=== PATIENT | female | born 1965 | race Caucasian/White ===

== ENCOUNTER 2020-10-29 11:23 | Emergency (ER) | payer OTHER, SELFPAY ==
--- NOTE | ~2020-10-29 | XR_ITS ---
XR ribs RT 2V w CXR 2V DATE: 10/29/2020 14:01 INDICATION: Upper lateral right rib pain after a fall TECHNIQUE: PA and lateral chest. 3 views of the right ribs. COMPARISON: None FINDINGS: Normal heart size. No hilar or mediastinal enlargement. No pulmonary infiltrate or consolid ation, pleural effusion or pulmonary vascular congestion or pneumothorax. No right rib fracture or bone destruction. Degenerative spurring of the thoracic spine. IMPRESSION: No active cardiopulmonary disease No right rib fracture is detected Reviewed, dictated and finalized at location B.
[2020-10-29 11:59] VITALS: BP 115/82; PULSE 81; RESP 18; TEMP 36.5; O2SAT 96
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
[2020-10-29 14:23] VITALS: BP 108/70; PULSE 76; RESP 12; O2SAT 99
== END 2020-10-29 14:23 | disposition home or self-care (01) ==
PROVIDERS: Emergency Provider General Practice; PCP Nurse Practitioner
DX: S29.012A Strain of muscle and tendon of back wall of thorax, initial encounter (principal); E03.9 Hypothyroidism, unspecified; G80.9 Cerebral palsy, unspecified; M19.90 Unspecified osteoarthritis, unspecified site; E78.2 Mixed hyperlipidemia; W18.09XA Striking against other object with subsequent fall, initial encounter
CPT/HCPCS: 71046; 71100; 99283

== ENCOUNTER 2020-11-26 11:00 | Outpatient (RCR) | payer OTHER, SELFPAY ==
--- NOTE | 2020-10-26 10:29 | PTOPEVAL ---
PHYSICAL THERAPY EVALUATION Thank you for referring Domingo Brumfield to [facility].? Domingo was evaluated for the dx of frequent falls/balance deficits. The patient is scheduled to be seen for therapy? 2 x/week for 4 weeks. Please review, sign, date and return this plan of care BIBI. I agree with and certify that the following plan of care is medically necessary. Referring Physician Date Attending Provider: Neena Biggs NP Referring Provider: Neena Biggs NP *PT Outpatient Evaluation Start: 10/26/20 09:11 Freq: Status: Active Protocol: Document 10/26/20 09:11 MLV (Rec: 10/26/20 10:18 MLV [id number]) Assessment Status Evaluation Evaluation Information Problem Diagnosis repeated falls/cerebral palsy Onset chronic Cause no injury but frequent falls Additional Evaluation Detail Patient reports having an increased frequency of falls and the last fall caused facial and torso bruising ( last Thursday). Patient feels her balance has declined slowly since ECT treatments for depression and worse balance in the last year. The patient had not used a device until last fall and now using a cane per MD request. The patient lives at home with her and is now retired. The patient does housework, does shopping, and rides her 3 wheel bike. The patient wants therapy to help her balance so to be at less fall risk. Pain Assessment Timing of Pain Assessment Timing of Pain Assessment Assessment Pain Scale Pain Scale Used Numeric (1 - 10) Self Report Pain Assessment Right Ribs Reported Pain Level 5 Pain Description Aching Pain Frequency Acute Other Pain Description pain from fall/bruising Greatest Pain Intensity 8 Pain Score Pain Score 5: Self Report Interventions Used Interventions Used By Clinicians Education,Exercise Pain Relief Interventions Used By Heat,Ice,Inactivity/Rest Patient Lower Extremity Range of Motion General Lower Extremity Range of Motion Reason Not Measured WNL/Left,WNL/Right Gross Lower Extremity Range of Motion servando ankle DF 0-5' motion Comments Lower Extremity Muscle Strength Testing General Lower Extremity Strength Reason Not Measured
--- NOTE | 2020-10-29 11:07 | PCPTNOTE ---
Patient called & cancelled scheduled appointment this date due to conflict with another appt. Patient plans to be here for next scheduled appt.
--- NOTE | 2020-11-15 14:09 | PCPTNOTE ---
Patient did not show up for scheduled appointment this date. Called and she said she looked at the wrong date.
--- NOTE | 2020-11-26 14:50 | PTOPEVAL ---
PHYSICAL THERAPY DISCHARGE Thank you for referring Domingo Brumfield to [facility].? The patient has been seen 7 visits for the dx of repeated falls/CP. The patient's goals are partially met and skilled PT has peaked at this time. DC PT. Please review, sign, date and return this plan of care. I agree with and certify the following plan of care. Referring Physician Date Attending Provider: Neena Biggs NP Referring Provider: Neena Biggs NP *PT Outpatient Discharge Start: 10/26/20 09:11 Freq: Status: Active Protocol: Document 11/26/20 11:08 MLV (Rec: 11/26/20 12:07 MLV [id number]) Therapy Assessment Status Assessment Status Assessment Status Discharge Evaluation Information Problem Diagnosis repeated falls/cerebral palsy Onset chronic Cause no injury but frequent falls Additional Evaluation Detail The patient reports her balance feeling better and has fallen a couple times w/o injury. She feels her falls are not more than her usual due to CP issues. Pt feels her balance is as good as it can get. Pt denies trouble with her current HEP and can continue on her own. Pt reports the cane is working well for her and uses it regularly w/o trouble. Subjective Information Pt does not currently does not Query Text:As Reported By Patient/ have an MD appt but will be Family scheduling an appt. Pain Assessment Timing of Pain Assessment Timing of Pain Assessment Assessment Pain Scale Pain Scale Used Numeric (1 - 10) Self Report Pain Assessment Right Ribs Reported Pain Level 0 Pain Score Pain Score 0: Self Report Lower Extremity Muscle Strength Testing General Lower Extremity Strength Gross Lower Extremity Strength LE strength through motion 4/5 to 4-/5 at [facility]. CHAN's Balance Assessment Conde Balance Assessment Sitting to Standing Independent w/Hands Unsupported Stance Ability Safely- 2 minutes Sitting Unsupported, Feet on Floor Safely- 2 minutes Standing to Sitting Safely, Minimal Hand Use Transfer Ability Safely, Minimal Hand Use Unsupported Stance- Eyes Closed Safely, 10 seconds Unsupported Stance- Feet Together Independent, 1 minute Reaching Forward while Standing Safely, 5 inches supervisor mill Object From Floor Independent/Safe Look Behind Shoulder - Standing Shifts Weight Well Turning 360 Degrees Turns Bilateral, < 4 secs Unsu
== END 2020-11-27 08:10 | disposition home or self-care (01) ==
LOC: ANHPT 11:00
PROVIDERS: PCP Nurse Practitioner; Referring Provider Nurse Practitioner; Visit Provider Nurse Practitioner
DX: R29.6 Repeated falls (principal)
CPT/HCPCS: 97110; 97116; 97162; 97530

== ENCOUNTER 2020-11-26 12:04 | Emergency (ER) | payer OTHER, SELFPAY ==
--- NOTE | ~2020-11-26 | XR_ITS ---
EXAMINATION: XR shoulder LT min 2V DATE: 11/26/2020 13:00 INDICATION: Left shoulder pain. TECHNIQUE: 5 views of left shoulder were obtained. COMPARISON: None. FINDINGS: Bone alignment is normal. No fracture. There is mild osteoarthritis of the acromioclavicula r joint and glenohumeral joint. IMPRESSION: 1. Mild polyarticular osteoarthritis. Reviewed, dictated and finalized at location B.
[2020-11-26 12:12] VITALS: BP 134/90; PULSE 81; RESP 18; TEMP 36.6; O2SAT 94
--- NOTE | 2020-11-26 13:12 | ED.GENADULT ---
HPI - General Adult General Chief complaint: Fall Stated complaint: fall Time Seen by Provider: 11/26/20 12:11 Source: patient History of Present Illness HPI narrative: Patient is a 55 y/o female complaining of left shoulder pain after a fall one hour ago. She states that she was at therapy and fell. She was getting therapy for balance problem due to CP. She describes her pain as aching and rates it as 4/10. Movement worsens the pain. She denies hitting her head. She has no headache, neck pain, back pain, chest pain or abdominal pain. Related Data Allergies Allergy/AdvReac Type Severity Reaction Status Date / Time simvastatin Allergy Unknown Muscle pain Verified 10/22/20 15:16 Mlzynrx-Eig-Bfi Reductase Allergy Unknown Muscle Pain Verified 10/22/20 15:16 Inhibitor Sulfa (Sulfonamide Allergy Unknown Hives Verified 10/22/20 15:16 Antibiotics) Review of Systems Constitutional: Constitutional: Denies chills, Denies fever(s), Denies headache(s) and Denies weakness Eyes: Eyes: Denies blurry vision ENT: Denies headache(s) and Denies neck pain Cardiovascular: Cardiovascular: Denies chest pain and Denies dyspnea Respiratory: Respiratory: Denies cough and Denies dyspnea Gastrointestinal: Gastrointestinal: Denies abdominal pain, Denies diarrhea, Denies nausea and Denies vomiting Genitourinary: Genitourinary: Denies hematuria and Denies dysuria Musculoskeletal: Musculoskeletal: Denies back pain, Reports arthralgias (left shoulder pain) and Denies neck pain Neurologic: Denies headache(s) and Denies weakness [facility] Past Medical History Medical History Adult hypothyroidism Cerebral palsy Chronic osteoarthritis Combined hyperlipidemia Depressive disorder, not elsewhere classified Family History Family History Mother Family history of elevated blood lipids Family history of arthritis Father Family history of diabetes mellitus in first degree relative Family history of heart disease in male family member before age 55 Other Diabetes mellitus Family history of coronary artery disease Social History Social History Smoking status: Never smoker Alcohol intake: never Gender identity (if verbalized by the patient): Female Exam Const: General: no acute distress and well developed Orientation/consciousness: oriented to person, oriented to place, oriented to time and patient oriented x3 HENMT: Head: normocephalic Ears: external ears normal General nose exam: Normal external nose present Eyes: General: appearance normal, both eyes and all related structures Conjunctivae: conjunctivae normal Neck: Neck: normal visual inspection and full ROM Chest: Chest palpation & inspection: normal inspection of the chest and no tenderness Resp: Effort & Inspection: normal respiratory effort Auscultation: clear to auscultation bilaterally Cardio: Rate: regular rate Rhythm: regular rhythm GI: GI Palp: No abdominal tenderness and Yes Soft to palpation Skin: General skin exam: normal color and turgor normal Neuro: General: oriented to person, oriented to place, oriented to time and patient oriented x3 Cognition (Neuro): normal cognition Extrem: General: normal to inspection, full ROM and no pedal edema Left upper extremity: shoulder/upper arm tenderness (left shoulder) Psych: Appearance: grossly normal Mental Status: mental status grossly normal Affect: normal affect Course Vital Signs Vital signs: Vital Signs Temperature 36.6 C 11/26/20 12:12 Pulse Rate 81 11/26/20 12:12 Respiratory Rate 18 11/26/20 12:12 Blood Pressure 134/90 11/26/20 12:12 Pulse Oximetry 94 11/26/20 12:12 Temperature 36.6 C 11/26/20 12:12 Pulse Rate 81 11/26/20 12:12 Respiratory Rate 18 11/26/20 12:12 Blood Pressure 134/90 11/26/20 12:12 Pulse Oxi
== END 2020-11-26 13:56 | disposition home or self-care (01) ==
LOC: ANHED 13:45
PROVIDERS: Emergency Provider Emergency Medicine; PCP Nurse Practitioner
DX: M25.512 Pain in left shoulder (principal); G80.9 Cerebral palsy, unspecified; E03.9 Hypothyroidism, unspecified; E78.2 Mixed hyperlipidemia; M19.012 Primary osteoarthritis, left shoulder; W01.0XXA Fall on same level from slipping, tripping and stumbling without subsequent striking against object, initial encounter
CPT/HCPCS: 73030; 99283; A4565

== ENCOUNTER → 2021-07-08 10:32 | Outpatient (CLI) | payer OTHER, SELFPAY ==
--- NOTE | ~2021-07-08 | MM_ITS ---
EXAMINATION: MM screening brigid BI w jose miguel HISTORY: Screening mammogram TECHNIQUE: Craniocaudal and mediolateral oblique 3-D tomosynthesis images were obtained and synthetic 2-D images were generated. Bilateral rotated lateral cc views. CAD analysis was submitted and interp reted. COMPARISON: , 07/16/2015 bilateral screening mammogram examinations BREAST PARENCHYMAL COMPOSITION: There are scattered areas of fibroglandular density. FINDINGS: Stable mild fibroglandular asymmetry. There is no evidence of suspicious mass, calcificatio n, or architectural distortion to suggest malignancy in either breast. There has been no suspicious i nterval change. IMPRESSION: 1. No mammographic evidence of malignancy. 2. Recommend routine screening mammography in one year. BI-RADS Category 2: Benign finding(s). Reviewed, dictated and finalized at location A. ION BEAMER
== END ==
PROVIDERS: PCP Nurse Practitioner; Visit Provider Obstetrics & Gynecology
DX: Z12.31 Encounter for screening mammogram for malignant neoplasm of breast (principal)
CPT/HCPCS: 77063; 77067

== ENCOUNTER → 2022-07-25 12:34 | Outpatient (CLI) | payer OTHER, SELFPAY ==
--- NOTE | ~2022-07-25 | MM_ITS ---
EXAMINATION: MM screening brigid BI w jose miguel HISTORY: Screening TECHNIQUE: Craniocaudal and mediolateral oblique 3-D tomosynthesis images were obtained and synthetic 2-D images were generated. CAD analysis was submitted and interpreted. COMPARISON: Comparison to multiple prior studies sequentially, with oldest reviewed study dated 02/2015. BREAST PARENCHYMAL COMPOSITION: There are scattered areas of fibroglandular density. FINDINGS: The left breast is stable without evidence for malignancy. There is a new focal asymmetry c entrally in the right breast on CC view. IMPRESSION: 1. New focal right breast asymmetry centrally in the right breast on CC view only. 2. Additional mammographic views and possible breast ultrasound are recommended. BI-RADS Category 0: Incomplete: Needs additional imaging evaluation. Reviewed, dictated and finalized at location B. ERNITY ADVISER IMPRESSION: 1. New focal right breast asymmetry centrally in the right breast on CC view on ly. 2. Additional mammographic views and possible breast ultrasound are recommended . BI-RADS Category 0: Incomplete: Needs additional imaging evaluation.
== END ==
PROVIDERS: PCP Nurse Practitioner; Visit Provider Obstetrics & Gynecology
DX: Z12.31 Encounter for screening mammogram for malignant neoplasm of breast (principal); R92.8 Other abnormal and inconclusive findings on diagnostic imaging of breast
CPT/HCPCS: 77063; 77067

== ENCOUNTER → 2022-09-25 11:20 | Outpatient (CLI) | payer OTHER, SELFPAY ==
--- NOTE | ~2022-09-25 | XR_ITS ---
EXAMINATION: XR knee RT min 4V DATE: 09/25/2022 11:49 INDICATION: Right knee pain TECHNIQUE: Four views of the right knee were obtained. COMPARISON: 11/07/2014 FINDINGS: Alignment is normal. No fracture or osteochondral lesion. There is moderate tricompartmenta l osteoarthritis characterized by marginal osteophytes and joint space narrowing with interval worsen ing. No joint effusion/synovitis. Soft tissues are unremarkable. IMPRESSION: 1. Tricompartmental osteoarthritis with interval worsening since the comparison examination. Reviewed, dictated and finalized at location A. PHONE INSTRUMENT SUPERVISOR
== END ==
PROVIDERS: PCP Nurse Practitioner; Visit Provider Nurse Practitioner
DX: M17.11 Unilateral primary osteoarthritis, right knee (principal)
CPT/HCPCS: 73564

== ENCOUNTER → 2022-10-07 08:03 | Outpatient (CLI) | payer OTHER, SELFPAY ==
--- NOTE | ~2022-10-07 | MMUS_ITS ---
EXAMINATION: MM diagnostic brigid RT w jose miguel, US breast RT complete HISTORY: New focal right breast asymmetry in central right breast on screening craniocaudal view of 1 09/25/2021 TECHNIQUE: Additional 3-D tomosynthesis images of the right breast were performed and synthetic 2-D i mages were generated. CAD analysis was submitted and interpreted. Old medial and lateral craniocaudal views. High resolution complete right breast ultrasound examination including all 4 quadrants and payne bareolar area was performed. COMPARISON: 07/25/2022 bilateral screening mammogram FINDINGS: MAMMOGRAPHIC FINDINGS: There is heterogeneous dense stroma in the area of interest in the central right breast. No reproduci ble mass is evident on multiple views, but the heterogeneously dense stroma may obscure a mass. Ultra sound was therefore performed. ULTRASOUND: Real-time imaging of the complete right breast reveals no suspicious mass or shadowing, cyst or other significant sonographic abnormality. IMPRESSION: 1. No mammographic evidence of malignancy 2. Routine annual mammographic screening is recommended. BI-RADS Category 1: Negative Reviewed, dictated and finalized at location A. ERY MATER IMPRESSION: 1. No mammographic evidence of malignancy 2. Routine annual mammographic screening is recommended. BI-RADS Category 1: Negative
== END ==
PROVIDERS: PCP Obstetrics & Gynecology; Visit Provider Obstetrics & Gynecology
DX: R92.8 Other abnormal and inconclusive findings on diagnostic imaging of breast (principal)
CPT/HCPCS: 76641; 77061; 77065; G0279

== ENCOUNTER → 2023-02-17 08:46 | Outpatient (CLI) | payer OTHER, SELFPAY ==
--- NOTE | ~2023-02-17 | CT_ITS ---
EXAMINATION: CT lumbar spine wo con DATE: 02/17/2023 09:16 INDICATION: Unspecified osteoarthritis, unspecified site. Degeneration of intervertebral discs. TECHNIQUE: Computed tomography (CT) of the lumbar spine was performed without intravenous contrast. A utomated exposure control and iterative reconstruction technique were employed. The dose-length produ ct was 383.11 mGy-cm. COMPARISON: None FINDINGS: There is an electrode in left S3 neural foramen. There is 7 degrees dextrocurvature of thor acolumbar spine. There is 3 mm retrolisthesis of L1 on L2. Vertebral body heights are normal. There i s moderately decreased disc height at L1-L2 and severely decreased disc height at L5-S1 with endplate remodeling. The following disc levels are specifically discussed: L1-L2: The disc is bulging. There is mild bilateral facet joint osteoarthritis. There is mild bilater al neural foraminal stenosis. There is mild central canal stenosis. L2-L3: The disc does not extend beyond the endplate margin. There is mild bilateral facet joint osteo arthritis. There is no neural foraminal stenosis. There is no central canal stenosis. L3-L4: The disc is bulging. There is moderate right and severe left facet joint osteoarthritis. There is mild bilateral neural foraminal stenosis. There is mild central canal stenosis. L4-L5: The disc is bulging. There is severe bilateral facet joint osteoarthritis. There is mild right and moderate left neural foraminal stenosis. There is mild central canal stenosis. L5-S1: The disc is bulging. There is severe right and moderate left facet joint osteoarthritis. There is moderate bilateral neural foraminal stenosis. There is mild central canal stenosis. IMPRESSION: 1. Severe lumbar spondylosis. Reviewed, dictated and finalized at location E.
== END ==
PROVIDERS: PCP Nurse Practitioner Family; Visit Provider Nurse Practitioner Family
DX: M19.90 Unspecified osteoarthritis, unspecified site (principal); M47.896 Other spondylosis, lumbar region
CPT/HCPCS: 72131

== ENCOUNTER 2023-08-24 10:07 | Outpatient (CLI) | payer OTHER, SELFPAY ==
--- NOTE | 2023-08-24 11:03 | ECG_ITS ---
Measurements Intervals [place] Rate: 83 P: 32 MI: 139 QRS: 50 QRSD: 82 T: 24 QT: 348 QTc: 410 Interpretive Statements SINUS RHYTHM BASELINE ARTIFACT- I, II, III, AVR, AVL, AVF, V1-V6 NORMAL ECG NO PREVIOUS ECG AVAILABLE FOR COMPARISON Electronically Signed On 08-24-2023 11:20:57 STRAIGHT RULING MACHINE OPERATOR by Xavier Garcia D.O.
[2023-08-24 11:32] LABS: White Blood Count 6.9 K/mm3 (4.5-10.0)
[2023-08-24 11:40] LABS: Albumin Level 4.7 g/dL (3.5-5.1)
[2023-08-24 11:42] LABS: Urine Cotinine NEGATIVE
[2023-08-24 11:43] LABS: INR 0.9; Prothrombin Time 12.5 Seconds (11.1-14.7)
[2023-08-24 11:44] LABS: Partial Thromboplastin Time 26.1 SECONDS (22.3-36.8)
[2023-08-24 13:32] LABS: Hemoglobin A1C 6.2 % (<5.7)
== END 2023-08-24 10:08 | disposition home or self-care (01) ==
LOC: ANHSURGERY 10:15
PROVIDERS: PCP Family Medicine; Visit Provider Orthopaedic Surgery
DX: M17.9 Osteoarthritis of knee, unspecified (principal); D72.829 Elevated white blood cell count, unspecified; Z01.818 Encounter for other preprocedural examination
CPT/HCPCS: 80307; 82040; 83036; 85048; 85610; 85730; 87081; 93005

== ENCOUNTER 2023-10-09 09:37 | Outpatient (CLI) | payer MEDICARE, SELFPAY ==
[2023-10-09 10:25] LABS: Basophils Absolute Auto 0.1 K/mm3 (0.0-0.1); Basophils Percent Auto 1.1 % (0.2-1.2); Eosinophils Absolute Auto 0.5 K/mm3 (0-0.3); Eosinophils Percent Auto 4.8 % (0-4.4); Hematocrit 44.5 % (37.0-47.0); Hemoglobin 14.5 g/dL (12.0-15.0); Immature Granulocyte Absolute 0.06 K/mm3 (0.00-0.031); Immature Granulocyte Percent A 0.6 % (0-0.5); Lymphocytes Absolute Auto 2.27 K/mm3 (0.9-3.2); Lymphocytes Percent Auto 24.1 % (18.3-44.2); Mean Corpuscular HGB Conc 32.6 g/dl (32-36); Mean Corpuscular Hemoglobin 31.3 pg (26-34); Mean Corpuscular Volume 95.9 fl (80-100); Mean Platelet Volume 9.1 fl (7.4-10.4); Monocytes Absolute Auto 0.9 K/mm3 (0.1-0.6); Monocytes Percent Auto 9.9 % (2.6-8.5); Neutrophils Absolute Auto 5.6 K/mm3 (1.3-6.7); Neutrophils Percent Auto 59.5 % (45.5-73.1); Platelet Count Result 342 k/mm3 (150-375); Red Blood Count 4.64 M/mm3 (4.2-5.4); Red Cell Distribution Width 12.6 % (11.5-14.5); White Blood Count 9.4 K/mm3 (4.5-10.0)
[2023-10-09 10:28] LABS: Appearance Urine Clear (Clear); Bacteria Urine None Seen /hpf; Bilirubin Urine Negative (Negative); Blood Urine Negative (Negative); Color Urine Yellow (Yellow); Glucose Urine UA Negative (Negative); Ketones Urine Negative (Negative); Leukocyte Esterase Ur Trace LEU/UL (Negative); Nitrate Urine Negative (Negative); Non Pathogenic Casts 0-2; Protein Urine Negative (Negative); RBC Urine 0-2 /hpf (0-2); Specific Grav Ur 1.027 (1.001-1.035); Squamous Epithelial Cell Urine Occasional /hpf (Few); WBC Urine 0-5 /hpf
[2023-10-09 10:30] LABS: Add Urine Microscopic? YES
[2023-10-09 10:49] LABS: Anion Gap 6 mmol/L (8-16); Blood Urea Nitrogen 29 mg/dL (7-17); Calcium 9.3 mg/dL (8.4-10.2); Carbon Dioxide 28 mmol/L (22-30); Chloride 102 mmol/L (98-107); Estimated Glomerular Filt Rate > 60; Glucose 87 mg/dL (65-110); Sodium 136 mmol/L (137-145)
== END 2023-10-09 09:38 | disposition home or self-care (01) ==
PROVIDERS: PCP Family Medicine; Visit Provider Orthopaedic Surgery
DX: M17.11 Unilateral primary osteoarthritis, right knee (principal); Z01.818 Encounter for other preprocedural examination
CPT/HCPCS: 36415; 80048; 81001; 85025; 86850; 86900; 86901

== ENCOUNTER 2023-10-14 14:41 | Inpatient (IN) | payer MEDICARE, OTHER, SELFPAY ==
[2023-08-24 09:35] VITALS: BP 108/76; PULSE 88; RESP 18; TEMP 36.6; O2SAT 98; BMI 25.7
--- NOTE | 2023-08-24 09:36 | PC.NURSE ---
PRE-OP INSTRUCTIONS, PLEASE READ CAREFULLY Report to the Outpatient Waiting Room, entrance under the green pavilion located off [facility], at time _0900_ on date _09/09/23_. Planned Procedure Time: _1100_. PACK A SMALL OVERNIGHT BAG AND LEAVE IN THE CAR ALONG WITH YOUR WALKER Time changes happen often and if your time is changed the preop area will call you the afternoon before. - You and your visitor will be asked to self-screen and do not enter if you have any COVID symptoms. - A mask is optional within the hospital at this time. -VISITING HOURS 8AM-8PM Patients may have clear liquids (water, carbonated beverages, clear teas, apple juice) until 3 hours prior to surgery (0800 AM) with a maximum of 20 ounces. - No food from midnight until time of surgery Take the following medications with a SIP of water the morning of surgery: _FLUVOXAMINE, LEVOTHYROXINE, PREGABALIN, PROPRANOLOL & PAIN PILL, IF NEEDED_ DO NOT STOP ANY OF YOUR OTHER PRESCRIPTION MEDICATIONS PRIOR TO SURGERY ?EXCEPT THE FOLLOWING Medications to discontinue - _MELOXICAM INSTRUCTED BY DR. MARQUEZ, Date to take last dose_CALL OFFICE FOR INSTRUCTIONS_ Please no make-up, nail iranian, hairspray, perfume, deodorant, or body powder the day of surgery. No jewelry (including any body piercings) or valuables the day of surgery, leave them at home. Please take a shower or bath the night before, or the morning of, surgery with an antibacterial soap. Wear comfortable, loose fitting clothing. - Jewelry must be removed prior to entering the operating room. Rings and piercings that are not removed may be cut off. - The hospital will not accept responsibility for valuables. - Please leave all valuables, including medications, at home the day of surgery. If you are going home after surgery, a licensed motor pool driver must drive you home. - NO public transportation without another adult if you receive anesthesia. - We recommend that an adult stay with you for 24 hours following discharge. - We also recommend that you do not drive, make important decision, drink alcoholic beverages, or take any drugs that were not prescribed by your health care provider for at least 24 hours after your discharge time. Follow any additional instructions given to you from your surgeon. TOTAL JOINT CLASS 08/26/23 @ [address] [place] [address] ENTRANCE 2 - LOWER LEVEL If you or anyone in your household have experienced Covid symptoms in the past week, please notify your surgeon or the nurse liaison at the phone number below for possible testing. Instructions given to _PATIENT_and asked if any additional questions and then verbalized understanding. Patient advised to call surgeon office or pre surgery nurse liaison [phone] if any additional questions.
[2023-10-02 11:24] VITALS: BMI 25.7
--- NOTE | 2023-10-02 11:28 | PC.NURSE ---
PRE-OP INSTRUCTIONS, PLEASE READ CAREFULLY Report to the Outpatient Waiting Room, entrance under the green pavilion located off [facility], at time _0830_ on date _10/14/23_. Planned Procedure Time: _1030_. Time changes happen often and if your time is changed the preop area will call you the afternoon before. - You and your visitor will be asked to self-screen and do not enter if you have any COVID symptoms. - A mask is optional within the hospital at this time. Patients may have clear liquids (water, carbonated beverages, clear teas, apple juice) until 3 hours prior to surgery (0730 AM) with a maximum of 20 ounces. - No food from midnight until time of surgery Take the following medications with a SIP of water the morning of surgery: _FLUVOXAMINE,LEVOTHYROXINE,PREGABALIN,PROPRANOLOL, & PAIN PILL IF NEEDED_ DO NOT STOP ANY OF YOUR OTHER PRESCRIPTION MEDICATIONS PRIOR TO SURGERY ?EXCEPT THE FOLLOWING Medications to discontinue - _MELOXICAM PER DR. RAYMOND'S INSTRUCTIONS_ Please no make-up, nail croatian, hairspray, perfume, deodorant, or body powder the day of surgery. No jewelry (including any body piercings) or valuables the day of surgery, leave them at home. Please take a shower or bath the night before, or the morning of, surgery with an antibacterial soap. Wear comfortable, loose fitting clothing. - Jewelry must be removed prior to entering the operating room. Rings and piercings that are not removed may be cut off. - The hospital will not accept responsibility for valuables. - Please leave all valuables, including medications, at home the day of surgery. If you are going home after surgery, a licensed special events driver must drive you home. - NO public transportation without another adult if you receive anesthesia. - We recommend that an adult stay with you for 24 hours following discharge. - We also recommend that you do not drive, make important decision, drink alcoholic beverages, or take any drugs that were not prescribed by your health care provider for at least 24 hours after your discharge time. Follow any additional instructions given to you from your surgeon. If you or anyone in your household have experienced Covid symptoms in the past week, please notify your surgeon or the nurse liaison at the phone number below for possible testing. Telephone instructions given to _PATIENT_and asked if any additional questions and then verbalized understanding. Patient advised to call surgeon office or pre surgery nurse liaison [phone] if any additional questions.
--- NOTE | 2023-10-13 14:53 | WPDANESEPPF ---
Anes - Initial Pre Proc Eval Procedure: Operation Date: 10/14/23 10:30 Proposed Procedures p Right Total Knee Arthroplasty - Rich Gonzalez MD Date/Time: 10/13/23 14:53 Surgeon: Rich Gonzalez MD Pre Op Diagnosis: right knee djd Patient Data Age: 58 Gender: F Height: 1.56 m Weight: 62.9 kg Last Vital Signs Temp 36.6 C 08/24/23 09:35 Pulse 88 08/24/23 09:35 Resp 18 08/24/23 09:35 BP 108/76 08/24/23 09:35 Pulse Ox 98 08/24/23 09:35 O2 Del Method Room Air 08/24/23 09:35 Allergies Allergy/AdvReac Type Severity Reaction Status Date / Time simvastatin Allergy Unknown Muscle pain Verified 10/14/23 09:32 Cindqrf-ZQG-IqX Reductase Allergy Unknown Muscle Pain Verified 10/14/23 09:32 Inhibitor [Eqpkhxl-Rrj-Czd Reductase Inhibitor] Sulfa (Sulfonamide Allergy Unknown Hives Verified 10/14/23 09:32 Antibiotics) Home Medications Medication Instructions Recorded Confirmed Type fluvoxamine 50 mg tablet 50 mg PO DAILY #270 tabs 10/18/20 10/14/23 Rx propranolol 20 mg tablet 20 mg PO DAILY #90 tabs 10/18/20 10/14/23 Rx levothyroxine 88 mcg tablet 88 mcg PO DAILY #90 tabs 03/30/23 10/14/23 Rx (Synthroid) ezetimibe 10 mg tablet 10 mg PO DAILY #90 tabs 04/29/23 10/02/23 Rx cyclobenzaprine 10 mg tablet 10 mg TID PRN MUSCLE SPASMS 08/24/23 10/02/23 History loratadine 10 mg tablet (Claritin) 10 mg PO DAILY 08/24/23 10/14/23 History melatonin 10 mg tablet 10 mg PO HS PRN Sleep 08/24/23 10/02/23 History pregabalin 50 mg capsule 50 mg BID 08/24/23 10/14/23 History pregabalin 150 mg capsule 150 mg PO BID #180 caps 09/24/23 10/14/23 Rx chlorhexidine gluconate 4 % 1 applic topical ONCE #237 mL 09/30/23 10/02/23 Rx topical liquid (Hibiclens) Patient hx anesthesia problems: none Family hx anesthesia problems: none Results Review: All pre-operative results and documents have been reviewed as part of the pre-operative evaluation. [facility] Past Medical History Medical History Adult hypothyroidism Cerebral palsy Chronic osteoarthritis Combined hyperlipidemia DDD (degenerative disc disease) Degenerative joint disease of knee Depressive disorder, not elsewhere classified Effusion of knee joint Left knee DJD Right knee DJD Surgical History Surgical History H/O knee surgery History of appendectomy Family History Family History Mother Family history of elevated blood lipids Family history of arthritis Multiple myeloma Father Family history of diabetes mellitus in first degree relative Family history of heart disease in male family member before age 55 Other Diabetes mellitus Family history of coronary artery disease Social History Social History Social History: Caffeine-iced tea Smoking status: Never smoker Second hand tobacco smoke exposure: No Additional smoking assessment comments: PT DENIES ALL FORMS OF TOBACCO USE Alcohol intake: current Alcohol use details: VERY RARELY - WINE SPECIAL OCCASIONS 1-3X YR Substance use: never Substance use type: does not use Lack of Transportation: No Lack of Food: Never True Current Housing: I Have Housing Concerned About Future Housing: No Difficulty Paying Gas/Electric Bills: No Difficulty Paying for Meds: No Currently Unemployed: No Education: Associate Degree Difficulty w/ Childcare or Family Care: No Living arrangements: with family Additional living arrangements comments: LIVES WITH [employer] [employer] Occupation/Education: retired Gender identity (if verbalized by the patient): Female Sexual Orientation (if Verbalized by the Patient): Straight or Heterosexual Spiritual care concerns: No Agree to blood products: Yes Anes - Eval Final Pre
[2023-10-14] VITALS (15 sets, daily range): BP systolic 88–127; BP diastolic 56–92; PULSE 84–102; RESP 10–20; TEMP 35.9–37.2; O2SAT 93–100
--- NOTE | ~2023-10-14 | XR_ITS ---
EXAMINATION: [id number] DATE: 10/14/2023 13:41 INDICATION: Postoperative evaluation following right total knee arthroplasty. TECHNIQUE: Anteroposterior and lateral views of the right knee were obtained. COMPARISON: None. FINDINGS: Right total knee arthroplasty without patellar resurfacing appears well seated and in near anatomic a lignment. No fractures identified. Anterior skin ernst and expected postoperative subcutaneous and intra-articular gas. IMPRESSION: 1. Right total knee arthroplasty, negative for postoperative purposes. Reviewed, dictated and finalized at location A. URE PAINTER
--- NOTE | 2023-10-14 07:21 | WPDHPUPDATE1 ---
History and Physical Update Update Date/Time: 10/14/23 07:21 History and Physical has been reviewed, including an updated exam of the patient. There are NO changes in the patient's condition. Risks, benefits, and alternatives have been discussed and questions answered. Patient agrees to proceed with procedure.
[2023-10-14] MEDS: LACTATED RINGERS 1,000 ML 30 ML IV CONT ×2 (09:00→13:06)
[2023-10-14] MEDS: ACETAMINOPHEN 500 MG TABLET 1000 MG PO (09:40)
[2023-10-14] MEDS: TRANEXAMIC ACID 1,000MG/ISO100 1,000 MG/100 ML BAG 200 MG IVPB (10:30)
--- NOTE | 2023-10-14 10:39 | WPDANESPNB ---
Anes - Peripheral Nerve Block Date/Time: 10/14/23 10:39 I have discussed with the patient/family/POA the placement of a peripheral nerve block for post-operative pain management, including associated risks, benefits, complications, and side effects. Alternative methods of post-operative analgesia were detailed. Questions were solicited and answers provided to the satisfaction of the patient/family/POA. Time-Out: A pre-procedural Time-Out was completed immediately before starting the procedure and confirmed: Patient Identification, Site, Procedure, Patient Position and the Availability of Requisite Equipment. Clinical Indications: Acute post-operative pain management requested by the operative surgeon. Nerve Block Insertion Note Anes-nerve block: adductor canal right Patient position: supine Skin prep: chlorhexidine Needle: 22 gauge, stimulating, insulated echogenic needle. Needle length: 80 mm Technique: ultrasound Injectate: bupivacaine 0.5% with epi 5 mcg/ml (30cc - no epi) Observations: tolerated well Complications: none Procedure start time:: 1031 Procedure end time:: 1034
[2023-10-14] MEDS: ceFAZolin 2 GM/D5W 50 ML 2 GM/50 ML BAG IVPB ×2 (10:58→18:31)
[2023-10-14] MEDS: SODIUM CHLORIDE 0.9% IV 37.7 ML, MORPHINE SULFATE INJ (*CRX) 2 MG, ROPivacaine HCL 1% 2... INFILTRATE (11:26)
[2023-10-14] MEDS: TRANEXAMIC ACID 1,000 MG/10 ML AMPUL 1000 MG IV PUSH (12:16)
--- NOTE | 2023-10-14 12:58 | P.OP_ITS ---
Procedure Note - Detailed Date of Procedure 10/14/23 Pre-op Diagnosis right knee djd Post-op Diagnosis Same Procedure Performed R TKA Surgeon Rich Gonzalez MD Anesthesia General Description of Procedure THE RIGHT KNEE WAS PREPPED AND DRAPED IN THE STERILE FASHION. A MIDLINE SKIN INCISION WAS MADE. A MEDIAL PARAPATELLAR ARTHROTOMY WAS MADE. THE PATELLA WAS EVERTED. AN INTRAMEDULLARY DEYSI WAS PLACED IN THE FEMUR. A DISTAL FEMORAL CUT WAS MADE IN 5 DEGREES OF VALGUS REMOVING APPROXIMATELY 9 MM OF BONE FROM THE DISTAL FEMUR. THE FEMUR WAS SIZED TO 57.5. A 57.5 FEMORAL CUTTING BLOCK WAS PLACED IN 3 DEGREES OF EXTERNAL ROTATION AND IN ALIGNMENT WITH KAILEY'S LINE AND THE TRANSEPICONDYLAR AXIS. ANTERIOR POSTERIOR AND CHAMFER CUTS WERE MADE. THE CUTS WERE EXCELLENT. NEXT AN INTRAMEDULLARY CUTTING GUIDE WAS PLACED IN THE TIBIA. A TRANS TIBIAL CUT WAS MADE ALONG THE LONG AXIS OF THE TIBIA. APPRO XIMATELY 10 MM OF BONE WAS REMOVED FROM THE HIGH SIDE OF THE TIBIA. THE TIBIA WAS THEN PLANED TO A SMOOTH SURFACE. POSTERIOR FEMORAL OSTEOPHYTES WERE REMOVED FROM THE FEMORAL CONDYLES. A 63 TIBIAL TRIAL WAS PLACED IN ALIGNMENT WITH THE 1/3 MEDIAL ASPECT OF THE TIBIAL TUBERCLE. THEN A 57.5 FEMORAL TRIAL COMPONENT WAS PLACED. BOTH HAD EXCELLENT FITS. EVENTUALLY A 10 MM CR POLYETHYLENE TRIAL COMPONENT WAS PLACED. THE KNEE WAS TAKEN THROUGH A RANGE OF MOTION. THE KNEE CAME OUT TO FULL EXTENSION. THERE WAS NO ABNORMAL TILT TO THE PATELLA. THERE WAS GOOD A/P AND VARUS/VALGUS STABILITY. THERE WAS NO EXCESSIVE ROLL BACK WITH FLEXION. THE TRIAL COMPONENTS WERE REMOVED. THEN A 57.5 FEMORAL COMPONENT AND 63 TIBIAL COMPONENT WITH A 10 CR POLYETHYLENE COMPONENT WERE CEMENTED INTO PLACE. ONCE THE CEMENT WAS HARD THE KNEE WAS TAKEN THROUGH A ROM AGAIN AND FOUND TO BE STABLE WITH NO PATELLA TILT NO EXCESSIVE ROLL BACK WITH FLEXION AND GOOD STABILITY WITH COMPLETE AND FULL EXTENSION. THE KNEE WAS IRRIGATED WITH STERILE BETADINE AND WATER FOR ABOUT 3 MINUTES. THE BLEEDERS WERE CAUTERIZED. THE ARTHROTOMY WAS REPAIRED WITH NUMBER 1 VICRYL. THE SUB CUTANEOUS LAYER WITH 2-0 VICRYL AND THE SKIN WITH JIM. THE WOUND WAS WASHED AND A STERILE DRESSING WAS APPLIED. PATIENT WAS EXTUBATED. Estimated Blood Loss -150.0 Pathology None sent Complications No immediate complications Condition Stable Disposition PACU
--- NOTE | 2023-10-14 14:45 | ADMGEN ---
This patient, Domingo Brumfield, was admitted to 3 [facility] Surg Room 320-01. Patient/family oriented to hospital policies and general routines including ID bracelet, bed and alarms, visiting hours, pain management, procedures, bathroom and other care routines, personal items, smoking policy, room service/diet, and visiting hours. Information on how to activate the Rapid Response Team has been discussed. Patient/Family are encouraged to report perceived risks to care and to ask questions if they do not understand what they are told or what they should do.
[2023-10-14] MEDS: KETOROLAC 15 MG/ML VIAL (*BKC) IV PUSH ×2 (16:47→23:25)
[2023-10-14] MEDS: PREGABALIN (*CRX) 75 MG CAPSULE 150 MG PO (16:51)
[2023-10-14] MEDS: SENNA/DOCUSATE SODIUM TABLET 2 TAB PO (16:51)
[2023-10-14] MEDS: FAMOTIDINE 20 MG TABLET PO (20:12)
[2023-10-14] MEDS: ASPIRIN 325 MG ENTERIC TABLET PO (20:12)
[2023-10-14] MEDS: oxyCODONE/ACETAMINOPHEN (*CRX) 5-325 MG TABLET 2 TABLET PO (20:13)
[2023-10-15 00:21] VITALS: BP 114/72; PULSE 100; RESP 18; TEMP 36.5; O2SAT 92
[2023-10-15] MEDS: ceFAZolin 2 GM/D5W 50 ML 2 GM/50 ML BAG IVPB ×2 (03:47→11:36)
[2023-10-15 04:19] VITALS: BP 119/80; PULSE 99; RESP 18; TEMP 36.9; O2SAT 94
[2023-10-15] MEDS: KETOROLAC 15 MG/ML VIAL (*BKC) IV PUSH ×3 (05:30→18:00)
[2023-10-15] MEDS: LEVOTHYROXINE SODIUM 88 MCG TABLET PO (05:31)
[2023-10-15 06:42] LABS: Hematocrit 34.6 % (37.0-47.0); Hemoglobin 11.4 g/dL (12.0-15.0); Mean Corpuscular HGB Conc 32.9 g/dl (32-36); Mean Corpuscular Hemoglobin 31.6 pg (26-34); Mean Corpuscular Volume 95.8 fl (80-100); Mean Platelet Volume 8.9 fl (7.4-10.4); Platelet Count Result 279 k/mm3 (150-375); Red Blood Count 3.61 M/mm3 (4.2-5.4); Red Cell Distribution Width 12.9 % (11.5-14.5); White Blood Count 21.2 K/mm3 (4.5-10.0)
[2023-10-15 06:50] LABS: Anion Gap 2 mmol/L (8-16); Blood Urea Nitrogen 17 mg/dL (7-17); Calcium 8.7 mg/dL (8.4-10.2); Carbon Dioxide 29 mmol/L (22-30); Chloride 103 mmol/L (98-107); Estimated CRCL calculation 67 ml/min; Estimated Glomerular Filt Rate > 60; Glucose 125 mg/dL (65-110); Potassium 4.3 mmol/L (3.4-5.0); Sodium 134 mmol/L (137-145)
[2023-10-15 07:34] LABS: Band Neutrophils Percent 8 % (0-6); Basophils Absolute Manual 0.21 K/mm3 (0.0-0.1); Basophils Percent Manual 1 % (0-1); Lymphocytes Absolute Manual 1.48 K/mm3 (1.1-4.5); Monocytes Absolute Manual 0.63 K/mm3 (0.1-0.90); Monocytes Percent Manual 3 % (3-9); Neutrophils Absolute Manual 18.86 K/mm3 (1.7-7.2); Neutrophils Percent Manual 81 % (46-73); Platelet Estimate Adequate (Adequate); Schistocytes None Seen (NORMAL); Total Cells Counted 100
--- NOTE | 2023-10-15 08:59 | P.PNAN_ITS ---
Anes - Prog Note Post-Op Date/Time: 10/15/23 08:59 Cardiovascular status: normal Respiratory status: normal Airway patency: baseline Mental status: baseline Post-Op hydration status: normal Vital Signs: Last Vital Signs Temp 36.9 C 10/15/23 04:19 Pulse 99 10/15/23 04:19 Resp 18 10/15/23 04:19 BP 119/80 10/15/23 04:19 Pulse Ox 94 10/15/23 04:19 O2 Del Method Nasal Cannula 10/14/23 15:57 O2 Flow Rate 2 10/14/23 15:57 Pain Score (VAS): 0 I/O: Intake & Output 10/14/23 10/15/23 10/15/23 23:59 07:59 15:59 Intake Total 840 600 Output Total 1050 400 900 Balance -210 -400 -300 Laboratory Tests 10/15/23 06:29 10/15/23 06:29 10/15/23 06:29 WBC 21.2 H RBC 3.61 L Hgb 11.4 L D Hct 34.6 L MCV 95.8 MCH 31.6 MCHC 32.9 RDW 12.9 Plt Count 279 MPV 8.9 Immature Gran % (Auto) Not Reportable Neut % (Auto) Not Reportable Lymph % (Auto) Not Reportable [place] % (Auto) Not Reportable Eos % (Auto) Not Reportable Baso % (Auto) Not Reportable Lymph # (Auto) Not Reportable [place] # (Auto) Not Reportable Eos # (Auto) Not Reportable Baso # (Auto) Not Reportable Abs Immat Gran (auto) Not Reportable Absolute Neuts (auto) Not Reportable Absolute Nucleated RBC Not Reportable Total Counted 100 Neutrophils % (Manual) 81 H Band Neutrophils % 8 H Lymphocytes % (Manual) 7.0 L Monocytes % (Manual) 3 Basophils % (Manual) 1 Nucleated RBC % Not Reportable Abs Neuts (Manual) 18.86 H Abs Lymphs (Manual) 1.48 Abs Monocytes (Manual) 0.63 Abs Basophils (Manual) 0.21 H Platelet Estimate Adequate Schistocytes None seen Sodium 134 L Potassium 4.3 Chloride 103 Carbon Dioxide 29 Anion Gap 2 L BUN 17 D Creatinine 0.70 Estim Creat Clear Calc 67 Estimated GFR > 60 Glucose 125 H Calcium 8.7 Post-procedural complaints: none Patient Feedback: Patient satisfied with anesthetic care.
--- NOTE | 2023-10-15 09:32 | PM.PNORT ---
Progress Note: A&P Assessment and Plan (1) S/P total knee arthroplasty: Qualifiers: Laterality: right Qualified Code(s): Z96.651 - Presence of right artificial knee joint Code(s): Z96.659 - Presence of unspecified artificial knee joint Status: Acute Assessment and Plan: POD #1 : Right TKA Continue PT/OT. WBAT. Walker. HIGH FALL RISK. Continue pain control. Ice Knee. Protect skin. DVT prophylaxis with Aspirin. SCDs. Incentive Spirometry Use reviewed. Monitor Dressing. Change prior to discharge. Bowel Regimen. Dispo: Home with Home Health pending progress with PT/OT (2) Cerebral palsy: Qualifiers: Cerebral palsy type: unspecified type Qualified Code(s): G80.9 - Cerebral palsy, unspecified Code(s): G80.9 - Cerebral palsy, unspecified Status: Chronic Assessment and Plan: Patient has a history of CP. She has no eversion or dorsiflexion of the right foot at baseline. This is now causing difficulty with her postoperative therapy. She has never worn a brace on either LE. She would benefit from an AFO/Kandi Brace. She would benefit from a custom fabricated one in the fpc but for now, we need a brace to assist with PT/OT. I have contacted the [facility]. Waiting to discuss possibilities with the clinician today for fitting while inpatient. Will place orders pending discussion. HIGH FALL RISK PRECAUTIONS in the interim. D/C darnell catheter when possible. Time Spent With Patient Time: Reviewed history, exam, radiographs and current labs with attending MD and covering surgeon, Dr. Gonzalez, who agrees with current plan as indicated above. No further recommendations from Dr. Gonzalez at this time. Subjective Subjective Date/Time Seen: 10/15/23 09:32 Post Op day: 1 Interval history: POD #1: Right TKA Patient having difficulty with PT/OT due to right foot immobility with eversion and dorsiflexion at baseline. No brace present. Patient does not wear brace at home either. Patient has darnell catheter in place as she is worried about ambulating to the bathroom and did not feel she had enough help overnight. Overall, pain well controlled. Concerns about PT/OT mainly. Review of Systems Review of Systems: All systems reviewed & are unremarkable except as noted in HPI and below Exam Const: General: comfortable and no acute distress Resp: Effort & Inspection: normal respiratory effort Cardio: Rate: regular rate Rhythm: regular rhythm GI: GI Palp: Yes Soft to palpation, No Tenderness to palpation present (GI) and No Guarding due to palpation present (GI) Skin: General skin exam: wounds noted Wounds: wounds noted Other: Incision c/d/i. No surrounding redness/warmth. No hematoma. Mild ecchymosis. No wound dehiscence Neuro: Cognition (Neuro): normal cognition Extrem: General: no clubbing, cyanosis or edema, no pedal edema and muscle atrophy (hx of CP ) of the right lower extremity Right lower extremity: normal to inspection, knee Details: tenderness (diffuse, mild ) Location: of the patella, swelling (diffuse, consistent with surgical intervention ), abnormal ROM Details: pain with active ROM during, pain with passive ROM during and with range as follows (limited due to recent surgical intervention ); able to extend lower leg actively and ecchymosis (mild ), lower leg (Negative Estefani's Sign ) Details: normal to inspection; no erythema and no tenderness, ankle (No eversion/dorsiflexion at baseline. ) Details: abnormal ROM and foot Details: normal capillary refill, normal to inspection, abnormal ROM of toe, vascular exam Details: dorsalis pedis pulse present and motor-sensory exam Details: light-touch normal; no tenderness Left lower extremity: normal to inspection Psych: Mental Status: mental status grossly normal Objective Data Vital Signs Vital Signs: Vital Signs - 24 hr 10/14/23 09:35 10/14/23 13:06 10/14/23 13:20 Temperature 36.6 C 36.7 C
[2023-10-15] MEDS: PROPRANOLOL HCL 20 MG TABLET PO (09:58)
[2023-10-15] MEDS: FAMOTIDINE 20 MG TABLET PO ×2 (09:59→20:18)
[2023-10-15] MEDS: ASPIRIN 325 MG ENTERIC TABLET PO ×2 (09:59→20:18)
[2023-10-15] MEDS: PREGABALIN (*CRX) 75 MG CAPSULE 150 MG PO ×2 (09:59→18:01)
[2023-10-15] MEDS: FLUVOXAMINE 50 MG PO (11:36)
[2023-10-15 12:06] VITALS: BP 103/71; PULSE 97; RESP 18; TEMP 36.3; O2SAT 97
[2023-10-15 16:26] VITALS: BP 107/67; PULSE 94; RESP 18; TEMP 36.6; O2SAT 96
[2023-10-15] MEDS: SENNA/DOCUSATE SODIUM TABLET 2 TAB PO (18:01)
[2023-10-15] MEDS: MELATONIN 5 MG TABLET 10 MG PO (20:18)
[2023-10-15] MEDS: oxyCODONE/ACETAMINOPHEN (*CRX) 5-325 MG TABLET 2 TABLET PO (20:19)
[2023-10-15 21:18] VITALS: BP 95/58; PULSE 101; RESP 21; TEMP 36.2; O2SAT 100
[2023-10-15] MEDS: CYCLOBENZAPRINE HCL 10 MG TABLET BY MOUTH (23:16)
[2023-10-16 06:00] VITALS: BP 110/77; PULSE 98; RESP 20; TEMP 36.6; O2SAT 99
[2023-10-16] MEDS: LEVOTHYROXINE SODIUM 88 MCG TABLET PO (06:39)
[2023-10-16 08:25] VITALS: BP 103/78; PULSE 123; O2SAT 94
[2023-10-16 08:39] VITALS: PULSE 123
[2023-10-16] MEDS: PREGABALIN (*CRX) 75 MG CAPSULE 150 MG PO ×2 (08:39→16:36)
[2023-10-16] MEDS: SENNA/DOCUSATE SODIUM TABLET 2 TAB PO ×2 (08:39→16:35)
[2023-10-16] MEDS: FAMOTIDINE 20 MG TABLET PO (08:39)
[2023-10-16] MEDS: PROPRANOLOL HCL 20 MG TABLET PO (08:39)
[2023-10-16] MEDS: FLUVOXAMINE 50 MG PO (08:40)
[2023-10-16] MEDS: ASPIRIN 325 MG ENTERIC TABLET PO (08:40)
[2023-10-16] MEDS: polyethylene glycoL 3350 17 GM POWD.PACK PO (08:40)
[2023-10-16 09:17] LABS: Basophils Absolute Auto 0.1 K/mm3 (0.0-0.1); Basophils Percent Auto 0.6 % (0.2-1.2); Eosinophils Absolute Auto 0.2 K/mm3 (0-0.3); Eosinophils Percent Auto 1.4 % (0-4.4); Hematocrit 33.8 % (37.0-47.0); Hemoglobin 11.1 g/dL (12.0-15.0); Immature Granulocyte Absolute 0.03 K/mm3 (0.00-0.031); Immature Granulocyte Percent A 0.3 % (0-0.5); Lymphocytes Absolute Auto 1.78 K/mm3 (0.9-3.2); Mean Corpuscular HGB Conc 32.8 g/dl (32-36); Mean Corpuscular Hemoglobin 32.1 pg (26-34); Mean Corpuscular Volume 97.7 fl (80-100); Mean Platelet Volume 9.1 fl (7.4-10.4); Monocytes Absolute Auto 1.2 K/mm3 (0.1-0.6); Monocytes Percent Auto 10.8 % (2.6-8.5); Neutrophils Absolute Auto 7.9 K/mm3 (1.3-6.7); Neutrophils Percent Auto 70.9 % (45.5-73.1); Platelet Count Result 286 k/mm3 (150-375); Red Blood Count 3.46 M/mm3 (4.2-5.4); Red Cell Distribution Width 13.2 % (11.5-14.5); White Blood Count 11.1 K/mm3 (4.5-10.0)
[2023-10-16] MEDS: oxyCODONE/ACETAMINOPHEN (*CRX) 5-325 MG TABLET 2 TABLET PO (09:51)
--- NOTE | 2023-10-16 12:16 | PM.PNORT ---
Progress Note: A&P Assessment and Plan (1) S/P total knee arthroplasty: Qualifiers: Laterality: right Qualified Code(s): Z96.651 - Presence of right artificial knee joint Code(s): Z96.659 - Presence of unspecified artificial knee joint Status: Acute Assessment and Plan: LORNE IS POD 2 AND HAVING SLOW PROGRESS WITH PT DUE TO HER CERBRAL PALSEY SEQUELA TO HER RIGHT FFOT. SHE IS AWAITING A BRACE TO ALLOW HER TO AMBULATE BETTER. SHE WILL STILL REQUIRE ACUTE REHAB AT THE [facility]. HER CEREBRAL PALSEY IS INTERFERING WITH HER PROGRESS WITH HER RIGHT KNEE REPLACEMENT. SHE CAN BE DISCHARGED TO ACUTE REHAB ONCE SHE RECEIVES HER AFO ORTHOTIC. (2) Cerebral palsy: Qualifiers: Cerebral palsy type: unspecified type Qualified Code(s): G80.9 - Cerebral palsy, unspecified Code(s): G80.9 - Cerebral palsy, unspecified Status: Chronic Subjective Subjective Date/Time Seen: 10/16/23 12:16 Interval history: POD 2 DOING WELL. SHE IS HAVING SLOW PROGRESS WITH PHYSICAL THERAPY. HER CEREBRAL PALSY SEQUELA TO HER RIGHT FOOT IS COMPLICATING HER PROGRESS WITH HER RIGHT KNEE REPLACEMENT. SHE IS HAVING DIFFICULTY AMBULATING DUE TO HER EQUINUS DEFORMITY. SHE IS AWAITING HER RIGHT AFO ORTHOTIC. Exam Extrem: Other: VSS AFEBRILE DRESSING DRY NV INTACT CALF SOFT NON TENDER THIGH SOF NON TENDER, RIGHT FOOT EQUINUS DEFORMITY,SENSATION INTACT Objective Data Vital Signs Vital Signs: Vital Signs - 24 hr 10/15/23 16:26 10/15/23 21:18 10/15/23 20:00 Temperature 36.6 C 36.2 C L Pulse Rate 94 101 H Respiratory Rate 18 21 H Blood Pressure 107/67 95/58 L Pulse Oximetry 96 100 Oxygen Delivery Room Air 10/16/23 06:00 10/16/23 08:25 10/16/23 08:39 Temperature 36.6 C Pulse Rate 98 123 H 123 H Respiratory Rate 20 Blood Pressure 110/77 103/78 Pulse Oximetry 99 94 Oxygen Delivery 10/16/23 08:40 Temperature Pulse Rate Respiratory Rate Blood Pressure Pulse Oximetry Oxygen Delivery Room Air Intake/Output Intake/Output: Intake & Output 10/13/23 10/14/23 10/15/23 10/16/23 23:59 23:59 23:59 23:59 Intake Total 1720 2090 960 Output Total 1400 2750 850 Balance 320 -660 110 Meds/Results Medications: Active Medications Generic Name Dose Route Start Last Admin Trade Name Shantel PRN Reason Stop Dose Admin Acetaminophen 1,000 mg 10/14/23 14:41 Acetaminophen 500 Mg Tablet PO Q6H PRN Pain Rated 1-3 Aspirin 325 mg 10/14/23 21:00 10/16/23 08:40 Aspirin 325 Mg Enteric Tablet PO 325 mg Q12HR MONIKA Administration Cyclobenzaprine HCl 10 mg 10/14/23 14:41 10/15/23 23:16 Cyclobenzaprine Hcl 10 Mg Tablet BY MOUTH 10 mg TID PRN Administration MUSCLE SPASMS Diazepam 5 mg 10/14/23 14:41 Diazepam (*Crx) 5 Mg Tablet PO Q8H PRN Spasms Diphenhydramine HCl 25 mg 10/14/23 14:41 Diphenhydramine Hcl Inj 50 Mg/Ml Vial IV PUSH Q6H PRN Itching Famotidine 20 mg 10/14/23 21:00 10/16/23 08:39 Famotidine 20 Mg Tablet PO 20 mg Q12HR MONIKA Administration Levothyroxine Sodium 88 mcg 10/15/23 06:30 10/16/23 06:39 Levothyroxine Sodium 88 Mcg Tablet PO 88 mcg DAILY@0630 MONIKA Administration Melatonin 10 mg 10/14/23 14:41 10/15/23 20:18 Melatonin 5 Mg Tablet PO 10 mg HS PRN Administration Sleep Naloxone HCl 0.1 mg 10/14/23 14:41 Naloxone Hcl 0.4 Mg/Ml Vial IV PUSH Q2M PRN Opiate Reversal Nonform Fluvoxamine 0 mg 10/15/23 09:00 10/16/23 08:40 50 Mg Tablet PO 11/14/23 08:59 50 mg DAILY MONIKA Administration Ondansetron HCl 4 mg 10/14/23 14:41 Ondansetron Inj 4 Mg/2 Ml Vial IV PUSH Q4H PRN Nausea And Vomiting Oxycodone/Acetaminophen 1 tablet 10/14/23 14:41 Oxycodone/Acetaminophen (*Crx) 5-325 Mg Tablet PO Q4H PRN Pain Rated 4-6 Oxycodone/Acetaminophen 2 tablet 10/14/23 14:41 10/16/23 09:51 Oxycodone/Rudi
[2023-10-16 12:54] VITALS: BP 92/72; PULSE 108; O2SAT 96
[2023-10-16 14:00] VITALS: BP 94/66; PULSE 103; RESP 20; TEMP 36.8; O2SAT 93
[2023-10-16 15:01] VITALS: BP 116/78
--- NOTE | 2023-11-11 15:33 | PM.DS ---
DS: Admitting Diagnosis Discharge Date 10/16/23 Admitting Diagnosis RIGHT KNEE DJD DS: Discharge Diagnosis Discharge Diagnosis (1) S/P total knee arthroplasty: Qualifiers: Laterality: right Qualified Code(s): Z96.651 - Presence of right artificial knee joint Code(s): Z96.659 - Presence of unspecified artificial knee joint Status: Acute (2) Right knee DJD: Qualifiers: Osteoarthritis type: primary Qualified Code(s): M17.11 - Unilateral primary osteoarthritis, right knee Code(s): M17.11 - Unilateral primary osteoarthritis, right knee Status: Acute Plan POSTOP R TKA DOING WELL. SHE IS STRUGGLING WITH PT AND WILL NEED ACUTE REHBE. SHE WILL F/U IN THE OFFICE IN 3 WEEKS. DS: Summary Hospital Course Reason for hospitalization: RIGHT TKA Hospital Course: PATIENT WAS ADMITTED S/P TOTAL KNEE ARTHROPLASTY FOR POSTOPERATIVE MEDICAL MANAGEMENT, PAIN CONTROL AND MOBILIZATION WITH PHYSICAL AND OCCUPATIONAL THERAPY. THE PATIENT PROGRESSED SLOWLY WITH PT/OT DUE TO IN PARTLY FROM HER PREEXISTING CEREBRAL PALSY WITH LIMITATIONS OF HER RIGHT LOWER EXTREMITY SPASTICITY INCLUDING THE FOOT. SHE WAS ADVISED TO USE AN AFO AND [employer] HAS MOLDED THE PATIENT FOR A CUSTOM AFO. LABS AND VITALS REMAINED STABLE AND PAIN WELL CONTROLLED. THE PATIENT HAS BEEN CLEARED TO BE DISCHARGED TO ACUTE REHAB. FOLLOW UP APPOINTMENT SCHEDULED. DISCHARGE INSTRUCTIONS DISCUSSED AT LENGTH WITH THE PATIENT. MEDICATIONS REVIEWED. Time Spent with Patient Time attestation: Total time spent providing and/or coordinating discharge services: Exam Extrem: Other: VSS AFEBRILE DRESSING DRY, CALF SOFT, NON TENDER, RIGHT FOOT SPASTICITY WITH PREDOMINANT INVERSION AND FLEXION. SHE HAS SOME GREAT TOE AND LESSER TOE EXTENSION, NEG HOMANS SIGN DS: Data Procedures/Treatments: RIGHT TKA Discharge Plan Discharge Attending physician on discharge: Rich Gonzalez Consulting providers: Farheen Steele; Thong Jacobo; Colby Nye; Clare Navarro Discharging Clinician: Rich Gonzalez Anticipated Discharge Date/Time: 10/16/23 15:42 Patient Disposition: Inpatient Rehab Facility Activity: may shower, no driving and follow weight bearing status Diet: as tolerated Wound Care Instructions: follow printed instructions Discharge Instructions: Post Op Total Knee Replacement Instructions Dr. Rich Gonzalez [phone] Your dressing will be changed prior to your discharge. You will be sent home with one additional dressing to be changed on post op day 7 by the home health RN. Your ernst will be removed on the 14th day after surgery and steri-strips will be placed. Please practice good hand hygiene and do not touch your incision in order to prevent infection. You may shower with your dressing but do not submerge in a bath tub. Do not drive or operate machinery until you are released by Dr. Gonzalez. Do not walk without a walker for any reason until you are released by Dr. Gonzalez. Continue to use your ice machine. Please use a towel or pillow case to protect your skin before applying your ice machine. Do NOT place a pillow under your knee. You may use a pillow from the calf down if needed. This will prevent a flexion contracture postoperatively. You may begin use of your CPM machine at home if you have been given one pre-operatively. DO NOT USE WHILE YOU ARE SLEEPING. Your first post op appointment was sent to you via mail preoperatively. If you have any questions or are unable to make your appointment, please contact our office for scheduling questions. Your medications have been sent to your pharmacy. You have been sent home with pain medication. Please knot picker cloth an over the counter stool softener to prevent constipation due to narcotic use. Please keep this in mind during your postoperative recovery. If you are not experiencing regular bowel movements, please contact our office for furth
== END 2023-10-16 16:50 | DRG 470 ==
LOC: ANH3MEDSUR 10-15 08:33
PROVIDERS: Nurse Practitioner Family; Admitting Provider Orthopaedic Surgery; PCP Family Medicine; Visit Provider Orthopaedic Surgery
PROC: 0SRC0J9 Replacement of Right Knee Joint with Synthetic Substitute, Cemented, Open Approach (ICD-10-PCS; CPT 27447; principal; 2023-10-14 10:30)
DX: M17.11 Unilateral primary osteoarthritis, right knee (principal); G80.9 Cerebral palsy, unspecified; G89.18 Other acute postprocedural pain; E03.9 Hypothyroidism, unspecified; E78.5 Hyperlipidemia, unspecified; F32.A Depression, unspecified; Z90.49 Acquired absence of other specified parts of digestive tract
CPT/HCPCS: 36415; 73560; 80048; 85025; 97110; 97116; 97161; 97166; 97530; 97535; A9270; C1713; C1776; J0171; J0690; J1100; J1170; J1885; J2250; J2270; J2371; J2405; J2704; J2795; J3010; J7120

== ENCOUNTER 2023-10-18 01:45 | Emergency (ER) | payer OTHER, MEDICARE, SELFPAY ==
[2023-10-18] VITALS (8 sets, daily range): BP systolic 104–119; BP diastolic 66–95; PULSE 71–108; RESP 14–20; TEMP 35.9–36.7; O2SAT 93–99
--- NOTE | ~2023-10-18 | US_ITS ---
US venous doppler [facility] DATE: 10/18/2023 08:19 INDICATION: Deep venous thrombosis TECHNIQUE: Real-time and color flow imaging and Doppler analysis of the veins of the lower extremitie s COMPARISON: None FINDINGS: The greater saphenous veins are patent. There is spontaneous and phasic flow and normal aug mentation and color flow signal and normal compression of the deep veins of both lower extremities. IMPRESSION: No evidence of deep venous thrombosis of the lower extremities Reviewed, dictated and finalized at Location [facility]. Reviewed, dictated and finalized at location A.
[2023-10-18] MEDS: PREGABALIN (*CRX) 75 MG CAPSULE 150 MG PO (03:51)
[2023-10-18] MEDS: CYCLOBENZAPRINE HCL 10 MG TABLET PO (03:52)
[2023-10-18] MEDS: HYDROmorphone HCL (*CRX) 2 MG TABLET PO (04:11)
--- NOTE | 2023-10-18 04:45 | ED.GENADULT ---
HPI - General Adult General Chief complaint: Extremity Problem,Nontraumatic <Masoud Tovar MD - Last Filed: 10/18/23 04:55> Stated complaint: Right knee pain <Masoud Tovar MD - Last Filed: 10/18/23 04:55> Time Seen by Provider: 10/18/23 09:57 <Masoud Tovar MD - Last Filed: 10/18/23 04:55> History of Present Illness HPI narrative: this is a 58-year-old female with cerebral palsy presenting 9 pod 4 from a right total knee arthroplasty performed by Dr. Gonzalez for right lower extremity swelling. She has been at [facility]. Time she was sent to get a DVT scan. Patient's only complaint this time is pointing of her right foot as a result of her cerebral palsy that has gotten worse after the surgery but <Masoud Tovar MD - Last Filed: 10/18/23 04:55> Related Data Home medications: Home Medications Medication Instructions Recorded Confirmed cyclobenzaprine 10 mg tablet 10 mg TID PRN MUSCLE SPASMS 08/24/23 10/16/23 loratadine 10 mg tablet (Claritin) 10 mg PO DAILY 08/24/23 10/16/23 melatonin 10 mg tablet 10 mg PO HS PRN Sleep 08/24/23 10/16/23 <Masoud Tovar MD - Last Filed: 10/18/23 04:55> Allergies/adverse reactions: Allergies Allergy/AdvReac Type Severity Reaction Status Date / Time simvastatin Allergy Unknown Muscle pain Verified 10/14/23 09:32 Zxrvtdj-TCF-SdE Reductase Allergy Unknown Muscle Pain Verified 10/14/23 09:32 Inhibitor [Jreyxgk-Ord-Xba Reductase Inhibitor] Sulfa (Sulfonamide Allergy Unknown Hives Verified 10/14/23 09:32 Antibiotics) <Masoud Tovar MD - Last Filed: 10/18/23 04:55> [facility] Past Medical History Medical History: Medical History Adult hypothyroidism Cerebral palsy Chronic osteoarthritis Combined hyperlipidemia DDD (degenerative disc disease) Degenerative joint disease of knee Depressive disorder, not elsewhere classified Effusion of knee joint Left knee DJD Right knee DJD <Masoud Tovar MD - Last Filed: 10/18/23 04:55> Surgical History Surgical History: Surgical History H/O knee surgery History of appendectomy S/P total knee arthroplasty <Masoud Tovar MD - Last Filed: 10/18/23 04:55> Family History Family History: Family History Mother Family history of elevated blood lipids Family history of arthritis Multiple myeloma Father Family history of diabetes mellitus in first degree relative Family history of heart disease in male family member before age 55 Other Diabetes mellitus Family history of coronary artery disease <Masoud Tovar MD - Last Filed: 10/18/23 04:55> Social History Social History: Social History Social History: Caffeine-iced tea Smoking status: Never smoker Second hand tobacco smoke exposure: No Additional smoking assessment comments: PT DENIES ALL FORMS OF TOBACCO USE Alcohol intake: unknown Alcohol use details: VERY RARELY - WINE SPECIAL OCCASIONS 1-3X YR Substance use: unknown Substance use type: does not use Do You Feel Safe in your Home?: Yes Lack of Transportation: No Lack of Food: Never True Current Housing: I Have Housing Concerned About Future Housing: No Difficulty Paying Gas/Electric Bills: No Difficulty Paying for Meds: No Currently Unemployed: No Education: Don't Know Difficulty w/ Childcare or Family Care: No Living arrangements: with family Additional living arrangements comments: LIVES WITH [employer] Occupation/Education: retired Gender identity (if verbalized by the patient): Female Sexual Orientation (if Verbalized by the Patient): Straight or Heterosexual Spiritual care concerns: No Agree to blood products: Yes <Masoud Tovar MD - Last Filed: 10/08
--- NOTE | 2023-10-18 14:34 | PC.NURSE ---
called [facility] @2110 and spoke to MOODY Gonzales and gave report on care and discharge instructions. all questions answered.
== END 2023-10-18 16:00 ==
PROVIDERS: Emergency Provider Emergency Medicine; PCP Family Medicine
DX: M21.371 Foot drop, right foot (principal); E87.1 Hypo-osmolality and hyponatremia; Z96.651 Presence of right artificial knee joint; G80.9 Cerebral palsy, unspecified; E03.9 Hypothyroidism, unspecified; E78.2 Mixed hyperlipidemia; M17.0 Bilateral primary osteoarthritis of knee
CPT/HCPCS: 93970; 99284; A9270

== ENCOUNTER 2023-11-17 10:54 | Inpatient (IN) | payer MEDICARE, SELFPAY ==
[2023-11-17] VITALS (51 sets, daily range): BP systolic 94–152; BP diastolic 54–109; PULSE 86–119; RESP 8–20; TEMP 36.4–36.6; O2SAT 84–100; BMI 27.6
--- NOTE | ~2023-11-17 | XR_ITS ---
EXAMINATION: [id number] DATE: 11/17/2023 12:35 INDICATION: Postreduction right knee dislocation. TECHNIQUE: Anteroposterior and lateral views of the right knee were obtained. COMPARISON: None. FINDINGS: Is a dislocated right total knee arthroplasty without patellar resurfacing has been reduced to near-a natomic alignment. No fractures identified. Soft tissue swelling about the knee including a persisten t small to moderate-sized right knee joint effusion. IMPRESSION: 1. Successful reduction to near-anatomic alignment of a previously posteriorly dislocated right total knee arthroplasty. No fracture. Reviewed, dictated and finalized at location B.
--- NOTE | ~2023-11-17 | XR_ITS ---
EXAMINATION: XR knee RT min 4V DATE: 11/17/2023 11:13 INDICATION: Right knee dislocation. TECHNIQUE: 4 views of right knee were obtained. COMPARISON: Right knee radiographs 11/05/2023 FINDINGS: There is a total right knee arthroplasty. There is posterior dislocation of the tibial comp onent with respect to the femoral component. No fracture. No periprosthetic lucency to suggest loosen ing or infection. There is a moderate-sized knee joint effusion with loose bodies. IMPRESSION: 1. Dislocated total right knee arthroplasty. 2. Moderate-sized right knee joint effusion with loose bodies. Reviewed, dictated and finalized at location A.
[2023-11-17] MEDS: HYDROmorphone HCL INJ (*CRX) 1 MG/ML SYR IV PUSH (11:03)
[2023-11-17] MEDS: ONDANSETRON INJ 4 MG/2 ML VIAL IV PUSH ×2 (11:03→18:56)
--- NOTE | 2023-11-17 11:16 | PC.NURSE ---
patient arrived with right knee splinted with pillow. pedal pulses intact
[2023-11-17 11:38] LABS: Prothrombin Time 13.1 Seconds (11.1-14.7)
[2023-11-17 11:39] LABS: Basophils Absolute Auto 0.1 K/mm3 (0.0-0.1); Basophils Percent Auto 1.2 % (0.2-1.2); Eosinophils Absolute Auto 0.4 K/mm3 (0-0.3); Eosinophils Percent Auto 5.8 % (0-4.4); Hematocrit 40.3 % (37.0-47.0); Immature Granulocyte Absolute 0.02 K/mm3 (0.00-0.031); Immature Granulocyte Percent A 0.3 % (0-0.5); Lymphocytes Absolute Auto 1.65 K/mm3 (0.9-3.2); Lymphocytes Percent Auto 25.3 % (18.3-44.2); Mean Corpuscular HGB Conc 32.3 g/dl (32-36); Mean Corpuscular Hemoglobin 30.5 pg (26-34); Mean Corpuscular Volume 94.6 fl (80-100); Mean Platelet Volume 9.2 fl (7.4-10.4); Monocytes Absolute Auto 0.5 K/mm3 (0.1-0.6); Neutrophils Absolute Auto 3.9 K/mm3 (1.3-6.7); Neutrophils Percent Auto 59.4 % (45.5-73.1); Platelet Count Result 372 k/mm3 (150-375); Red Blood Count 4.26 M/mm3 (4.2-5.4); White Blood Count 6.5 K/mm3 (4.5-10.0)
[2023-11-17 11:40] LABS: Alanine Aminotransferase 12 U/L (6-35); Albumin Level 4.5 g/dL (3.5-5.1); Alkaline Phosphatase 123 U/L (38-126); Anion Gap 4 mmol/L (4-12); Aspartate Amino Transferase 29 U/L (14-36); Bilirubin,Total 0.5 mg/dL (0.2-1.3); Blood Urea Nitrogen 12 mg/dL (7-17); Calcium 9.4 mg/dL (8.4-10.2); Carbon Dioxide 28 mmol/L (22-30); Chloride 104 mmol/L (98-107); Estimated CRCL calculation 101 ml/min; Estimated Glomerular Filt Rate > 60; Glucose 112 mg/dL (65-110); Potassium 4.5 mmol/L (3.4-5.0); Sodium 136 mmol/L (137-145)
[2023-11-17] MEDS: SODIUM CHLORIDE 0.9% IV 1,000 ML 999 ML (12:10)
[2023-11-17] MEDS: PROPOFOL IV EMULSION 200 MG/20 ML VIAL (12:10)
--- NOTE | 2023-11-17 12:20 | PC.NURSE ---
1205: Time out performed, Dr. Vaughn and Dr. Clifford at bedside. consent signed. all equip in room 1210: 60 mg [address] given by Dr. vaughn 1212: Pt O2 increased to 4L 1217: Reduction complete, pt placed in knee immobilizer
--- NOTE | 2023-11-17 14:49 | ED.LOWEXIN ---
HPI - Extremity Injury (Lower) General Chief Complaint: Extremity Injury, Lower Stated Complaint: R knee disclocation Time Seen by Provider: 11/17/23 10:58 Source: patient and family Mode of arrival: EMS Limitations: no limitations History of Present Illness HPI Narrative: 58-year-old with a history of CP, hyperlipidemia , hypothyroid, status post right knee replacement 10/14/2023, right foot drop following surgery here with a complaint of pain swelling to her right knee. Patient states that she woke up from sleep with dislocation. She denies any trauma or twisting the knee. complaint: other (Right knee pain) Onset (ago): minute(s) Place: home Severity: severe Relieving factors: nothing Exacerbating factors: movement Associated symptoms: swelling Other symptoms: none Related Data Home Medications Medication Instructions Recorded Confirmed loratadine 10 mg tablet (Claritin) 10 mg PO DAILY 08/24/23 11/05/23 Allergies Allergy/AdvReac Type Severity Reaction Status Date / Time simvastatin Allergy Unknown Muscle pain Verified 11/17/23 11:21 Bzdfzaj-TAZ-RfK Reductase Allergy Unknown Muscle Pain Verified 11/17/23 11:21 Inhibitor [Kvpyzxk-Vfz-Wpv Reductase Inhibitor] Sulfa (Sulfonamide Allergy Unknown Hives Verified 11/17/23 11:21 Antibiotics) Review of Systems Review of Systems: All systems reviewed & are unremarkable except as noted in HPI and below Constitutional: Constitutional: Reports no additional constitutional complaints Eyes: Eyes: Reports no additional eye complaints ENT: Reports system reviewed and no additional complaints, except as documented Cardiovascular: Cardiovascular: Reports no additional cardiovascular complaints Respiratory: Respiratory: Reports no additional respiratory complaints Gastrointestinal: Gastrointestinal: Reports no additional gastrointestinal complaints Musculoskeletal: Musculoskeletal: Reports as per HPI Neurologic: Reports system reviewed and no additional complaints, except as documented [facility] Past Medical History Medical History Adult hypothyroidism Cerebral palsy Chronic osteoarthritis Combined hyperlipidemia DDD (degenerative disc disease) Degenerative joint disease of knee Depressive disorder, not elsewhere classified Effusion of knee joint Left knee DJD Right knee DJD Surgical History Surgical History H/O knee surgery History of appendectomy S/P total knee arthroplasty Family History Family History Mother Family history of elevated blood lipids Family history of arthritis Multiple myeloma Father Family history of diabetes mellitus in first degree relative Family history of heart disease in male family member before age 55 Other Diabetes mellitus Family history of coronary artery disease Social History Social History Social History: Caffeine-iced tea Smoking status: Never smoker Second hand tobacco smoke exposure: No Additional smoking assessment comments: PT DENIES ALL FORMS OF TOBACCO USE Alcohol intake: unknown Alcohol use details: VERY RARELY - WINE SPECIAL OCCASIONS 1-3X YR Substance use: unknown Substance use type: does not use Do You Feel Safe in your Home?: Yes Lack of Transportation: No Lack of Food: Never True Current Housing: I Have Housing Concerned About Future Housing: No Difficulty Paying Gas/Electric Bills: No Difficulty Paying for Meds: No Currently Unemployed: No Education: Don't Know Difficulty w/ Childcare or Family Care: No Living arrangements: with family Additional living arrangements comments: LIVES WITH [employer] Occupation/Education: retired Gender identity (if verbalized by the patient): Female Sexual Orientation (if Verbalized
--- NOTE | 2023-11-17 15:45 | PC.NURSE ---
touched base with [facility] transfer regarding consult with jonh - mahnaz durant still waiting for phys to call transfer center back. [place] transfer center will keep us posted
[2023-11-17] MEDS: MORPHINE SULFATE (*CRX) 2 MG/ML INJ IV PUSH (18:57)
[2023-11-17] MEDS: SODIUM CHLORIDE 0.9% IV 1,000 ML 75 ML IV CONT (18:59)
[2023-11-17 19:14] LABS: Appearance Urine Clear (Clear); Bilirubin Urine Negative (Negative); Blood Urine Negative (Negative); Color Urine Yellow (Yellow); Glucose Urine UA Negative (Negative); Ketones Urine Negative (Negative); Leukocyte Esterase Ur Negative LEU/UL (Negative); Nitrate Urine Negative (Negative); Protein Urine Negative (Negative); Specific Grav Ur 1.009 (1.001-1.035); Urobilinogen Urine 0.2 mg/dL (<2.0)
[2023-11-17 19:34] LABS: Add Urine Microscopic? NO
--- NOTE | 2023-11-17 21:29 | ADMGEN ---
This patient, Domingo Brumfield, was admitted to [facility] Surg Room 321-02. Patient/family oriented to hospital policies and general routines including ID bracelet, bed and alarms, visiting hours, pain management, procedures, bathroom and other care routines, personal items, smoking policy, room service/diet, and visiting hours. Information on how to activate the Rapid Response Team has been discussed. Patient/Family are encouraged to report perceived risks to care and to ask questions if they do not understand what they are told or what they should do.
--- NOTE | 2023-11-17 22:55 | PC.NURSE ---
Addendum entered by Sulema Brewster RN 11/17/23 22:59: Pt stated she took tylenol, aspirin, cyclobenzaprine, doxycycline, ezetimibe, fluvoxamine, pregabalin at 2100 that he sisters brought for her. Education provided and medications no longer at bedside. Original Note: Pt stated she took all of her bedtime home medications after arriving in the room from ED.
[2023-11-18 05:44] VITALS: BP 108/59; PULSE 94; RESP 14; TEMP 36.8; O2SAT 97
[2023-11-18] MEDS: oxyCODONE/ACETAMINOPHEN (*CRX) 10-325 MG TABLET 1 TAB PO ×2 (05:44→12:59)
[2023-11-18] MEDS: SODIUM CHLORIDE 0.9% IV 1,000 ML 75 ML IV CONT ×2 (05:46→18:43)
[2023-11-18 07:49] LABS: Glucose Point of Care 92 mg/dl (65-105)
[2023-11-18 14:00] VITALS: BP 134/62; PULSE 68; RESP 16; TEMP 36.8; O2SAT 96
[2023-11-18] MEDS: MORPHINE SULFATE (*CRX) 2 MG/ML INJ IV PUSH ×2 (15:37→20:53)
--- NOTE | 2023-11-18 16:39 | PM.IMHP ---
H&P: HPI History of Present Illness Date/Time: 11/18/23 16:39 Chief Complaint: RIGHT KNEE PAIN AND DEFORMITY Narrative: LORNE WAS ADMITTED TO THE ED WITH RIGHT KNEE PAIN AND DEFORMITY. SHE UNDERWENT RIGHT KNEE REPLACEMENT ALMOST 5 WEEKS AGO, SHE WAS DOING VERY WELL DESPITE HER CHALLENGES WITH CEREBRAL PALSY. SHE WAS DOING SO WELL THAT SHE WAS GOING TO START OUTPATIENT PT NEXT WEEK. SHE WAS SEEN IN MY OFFICE ABOUT 1 WEEK AGO AND WAS DOING WELL WITH HER KNEE. SHE DENIED ANY FEELINGS OF INSTABILITY. SHE WAS ALSO STANDING ON ONE LEG FOR EXERCISES AND HAD NO EPIDOE OR FEELING OF INSTABILITY. YESTERDAY SHE WAS AWOKEN WITH SEVERE PAIN AND SUSTAINED A DISLOCATION. SHE DENIES ANY TRAUMA TO THE KNEE. SHE DOESN'T KNEW IF SHE SUFFERED ANY SEVERE SPASM. SHE WAS SEEN IN THE ED BY MYSELF AND A CLOSED REDUCTION WAS PREFORMED UNDER SEDATION WITHOUT A LOT OF EFFORT. POST REDUCTION EXAMINATION OF THE RIGHT KNEE WHILE THE PATIENT WAS STILL SEDATED REVEALED AP INSTABILITY MOSTLY WITH A PROBABLE INSUFFICIENCY OF THE PCL . SHE WAS PLACED IN A KNEE IMMOBILIZER AND WAS ADMITTED TO THE FLOOR. SHE WAS VERY COMFORTABLE AFTER HER REDUCTION. [facility] Past Medical History Medical History Adult hypothyroidism Cerebral palsy Chronic osteoarthritis Combined hyperlipidemia DDD (degenerative disc disease) Degenerative joint disease of knee Depressive disorder, not elsewhere classified Effusion of knee joint Left knee DJD Right knee DJD Surgical History Surgical History H/O knee surgery History of appendectomy S/P total knee arthroplasty Family History Family History Mother Family history of elevated blood lipids Family history of arthritis Multiple myeloma Father Family history of heart disease in male family member before age 55 Family history of diabetes mellitus in first degree relative Diabetes mellitus Family history of coronary artery disease Social History Social History Social History: Caffeine-iced tea Smoking status: Never smoker Second hand tobacco smoke exposure: No Additional smoking assessment comments: PT DENIES ALL FORMS OF TOBACCO USE Alcohol intake: current Drinks per week: 1 Alcohol use details: VERY RARELY - WINE SPECIAL OCCASIONS 1-3X YR Substance use: never Substance use type: does not use Do You Feel Safe in your Home?: Yes Lack of Transportation: No Lack of Food: Never True Current Housing: I Have Housing Concerned About Future Housing: No Difficulty Paying Gas/Electric Bills: No Difficulty Paying for Meds: No Currently Unemployed: No Education: Associate Degree Difficulty w/ Childcare or Family Care: No Living arrangements: with family Additional living arrangements comments: LIVES WITH [employer] Occupation/Education: retired Gender identity (if verbalized by the patient): Female Sexual Orientation (if Verbalized by the Patient): Straight or Heterosexual Spiritual care concerns: No Agree to blood products: Yes Meds Home Medications and Allergies Home Medications Medication Instructions Recorded Confirmed Type aspirin 325 mg tablet,delayed 325 mg PO Q12HR 28 days #56 tabs 10/15/23 11/17/23 Rx release acetaminophen 325 mg tablet 650 mg PO Q6H PRN Mild Pain (1-3) 10/27/23 11/17/23 Rx Or Fever #0 tabs cyclobenzaprine 10 mg tablet 10 mg PO TID PRN MUSCLE SPASMS #30 10/27/23 11/17/23 Rx tabs doxycycline hyclate 100 mg tablet 100 mg PO BID@0800,2000 #14 tabs 10/27/23 11/17/23 Rx fluvoxamine 50 mg tablet 50 mg PO DAILY #30 tabs 10/27/23 11/17/23 Rx levothyroxine 88 mcg tablet 88 mcg PO DAILY@0630 #30 tabs 10/27/23 11/17/23 Rx melatonin 3 mg tablet 9 mg PO HS PRN Sleep #30 tabs 10/27/23 11/17/23 Rx oxycodone-acetaminophen 5 mg-32
[2023-11-18 21:39] VITALS: BP 106/85; PULSE 97; RESP 20; TEMP 37.1; O2SAT 99
[2023-11-19] VITALS (9 sets, daily range): BP systolic 108–129; BP diastolic 71–84; PULSE 100–116; RESP 13–20; TEMP 35.9–37.3; O2SAT 92–99
[2023-11-19] MEDS: oxyCODONE/ACETAMINOPHEN (*CRX) 10-325 MG TABLET 1 TAB PO ×2 (05:43→18:32)
[2023-11-19] MEDS: SODIUM CHLORIDE 0.9% IV 1,000 ML 75 ML IV CONT ×2 (08:52→21:18)
[2023-11-19] MEDS: ACETAMINOPHEN 325 MG TABLET 650 MG PO (10:54)
--- NOTE | 2023-11-19 12:28 | PM.PNORT ---
Progress Note: A&P Assessment and Plan (1) Dislocation closed, knee: Qualifiers: Encounter type: initial encounter Laterality: right Qualified Code(s): S83.104A - Unspecified dislocation of right knee, initial encounter Code(s): S83.106A - Unspecified dislocation of unspecified knee, initial encounter Status: Acute Assessment and Plan: Patient is status post right total knee arthroplasty dislocation which was reduced in the emergency room by Dr. Gonzalez yesterday. She is currently awaiting a right knee revision surgery for polyethylene exchange and most likely femoral component revision to posteriorly stabilize the knee. Patient has previously discussed this surgical intervention for revision with Dr. Gonzalez. Her pain is currently well controlled. No new concerns today. Patient has knee immobilizer in place. She may be non weight-bearing of the right lower extremity with knee immobilizer in place. Continue pain control. Diet as tolerated. She will be NPO at midnight. Reviewed surgical plans with patient and her sister at the bedside. (2) Instability of knee joint: Qualifiers: Laterality: right Qualified Code(s): M25.361 - Other instability, right knee Code(s): M25.369 - Other instability, unspecified knee Status: Acute Plan Reviewed history, exam, radiographs and current labs with attending MD and covering surgeon, Dr. Gonzalez, who agrees with current plan as indicated above. No further recommendations from Dr. Gonzalez at this time. Subjective Subjective Date/Time Seen: 11/19/23 12:28 Interval history: Patient resting comfortably with family at bedside. No new concerns. Pain well controlled. Awaiting surgical intervention tomorrow by Dr. Gonzalez. Review of Systems Review of Systems: All systems reviewed & are unremarkable except as noted in HPI and below Exam Const: General: comfortable Resp: Effort & Inspection: normal respiratory effort Cardio: Rate: regular rate Rhythm: regular rhythm Extrem: Other: Right Knee Immobilizer in place. Right Foot Drop, unchanged from immediate postop course from previous TKA. Sensation intact. Pedal pulses intact. Psych: Mental Status: mental status grossly normal Objective Data Vital Signs Vital Signs: Vital Signs - 24 hr 11/18/23 14:00 11/18/23 21:39 11/19/23 03:10 Temperature 36.8 C 37.1 C Pulse Rate 68 97 Respiratory Rate 16 20 Blood Pressure 134/62 106/85 Pulse Oximetry 96 99 97 Oxygen Delivery Nasal Cannula Oxygen Flow Rate 2 11/19/23 05:46 11/19/23 08:40 11/19/23 10:43 Temperature 36.5 C 37.3 C Pulse Rate 100 Respiratory Rate 20 Blood Pressure 115/81 Pulse Oximetry 99 98 Oxygen Delivery Room Air Oxygen Flow Rate 11/19/23 10:54 11/19/23 12:12 Temperature 37.3 C 35.9 C L Pulse Rate Respiratory Rate Blood Pressure Pulse Oximetry Oxygen Delivery Oxygen Flow Rate Intake/Output Intake/Output: Intake & Output 11/16/23 11/17/23 11/18/23 11/19/23 23:59 23:59 23:59 23:59 Intake Total 1000 3550.0 1622 Balance 1000 3550.0 1622 Meds/Results Medications: Active Medications Generic Name Dose Route Start Last Admin Trade Name Freq PRN Reason Stop Dose Admin Acetaminophen 650 mg 11/17/23 18:14 11/19/23 10:54 Acetaminophen 325 Mg Tablet PO 650 mg Q4H PRN Administration Mild Pain (1-3) or Fever Sodium Chloride 37.7 ml/ 0 ml 11/20/23 06:00 Morphine Sulfate 2 mg/ INFILTRATE 11/20/23 06:01 Ropivacaine 200 mg/ Ketorolac ONCE ONE Tromethamine 15 mg/ Epinephrine HCl 0.3 mg Diazepam 5 mg 11/18/23 00:10 Diazepam (*Crx) 5 Mg Tablet PO BID PRN Muscle Spasm Sodium Chloride 1,000 mls @ 75 mls/hr 11/17/23 18:15 11/19/23 08:52 Normal Saline Iv IV CONT 75 mls/hr .[id number] MONIKA Administration Morphine Sulfate 2 mg 11/17/23 18:14 11/18/23 20:53 Morphine Sulfate (*Crx) 2 Mg/Ml Inj IV PU
[2023-11-19 20:44] LABS: Glucose Point of Care 121 mg/dl (65-105)
[2023-11-19] MEDS: diazePAM (*CRX) 5 MG TABLET PO (21:18)
[2023-11-20] VITALS (13 sets, daily range): BP systolic 93–137; BP diastolic 58–93; PULSE 100–118; RESP 10–20; TEMP 35.6–36.6; O2SAT 93–99
[2023-11-20] MEDS: LACTATED RINGERS 1,000 ML 30 ML IV CONT (06:30)
--- NOTE | 2023-11-20 06:42 | WPDANESEPPF ---
Anes - Initial Pre Proc Eval Procedure: Operation Date: 11/20/23 07:30 Proposed Procedures p Revision Right Femoral Component with Poly Exchange - Rich Gonzalez MD Date/Time: 11/20/23 06:42 Surgeon: Rich Gonzalez MD Pre Op Diagnosis: Right knee dislocation Patient Data Age: 58 Gender: F Height: 1.57 m Weight: 68.6 kg Last Vital Signs Temp 96.9 F L 11/20/23 05:59 Pulse 100 11/20/23 05:59 Resp 14 11/20/23 05:59 BP 121/78 11/20/23 05:59 Pulse Ox 98 11/20/23 05:59 O2 Del Method Room Air 11/19/23 20:00 O2 Flow Rate 2 11/19/23 03:10 Allergies Allergy/AdvReac Type Severity Reaction Status Date / Time simvastatin Allergy Unknown Muscle pain Verified 11/17/23 21:41 [id number] Reductase Allergy Unknown Muscle Pain Verified 11/17/23 21:41 Inhibitor [Zhcbety-Mcr-Fxf Reductase Inhibitor] Sulfa (Sulfonamide Allergy Unknown Hives Verified 11/17/23 21:41 Antibiotics) Home Medications Medication Instructions Recorded Confirmed Type aspirin 325 mg tablet,delayed 325 mg PO Q12HR 28 days #56 tabs 10/15/23 11/17/23 Rx release acetaminophen 325 mg tablet 650 mg PO Q6H PRN Mild Pain (1-3) 10/27/23 11/17/23 Rx Or Fever #0 tabs cyclobenzaprine 10 mg tablet 10 mg PO TID PRN MUSCLE SPASMS #30 10/27/23 11/17/23 Rx tabs doxycycline hyclate 100 mg tablet 100 mg PO BID@0800,2000 #14 tabs 10/27/23 11/17/23 Rx fluvoxamine 50 mg tablet 50 mg PO DAILY #30 tabs 10/27/23 11/17/23 Rx levothyroxine 88 mcg tablet 88 mcg PO DAILY@0630 #30 tabs 10/27/23 11/17/23 Rx melatonin 3 mg tablet 9 mg PO HS PRN Sleep #30 tabs 10/27/23 11/17/23 Rx oxycodone-acetaminophen 5 mg-325 2 tablet PO Q6H PRN Pain Rated 10/27/23 11/17/23 Rx mg tablet 7-10 #12 tabs pregabalin 75 mg capsule (Lyrica) 150 mg PO BID #60 caps 10/27/23 11/17/23 Rx ezetimibe 10 mg tablet (Zetia) 10 mg PO HS 11/17/23 11/17/23 History fluvoxamine 50 mg tablet 100 mg PO HS 11/17/23 11/17/23 History propranolol 20 mg tablet 20 mg PO DAILY 11/17/23 11/17/23 History Laboratory Tests 11/19/23 20:35 POC Capillary Glucose 121 H mg/dl (65-105) Patient hx anesthesia problems: none Family hx anesthesia problems: none Results Review: All pre-operative results and documents have been reviewed as part of the pre-operative evaluation. [facility] Past Medical History Medical History Adult hypothyroidism Cerebral palsy Chronic osteoarthritis Combined hyperlipidemia DDD (degenerative disc disease) Degenerative joint disease of knee Depressive disorder, not elsewhere classified Effusion of knee joint Left knee DJD Right knee DJD Surgical History Surgical History H/O knee surgery History of appendectomy S/P total knee arthroplasty Family History Family History Mother Family history of elevated blood lipids Family history of arthritis Multiple myeloma Father Family history of heart disease in male family member before age 55 Family history of diabetes mellitus in first degree relative Diabetes mellitus Family history of coronary artery disease Social History Social History Social History: Caffeine-iced tea Smoking status: Never smoker Second hand tobacco smoke exposure: No Additional smoking assessment comments: PT DENIES ALL FORMS OF TOBACCO USE Alcohol intake: current Drinks per week: 1 Alcohol use details: VERY RARELY - WINE SPECIAL OCCASIONS 1-3X YR Substance use: never Substance use type: does not use Do You Feel Safe in your Home?: Yes Lack of Transportation: No Lack of Food: Never True Current Housing: I Have Housing Concerned About Future Housing: No Difficulty Paying Gas/Electric Bills: No Difficulty Paying fo
[2023-11-20] MEDS: TRANEXAMIC ACID 1,000MG/ISO100 1,000 MG/100 ML BAG 200 MG IVPB (07:00)
[2023-11-20] MEDS: VANCOMYCIN 1,000 MG/NS 250 ML BAG 250 MG IVPB (07:15)
--- NOTE | 2023-11-20 07:49 | WPDHPUPDATE1 ---
History and Physical Update Update Date/Time: 11/20/23 07:49 History and Physical has been reviewed, including an updated exam of the patient. There are NO changes in the patient's condition. Risks, benefits, and alternatives have been discussed and questions answered. Patient agrees to proceed with procedure.
[2023-11-20] MEDS: ceFAZolin 2 GM/D5W 50 ML 2 GM/50 ML BAG IVPB (07:50)
--- NOTE | 2023-11-20 07:50 | PM.PNORT ---
Subjective Subjective Date/Time Seen: 11/20/23 07:50 Interval history: PATIENT PRESENTED TODAY FOR SURGERY. SHE WAS NOTICED TO HAVE MULTIPLE STITCH ABSCESSES ON THE INCISION. LOCAL WOUND CARE WAS PREFORMED. THE DISTAL MOST STITCH ABSCESS SHOWED A LARGER STITCH ABSCESS WHICH INVOLVED THE SUBCUTANEOUS TISSUE. THERE IS NO EXTENSION TO THE KNEE JOINT AND NO OTHER SIGN OF INFECTION. PLAN WILL CHANGE FOR SURGERY WHICH WILL CONSIST OF DEBRIDEMENT OF STITCH ABSCESS AND WOUND. PATIENT AND FAMILY AWARE AND AGREE. Objective Data Vital Signs Vital Signs: Vital Signs - 24 hr 11/19/23 08:40 11/19/23 10:43 11/19/23 10:54 Temperature 37.3 C 37.3 C Pulse Rate Respiratory Rate Blood Pressure Pulse Oximetry 98 Oxygen Delivery Room Air 11/19/23 12:12 11/19/23 11:54 11/19/23 14:00 Temperature 35.9 C L 35.9 C L 36.9 C Pulse Rate 116 H Respiratory Rate 18 Blood Pressure 108/71 Pulse Oximetry 92 Oxygen Delivery 11/19/23 21:16 11/19/23 20:00 11/20/23 05:59 Temperature 36.1 C L 36.1 C L Pulse Rate 115 H 100 Respiratory Rate 13 14 Blood Pressure 129/84 121/78 Pulse Oximetry 99 98 Oxygen Delivery Room Air 11/20/23 07:05 Temperature 36.0 C L Pulse Rate 106 H Respiratory Rate 16 Blood Pressure 127/76 Pulse Oximetry 93 Oxygen Delivery Room Air Intake/Output Intake/Output: Intake & Output 11/17/23 11/18/23 11/19/23 11/20/23 23:59 23:59 23:59 23:59 Intake Total 1000 3550.0 2794.5 350 Balance 1000 3550.0 2794.5 350 Meds/Results Medications: Active Medications Generic Name Dose Route Start Last Admin Trade Name Freq PRN Reason Stop Dose Admin Acetaminophen 650 mg 11/17/23 18:14 11/19/23 10:54 Acetaminophen 325 Mg Tablet PO 650 mg Q4H PRN Administration Mild Pain (1-3) or Fever Diazepam 5 mg 11/18/23 00:10 11/19/23 21:18 Diazepam (*Crx) 5 Mg Tablet PO 5 mg BID PRN Administration Muscle Spasm Fentanyl Citrate 25 mcg 11/19/23 16:20 Fentanyl Citrate Inj (*Crx) 100 Mcg/2 Ml Vial IV PUSH Q2M PRN Pain Sodium Chloride 1,000 mls @ 75 mls/hr 11/17/23 18:15 11/19/23 21:18 Normal Saline Iv IV CONT 75 mls/hr .[id number] MONIKA Administration Lactated Ringer's 1,000 mls @ 30 mls/hr 11/19/23 16:20 11/20/23 06:30 Lr - Lactated Ringers Iv IV CONT 30 mls/hr .Q24H MONIKA Administration Lactated Ringer's 1,000 mls @ 30 mls/hr 11/19/23 16:20 11/19/23 20:18 Lr - Lactated Ringers Iv IV CONT Not Given .Q24H MONIKA Morphine Sulfate 2 mg 11/17/23 18:14 11/18/23 20:53 Morphine Sulfate (*Crx) 2 Mg/Ml Inj IV PUSH 2 mg Q2H PRN Administration Pain Rated 7-10 Ondansetron HCl 4 mg 11/17/23 18:14 11/17/23 18:56 Ondansetron Inj 4 Mg/2 Ml Vial IV PUSH 4 mg Q4H PRN Administration Nausea Ondansetron HCl 4 mg 11/19/23 16:20 Ondansetron Inj 4 Mg/2 Ml Vial IV PUSH ONCE PRN Nausea Oxycodone HCl 5 mg 11/19/23 16:20 Oxycodone Hcl (*Crx) 5 Mg Tab Ir PO ONCE PRN Pain Oxycodone/Acetaminophen 1 tablet 11/18/23 00:11 Oxycodone/Acetaminophen (*Crx) 5-325 Mg Tablet PO Q6HR PRN Pain Rated 4-6 Oxycodone/Acetaminophen 1 tab 11/18/23 00:12 11/19/23 18:32 Oxycodone/Acetaminophen (*Crx) 10-325 Mg Tablet PO 1 tab Q6HR PRN Administration Pain Rated 7-10 Radiology Results: ITS Impressions Knee X-Ray 11/17/23 12:36 IMPRESSION: 1. Successful reduction to near-anatomic alignment of a previously posteriorly dislocated right total knee arthroplasty. No fracture. Labs Labs: Laboratory Results - last 24 hr 11/19/23 20:35 POC Capillary Glucose 121 H
--- NOTE | 2023-11-20 08:41 | SUR.OPER ---
Cultures (Aerobic/Anaerobic/Gram and Gram Stain) collected and sent STAT per [facility] PCT. Received by Michelle in Lab. -MOODY Zhou
[2023-11-20] MEDS: ceFAZolin SODIUM 1 GM VIAL 3 GM (08:50)
--- NOTE | 2023-11-20 09:13 | W.PM.PROC2 ---
Procedure Note - Detailed Date of Procedure 11/20/23 Pre-op Diagnosis Right Knee stitch abscess Post-op Diagnosis Same Procedure Performed DEBRIDEMENT AND IRRIGATION OF RIGHT KNEE STITCH ABSCESSES Surgeon Rich Gonzalez MD Anesthesia General Indications MULTIPLE STITCH ABSCESSES RIGHT KNEE SCAR Findings ONE 0.5 x 1.O STITCH ABSCESS, TWO 2MM STITCH ABSCESSES Description of Procedure THE PATIENT CAME DOWN TO THE PREOP AREA AND ON EXAMINATION OF THE SKIN SHE SHOWED TO HAVE A 1 x 0.5 STITCH ABSCESS AT THE VERY MOST DISTAL SCAR WITH 2 SMALLER ONES ALONG THE COURSE OF THE INCISION MORE PROXIMALLY. IT WAS FELT AT THAT TIME TO CANCEL HER REVISION SURGERY AND PROCEED WITH I AND D OF THE STITCH ABSCESSES. I SPOKE TO THE PATIENT AND FAMILY AND EXPLAINED THE REASON FOR CANCELATION TO AVOID A POTENTIAL SEPTIC KNEE JOINT. THE PATIENT WAS TAKEN TO THE OR IN STABLE CONDITION. SHE WAS PLACED UNDER GENERAL ANESTHESIA. THE RIGHT KNEE WAS EXAMINED. THE KNEE JOINT HAD SOME LAXITY IN THE AP PLANE. THERE WAS NO LAXITY IN MID FLEXION OR AT 90 DEG OF FLEXION IN THE MEDIAL AND LATERAL PLANE. ATTEMPTED DISLOCATION WAS PREFORMED AND THERE WAS NO DISLOCATION ACHIEVED. IT WAS FELT THAT THE PCL WAS LAX AND POTENTIALLY INCOMPETENT. THE RIGHT KNEE WAS PREPPED AND DRAPED STERILE. THE WOUND WERE IDENTIFIED. PICTURES WERE TAKEN WITH THE HOSPITAL CAMERA. THE WOUNDS WERE EXPLORED. THE WOUNDS WERE CONTAINED TO THE SUBCUTANEOUS LAYER OF THE SKIN AT THE SMALLER ABSCESSES. THE LARGER MORE DISTAL ABSCESS WAS DEBRIDED AND THE DEBRIDEMENT WAS DOWN TO THE FASCIA TISSUE. THERE WAS NO COMMUNICATION TO THE KNEE JOINT. THE WOUND WAS DISTAL TO THE TIBIAL TUBERCLE. MULTIPLE ABSORBABLE SUTURES WERE REMOVED FROM THE WOUND. MINIMAL DEVITALIZED TISSUE WAS DEBRIDED. THERE WAS GOOD BLEEDING TISSUE. CULTURES WERE TAKEN. THE WOUNDS WERE IRRIGATED WITH BETADINE AND STERILE WATER THEN WITH 3 LITERS OF STERILE WATER AGAIN. THE DISTAL WOUND WAS APPROXIMATED LOOSELY WITH 3-0 PROLINE. A STERILE PREVENA DRESSING WAS PLACED. A ALTAMIRANO CATHETER WAS PLACED DUE TO POTENTIAL SKIN BREAKDOWN IN THE BUTTOCKS. THERE WAS NO SKIN BREAKDOWN AT THE PRESENT BUT SHE SHOWED SOME SIGNS OF DAMP SKIN AND POTENTIAL FOR SKIN BREAKDOWN. PATIENT WAS EXTUBATED AND SENT TO RECOVERY ROOM. Estimated Blood Loss 5 Drains No Pathology Yes (WOUND CULTURES) Complications No immediate complications Condition Stable Disposition PACU
--- NOTE | 2023-11-20 10:41 | PC.NURSE ---
Returned from OR per bed. Report received from Sera URIOSTEGUI.
[2023-11-20] MEDS: oxyCODONE/ACETAMINOPHEN (*CRX) 5-325 MG TABLET 1 TABLET PO (13:19)
[2023-11-20] MEDS: PREGABALIN (*CRX) 75 MG CAPSULE 150 MG PO (17:10)
[2023-11-20] MEDS: oxyCODONE/ACETAMINOPHEN (*CRX) 5-325 MG TABLET 2 TABLET PO (18:46)
[2023-11-20] MEDS: ASPIRIN 325 MG ENTERIC TABLET PO (21:20)
[2023-11-20] MEDS: EZETIMIBE 10 MG TABLET PO (21:20)
[2023-11-20] MEDS: DOXYCYCLINE HYCLATE 100 MG TABLET PO (21:20)
[2023-11-20] MEDS: MELATONIN 3 MG TABLET 9 MG PO (21:20)
[2023-11-20] MEDS: diazePAM (*CRX) 5 MG TABLET PO (21:20)
[2023-11-20] MEDS: FLUVOXAMINE 50 MG PO (22:05)
[2023-11-21] VITALS (7 sets, daily range): BP systolic 104–128; BP diastolic 70–81; PULSE 80–102; RESP 16–20; TEMP 36.1–37.1; O2SAT 95–99
[2023-11-21] MEDS: LEVOTHYROXINE SODIUM 88 MCG TABLET PO (05:48)
[2023-11-21] MEDS: PREGABALIN (*CRX) 75 MG CAPSULE 150 MG PO ×2 (10:14→17:00)
[2023-11-21] MEDS: ASPIRIN 325 MG ENTERIC TABLET PO ×2 (10:14→20:53)
[2023-11-21] MEDS: DOXYCYCLINE HYCLATE 100 MG TABLET PO ×2 (10:14→20:53)
[2023-11-21] MEDS: PROPRANOLOL HCL 20 MG TABLET PO (10:14)
--- NOTE | 2023-11-21 14:33 | PM.PNORT ---
Progress Note: A&P Assessment and Plan (1) Instability of knee joint: Qualifiers: Laterality: right Qualified Code(s): M25.361 - Other instability, right knee Code(s): M25.369 - Other instability, unspecified knee Status: Acute (2) Infection involving stitch with abscess: Code(s): T81.41XA - Infection following a procedure, superficial incisional surgical site, initial encounter Status: Acute Plan POD 1 I AND D WOUND RIGHT KNEE WOUND. SHE IS DOING WELL. SHE IS COMFORTABLE WITH NO SIGNIFICANT SPASM. HINGED KNEE BRACE PLACED TODAY AT 0 DEG OF FLEX/EXT. SHE MAY START A PT PROGRAM SHE CAN BE 50% WEIGHT BEARING WITH HER WALKER AND AFO. I INFORMED THE THERAPIST OF HER NEEDING MAX ASSIST FOR NOW. I SHOWED THE FAMILY THE VIDEO AGAIN OF HER RANGE OF MOTION AND STABILITY WHILE SHE WAS UNDER GENERAL ANESTHESIA. BASED ON HER EXAMINATION UNDER GENERAL ANESTHESIA AND THE STABILITY OF HER KNEE I HAVE EXPLAINED THE PLAN GOING FORWARD WITH PATIENT AND FAMILY WHICH WILL BE THE APPLICATION AN ACL/PCL TYPE BRACE. AT THIS TIME WE WILL OBSERVE HER IN A BRACE AND ASSESS HER STABILITY OVER THE NEXT 4 TO 6 WEEKS. WE WILL THEN ALLOW HER SOME MOTION IN THE BRACE IF SHE REMAINS STABLE. NO SURGICAL INTERVENTION AT THIS TIME DUE TO HER WOUND I AND D AND CLOSURE. IF SURGERY INDICATED THEN WE WILL WAIT FOR HER WOUND TO HEAL THEN PROCEED IF NECESSARY. SPOKE TO MULTIPLE [place] BASED ORTHOPEDIC SURGEONS WELL WHO AGREE WITH PLAN. Subjective Subjective Date/Time Seen: 11/21/23 14:33 Interval history: S/P I AND D OF RIGHT KNEE WOUND AND CLOSED DISLOCATION 2 DYAS PRIOR. SHE IS COMFORTABLE IN HER KNEE IMMOBILIZER. SHE DENIES ANY CALF ,OR THIGH PAIN. PREVENA DRESSING INTACT AND COMPRESSING WELL. Exam Extrem: Other: VSS AFEBRILE DRESSING DRY ASIDE FROM SPASTICITY AND WEEK DORSIFLEXION IN RIGHT FOOT SHE IS NV INTACT, CALF IS SOFT, THIGH IS SOFT NEG HOMANS SIGN, PREVENA DRESSING FUNCTIONING. Objective Data Vital Signs Vital Signs: Vital Signs - 24 hr 11/20/23 16:00 11/20/23 20:51 11/20/23 20:00 Temperature 35.6 C L 36.4 C L Pulse Rate 113 H 118 H Respiratory Rate 20 16 Blood Pressure 104/77 137/86 Pulse Oximetry 97 95 Oxygen Delivery Room Air 11/21/23 00:00 11/21/23 04:00 11/21/23 10:14 Temperature 36.2 C L 36.1 C L Pulse Rate 102 H 93 93 Respiratory Rate 20 18 Blood Pressure 112/81 104/74 Pulse Oximetry 95 96 Oxygen Delivery 11/21/23 10:00 Temperature 36.6 C Pulse Rate 92 Respiratory Rate 16 Blood Pressure 106/70 Pulse Oximetry 96 Oxygen Delivery Intake/Output Intake/Output: Intake & Output 11/18/23 11/19/23 11/20/23 11/21/23 23:59 23:59 23:59 23:59 Intake Total 3550.0 2794.5 1080 480 Output Total 550 900 Balance 3550.0 2794.5 530 -420 Meds/Results Medications: Active Medications Generic Name Dose Route Start Last Admin Trade Name Freq PRN Reason Stop Dose Admin Acetaminophen 650 mg 11/20/23 10:15 Acetaminophen 325 Mg Tablet PO Q6H PRN Mild Pain (1-3) Or Fever Aspirin 325 mg 11/20/23 21:00 11/21/23 10:14 Aspirin 325 Mg Enteric Tablet PO 325 mg Q12HR MONIKA Administration Diazepam 5 mg 11/18/23 00:10 11/20/23 21:20 Diazepam (*Crx) 5 Mg Tablet PO 5 mg BID PRN Administration Muscle Spasm Doxycycline Hyclate 100 mg 11/20/23 20:00 11/21/23 10:14 Doxycycline Hyclate 100 Mg Tablet PO 100 mg BID@0800,2000 MONIKA Administration Ezetimibe 10 mg 11/20/23 21:00 11/20/23 21:20 Ezetimibe 10 Mg Tablet PO 10 mg HS MONIKA Administration Levothyroxine Sodium 88 mcg 11/21/23 06:30 11/21/23 05:48 Levothyroxine Sodium 88 Mcg Tablet PO 88 mcg DAILY@0630 MONIKA Administration Melatonin 9 mg 11/20/23 10:15 11/20/23 21:20 Melatonin 3 Mg Tablet PO 9 mg HS PRN Administration Sleep Nonform Fluvoxamine 0 mg 11/21/23 09:00 11/21/23 10:15 50 Mg Tablet PO 12/21/23 08:59 50 mg
--- NOTE | 2023-11-21 18:55 | PC.NURSE ---
On 11/21/23, the [employer]ER, Irina, provided care and [facility] on [facility]. I have reviewed the [employer]'s documentation and agree with the findings.
[2023-11-21] MEDS: MELATONIN 3 MG TABLET 9 MG PO (20:53)
[2023-11-21] MEDS: EZETIMIBE 10 MG TABLET PO (20:53)
[2023-11-21] MEDS: FLUVOXAMINE 50 MG PO (20:53)
[2023-11-21] MEDS: diazePAM (*CRX) 5 MG TABLET PO (20:53)
[2023-11-22 05:55] VITALS: BP 122/85; PULSE 77; RESP 20; TEMP 36; O2SAT 94
[2023-11-22] MEDS: LEVOTHYROXINE SODIUM 88 MCG TABLET PO (06:07)
[2023-11-22 09:04] VITALS: PULSE 78
[2023-11-22] MEDS: DOXYCYCLINE HYCLATE 100 MG TABLET PO ×2 (09:04→21:52)
[2023-11-22] MEDS: PROPRANOLOL HCL 20 MG TABLET PO (09:04)
[2023-11-22] MEDS: PREGABALIN (*CRX) 75 MG CAPSULE 150 MG PO ×2 (09:05→18:09)
[2023-11-22] MEDS: ASPIRIN 325 MG ENTERIC TABLET PO ×2 (09:05→21:52)
[2023-11-22 14:00] VITALS: BP 115/64; PULSE 86; RESP 20; TEMP 36.5; O2SAT 100
[2023-11-22 15:47] VITALS: O2SAT 95
[2023-11-22] MEDS: diazePAM (*CRX) 5 MG TABLET PO (21:52)
[2023-11-22] MEDS: EZETIMIBE 10 MG TABLET PO (21:52)
[2023-11-22] MEDS: FLUVOXAMINE 50 MG PO (21:52)
[2023-11-22] MEDS: MELATONIN 3 MG TABLET 9 MG PO (21:53)
[2023-11-22 22:00] VITALS: BP 104/75; PULSE 90; RESP 16; TEMP 36.2; O2SAT 95
[2023-11-22] MEDS: oxyCODONE/ACETAMINOPHEN (*CRX) 5-325 MG TABLET 1 TABLET PO (23:27)
[2023-11-23 05:50] VITALS: BP 107/64; PULSE 80; RESP 20; TEMP 36.4; O2SAT 95
[2023-11-23] MEDS: LEVOTHYROXINE SODIUM 88 MCG TABLET PO (06:27)
--- NOTE | 2023-11-23 08:40 | PCOTNOTE ---
Waiting on a new brace from [facility] for Patient to be able to weight bear on with AFO for Right LE. Patient states she wants to wait for the new brace prior to getting out of bed. Will check back at a later time.
[2023-11-23 09:03] VITALS: PULSE 80
[2023-11-23] MEDS: PROPRANOLOL HCL 20 MG TABLET PO (09:03)
[2023-11-23] MEDS: PREGABALIN (*CRX) 75 MG CAPSULE 150 MG PO ×2 (09:03→16:35)
[2023-11-23] MEDS: ASPIRIN 325 MG ENTERIC TABLET PO ×2 (09:03→20:12)
[2023-11-23] MEDS: DOXYCYCLINE HYCLATE 100 MG TABLET PO ×2 (09:03→20:12)
[2023-11-23] MEDS: oxyCODONE/ACETAMINOPHEN (*CRX) 5-325 MG TABLET 1 TABLET PO ×2 (09:08→10:32)
[2023-11-23] MEDS: diazePAM (*CRX) 5 MG TABLET PO (10:32)
--- NOTE | 2023-11-23 13:26 | PM.PNORT ---
Progress Note: A&P Assessment and Plan (1) Infection involving stitch with abscess: Code(s): T81.41XA - Infection following a procedure, superficial incisional surgical site, initial encounter Status: Acute Assessment and Plan: POD#3: I and D right knee wound. As previously discussed with Dr. Gonzalez, her range of motion and stability while under general anesthesia gave no indication to move forward with a revision of the total knee arthroplasty. She is currently in a hinged knee brace. We are waiting and ACL, PCL type brace with 0-40 degrees locked out. She will be 50% weight-bearing on the right lower extremity. She would also benefit from a night splint due to her right footdrop and swelling. Once brace can be obtained and she can work with physical therapy, we can further determine her ability to return home versus further assistance in an acute rehab facility. Once patient is able to ambulate with physical therapy and brace, she may be discharged home versus [facility]. Hopeful for discharge home tomorrow. (2) Instability of knee joint: Qualifiers: Laterality: right Qualified Code(s): M25.361 - Other instability, right knee Code(s): M25.369 - Other instability, unspecified knee Status: Acute Plan Time Spent With Patient Time: Reviewed history, exam, radiographs and current labs with attending MD and covering surgeon, Dr. Gnozalez, who agrees with current plan as indicated above. No further recommendations from Dr. Gonzalez at this time. Subjective Subjective Date/Time Seen: 11/23/23 13:26 Post Op day: 3 Interval history: POD #3: DEBRIDEMENT AND IRRIGATION OF RIGHT KNEE STITCH ABSCESSES Patient resting comfortably. Currently awaiting a new ACL brace. Still with difficulty of the right foot due to right foot drop. Prevena dressing is in place. She denies pain. No new concerns. Review of Systems Review of Systems: All systems reviewed & are unremarkable except as noted in HPI and below Exam Const: General: comfortable and no acute distress Resp: Effort & Inspection: normal respiratory effort Cardio: Rate: regular rate Rhythm: regular rhythm GI: GI Palp: Yes Soft to palpation Auscultation: normal bowel sounds Extrem: Other: Right knee with knee immobilizer is in place. Prevena dressing in place. Patient with chronic right footdrop status post for surgical intervention. Swelling in the right foot noted. Palpable pedal pulses. Warm to touch. Objective Data Vital Signs Vital Signs: Vital Signs - 24 hr 11/22/23 14:00 11/22/23 15:47 11/22/23 22:00 Temperature 36.5 C 36.2 C L Pulse Rate 86 90 Respiratory Rate 20 16 Blood Pressure 115/64 104/75 Pulse Oximetry 100 95 95 Oxygen Delivery Room Air 11/22/23 20:00 11/23/23 05:50 11/23/23 09:03 Temperature 36.4 C L Pulse Rate 80 80 Respiratory Rate 20 Blood Pressure 107/64 Pulse Oximetry 95 Oxygen Delivery Room Air 11/23/23 08:00 Temperature Pulse Rate Respiratory Rate Blood Pressure Pulse Oximetry Oxygen Delivery Room Air Intake/Output Intake/Output: Intake & Output 11/20/23 11/21/23 11/22/23 11/23/23 23:59 23:59 23:59 23:59 Intake Total 4102 783 8517 357 Output Total 550 1700 2315 1700 Balance 530 -535 283 1343 Meds/Results Medications: Active Medications Generic Name Dose Route Start Last Admin Trade Name Freq PRN Reason Stop Dose Admin Acetaminophen 650 mg 11/20/23 10:15 Acetaminophen 325 Mg Tablet PO Q6H PRN Mild Pain (1-3) Or Fever Aspirin 325 mg 11/20/23 21:00 11/23/23 09:03 Aspirin 325 Mg Enteric Tablet PO 325 mg Q12HR MONIKA Administration Diazepam 5 mg 11/18/23 00:10 11/23/23 10:32 Diazepam (*Crx) 5 Mg Tablet PO 5 mg BID PRN Administration Muscle Spasm Doxycycline Hyclate 100 mg 11/20/23 20:00 11/23/23 09:03 Doxycycline Hyclate 100 Mg Tablet PO 100 mg BID@0800,2000 [facility]
[2023-11-23 14:00] VITALS: BP 118/88; PULSE 86; RESP 20; TEMP 36.6; O2SAT 97
[2023-11-23] MEDS: oxyCODONE/ACETAMINOPHEN (*CRX) 5-325 MG TABLET 2 TABLET PO (16:29)
[2023-11-23] MEDS: EZETIMIBE 10 MG TABLET PO (20:12)
[2023-11-23] MEDS: FLUVOXAMINE 50 MG PO (20:12)
[2023-11-23 20:22] VITALS: BP 96/69; PULSE 89; RESP 20; TEMP 36; O2SAT 96
[2023-11-24 05:05] VITALS: BP 103/70; PULSE 84; RESP 18; TEMP 35.7; O2SAT 92
[2023-11-24] MEDS: LEVOTHYROXINE SODIUM 88 MCG TABLET PO (06:22)
[2023-11-24 06:43] LABS: Basophils Absolute Auto 0.1 K/mm3 (0.0-0.1); Basophils Percent Auto 1.5 % (0.2-1.2); Eosinophils Absolute Auto 0.5 K/mm3 (0-0.3); Hematocrit 38.6 % (37.0-47.0); Hemoglobin 12.4 g/dL (12.0-15.0); Immature Granulocyte Absolute 0.03 K/mm3 (0.00-0.031); Immature Granulocyte Percent A 0.4 % (0-0.5); Lymphocytes Absolute Auto 2.55 K/mm3 (0.9-3.2); Lymphocytes Percent Auto 37.3 % (18.3-44.2); Mean Corpuscular HGB Conc 32.1 g/dl (32-36); Mean Corpuscular Hemoglobin 30.2 pg (26-34); Mean Corpuscular Volume 94.1 fl (80-100); Mean Platelet Volume 8.8 fl (7.4-10.4); Monocytes Absolute Auto 0.7 K/mm3 (0.1-0.6); Monocytes Percent Auto 9.5 % (2.6-8.5); Neutrophils Percent Auto 44.3 % (45.5-73.1); Platelet Count Result 331 k/mm3 (150-375); Red Cell Distribution Width 12.8 % (11.5-14.5); White Blood Count 6.8 K/mm3 (4.5-10.0)
[2023-11-24 06:57] LABS: Anion Gap 4 mmol/L (4-12); Blood Urea Nitrogen 14 mg/dL (7-17); Calcium 9.1 mg/dL (8.4-10.2); Carbon Dioxide 30 mmol/L (22-30); Chloride 99 mmol/L (98-107); Estimated CRCL calculation 95 ml/min; Estimated Glomerular Filt Rate > 60; Glucose 91 mg/dL (65-110); Potassium 4.2 mmol/L (3.4-5.0); Sodium 133 mmol/L (137-145)
[2023-11-24 08:37] VITALS: PULSE 84
[2023-11-24] MEDS: diazePAM (*CRX) 5 MG TABLET PO ×2 (08:37→20:04)
[2023-11-24] MEDS: oxyCODONE/ACETAMINOPHEN (*CRX) 5-325 MG TABLET 2 TABLET PO ×3 (08:37→20:04)
[2023-11-24] MEDS: ASPIRIN 325 MG ENTERIC TABLET PO ×2 (08:37→20:04)
[2023-11-24] MEDS: PROPRANOLOL HCL 20 MG TABLET PO (08:37)
[2023-11-24] MEDS: PREGABALIN (*CRX) 75 MG CAPSULE 150 MG PO ×2 (08:38→16:23)
[2023-11-24] MEDS: DOXYCYCLINE HYCLATE 100 MG TABLET PO ×2 (08:39→20:04)
--- NOTE | 2023-11-24 08:48 | PCOTNOTE ---
The patient treatment was not able to be completed patient was eating breakfast at the time. seemed to just woken up. Will plan to continue treatment per plan of care.
--- NOTE | 2023-11-24 09:20 | PC.NURSE ---
[facility] notified per telephone regarding delivery of Knee Brace while patient is hospitalized. Spoke with Moriah, at [facility], and verified order was received 11/20/23 @ 7543. Moriah requested GARFIELD Sparks with Dr. Clifford's office give her a call. Clare notified per telephone and [facility] phone number given.
--- NOTE | 2023-11-24 10:20 | PC.NURSE ---
Moriah with [employer], at bedside.
--- NOTE | 2023-11-24 11:11 | PCNWS ---
Weekly nutritional screen. Patient is tolerating current regular diet with adequate intake. No weight loss reported. No nutritional needs at this time.
--- NOTE | 2023-11-24 12:28 | PM.PNORT ---
Progress Note: A&P Assessment and Plan (1) Infection involving stitch with abscess: Code(s): T81.41XA - Infection following a procedure, superficial incisional surgical site, initial encounter Status: Acute Assessment and Plan: POD 4 IMPROVING. AWAITING A LITTLE MORE IMPROVEMENT WITH PT SO SHE CAN BE MORE MOBILE AND HER BRACE. WE WILL REEVALUATE HER TMRW AGAIN FOR PROGRESS (2) Instability of knee joint: Qualifiers: Laterality: right Qualified Code(s): M25.361 - Other instability, right knee Code(s): M25.369 - Other instability, unspecified knee Status: Acute Subjective Subjective Date/Time Seen: 11/24/23 12:28 Interval history: PATIENT IS IMPROVING. SHE WALKED TO THE DOOR AND BACK YESTERDA. TODAY SHE IS HAVINBG A HAMSTRING SPASM AND WAS NOT WANTING TO PARTICIPATE IN PT. [facility] CAME TO DAY TO MEASURE HER FOR A ACL TYPE BRACE. NO CLAF PAIN Exam Extrem: Other: VSS AFEBRILE DRESSING DRY KNE IN BRACE STABLE TENDERNESS OVER THE POSTERIOR MEDIAL HAMSTRING REGION. PAIN IMPROVED WITH BRACE ADJUSTMENT. CALF SOFT NON TENDER THIGH SOFT NON TENDER, NEG HOMANS SIGN Objective Data Vital Signs Vital Signs: Vital Signs - 24 hr 11/23/23 14:00 11/23/23 20:22 11/23/23 20:00 Temperature 36.6 C 36.0 C L Pulse Rate 86 89 Respiratory Rate 20 20 Blood Pressure 118/88 96/69 L Pulse Oximetry 97 96 Oxygen Delivery Room Air 11/24/23 05:05 11/24/23 08:00 11/24/23 08:37 Temperature 35.7 C L Pulse Rate 84 84 Respiratory Rate 18 Blood Pressure 103/70 Pulse Oximetry 92 Oxygen Delivery Room Air Intake/Output Intake/Output: Intake & Output 11/21/23 11/22/23 11/23/23 11/24/23 23:59 23:59 23:59 23:59 Intake Total 418 6543 1687 918 Output Total 2962 9425 2560 907 Balance -980 283 -1013 -282 Meds/Results Medications: Active Medications Generic Name Dose Route Start Last Admin Trade Name Freq PRN Reason Stop Dose Admin Acetaminophen 650 mg 11/20/23 10:15 Acetaminophen 325 Mg Tablet PO Q6H PRN Mild Pain (1-3) Or Fever Aspirin 325 mg 11/20/23 21:00 11/24/23 08:37 Aspirin 325 Mg Enteric Tablet PO 325 mg Q12HR MONIKA Administration Diazepam 5 mg 11/18/23 00:10 11/24/23 08:37 Diazepam (*Crx) 5 Mg Tablet PO 5 mg BID PRN Administration Muscle Spasm Doxycycline Hyclate 100 mg 11/20/23 20:00 11/24/23 08:39 Doxycycline Hyclate 100 Mg Tablet PO 100 mg BID@0800,2000 MONIKA Administration Ezetimibe 10 mg 11/20/23 21:00 11/23/23 20:12 Ezetimibe 10 Mg Tablet PO 10 mg HS [facility] Administration Levothyroxine Sodium 88 mcg 11/21/23 06:30 11/24/23 06:22 Levothyroxine Sodium 88 Mcg Tablet PO 88 mcg DAILY@0630 MONIKA Administration Melatonin 9 mg 11/20/23 10:15 11/22/23 21:53 Melatonin 3 Mg Tablet PO 9 mg HS PRN Administration Sleep Nonform Fluvoxamine 0 mg 11/21/23 09:00 11/24/23 08:37 50 Mg Tablet PO 12/21/23 08:59 50 mg DAILY MONIKA Administration Nonform Fluvoxamine 0 mg 11/20/23 21:00 11/23/23 20:12 50 Mg Tablet PO 12/20/23 20:59 100 mg HS MONIKA Administration Ondansetron HCl 4 mg 11/17/23 18:14 11/17/23 18:56 Ondansetron Inj 4 Mg/2 Ml Vial IV PUSH 4 mg Q4H PRN Administration Nausea Oxycodone/Acetaminophen 1 tablet 11/18/23 00:11 11/23/23 10:32 Oxycodone/Acetaminophen (*Crx) 5-325 Mg Tablet PO 1 tablet Q6HR PRN Administration Pain Rated 4-6 Oxycodone/Acetaminophen 2 tablet 11/20/23 10:15 11/24/23 08:37 Oxycodone/Acetaminophen (*Crx) 5-325 Mg Tablet PO 2 tablet Q6H PRN Administration Pain Rated 7-10 Pregabalin 150 mg 11/20/23 17:00 11/24/23 08:38 Pregabalin (*Crx) 75 Mg Capsule PO 150 mg BID MONIKA Administration Propranolol HCl 20 mg 11/21/23 09:00 11/24/23 08:37 Propranolol Hcl 20 Mg Tablet PO 20 mg DAILY [facility] Administration Radiology Results: ITS Impressions Knee X-Ray 04
[2023-11-24 13:50] VITALS: BP 105/81; PULSE 83; RESP 20; TEMP 35.9; O2SAT 95
[2023-11-24] MEDS: MELATONIN 3 MG TABLET 9 MG PO (20:04)
[2023-11-24] MEDS: EZETIMIBE 10 MG TABLET PO (20:04)
[2023-11-24] MEDS: FLUVOXAMINE 50 MG PO (20:05)
[2023-11-24 21:08] VITALS: BP 103/70; PULSE 92; RESP 20; TEMP 36.3; O2SAT 94
[2023-11-25] MEDS: oxyCODONE/ACETAMINOPHEN (*CRX) 5-325 MG TABLET 2 TABLET PO ×2 (03:26→09:08)
[2023-11-25] MEDS: LEVOTHYROXINE SODIUM 88 MCG TABLET PO (05:38)
[2023-11-25 06:00] VITALS: BP 100/69; PULSE 90; RESP 16; TEMP 35.9; O2SAT 93
[2023-11-25] MEDS: PROPRANOLOL HCL 20 MG TABLET PO (08:34)
[2023-11-25] MEDS: ASPIRIN 325 MG ENTERIC TABLET PO (08:34)
[2023-11-25] MEDS: DOXYCYCLINE HYCLATE 100 MG TABLET PO (08:34)
[2023-11-25] MEDS: PREGABALIN (*CRX) 75 MG CAPSULE 150 MG PO ×2 (08:34→17:10)
[2023-11-25 14:00] VITALS: BP 100/68; PULSE 92; RESP 14; TEMP 37.1; O2SAT 98
--- NOTE | 2023-11-25 18:31 | PM.PNORT ---
Progress Note: A&P Assessment and Plan (1) Infection involving stitch with abscess: Code(s): T81.41XA - Infection following a procedure, superficial incisional surgical site, initial encounter Status: Acute Assessment and Plan: POD 7 AND DOING WELL. SHE HAS NO INSTABILITY EVENTS. SHE HAS GOOD PROGRESS WITH PT. SHE WILL RECEIVE HER ACL BRACE AT HOME. IT SHOULD BE LOCKED AT 0 DEG FLEX/EXT. PLAN FOR A TOTAL OF 6 WEEKS IMMOBILIZATION IN EXTENSION THEN GRADUAL ALLOWING SOME MOTION DC ALTAMIRANO. OK TO DC HOME IF SHE IS ABLE TO URINATE. SHE WILL F/U IN 3 WEEKS. (2) Instability of knee joint: Qualifiers: Laterality: right Qualified Code(s): M25.361 - Other instability, right knee Code(s): M25.369 - Other instability, unspecified knee Status: Acute Subjective Subjective Date/Time Seen: 11/25/23 18:31 Interval history: POD 7 DOING WELL. WALKING WELL WITH PT. NO C/O OF CALF PAIN OR INSTABILITY. SHE IS FULL WEIGHT BEARING Exam Extrem: Other: VSS AFEBRILE DRESSING DRY AFO IN PLACE SENSATION AND PLANTAR FLEXION INTACT. NO CHANGE IN DORSI FLEXION. CALF SOFT NON TENDER THIGH SOFT NON TENDER NEG HOMANS SIGN Objective Data Vital Signs Vital Signs: Vital Signs - 24 hr 11/24/23 21:08 11/25/23 06:00 11/25/23 08:35 Temperature 36.3 C L 35.9 C L Pulse Rate 92 90 Respiratory Rate 20 16 Blood Pressure 103/70 100/69 Pulse Oximetry 94 93 Oxygen Delivery Room Air 11/25/23 14:00 Temperature 37.1 C Pulse Rate 92 Respiratory Rate 14 Blood Pressure 100/68 Pulse Oximetry 98 Oxygen Delivery Intake/Output Intake/Output: Intake & Output 11/22/23 11/23/23 11/24/23 11/25/23 23:59 23:59 23:59 23:59 Intake Total 4175 [id number] 380 6971 Output Total 2313 4820 2050 975 Balance [phone] Meds/Results Medications: Active Medications Generic Name Dose Route Start Last Admin Trade Name Freq PRN Reason Stop Dose Admin Acetaminophen 650 mg 11/20/23 10:15 Acetaminophen 325 Mg Tablet PO Q6H PRN Mild Pain (1-3) Or Fever Aspirin 325 mg 11/20/23 21:00 11/25/23 08:34 Aspirin 325 Mg Enteric Tablet PO 325 mg Q12HR MONIKA Administration Diazepam 5 mg 11/18/23 00:10 11/24/23 20:04 Diazepam (*Crx) 5 Mg Tablet PO 5 mg BID PRN Administration Muscle Spasm Doxycycline Hyclate 100 mg 11/20/23 20:00 11/25/23 08:34 Doxycycline Hyclate 100 Mg Tablet PO 100 mg BID@0800,2000 MONIKA Administration Ezetimibe 10 mg 11/20/23 21:00 11/24/23 20:04 Ezetimibe 10 Mg Tablet PO 10 mg HS MONIKA Administration Levothyroxine Sodium 88 mcg 11/21/23 06:30 11/25/23 05:38 Levothyroxine Sodium 88 Mcg Tablet PO 88 mcg DAILY@0630 MONIKA Administration Melatonin 9 mg 11/20/23 10:15 11/24/23 20:04 Melatonin 3 Mg Tablet PO 9 mg HS PRN Administration Sleep Nonform Fluvoxamine 0 mg 11/21/23 09:00 11/25/23 08:34 50 Mg Tablet PO 12/21/23 08:59 50 mg DAILY MONIKA Administration Nonform Fluvoxamine 0 mg 11/20/23 21:00 11/24/23 20:05 50 Mg Tablet PO 12/20/23 20:59 50 mg HS MONIKA Administration Ondansetron HCl 4 mg 11/17/23 18:14 11/17/23 18:56 Ondansetron Inj 4 Mg/2 Ml Vial IV PUSH 4 mg Q4H PRN Administration Nausea Oxycodone/Acetaminophen 1 tablet 11/18/23 00:11 11/23/23 10:32 Oxycodone/Acetaminophen (*Crx) 5-325 Mg Tablet PO 1 tablet Q6HR PRN Administration Pain Rated 4-6 Oxycodone/Acetaminophen 2 tablet 11/20/23 10:15 11/25/23 09:08 Oxycodone/Acetaminophen (*Crx) 5-325 Mg Tablet PO 2 tablet Q6H PRN Administration Pain Rated 7-10 Pregabalin 150 mg 11/20/23 17:00 11/25/23 17:10 Pregabalin (*Crx) 75 Mg Capsule PO 150 mg BID MONIKA Administration Propranolol HCl 20 mg 11/21/23 09:00 11/25/23 08:34 Propranolol Hcl 20 Mg Tablet PO 20 mg DAILY MONIKA Administration Radiology Results: ITS Impressions Knee X-Ray 11/17/23 12:36 IMPRESSION:
--- NOTE | 2023-11-25 18:37 | PM.DS ---
DS: Admitting Diagnosis Discharge Date 11/25/23 Admitting Diagnosis RIGHT TKA DISLOCATION DS: Discharge Diagnosis Discharge Diagnosis (1) S/P total knee arthroplasty: Qualifiers: Laterality: right Qualified Code(s): Z96.651 - Presence of right artificial knee joint Code(s): Z96.659 - Presence of unspecified artificial knee joint Status: Acute DS: Summary Hospital Course Reason for hospitalization: REDUCTION OF RIGHT TKA, I AND D OF DEEP STITCH ABSCESS Hospital Course: PATIENT WAS ADMITTED S/P RIGHT TKA REDUCTION FOR POSTOPERATIVE MEDICAL MANAGEMENT, PAIN CONTROL AND MOBILIZATION WITH PHYSICAL AND OCCUPATIONAL THERAPY. THE PATIENT PROGRESSED WELL WITH PT/OT. LABS AND VITALS REMAINED STABLE AND PAIN WELL CONTROLLED. THE PATIENT HAS BEEN CLEARED TO BE DISCHARGED HOME WITH HOME NURSING AND PT. FOLLOW UP APPOINTMENT SCHEDULED. DISCHARGE INSTRUCTIONS DISCUSSED AT LENGTH WITH THE PATIENT. MEDICATIONS REVIEWED. Status at Discharge Cognitive/behavioral status at discharge: STABLE Time Spent with Patient Time attestation: Total time spent providing and/or coordinating discharge services: DS: Data Data Completed and Pending Labs on day of discharge: Preliminary micro results at discharge 11/20/23 08:34 Anaerobic Culture - Preliminary Knee Right Procedures/Treatments: I AND D RIGHT KNEE WOUND, CLOSED REDUCTION RIGHT TKA Discharge Plan Discharge Attending physician on discharge: Rich Gonzalez Discharging Clinician: Clare Navarro Patient Disposition: Home Health Service Activity: no shower, no driving and follow weight bearing status Diet: as tolerated Wound Care Instructions: follow printed instructions Discharge Instructions: Per Care Coordination. Patient to have [facility] for RN/PT/OT eval and treat [phone]. They will contact patient to schedule first appointment. Prevena (Wound VAC) Dressing Instructions Dr. Rich Gonzalez [phone] ? A Prevena Wound VAC dressing was placed during your surgery for additional incision support. This decision was made by your surgeon at the time of surgery. Your Prevena dressing has the battery capacity to remain in place/functioning for 7 days. If the battery dies prior OR if it beeps/flashes red on the component, this would signal it is no longer working appropriately. At that time you should REMOVE the Prevena dressing and place a Mepilex Silver dressing which should be supplied to you by the hospital nursing staff BEFORE you are discharged from the hospital. If your home health nurse is available and able, they would preferably change to dressing. If not, please perform good hand hygiene before applying the Mepilex Silver dressing once you have REMOVED the Prevena dressing. ? If you have any difficulties with this, please contact our office at [phone] and on our of staff members can walk you through the process. ? If you have ernst in place, these will still be removed on the 14th day after surgery regardless of which dressing you still have in place. Orthopedic Recommendations Dr. Rich Gonzalez [phone] Weight bearing as tolerated WITH brace in place. Ice. Elevate. Pain control. ACL/PCL brace to be fit by [facility] prior to discharge. They plan to then bring the brace to you at home. Continue current hinged knee brace at all times until they are able to fit you with the new brace. Night splint for right foot drop while in bed. Shoe brace while out of bed. AFO modifications planned by [facility]. Pain control. Keep Prevena in place. Change on POD #7 to Mepilex Silver Dressing. Follow up with Dr. Gonzalez as indicated below. Patient Instructions: Antibiotic Form Stand Alone Forms: General Discharge Information Follow-up/Referrals: Rich Gonzalez MD [Physician] - Keep Reg. Scheduled Appt. Discharge Medications: New oxycodone-acetaminophen [Percocet] 5-325 mg tablet 1 tablet PO Q12H
== END 2023-11-25 19:45 | disposition home health service (06) | DRG 464 ==
LOC: ANHED 18:11 → ANH3MEDSUR 19:24
PROVIDERS: Nurse Practitioner Family; Admitting Provider Orthopaedic Surgery; Emergency Provider Family Medicine; PCP Family Medicine; Visit Provider Orthopaedic Surgery
PROC: 0JBN0ZZ Excision of Right Lower Leg Subcutaneous Tissue and Fascia, Open Approach (ICD-10-PCS; CPT 27487; principal; 2023-11-20 07:30)
DX: T84.022A Instability of internal right knee prosthesis, initial encounter (principal); L02.415 Cutaneous abscess of right lower limb; T81.41XA Infection following a procedure, superficial incisional surgical site, initial encounter; G80.9 Cerebral palsy, unspecified; E78.5 Hyperlipidemia, unspecified; E03.9 Hypothyroidism, unspecified; E78.2 Mixed hyperlipidemia; M19.90 Unspecified osteoarthritis, unspecified site; M17.0 Bilateral primary osteoarthritis of knee; M21.371 Foot drop, right foot; Z96.651 Presence of right artificial knee joint
CPT/HCPCS: 27560; 36415; 73560; 73564; 80048; 80053; 81003; 82948; 85025; 85610; 87070; 87075; 87205; 96374; 96375; 97116; 97161; 97165; 97530; 97535; 99285; A9270; C1713; J0171; J0690; J1100; J1170; J1885; J2250; J2270; J2405; J2704; J2795; J3010; J3370; J7030; J7120

== ENCOUNTER 2023-11-26 13:14 | Inpatient (IN) | payer MEDICARE, SELFPAY ==
[2023-11-26] VITALS (14 sets, daily range): BP systolic 83–124; BP diastolic 53–80; PULSE 70–120; RESP 14–25; TEMP 36.2–36.3; O2SAT 91–98; BMI 26.4
--- NOTE | ~2023-11-26 | CT_ITS ---
EXAMINATION: CT abdomen pelvis wo con DATE: 11/27/2023 13:43 INDICATION: Nausea and vomiting. Abdominal pain. TECHNIQUE: Computed tomography (CT) of the abdomen and pelvis was performed without intravenous contr ast. Automated exposure control and iterative reconstruction technique were employed. The dose-length product was 513.29 mGy-cm. COMPARISON: None. FINDINGS: The visualized portions of the lung bases demonstrate mild atelectasis. There are small ple ural effusions. The heart size is normal. No pericardial effusion. The liver, spleen, pancreas, gallb ladder, adrenal glands, and kidneys are normal. There is no urolithiasis. There is a Rosenberg catheter i n the bladder in expected position. There are no dilated loops of bowel. The appendix is not visualiz ed. There are no pathologically enlarged lymph nodes. There is trace ascites. There is an electrode i n left S3 neural foramen. There is severe lower lumbar spondylosis. There is moderate thoracic spondy losis. IMPRESSION: 1. Small pleural effusions. Reviewed, dictated and finalized at location E. IMPRESSION: 1. Small pleural effusions.
--- NOTE | ~2023-11-26 | XR_ITS ---
EXAMINATION: XR abdomen/kub 1V DATE: 11/26/2023 20:13 INDICATION: Intractable nausea and vomiting. TECHNIQUE: A supine view of the abdomen was obtained. COMPARISON: None. FINDINGS: There are no dilated loops of bowel. There is a small volume of stool in the colon. There i s an electrode overlying the sacrum. There are phleboliths in the pelvis. IMPRESSION: 1. Normal bowel gas pattern. Reviewed, dictated and finalized at location E.
--- NOTE | 2023-11-26 13:28 | ED.NAVMDI ---
HPI - Nausea/Vomiting/Diarrhea General Chief complaint: Nausea/Vomiting/Diarrhea <Alejo Guzman APRN - Last Filed: 12/16/23 08:46> Stated complaint: NAUSEA,VOMITING <Alejo Guzman APRN - Last Filed: 12/16/23 08:46> Time Seen by Provider: 11/26/23 14:09 <Alejo Guzman APRN - Last Filed: 12/16/23 08:46> Focused HPI: GENERAL: ill-appearing, well-nourished, and in no acute distress. HEAD: Normocephalic, atraumatic. CHEST: Clear to auscultation. No respiratory distress. HEART: Regular rate and rhythm. NEURO: Alert and oriented x3. Patient screened in triage and initial orders placed. Additional care and disposition to be based upon diagnostic testing and treatment. 58-year-old female history of cerebral palsy, hypothyroidism presents to the emergency room for evaluation of acute onset of nausea vomiting. Patient states that she was recently discharged from hospital stay last evening due to of right knee abscess secondary to retained sutures status post knee replacement from Dr. Barraza. Patient states immediately being discharged from the hospital she began experiencing multiple episodes of nonbilious and nonbloody vomiting. Patient does report having a formed stool this morning and has been urinating. Denies any associated abdominal pain or fever. <Alejo Guzman APRN - Last Filed: 12/16/23 08:46> History of Present Illness HPI Narrative: 58-year-old female presenting ED for evaluation persistent nausea and vomiting after recent knee surgery. <Agustín Kaiser MD - Last Filed: 12/05/23 08:10> Related Data Home medications: Home Medications Medication Instructions Recorded Confirmed ezetimibe 10 mg tablet (Zetia) 10 mg PO HS 11/17/23 11/26/23 fluvoxamine 50 mg tablet 100 mg PO HS 11/17/23 11/26/23 propranolol 20 mg tablet 20 mg PO QAM 11/17/23 11/26/23 fluvoxamine 50 mg tablet 50 mg PO QAM 11/26/23 11/26/23 <Alejo Guzman APRN - Last Filed: 12/16/23 08:46> Allergies/Adverse reactions: Allergies Allergy/AdvReac Type Severity Reaction Status Date / Time simvastatin Allergy Unknown Muscle pain Verified 12/07/23 15:09 Ehcmpwz-IWJ-SmW Reductase Allergy Unknown Muscle Pain Verified 12/07/23 15:09 Inhibitor [Pnkofss-Jvs-Ncw Reductase Inhibitor] Sulfa (Sulfonamide Allergy Unknown Hives Verified 12/07/23 15:09 Antibiotics) <Alejo Guzman APRN - Last Filed: 12/16/23 08:46> Review of Systems Review of Systems: All systems reviewed & are unremarkable except as noted in HPI and below <Agustín Kaiser MD - Last Filed: 12/05/23 08:10> [facility] Past Medical History Medical History: Medical History Cerebral palsy Combined hyperlipidemia Degenerative disc disease Degenerative joint disease Depression Hypothyroidism <Alejo Guzman APRN - Last Filed: 12/16/23 08:46> Surgical History Surgical History: Surgical History History of appendectomy History of bilateral knee arthroplasty History of cystoscopy <Alejo Guzman APRN - Last Filed: 12/16/23 08:46> Family History Family History: Family History Mother Family history of elevated blood lipids Family history of arthritis Multiple myeloma Father Family history of heart disease in male family member before age 55 Family history of diabetes mellitus in first degree relative Diabetes mellitus Family history of coronary artery disease <Alejo Guzman APRN - Last Filed: 12/16/23 08:46> Social History Social History: Social History Social History: Surrogate medical decision maker: Lacie Rapp, isai. Code status: Full code. Smoking status: Never smoker Second hand tobacco smoke exposure: No Alcohol intake: never Alcoho
[2023-11-26 13:42] LABS: Basophils Percent Auto 0.4 % (0.2-1.2); Eosinophils Absolute Auto 0.1 K/mm3 (0-0.3); Eosinophils Percent Auto 0.7 % (0-4.4); Hematocrit 39.6 % (37.0-47.0); Immature Granulocyte Absolute 0.03 K/mm3 (0.00-0.031); Immature Granulocyte Percent A 0.3 % (0-0.5); Lymphocytes Absolute Auto 0.61 K/mm3 (0.9-3.2); Lymphocytes Percent Auto 6.3 % (18.3-44.2); Mean Corpuscular HGB Conc 32.8 g/dl (32-36); Mean Corpuscular Hemoglobin 30.1 pg (26-34); Mean Corpuscular Volume 91.7 fl (80-100); Mean Platelet Volume 8.8 fl (7.4-10.4); Monocytes Absolute Auto 0.5 K/mm3 (0.1-0.6); Neutrophils Absolute Auto 8.5 K/mm3 (1.3-6.7); Neutrophils Percent Auto 87.3 % (45.5-73.1); Platelet Count Result 396 k/mm3 (150-375); Red Blood Count 4.32 M/mm3 (4.2-5.4); Red Cell Distribution Width 13.1 % (11.5-14.5); White Blood Count 9.7 K/mm3 (4.5-10.0)
[2023-11-26] MEDS: SODIUM CHLORIDE 0.9% IV 1,000 ML 999 ML IV CONT ×3 (13:46→17:53)
[2023-11-26] MEDS: ONDANSETRON INJ 4 MG/2 ML VIAL IV PUSH ×3 (13:46→19:38)
[2023-11-26 13:52] LABS: Alanine Aminotransferase 18 U/L (6-35); Albumin Level 4.6 g/dL (3.5-5.1); Alkaline Phosphatase 113 U/L (38-126); Anion Gap 11 mmol/L (4-12); Aspartate Amino Transferase 39 U/L (14-36); Bilirubin,Total 0.8 mg/dL (0.2-1.3); Blood Urea Nitrogen 14 mg/dL (7-17); Calcium 9.6 mg/dL (8.4-10.2); Carbon Dioxide 26 mmol/L (22-30); Chloride 99 mmol/L (98-107); Estimated CRCL calculation 70 ml/min; Estimated Glomerular Filt Rate > 60; Glucose 149 mg/dL (65-110); Lipase 29 U/L (23-300); Potassium 4.1 mmol/L (3.4-5.0); Sodium 136 mmol/L (137-145)
[2023-11-26 15:10] LABS: Appearance Urine Clear (Clear); Bilirubin Urine Negative (Negative); Blood Urine Negative (Negative); Color Urine Yellow (Yellow); Glucose Urine UA Negative (Negative); Ketones Urine 1+ mg/dL (Negative); Leukocyte Esterase Ur Negative LEU/UL (Negative); Nitrate Urine Negative (Negative); Protein Urine Negative (Negative); Urobilinogen Urine 0.2 mg/dL (<2.0); pH Urine 5.5 (5.0-9.0)
[2023-11-26 15:16] LABS: Add Urine Microscopic? NO
[2023-11-26] MEDS: METOCLOPRAMIDE HCL INJ 10 MG/2 ML VIAL IV PUSH (17:08)
--- NOTE | 2023-11-26 18:28 | PC.NURSE ---
Notified MD Kaiser of patient blood pressure being 80s/50s. Patient alert and oriented x4.
--- NOTE | 2023-11-26 19:17 | PM.IMHP ---
H&P: HPI History of Present Illness Date/Time: 11/26/23 21:30 Chief Complaint: Nausea and vomiting. Narrative: This is a 58-year-old female with hyperlipidemia, hypothyroidism, depression, and cerebral palsy who presented to the emergency department for evaluation of nausea and vomiting. The patient provides the following history. She was admitted to the hospital on 11/17/2023 with right knee dislocation approximately 5 weeks after undergoing right knee replacement. The knee was reduced and she also underwent debridement and irrigation of right knee stitch abscesses. She did well with physical therapy, labs and vitals remained stable, and her pain was well controlled. She was discharged yesterday evening however once she was up and about she developed nausea and had 1 episode of emesis before leaving. Unfortunately she continues to have intractable vomiting which her sister describes as bile however it sounds to be more yellowish white in color. She has not had anything to eat since yesterday afternoon. She is now complaining cramping pain in the periumbilical region. She had a small, formed bowel movement today without blood or mucus. She is passing gas. Her symptoms seem to be worse when sitting upright in a bit better when lying supine. She denies fever, chills, sweats, hematemesis, epigastric pain, bloating, belching, dysuria, and difficulties urinating. In the ED: She was afebrile on arrival. Initial blood pressures were in the 80s to 90 systolic but have improved with IV fluids. Labs were significant for a WBC count of 9.7, sodium 136, BUN 14, creatinine 0.60. 1+ ketones were noted in the urine. In addition to IV fluids she received ondansetron and metoclopramide but unfortunately she continues to have nausea and vomiting and she is being admitted in this setting for supportive care. Review of Systems Review of Systems: 12 systems were reviewed and are negative except for as per HPI. [facility] Past Medical History Medical History (Updated 11/26/23 @ 20:22 by Deb Tinoco PA-C) Cerebral palsy Combined hyperlipidemia Degenerative disc disease Degenerative joint disease Depression Hypothyroidism Surgical History Surgical History (Updated 11/26/23 @ 19:22 by Deb Tinoco PA-C) History of appendectomy History of bilateral knee arthroplasty History of cystoscopy Family History Family History Mother Family history of elevated blood lipids Family history of arthritis Multiple myeloma Father Family history of heart disease in male family member before age 55 Family history of diabetes mellitus in first degree relative Diabetes mellitus Family history of coronary artery disease Social History Social History (Updated 11/26/23 @ 19:23 by Deb Tinoco PA-C) Social History: Surrogate medical decision maker: Lacie Rapp, sibling. Code status: Full code. Smoking status: Never smoker Second hand tobacco smoke exposure: No Alcohol intake: current Alcohol use details: Rare alcohol use. Substance use: never Substance use type: does not use Do You Feel Safe in your Home?: Yes Lack of Transportation: No Lack of Food: Never True Current Housing: I Have Housing Concerned About Future Housing: No Difficulty Paying Gas/Electric Bills: No Difficulty Paying for Meds: No Currently Unemployed: No Education: Associate Degree Difficulty w/ Childcare or Family Care: No Living arrangements: with family Occupation/Education: retired Spiritual care concerns: No Agree to blood products: Yes Meds Home Medications and Allergies Home Medications Medication Instructions Recorded Confirmed Type aspirin 325 mg tablet,delayed 325 mg PO Q12HR 28 days #56 tabs 10/15/23 11/26/23 Rx release acetaminophen 325 mg tablet 650 mg PO Q6H PRN Mild Pain (1-3) 10/27/23 11/26/23 Rx Or Fever #0 tabs cyclobenzapr
[2023-11-26] MEDS: diazePAM (*CRX) 5 MG TABLET PO (19:38)
[2023-11-26] MEDS: SODIUM CHLORIDE 0.9% IV 1,000 ML 125 ML IV CONT (19:38)
[2023-11-26] MEDS: MORPHINE SULFATE (*CRX) 2 MG/ML INJ IV PUSH (20:01)
--- NOTE | 2023-11-26 20:15 | ADMGEN ---
This patient, Domingo Brumfield, was admitted to Medical Room 346-01. Patient/family oriented to hospital policies and general routines including ID bracelet, bed and alarms, visiting hours, pain management, procedures, bathroom and other care routines, personal items, smoking policy, room service/diet, and visiting hours. Information on how to activate the Rapid Response Team has been discussed. Patient/Family are encouraged to report perceived risks to care and to ask questions if they do not understand what they are told or what they should do.
[2023-11-26] MEDS: PANTOPRAZOLE SODIUM IV 40 MG VIAL IV PUSH (20:36)
[2023-11-27] MEDS: ONDANSETRON INJ 4 MG/2 ML VIAL IV PUSH ×2 (00:03→07:37)
[2023-11-27] MEDS: MORPHINE SULFATE (*CRX) 2 MG/ML INJ IV PUSH ×3 (00:03→09:29)
[2023-11-27 04:33] VITALS: BP 126/75; PULSE 104; RESP 18; TEMP 36.6; O2SAT 96
[2023-11-27] MEDS: SODIUM CHLORIDE 0.9% IV 1,000 ML 125 ML IV CONT (05:53)
[2023-11-27 06:10] LABS: Hematocrit 31.3 % (37.0-47.0); Hemoglobin 10.1 g/dL (12.0-15.0); Mean Corpuscular HGB Conc 32.3 g/dl (32-36); Mean Corpuscular Hemoglobin 30.5 pg (26-34); Mean Corpuscular Volume 94.6 fl (80-100); Mean Platelet Volume 8.8 fl (7.4-10.4); Platelet Count Result 291 k/mm3 (150-375); Red Blood Count 3.31 M/mm3 (4.2-5.4); Red Cell Distribution Width 13.1 % (11.5-14.5); White Blood Count 5.8 K/mm3 (4.5-10.0)
[2023-11-27 06:29] LABS: Alanine Aminotransferase 12 U/L (6-35); Albumin Level 3.3 g/dL (3.5-5.1); Alkaline Phosphatase 81 U/L (38-126); Anion Gap 9 mmol/L (4-12); Aspartate Amino Transferase 33 U/L (14-36); Bilirubin,Total 0.4 mg/dL (0.2-1.3); Blood Urea Nitrogen 9 mg/dL (7-17); Calcium 8.6 mg/dL (8.4-10.2); Carbon Dioxide 18 mmol/L (22-30); Chloride 110 mmol/L (98-107); Estimated CRCL calculation 79 ml/min; Estimated Glomerular Filt Rate > 60; Glucose 93 mg/dL (65-110); Potassium 3.3 mmol/L (3.4-5.0); Sodium 137 mmol/L (137-145)
[2023-11-27 08:00] VITALS: BP 118/68; PULSE 91; RESP 16; TEMP 36.4; O2SAT 95
[2023-11-27 08:15] VITALS: O2SAT 93
--- NOTE | 2023-11-27 08:24 | PM.IMPN ---
Progress Note: A&P Assessment and Plan (1) Abdominal pain: Code(s): R10.9 - Unspecified abdominal pain Status: Acute (2) Intractable nausea and vomiting: Code(s): R11.2 - Nausea with vomiting, unspecified Status: Acute (3) Dehydration: Code(s): E86.0 - Dehydration Status: Acute (4) Hypothyroidism: Code(s): E03.9 - Hypothyroidism, unspecified Status: Acute (5) Combined hyperlipidemia: Code(s): E78.2 - Mixed hyperlipidemia Status: Chronic (6) Depression: Code(s): F32.A - Depression, unspecified Status: Acute Plan 58-year-old female with history of cerebral palsy hypothyroidism presents to the ER for evaluation of sudden onset nausea and vomiting. She was recently discharged on 11/25/2023 after right knee abscess secondary to retained sutures post knee replacement. In the ED she was afebrile initial blood pressure was in 80s to 90 systolic which improved with IV fluid. WBC 9.7 sodium 136 BUN 14 creatinine 0.6. Urine had 1+ ketones. She received ondansetron and Reglan but continued to have nausea and vomiting and hence was admitted for further treatment. Abdominal examination was benign and no further testing with CT was performed. X-ray abdomen with normal bowel gas pattern. Urinalysis was negative for infection otherwise. Will perform CT add Bentyl p.r.n.. Continue supportive treatment as ordered. History of right knee replacement October 2023 History of right knee dislocation 11/17/2023 Right knee stitch abscess formation 11/17/2023 Subjective Date/time seen: 11/27/23 08:24 Interval history: 58-year-old female with history of cerebral palsy hypothyroidism presents to the ER for evaluation of sudden onset nausea and vomiting. She was recently discharged on 11/25/2023 after right knee abscess secondary to retained sutures post knee replacement. In the ED she was afebrile initial blood pressure was in 80s to 90 systolic which improved with IV fluid. WBC 9.7 sodium 136 BUN 14 creatinine 0.6. Urine had 1+ ketones. She received ondansetron and Reglan but continued to have nausea and vomiting and hence was admitted for further treatment. Abdominal examination was benign and no further testing with CT was performed. X-ray abdomen with normal bowel gas pattern. Urinalysis was negative for infection otherwise History of right knee replacement October 2023 History of right knee dislocation 11/17/2023 Right knee stitch abscess formation 11/17/2023 Review of Systems Review of Systems: All systems reviewed & are unremarkable except as noted in HPI and below Exam Narrative: General: Well-developed, nontoxic-appearing female supine in bed in no acute distress HEENT: PERRL, EOMI. Sclera anicteric. Tacky mucous membranes. Neck: Supple. Respiratory: Lungs are clear to auscultation bilaterally. Cardiovascular: Regular rate and rhythm normal S1-S2. Gastrointestinal: Abdomen is soft and nondistended with positive bowel sounds. She is tender to palpation the periumbilical region. No guarding or rebound tenderness. Bladder does not feel enlarged. Skin: Warm and dry. Extremities: No cyanosis, clubbing, or edema. Radial and pedal pulses intact. Musculoskeletal: Right knee dressing is clean, dry, and intact. She is in an immobilizer. Neurological: Alert. Cranial nerves 2-12 are grossly intact. No gross focal deficits to casual conversation. Psychiatric: Cooperative with appropriate mood. Slightly anxious. Objective Data Vital Signs Vital Signs: Vital Signs - 24 hr 11/26/23 13:22 11/26/23 14:59 11/26/23 16:08 Temperature 97.1 F L Pulse Rate 110 H 109 H 108 H Respiratory Rate 16 18 18 Blood Pressure 107/72 91/67 L 83/53 L Pulse Oximetry 96 97 96 Oxygen Delivery Room Air 11/26/23 16:47 11/26/23 14:58 11/26/23 14:59 Temperature Pulse Rate 115 H 109 H 108 H Respiratory Rate 20 21 H 16 Blood Pressure 102/64 91/67 L Pulse Oximetry
[2023-11-27] MEDS: DICYCLOMINE HCL 10 MG CAPSULE PO ×2 (11:45→17:16)
[2023-11-27] MEDS: LEVOTHYROXINE SODIUM 88 MCG TABLET PO (11:45)
[2023-11-27 14:00] VITALS: BP 105/66; PULSE 100; RESP 14; TEMP 36.4; O2SAT 97
[2023-11-27] MEDS: PREGABALIN (*CRX) 75 MG CAPSULE 150 MG PO (17:14)
[2023-11-27] MEDS: SODIUM CHLORIDE 0.9% IV 1,000 ML 100 ML IV CONT (17:16)
[2023-11-27 18:31] VITALS: BP 125/72; PULSE 82; RESP 16; O2SAT 99
[2023-11-27] MEDS: POTASSIUM CHLORIDE 20 MEQ ER TABLET 40 MEQ PO (20:22)
[2023-11-27] MEDS: DOCUSATE SODIUM 100 MG CAPSULE PO (20:23)
[2023-11-27] MEDS: ASPIRIN 325 MG ENTERIC TABLET PO (20:23)
[2023-11-27] MEDS: EZETIMIBE 10 MG TABLET PO (20:23)
[2023-11-27 22:00] VITALS: BP 123/60; PULSE 104; RESP 16; TEMP 36.4; O2SAT 95
[2023-11-28] MEDS: SODIUM CHLORIDE 0.9% IV 1,000 ML 100 ML IV CONT (03:25)
[2023-11-28 05:01] LABS: Basophils Percent Auto 0.5 % (0.2-1.2); Eosinophils Absolute Auto 0.2 K/mm3 (0-0.3); Eosinophils Percent Auto 3.8 % (0-4.4); Hematocrit 32.9 % (37.0-47.0); Hemoglobin 10.6 g/dL (12.0-15.0); Immature Granulocyte Absolute 0.01 K/mm3 (0.00-0.031); Immature Granulocyte Percent A 0.2 % (0-0.5); Lymphocytes Absolute Auto 2.07 K/mm3 (0.9-3.2); Lymphocytes Percent Auto 37.2 % (18.3-44.2); Mean Corpuscular HGB Conc 32.2 g/dl (32-36); Mean Corpuscular Volume 93.2 fl (80-100); Mean Platelet Volume 8.8 fl (7.4-10.4); Monocytes Absolute Auto 0.8 K/mm3 (0.1-0.6); Monocytes Percent Auto 14.9 % (2.6-8.5); Neutrophils Absolute Auto 2.4 K/mm3 (1.3-6.7); Neutrophils Percent Auto 43.4 % (45.5-73.1); Platelet Count Result 322 k/mm3 (150-375); Red Blood Count 3.53 M/mm3 (4.2-5.4); Red Cell Distribution Width 13.1 % (11.5-14.5); White Blood Count 5.6 K/mm3 (4.5-10.0)
[2023-11-28 05:17] LABS: Alanine Aminotransferase 12 U/L (6-35); Albumin Level 3.4 g/dL (3.5-5.1); Alkaline Phosphatase 83 U/L (38-126); Anion Gap 7 mmol/L (4-12); Aspartate Amino Transferase 29 U/L (14-36); Bilirubin,Total 0.3 mg/dL (0.2-1.3); Blood Urea Nitrogen 3 mg/dL (7-17); Calcium 8.7 mg/dL (8.4-10.2); Carbon Dioxide 22 mmol/L (22-30); Chloride 110 mmol/L (98-107); Estimated CRCL calculation 113 ml/min; Estimated Glomerular Filt Rate > 60; Glucose 104 mg/dL (65-110); Potassium 3.5 mmol/L (3.4-5.0); Sodium 139 mmol/L (137-145)
[2023-11-28] MEDS: LEVOTHYROXINE SODIUM 88 MCG TABLET PO (05:36)
[2023-11-28 06:00] VITALS: BP 134/79; PULSE 87; RESP 20; TEMP 36.4; O2SAT 98
[2023-11-28] MEDS: PREGABALIN (*CRX) 75 MG CAPSULE 150 MG PO ×2 (09:08→17:16)
[2023-11-28 09:09] VITALS: PULSE 88
[2023-11-28] MEDS: ASPIRIN 325 MG ENTERIC TABLET PO ×2 (09:09→20:12)
[2023-11-28] MEDS: PROPRANOLOL HCL 20 MG TABLET PO (09:09)
[2023-11-28] MEDS: DOCUSATE SODIUM 100 MG CAPSULE PO ×2 (09:09→20:12)
[2023-11-28] MEDS: polyethylene glycoL 3350 17 GM POWD.PACK PO (12:00)
[2023-11-28 13:34] VITALS: BP 118/77; PULSE 89
[2023-11-28 13:35] VITALS: BP 139/81; PULSE 87
[2023-11-28 13:36] VITALS: PULSE 86; RESP 18; TEMP 36.3; O2SAT 100
--- NOTE | 2023-11-28 14:09 | PM.IMPN ---
Progress Note: A&P Assessment and Plan (1) Abdominal pain: Code(s): R10.9 - Unspecified abdominal pain Status: Acute (2) Intractable nausea and vomiting: Code(s): R11.2 - Nausea with vomiting, unspecified Status: Acute (3) Dehydration: Code(s): E86.0 - Dehydration Status: Acute (4) Hypothyroidism: Code(s): E03.9 - Hypothyroidism, unspecified Status: Acute (5) Combined hyperlipidemia: Code(s): E78.2 - Mixed hyperlipidemia Status: Chronic (6) Depression: Code(s): F32.A - Depression, unspecified Status: Acute Plan 58-year-old female with history of cerebral palsy hypothyroidism presents to the ER for evaluation of sudden onset nausea and vomiting. She was recently discharged on 11/25/2023 after right knee abscess secondary to retained sutures post knee replacement. In the ED she was afebrile initial blood pressure was in 80s to 90 systolic which improved with IV fluid. WBC 9.7 sodium 136 BUN 14 creatinine 0.6. Urine had 1+ ketones. She received ondansetron and Reglan but continued to have nausea and vomiting and hence was admitted for further treatment. Abdominal examination was benign and no further testing with CT was performed. X-ray abdomen with normal bowel gas pattern. Urinalysis was negative for infection otherwise. CT abdomen pelvis with no acute findings. Did have constipation could be related to this. Bowel regiment as ordered Add Bentyl p.r.n.. Continue supportive treatment as ordered. She will stop IV fluid today History of right knee replacement October 2023 History of right knee dislocation 11/17/2023 Right knee stitch abscess formation 11/17/2023 Subjective Date/time seen: 11/28/23 14:09 Interval history: 58-year-old female with history of cerebral palsy hypothyroidism presents to the ER for evaluation of sudden onset nausea and vomiting. She was recently discharged on 11/25/2023 after right knee abscess secondary to retained sutures post knee replacement. In the ED she was afebrile initial blood pressure was in 80s to 90 systolic which improved with IV fluid. WBC 9.7 sodium 136 BUN 14 creatinine 0.6. Urine had 1+ ketones. She received ondansetron and Reglan but continued to have nausea and vomiting and hence was admitted for further treatment. Abdominal examination was benign and no further testing with CT was performed. X-ray abdomen with normal bowel gas pattern. Urinalysis was negative for infection otherwise History of right knee replacement October 2023 History of right knee dislocation 11/17/2023 Right knee stitch abscess formation 11/17/2023 11/28/2023: No fever chills. No nausea vomiting. Was constipated. Did have a bowel movement yesterday. Tolerating diet. Review of Systems Review of Systems: All systems reviewed & are unremarkable except as noted in HPI and below Exam Narrative: General: Well-developed, nontoxic-appearing female supine in bed in no acute distress HEENT: PERRL, EOMI. Sclera anicteric. Tacky mucous membranes. Neck: Supple. Respiratory: Lungs are clear to auscultation bilaterally. Cardiovascular: Regular rate and rhythm normal S1-S2. Gastrointestinal: Abdomen is soft and nondistended with positive bowel sounds. She is tender to palpation the periumbilical region. No guarding or rebound tenderness. Bladder does not feel enlarged. Skin: Warm and dry. Extremities: No cyanosis, clubbing, or edema. Radial and pedal pulses intact. Musculoskeletal: Right knee dressing is clean, dry, and intact. She is in an immobilizer. Neurological: Alert. Cranial nerves 2-12 are grossly intact. No gross focal deficits to casual conversation. Psychiatric: Cooperative with appropriate mood. Slightly anxious. Objective Data Vital Signs Vital Signs: Vital Signs - 24 hr 11/27/23 18:31 11/27/23 22:00 11/28/23 06:00 Temperature 97.6 F 97.6 F Pulse Rate 82 104 H 87 Respiratory Rate 16 16 20 Blood Pr
[2023-11-28 20:10] VITALS: BP 121/70; PULSE 80; RESP 18; TEMP 36.1; O2SAT 93
[2023-11-28] MEDS: EZETIMIBE 10 MG TABLET PO (20:12)
[2023-11-29 04:36] VITALS: BP 131/81; PULSE 84; RESP 18; TEMP 36.5; O2SAT 99
[2023-11-29 05:22] LABS: Basophils Absolute Auto 0.1 K/mm3 (0.0-0.1); Basophils Percent Auto 0.8 % (0.2-1.2); Eosinophils Absolute Auto 0.4 K/mm3 (0-0.3); Eosinophils Percent Auto 7.4 % (0-4.4); Hematocrit 35.2 % (37.0-47.0); Hemoglobin 11.5 g/dL (12.0-15.0); Lymphocytes Absolute Auto 2.75 K/mm3 (0.9-3.2); Mean Corpuscular HGB Conc 32.7 g/dl (32-36); Mean Corpuscular Hemoglobin 30.6 pg (26-34); Mean Corpuscular Volume 93.6 fl (80-100); Mean Platelet Volume 9.1 fl (7.4-10.4); Monocytes Absolute Auto 0.7 K/mm3 (0.1-0.6); Neutrophils Absolute Auto 2.1 K/mm3 (1.3-6.7); Neutrophils Percent Auto 34.8 % (45.5-73.1); Platelet Count Result 343 k/mm3 (150-375); Red Blood Count 3.76 M/mm3 (4.2-5.4); Red Cell Distribution Width 13.1 % (11.5-14.5)
[2023-11-29 05:40] LABS: Alanine Aminotransferase 13 U/L (6-35); Albumin Level 3.5 g/dL (3.5-5.1); Alkaline Phosphatase 75 U/L (38-126); Anion Gap 5 mmol/L (4-12); Aspartate Amino Transferase 26 U/L (14-36); Bilirubin,Total 0.3 mg/dL (0.2-1.3); Blood Urea Nitrogen 4 mg/dL (7-17); Calcium 9.2 mg/dL (8.4-10.2); Carbon Dioxide 27 mmol/L (22-30); Chloride 107 mmol/L (98-107); Estimated CRCL calculation 114 ml/min; Estimated Glomerular Filt Rate > 60; Glucose 94 mg/dL (65-110); Magnesium 2.1 mg/dL (1.6-2.3); Potassium 3.9 mmol/L (3.4-5.0); Sodium 139 mmol/L (137-145)
[2023-11-29] MEDS: LEVOTHYROXINE SODIUM 88 MCG TABLET PO (05:48)
[2023-11-29] MEDS: PREGABALIN (*CRX) 75 MG CAPSULE 150 MG PO ×2 (08:36→17:25)
[2023-11-29] MEDS: ASPIRIN 325 MG ENTERIC TABLET PO ×2 (08:36→21:19)
[2023-11-29] MEDS: DOCUSATE SODIUM 100 MG CAPSULE PO ×2 (08:36→21:20)
[2023-11-29] MEDS: polyethylene glycoL 3350 17 GM POWD.PACK PO (08:36)
[2023-11-29 08:37] VITALS: PULSE 80
[2023-11-29] MEDS: PROPRANOLOL HCL 20 MG TABLET PO (08:37)
--- NOTE | 2023-11-29 12:44 | PM.IMPN ---
Progress Note: A&P Assessment and Plan (1) Abdominal pain: Code(s): R10.9 - Unspecified abdominal pain Status: Acute (2) Intractable nausea and vomiting: Code(s): R11.2 - Nausea with vomiting, unspecified Status: Acute (3) Dehydration: Code(s): E86.0 - Dehydration Status: Acute (4) Hypothyroidism: Code(s): E03.9 - Hypothyroidism, unspecified Status: Acute (5) Combined hyperlipidemia: Code(s): E78.2 - Mixed hyperlipidemia Status: Chronic (6) Depression: Code(s): F32.A - Depression, unspecified Status: Acute Plan 58-year-old female with history of cerebral palsy hypothyroidism presents to the ER for evaluation of sudden onset nausea and vomiting. She was recently discharged on 11/25/2023 after right knee abscess secondary to retained sutures post knee replacement. In the ED she was afebrile initial blood pressure was in 80s to 90 systolic which improved with IV fluid. WBC 9.7 sodium 136 BUN 14 creatinine 0.6. Urine had 1+ ketones. She received ondansetron and Reglan but continued to have nausea and vomiting and hence was admitted for further treatment. Abdominal examination was benign and no further testing with CT was performed. X-ray abdomen with normal bowel gas pattern. Urinalysis was negative for infection otherwise. CT abdomen pelvis with no acute findings. Did have constipation could be related to this. Bowel regiment as ordered Add Bentyl p.r.n.. Continue supportive treatment as ordered. Stopped IV fluids 11/28/2023. Labs reviewed. PT OT to see is planned for today. May need further rehabilitation. Patient however wants to go home and if she decides this home health as already arranged. History of right knee replacement October 2023 History of right knee dislocation 11/17/2023 Right knee stitch abscess formation 11/17/2023 Subjective Date/time seen: 11/29/23 12:44 Interval history: 58-year-old female with history of cerebral palsy hypothyroidism presents to the ER for evaluation of sudden onset nausea and vomiting. She was recently discharged on 11/25/2023 after right knee abscess secondary to retained sutures post knee replacement. In the ED she was afebrile initial blood pressure was in 80s to 90 systolic which improved with IV fluid. WBC 9.7 sodium 136 BUN 14 creatinine 0.6. Urine had 1+ ketones. She received ondansetron and Reglan but continued to have nausea and vomiting and hence was admitted for further treatment. Abdominal examination was benign and no further testing with CT was performed. X-ray abdomen with normal bowel gas pattern. Urinalysis was negative for infection otherwise History of right knee replacement October 2023 History of right knee dislocation 11/17/2023 Right knee stitch abscess formation 11/17/2023 11/28/2023: No fever chills. No nausea vomiting. Was constipated. Did have a bowel movement yesterday. Tolerating diet. 11/29/2023: No overnight events. No further nausea vomiting. Denies any abdominal pain. Has not had any bowel movement today. Tolerating regular diet Review of Systems Review of Systems: All systems reviewed & are unremarkable except as noted in HPI and below Exam Narrative: General: Well-developed, nontoxic-appearing female supine in bed in no acute distress HEENT: PERRL, EOMI. Sclera anicteric. Tacky mucous membranes. Neck: Supple. Respiratory: Lungs are clear to auscultation bilaterally. Cardiovascular: Regular rate and rhythm normal S1-S2. Gastrointestinal: Abdomen is soft and nondistended with positive bowel sounds. Nontender. No guarding or rebound tenderness. Skin: Warm and dry. Extremities: No cyanosis, clubbing, or edema. Radial and pedal pulses intact. Musculoskeletal: Right knee dressing is clean, dry, and intact. She is in an immobilizer. Neurological: Alert. Cranial nerves 2-12 are grossly intact. No gross focal deficits to casual conversation. Psychiatric:
[2023-11-29 15:22] VITALS: BP 116/75; PULSE 93; RESP 20; TEMP 36.3; O2SAT 96
[2023-11-29 20:00] VITALS: PULSE 88; RESP 18; O2SAT 97
[2023-11-29] MEDS: EZETIMIBE 10 MG TABLET PO (21:19)
[2023-11-29 21:43] VITALS: BP 115/75; PULSE 88; RESP 18; TEMP 36.6; O2SAT 97
[2023-11-30 05:39] VITALS: BP 129/80; PULSE 83; RESP 16; TEMP 36.4; O2SAT 96
[2023-11-30] MEDS: LEVOTHYROXINE SODIUM 88 MCG TABLET PO (05:54)
[2023-11-30] MEDS: DOCUSATE SODIUM 100 MG CAPSULE PO (07:58)
[2023-11-30] MEDS: ASPIRIN 325 MG ENTERIC TABLET PO (07:58)
[2023-11-30] MEDS: PROPRANOLOL HCL 20 MG TABLET PO (07:58)
[2023-11-30] MEDS: polyethylene glycoL 3350 17 GM POWD.PACK PO (07:58)
[2023-11-30] MEDS: PREGABALIN (*CRX) 75 MG CAPSULE 150 MG PO (07:58)
--- NOTE | 2023-11-30 12:49 | PM.DS ---
DS: Admitting Diagnosis Discharge Date 11/30/2023 Admitting Diagnosis Nausea vomiting DS: Discharge Diagnosis Discharge Diagnosis (1) Abdominal pain: Code(s): R10.9 - Unspecified abdominal pain Status: Acute (2) Intractable nausea and vomiting: Code(s): R11.2 - Nausea with vomiting, unspecified Status: Acute (3) Dehydration: Code(s): E86.0 - Dehydration Status: Acute (4) Hypothyroidism: Code(s): E03.9 - Hypothyroidism, unspecified Status: Acute (5) Combined hyperlipidemia: Code(s): E78.2 - Mixed hyperlipidemia Status: Chronic (6) Depression: Code(s): F32.A - Depression, unspecified Status: Acute DS: Summary Hospital Course Hospital Course: 58-year-old female with history of cerebral palsy hypothyroidism presents to the ER for evaluation of sudden onset nausea and vomiting.? She was recently discharged on 11/25/2023 after right knee abscess secondary to retained sutures post knee replacement.? In the ED she was afebrile initial blood pressure was in 80s to 90 systolic which improved with IV fluid.? WBC 9.7 sodium 136 BUN 14 creatinine 0.6.? Urine had 1+ ketones.? She received ondansetron and Reglan but continued to have nausea and vomiting and hence was admitted for further treatment.? Abdominal examination was benign and no further testing with CT was performed initially.? X-ray abdomen with normal bowel gas pattern.? Urinalysis was negative for infection otherwise.? Due to persistent nausea vomiting a CT abdomen pelvis with performed which showed no acute findings.? She Did have constipation and could be related to this.? Bowel regiment as ordered Add Bentyl p.r.n..? Continue supportive treatment as ordered.? Stopped IV fluids 11/28/2023.? Labs reviewed.? PT OT evaluated the patient in the hospital stay. May need further rehabilitation however patient wanted to go home and home health will be arranged at discharge. She does have her sister who is there to help her at home. She will follow-up with orthopedics as scheduled History of right knee replacement October 2023 History of right knee dislocation 11/17/2023 Right knee stitch abscess formation 11/17/2023 Time Spent with Patient Time attestation: Total time spent providing and/or coordinating discharge services: 35 minutes Exam Narrative: General: Well-developed, nontoxic-appearing female supine in bed in no acute distress HEENT: PERRL, EOMI. Sclera anicteric. Tacky mucous membranes. Neck: Supple. Respiratory: Lungs are clear to auscultation bilaterally. Cardiovascular: Regular rate and rhythm normal S1-S2. Gastrointestinal: Abdomen is soft and nondistended with positive bowel sounds. Nontender. No guarding or rebound tenderness. Skin: Warm and dry. Extremities: No cyanosis, clubbing, or edema. Radial and pedal pulses intact. Musculoskeletal: Right knee dressing is clean, dry, and intact. She is in an immobilizer. Neurological: Alert. Cranial nerves 2-12 are grossly intact. No gross focal deficits to casual conversation. Psychiatric: Cooperative with appropriate mood. Slightly anxious. DS: Data Imaging Radiologist's impression: ITS Impressions Abdomen X-Ray 11/26/23 20:18 IMPRESSION: 1. Normal bowel gas pattern. Abdomen/Pelvis CT 11/27/23 15:09 IMPRESSION: 1. Small pleural effusions. Discharge Plan Discharge Attending physician on discharge: Clarke Honeycutt Consulting providers: Alejo Guzman Discharging Clinician: Clarke Honeycutt Anticipated Discharge Date/Time: 11/30/23 12:51 Patient Disposition: Home Health Service Activity: as tolerated Diet: regular Discharge Instructions: Per Care Coordination: [facility] ([phone]) will call to set up initial visit. Patient Instructions: Antibiotic Form, Pain Management (DC) Stand Alone Forms: General Discharge Information Follow-up/Referrals: Rich Gonzalez MD [P
== END 2023-11-30 15:10 | disposition home health service (06) | DRG 641 ==
LOC: ANHED 14:20 → ANH3MED 17:42
PROVIDERS: Nurse Practitioner Family; Physician Assistant; Admitting Provider Hospitalist; Emergency Provider Emergency Medicine; PCP Family Medicine; Visit Provider Internal Medicine
DX: E86.0 Dehydration (principal); K59.00 Constipation, unspecified; E03.9 Hypothyroidism, unspecified; E78.2 Mixed hyperlipidemia; F32.A Depression, unspecified; G80.9 Cerebral palsy, unspecified; Z96.651 Presence of right artificial knee joint; Z90.49 Acquired absence of other specified parts of digestive tract; Z79.82 Long term (current) use of aspirin
CPT/HCPCS: 36415; 74018; 74176; 80053; 81003; 83690; 83735; 85025; 85027; 96361; 96374; 96375; 96376; 97116; 97161; 97165; 97530; 97535; 99285; A9270; C9113; G0378; J2270; J2405; J2765; J7030

== ENCOUNTER 2024-02-09 09:13 | Outpatient (CLI) | payer MEDICARE, SELFPAY ==
--- NOTE | 2024-02-09 11:30 | NEURO_ITS ---
Impression: # Complains of right foot drop following total knee replacement surgery. History of cerebral Palsy. # Right peroneal neuropathy. # Abnormal needle/EMG exam with decreased motor unit potentials. # Clinical correlation recommended. Nerve Conduction Studies Anti Sensory Summary Table Stim Site NR Peak (ms) P-T Amp (?V) Site1 Site2 Delta-P (ms) Dist (cm) Bassem (m/s) Right Saphenous Anti Sensory (Ant Med Mall) NO RESPONSE 14cm NR 14cm Ant Med Mall 0.0 Right Sup Fibular Anti Sensory (Ant Lat Mall) NO RESPONSE 14 cm NR 14 cm Ant Lat Mall 16.0 Right Sural Anti Sensory (Lat Mall) NO RESPONSE Calf NR Calf Lat Mall 16.0 Motor Summary Table Stim Site NR Onset (ms) O-P Amp (mV) Site1 Site2 Delta-0 (ms) Dist (cm) Bassem (m/s) Right Peroneal Motor (Vastus Med) NO RESPONSE Ankle NR Popit Ankle 0.0 Popit NR Right Tibial Motor (Abd Lara Brev) Ankle 4.8 1.4 Knee Ankle 7.5 41.0 55 Knee 12.3 1.6 F Wave Studies NR F-Lat (ms) L-R F-Lat (ms) Right Peroneal (Mrkrs) (EDB) DISPERSED RESPONSE NR Right Tibial (Mrkrs) (Abd Hallucis) 47.60 EMG Side Muscle Nerve Root Ins Act Fibs Amp Dur Recrt Comment Right AntTibialis Dp Br Fibular L4-5 Nml Nml Nml >12ms +3 Right Gastroc Tibial S1-2 Nml Nml Nml Nml +1 Right Fibularis Long Sup Br Fibular L5-S1 Nml Nml Nml >12ms +3 Right Flex Dig Long Tibial L5-S2 Nml Nml Nml Nml +1 Right Ext Dig Brev Dp Br Fibular L5, S1 Nml Nml Nml >12ms +3 Right QuadratusFem QuadFemoris L4-5, S1 Nml Nml Decr Nml +1 Right BicepsFemS Sciatic L5-S1 Nml Nml Nml Nml Nml MTDD
== END 2024-02-09 09:14 | disposition home or self-care (01) ==
LOC: ANHNEURO 09:15
PROVIDERS: PCP Family Medicine; Visit Provider Orthopaedic Surgery
DX: M21.371 Foot drop, right foot (principal); Z96.651 Presence of right artificial knee joint; R94.131 Abnormal electromyogram [EMG]
CPT/HCPCS: 95886; 95909

== ENCOUNTER 2024-03-14 10:15 | Outpatient (RCR) | payer MEDICARE, OTHER, SELFPAY ==
--- NOTE | 2023-12-16 09:38 | OPREHPOC ---
Outpatient Therapy Plan of Care This is a Multidisciplinary Plan of Care that may contain components documented by all disciplines (PT, OT, and ST.) PT Problem 1 PT Problem #1 Knowledge Deficit PT Goal 1 Goal 1. Patient will perform independent HEP Target Visit 4 PT Problem 2 PT Problem #2 Impaired Gait PT Goal 1 Goal 1. Patient able to ambulate at least 100 feet on the 2 minute walk test with walker Target Visit 10 PT Problem 3 PT Problem #3 Impaired Functional ADLs PT Goal 1 Goal 1. Patient able to drive as allowed by MD Target Visit 10 PT Problem 4 PT Problem #4 Impaired Balance PT Goal 1 Goal 1. Improve 5 times sit to stand to 60 seconds or less to decrease fall risk Target Visit 10
--- NOTE | 2023-12-16 09:38 | PTOPEVAL1 ---
Assessment and note entered by Kaia Jacobsen DPT Evaluation Information Assessment Status Evaluation Subjective Information Pt is s/p R TKA on 10/14/23. Current orders state knee brace on at all times. Went from [facility] to home health therapy and then woke up on 11/17/23 with a knee dislocation due to the spasticity in my legs . Still sleeps in a full knee brace. No need for additional surgery but needed treatment for a stitch abscess, then developed bowel issues due to the meds. Was re-hospitalized for cramping and pain and then was able to get her bowels to move. Had home health a second time and has been discharged. Is currently wearing a different knee brace during the day and has an AFO (developed foot drop right after surgery). Knee pain 0/10 highest in the last week. Prior to surgery patient was driving, doing all cooking, cleaning, grocery shopping, active volunteering at the library and attending [employer]. Dressed and bathed independently. Since the surgery she is not driving, can dress and go to the bathroom independently but takes much longer. Has been able to do some cooking if sitting in her chair. Prior to surgery patient was ambulatory, used a walker due to pain and did have some falls. Currently using a mix of a wheelchair or walker depending on how she is feeling. Pt has CP and previous leg surgeries as a child. Cares for her who has Emer[employer]. Lives in an [place] apartment without stairs. Pt has a sister who lives in [place]. Pt has just contracted with [facility] to start coming to help. Also is having a custom AFO created by [employer]. Returns to [facility] 01/07/24 and will have nerve stimulation starting for foot drop. 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 She has a history of CP. She presents with significant gait and balance impairments which are contribut
--- NOTE | 2024-01-20 11:46 | OPREHPOC ---
Outpatient Therapy Plan of Care This is a Multidisciplinary Plan of Care that may contain components documented by all disciplines (PT, OT, and ST.) PT Problem 1 PT Problem #1 Knowledge Deficit PT Goal 1 Goal 1. Patient will perform independent HEP Target Visit 4 Progress Met PT Problem 2 PT Problem #2 Impaired Gait PT Goal 1 Goal 1. Patient able to ambulate at least 100 feet on the 2 minute walk test with walker Target Visit 20 Progress Partially Met Comment 55 PT Problem 3 PT Problem #3 Impaired Functional ADLs PT Goal 1 Goal 1. Patient able to drive as allowed by MD Target Visit 20 Progress Partially Met Comment practiced driving with another person in the car PT Problem 4 PT Problem #4 Impaired Balance PT Goal 1 Goal 1. Improve 5 times sit to stand to 60 seconds or less to decrease fall risk Target Visit 20 Progress Partially Met Comment 75
--- NOTE | 2024-01-20 11:46 | PTOPPROG ---
Assessment and note entered by Kaia Jacobsen DPT Evaluation Information Assessment Status Progress Subjective Information Pt reports she has started dressing herself and bathing herself again. Has been cleared to drive again and has started practicing with someone else in the car. Still wants to practice more with the pedals, work on navigating curbs, and practice with her other drive walker. No significant knee pain in the last week. Sees neurologist on February 08 to start addressing the foot drop. Assessment PT Clinical Summary The patient has made good progress in therapy and demonstrates significantly increased walking speed and decreased time for 5 times sit to stand test. She continues to lack right active ankle motion. She reports improvements in function at home but continues to have difficulty navigating curbs, moving her LE for driving, and using her driving walker. She will benefit from continued therapy to address her impairments in order to maximize independence. Plan of Care Interventions Electrical Stimulation,Gait Training,Hot Pack/Cold Pack,Manual Therapy,Neuro Re-education,Patient/ Caregiver Education,Therapeutic Activities, Therapeutic Exercise PT Services Indicated Yes Treatment Frequency and 1-2 times a week for 6-10 visits Duration These treatments will address the objective and functional deficits as defined above. The patient will be advanced safely and appropriately in order for the patient to progress towards his/her prior level of function. Additional exercises will be introduced and as well as a comprehensive home exercise program upon discharge, if needed, ?to ensure carryover of functional gains achieved in the clinic. This treatment plan has been reviewed and agreement upon by the patient.
--- NOTE | 2024-02-24 10:54 | OPREHPOC ---
Outpatient Therapy Plan of Care This is a Multidisciplinary Plan of Care that may contain components documented by all disciplines (PT, OT, and ST.) PT Problem 1 PT Problem #1 Knowledge Deficit PT Goal 1 Goal 1. Patient will perform independent HEP Target Visit 4 Progress Met PT Problem 2 PT Problem #2 Impaired Gait PT Goal 1 Goal 1. Patient able to ambulate at least 100 feet on the 2 minute walk test with walker Target Visit 25 Progress Partially Met Comment 45 PT Problem 3 PT Problem #3 Impaired Functional ADLs PT Goal 1 Goal 1. Patient able to drive as allowed by MD Target Visit 20 Progress Met Comment pt has driven PT Problem 4 PT Problem #4 Impaired Balance PT Goal 1 Goal 1. Improve 5 times sit to stand to 60 seconds or less to decrease fall risk Target Visit 26 Progress Partially Met Comment 87 PT Problem 5 PT Problem #5 Impaired Range of Motion PT Goal 1 Goal NEW GOAL 02/24/24 1. Patient will demonstrate active dorsiflexion on right to at least 5 degrees to help normalize gait pattern Target Visit 25
--- NOTE | 2024-02-24 10:54 | PTOPPROG ---
Assessment and note entered by Kaia Jacobsen DPT Evaluation Information Assessment Status Progress Subjective Information Pt reports she felt therapy was continuing to help until her setback and her knee cap has shifted (new orders from MD state walking as tolerated with knee brace on AT ALL TIMES). Will be having another knee surgery in several months. States she is waiting to see neurology soon to address the foot drop. Does think her toes are moving more freely and her foot is moving a bit. States she has driven without her AFO and did not have any issues, but has not driven since she was told about the update in her knee. Assessment PT Clinical Summary The patient has continued to overall make good progress in therapy. She reports a recent set back and has been told her patella has shifted . She demonstrates decreased walking speed and increased time on the 5 time sit to stand (both measures continue to be improved for initial evaluation). She does now demonstrate slight active right ankle motion in all planes including dorsiflexion. She will continue to benefit from skilled therapy to address functional activities, gait, and transfers , and to further address drop foot and ankle mobility in order to safely return to prior level of function. Plan of Care Interventions Electrical Stimulation,Gait Training,Manual Therapy,Neuro Re-education,Patient/Caregiver Education,Therapeutic Activities,Therapeutic Exercise PT Services Indicated Yes Treatment Frequency and 2 times a week for 10 visits Duration These treatments will address the objective and functional deficits as defined above. The patient will be advanced safely and appropriately in order for the patient to progress towards his/her prior level of function. Additional exercises will be introduced and as well as a comprehensive home exercise program upon discharge, if needed, ?to ensure carryover of functional gains achieved in the clinic. This treatment plan has been reviewed and agreement upon by the patient.
--- NOTE | 2024-03-15 14:44 | PCPTNOTE ---
This treatment is being continued on visit number [id number]. Please see documentation on both accounts to view progress. Completed interventions, outcomes, and problems have been marked as Inactive to facilitate the copying of the Care plan routine for recurring accounts.
== END 2024-03-15 10:20 | disposition still patient (30) ==
LOC: ANHGOSHPT 10:15
PROVIDERS: PCP Family Medicine; Visit Provider Orthopaedic Surgery
DX: S83.104D Unspecified dislocation of right knee, subsequent encounter (principal); M25.361 Other instability, right knee; Z96.651 Presence of right artificial knee joint
CPT/HCPCS: 97110; 97112; 97116; 97140; 97162; 97530

== ENCOUNTER 2024-04-18 09:08 | Outpatient (CLI) | payer MEDICARE, SELFPAY ==
[2024-04-18 16:23] LABS: Cholesterol 187 mg/dL (0-200); HDL Direct 56 mg/dL; Triglycerides 133 mg/dL (<150)
[2024-04-18 16:34] LABS: LDL Cholesterol Direct 100 mg/dL
[2024-04-18 16:49] LABS: Thyroid Stimulating Hormone 0.178 uIU/mL (0.465-4.680)
== END 2024-04-18 09:09 | disposition home or self-care (01) ==
LOC: ANHGOSHLAB 09:11
PROVIDERS: PCP Family Medicine; Visit Provider Nurse Practitioner Family
DX: E78.5 Hyperlipidemia, unspecified (principal); E03.9 Hypothyroidism, unspecified
CPT/HCPCS: 36415; 80061; 84443

== ENCOUNTER 2024-04-21 13:15 | Outpatient (RCR) | payer MEDICARE, OTHER, SELFPAY ==
--- NOTE | 2024-03-15 14:45 | PCPTNOTE ---
This treatment is being continued on visit number [id number]. Please see documentation on both accounts to view progress. Completed interventions, outcomes, and problems have been marked as Inactive to facilitate the copying of the Care plan routine for recurring accounts.
--- NOTE | 2024-03-30 09:50 | PCPTNOTE ---
Patient was canceled 03/22/24 due to therapist out with illness.
--- NOTE | 2024-03-30 09:53 | PCPTNOTE ---
Patient was canceled 03/23/24 due to therapist out with illness.
--- NOTE | 2024-04-06 10:54 | OPREHPOC ---
Outpatient Therapy Plan of Care This is a Multidisciplinary Plan of Care that may contain components documented by all disciplines (PT, OT, and ST.) PT Problem 1 PT Problem #1 Knowledge Deficit PT Goal 1 Goal / Goal Update 1. Patient will perform independent HEP Target Visit 4 Progress Met PT Problem 2 PT Problem #2 Impaired Gait PT Goal 1 Goal / Goal Update 1. Patient able to ambulate at least 100 feet on the 2 minute walk test with walker Target Visit 25 Progress Met PT Problem 3 PT Problem #3 Impaired Functional ADLs PT Goal 1 Goal / Goal Update 1. Patient able to drive as allowed by MD Target Visit 20 Progress Met PT Problem 4 PT Problem #4 Impaired Balance PT Goal 1 Goal / Goal Update 1. Improve 5 times sit to stand to 60 seconds or less to decrease fall risk Target Visit 26 Progress Met PT Problem 5 PT Problem #5 Impaired Range of Motion PT Goal 1 Goal / Goal Update NEW GOAL 02/24/24 1. Patient will demonstrate active dorsiflexion on right to at least 5 degrees to help normalize gait pattern Target Visit 34 Progress Partially Met
--- NOTE | 2024-04-06 10:54 | PTOPPROG ---
Assessment and note entered by Kaia Jacobsen DPT Evaluation Information Assessment Status Progress Subjective Information Does not have a surgery date scheduled yet. States she is noticing more toe movement in her right foot. Is now noticing a burning sensation in her foot. Feels her ability to perform sit to stand transfers and ambulate has improved again over the last month in therapy. Assessment PT Clinical Summary The patient has continued to make good progress during therapy and demonstrates improved walking speed/distance and improved sit to stand time demonstrating decreased fall risk. She demonstrates some active dorsiflexion and will benefit from continued therapy to further addressing ankle motion for safety with gait and function at home. Plan of Care Interventions Electrical Stimulation,Gait Training,Neuro Re- education,Patient/Caregiver Education,Therapeutic Activities,Therapeutic Exercise PT Services Indicated Yes Treatment Frequency and 2 times a week for 10 visits Duration These treatments will address the objective and functional deficits as defined above. The patient will be advanced safely and appropriately in order for the patient to progress towards his/her prior level of function. Additional exercises will be introduced and as well as a comprehensive home exercise program upon discharge, if needed, ?to ensure carryover of functional gains achieved in the clinic. This treatment plan has been reviewed and agreement upon by the patient.
--- NOTE | 2024-04-13 09:56 | PCPTNOTE ---
Patient called & cancelled scheduled appointment this date due to not having transportation.
--- NOTE | 2024-04-26 10:31 | PCPTNOTE ---
Patient called to cancel appointment due to having surgery this date.
--- NOTE | 2024-05-18 08:29 | PTOPDC ---
Assessment and note entered by Kaia Jacobsen DPT Evaluation Information Assessment Status Discharge - Pt Not Present Subjective Information - Assessment PT Clinical Summary Patient case is being discharged- patient has had another surgery and will be evaluated on that script. Plan of Care PT Services Indicated No
== END 2024-05-13 13:21 | disposition home or self-care (01) ==
LOC: ANHGOSHPT 13:15
PROVIDERS: PCP Family Medicine; Visit Provider Orthopaedic Surgery
DX: S83.104D Unspecified dislocation of right knee, subsequent encounter (principal); M25.361 Other instability, right knee; M21.371 Foot drop, right foot; Z96.651 Presence of right artificial knee joint
CPT/HCPCS: 36415; 80061; 84443; 97110; 97116; 97530

== ENCOUNTER 2024-04-23 19:27 | Inpatient (IN) | payer MEDICARE, SELFPAY ==
[2024-04-23] VITALS (11 sets, daily range): BP systolic 96–155; BP diastolic 63–120; PULSE 86–101; RESP 12–16; TEMP 36.4–36.6; O2SAT 93–100
--- NOTE | ~2024-04-23 | XR_ITS ---
EXAMINATION: XR_KNEE1-2VRT_CR DATE: 04/26/2024 14:42 INDICATION: Right knee arthroplasty revision. Postop. TECHNIQUE: 2 views of right knee were obtained. COMPARISON: Right knee radiographs 04/23/2024 FINDINGS: There is a total right knee arthroplasty without patellar resurfacing in near anatomic alig nment. No periprosthetic lucency of the retained tibial component to suggest loosening or infection. No fracture. There is gas in the soft tissues, consistent with recent surgery. Anterior skin ernst are noted. IMPRESSION: 1. Total right knee arthroplasty in near-anatomic alignment. Reviewed, dictated and finalized at location A.
--- NOTE | ~2024-04-23 | XR_ITS ---
XR_KNEE1-2VRT_CR Ordering provider: Beau Rivers MD History: . post reduction . Comparison: : November 17, 2023 FINDINGS: BONES: No acute fracture or dislocation. JOINT SPACES: Total knee arthroplasty. SOFT TISSUES: Normal. IMPRESSION: No acute osseous abnormality right knee. Total knee arthroplasty. Reviewed, dictated and finalized at location A.
--- NOTE | ~2024-04-23 | XR_ITS ---
XR knee RT 3V Ordering provider: Beau Rivers MD History: . pt fell in shower; hx of knee replacement 6 mos ago . Comparison: None. FINDINGS: BONES: No acute fracture. Anterior dislocation is seen. JOINT SPACES: Arthroplasty. SOFT TISSUES: Normal. IMPRESSION: No acute osseous abnormality right knee. Anterior dislocation is noted in the prosthesis. Reviewed, dictated and finalized at location A.
[2024-04-23] MEDS: HYDROmorphone HCL INJ (*CRX) 1 MG/ML SYR IV PUSH ×2 (19:52→20:15)
[2024-04-23] MEDS: SODIUM CHLORIDE 0.9% IV 1,000 ML 999 ML IV CONT (20:35)
--- NOTE | 2024-04-23 20:50 | PC.NURSE ---
Moderate sedation for reduction of R knee Time Out Preformed by EDP Dr. Rivers @2034 50mg Propofol given IV push by EDP Dr. Rivers @2025. Knee was reduced @2037, at this time pts o2 sats dropped to 60s-70s. Pt was bagged for 2 minutes. @2039 pt was responding to verbal stimuli and O2 sats were back to mid to upper 90s on 3L nasal cannula. @2042 Pt was placed in R knee immobilizer, post reduction Xrays taken. Pt responding to commands. Vitals within normal limits.
[2024-04-23 21:24] LABS: Basophils Absolute Auto 0.1 K/mm3 (0.0-0.1); Basophils Percent Auto 0.7 % (0.2-1.2); Eosinophils Absolute Auto 0.2 K/mm3 (0-0.3); Eosinophils Percent Auto 3.2 % (0-4.4); Hemoglobin 13.1 g/dL (12.0-15.0); Immature Granulocyte Absolute 0.01 K/mm3 (0.00-0.031); Immature Granulocyte Percent A 0.1 % (0-0.5); Lymphocytes Absolute Auto 1.49 K/mm3 (0.9-3.2); Lymphocytes Percent Auto 20.5 % (18.3-44.2); Mean Corpuscular HGB Conc 33.6 g/dl (32-36); Mean Corpuscular Hemoglobin 30.8 pg (26-34); Mean Corpuscular Volume 91.8 fl (80-100); Monocytes Absolute Auto 0.5 K/mm3 (0.1-0.6); Monocytes Percent Auto 6.5 % (2.6-8.5); Platelet Count Result 269 k/mm3 (150-375); Red Blood Count 4.25 M/mm3 (4.2-5.4); Red Cell Distribution Width 13.5 % (11.5-14.5); White Blood Count 7.3 K/mm3 (4.5-10.0)
--- NOTE | 2024-04-23 21:38 | ED.GENADULT ---
HPI - General Adult General Chief complaint: Extremity Injury, Lower Stated complaint: R knee dislocation Time Seen by Provider: 04/23/24 19:45 History of Present Illness HPI narrative: patient is a 59-year-old female who presents emergency department with chief complaint of right knee pain. The patient has history of a knee replacement and has had dislocations of the prosthesis previously the patient reports that about an hour to an hour and a half ago she felt her prosthesis pop out of place reports that it was deformed and called EMS because it would not go back in on its own. The patient reports no trauma reports no numbness or tingling in her legs the patient does have prior history of CP Related Data Home Medications Medication Instructions Recorded Confirmed fluvoxamine 50 mg tablet 50 mg PO QAM 11/26/23 04/21/24 Allergies Allergy/AdvReac Type Severity Reaction Status Date / Time simvastatin Allergy Unknown Muscle pain Verified 04/06/24 09:06 Rqoujjx-PQH-OvG Reductase Allergy Unknown Muscle Pain Verified 04/06/24 09:06 Inhibitor [Daoeovr-Uhl-Vps Reductase Inhibitor] Sulfa (Sulfonamide Allergy Unknown Hives Verified 04/06/24 09:06 Antibiotics) Review of Systems Review of Systems: A 10 system review of systems was completed on the patient and is negative except for what is stated in the HPI. Nursing and ancillary documentation was reviewed. PMFSH Past Medical History Medical History Cerebral palsy Combined hyperlipidemia Degenerative disc disease Degenerative joint disease Depression Hypothyroidism Surgical History Surgical History History of appendectomy History of bilateral knee arthroplasty History of cystoscopy Family History Family History Mother Family history of elevated blood lipids Family history of arthritis Multiple myeloma Father Family history of heart disease in male family member before age 55 Family history of diabetes mellitus in first degree relative Diabetes mellitus Family history of coronary artery disease Social History Social History Social History: Surrogate medical decision maker: Lacie Rapp, isai. Code status: Full code. Smoking status: Never smoker Second hand tobacco smoke exposure: No Alcohol intake: never Alcohol use details: Rare alcohol use. Substance use: never Substance use type: does not use Do You Feel Safe in your Home?: Yes Lack of Transportation: YES Lack of Food: Never True Current Housing: I Have Housing Concerned About Future Housing: No Difficulty Paying Gas/Electric Bills: No Difficulty Paying for Meds: No Currently Unemployed: No Education: Associate Degree Difficulty w/ Childcare or Family Care: No Living arrangements: with family Occupation/Education: retired Spiritual care concerns: No Agree to blood products: Yes Exam Narrative: GENERAL: Well-appearing, well-nourished, and in no acute distress. HEAD: Normocephalic, atraumatic. EYES: PERRLA and EOMI. ENT: Nares clear, no rhinorrhea or epistaxis. Mucous membranes moist. NECK: Supple. CHEST: Clear to auscultation. No respiratory distress. HEART: Regular rate and rhythm. No murmur heard. Normal peripheral pulses. ABDOMEN: Soft, nontender, nondistended, normal active bowel sounds. EXTREMITIES: Normal range of motion in all extremities compared to her baseline as she is normally somewhat contracted. Right knee has an obvious deformity. No edema. SKIN: Warm, dry, no rash. NEURO: No focal deficits. Alert and oriented x3. PSYCH: Normal mood and affect. Course Vital Signs Vital signs: Vital Signs Temperature 36.5 C 04/23/24 19:32 Pulse Ra
[2024-04-23 21:44] LABS: Alanine Aminotransferase 10 U/L (6-35); Albumin Level 3.7 g/dL (3.5-5.1); Alkaline Phosphatase 87 U/L (38-126); Anion Gap 7 mmol/L (4-12); Aspartate Amino Transferase 25 U/L (14-36); Bilirubin,Total 0.3 mg/dL (0.2-1.3); Blood Urea Nitrogen 20 mg/dL (7-17); Calcium 8.5 mg/dL (8.4-10.2); Carbon Dioxide 25 mmol/L (22-30); Chloride 106 mmol/L (98-107); Estimated CRCL calculation 83 ml/min; Estimated Glomerular Filt Rate > 60; Glucose 107 mg/dL (65-110); Magnesium 1.9 mg/dL (1.6-2.3); Potassium 4.5 mmol/L (3.4-5.0); Sodium 138 mmol/L (137-145)
--- NOTE | 2024-04-23 22:03 | PM.IMHP ---
H&P: HPI History of Present Illness Date/Time: 04/23/24 22:03 Chief Complaint: Knee Dislocation Narrative: 59 y/o F presents here with a right knee dislocation with PMH of cerebral palsy, HLD, DJD, depression, and hypothyroidism. The patient presents here via EMS from home for further evaluation of possible right knee dislocation. She reports she was in the shower when the knee dislocated. No particular twisting, trauma, or motion eliciting event. Patient had a right total knee arthroplasty done on 10/14/[address] [facility]. She reports multiple dislocations of the prosthesis, has been able to reduce at home. Has also had a previous hospitalization for same issue from 11/19/2023 to 11/25/2023 where she underwent a reduction of the knee, I&D of multiple stitch abscesses to the right knee scar, and PT/OT. Today she was not able to self-reduce her knee. Patient reports it was dislocated for approximately an hour and half prior to arrival. Denies numbness or tingling to affected extremity. Per most recent orthopedic note on 04/21/2024, suspected spasticity as reason for multiple dislocations and has been utilizing a hinged knee brace. Plan was to potentially revise knee with a more constrained femoral implant once nerve and foot had improved function. Initial VS at presentation: 97.7? F, HR 86, RR 15, 155/120, and 96% on RA. ED workup showed: No leukocytosis, no anemia, no significant electrolyte derangements, creatinine 0.6 and normal GFR. XR of the knee showed anterior dislocation of the prosthesis for right knee. Post reduction XR showed no acute osseous abnormality of the right knee and a total knee arthroplasty. Review of Systems Review of Systems: All systems reviewed & are unremarkable except as noted in HPI and below PMFSH Past Medical History Medical History Cerebral palsy Combined hyperlipidemia Degenerative disc disease Degenerative joint disease Depression Hypersomnia Hypothyroidism Surgical History Surgical History History of appendectomy History of bilateral knee arthroplasty History of cystoscopy Family History Family History Mother Family history of elevated blood lipids Family history of arthritis Multiple myeloma Father Family history of heart disease in male family member before age 55 Family history of diabetes mellitus in first degree relative Diabetes mellitus Family history of coronary artery disease Social History Social History Social History: Surrogate medical decision maker: Lacie Rapp, sibling. Code status: Full code. Smoking status: Never smoker Second hand tobacco smoke exposure: No Alcohol intake: never Alcohol use details: Rare alcohol use. Substance use: never Substance use type: does not use Do You Feel Safe in your Home?: Yes Lack of Transportation: YES Lack of Food: Never True Current Housing: I Have Housing Concerned About Future Housing: No Difficulty Paying Gas/Electric Bills: No Difficulty Paying for Meds: No Currently Unemployed: No Education: Associate Degree Difficulty w/ Childcare or Family Care: No Living arrangements: with family Occupation/Education: retired Spiritual care concerns: No Agree to blood products: Yes Meds Home Medications and Allergies Home Medications Medication Instructions Recorded Confirmed Type acetaminophen 325 mg tablet 650 mg PO Q6H PRN Mild Pain (1-3) 10/27/23 04/21/24 Rx Or Fever #0 tabs fluvoxamine 50 mg tablet 50 mg PO QAM 11/26/23 04/21/24 History ezetimibe 10 mg tablet (Zetia) 10 mg PO HS #90 tabs 01/12/24 04/21/24 Rx cyclobenzaprine 10 mg tablet 10 mg PO TID PRN MUSCLE SPASMS #90 02/15/24 04/21/24 Rx tabs fluvoxamine 50 mg t
--- NOTE | 2024-04-24 00:09 | ADMGEN ---
This patient, Domingo Brumfield, was admitted to [address] [place], [place] [address]. Patient/family oriented to hospital policies and general routines including ID bracelet, bed and alarms, visiting hours, pain management, procedures, bathroom and other care routines, personal items, smoking policy, room service/diet, and visiting hours. Information on how to activate the Rapid Response Team has been discussed. Patient/Family are encouraged to report perceived risks to care and to ask questions if they do not understand what they are told or what they should do.
[2024-04-24 00:32] VITALS: BP 121/85; PULSE 103; RESP 20; TEMP 36.8; O2SAT 96; BMI 25.6
[2024-04-24] MEDS: PREGABALIN (*CRX) 75 MG CAPSULE 150 MG PO ×2 (01:45→08:13)
[2024-04-24 05:47] LABS: Basophils Absolute Auto 0.1 K/mm3 (0.0-0.1); Basophils Percent Auto 0.8 % (0.2-1.2); Eosinophils Absolute Auto 0.2 K/mm3 (0-0.3); Eosinophils Percent Auto 2.4 % (0-4.4); Hematocrit 38.8 % (37.0-47.0); Hemoglobin 12.8 g/dL (12.0-15.0); Immature Granulocyte Absolute 0.01 K/mm3 (0.00-0.031); Immature Granulocyte Percent A 0.1 % (0-0.5); Lymphocytes Absolute Auto 1.88 K/mm3 (0.9-3.2); Lymphocytes Percent Auto 26.6 % (18.3-44.2); Mean Corpuscular Hemoglobin 30.3 pg (26-34); Mean Corpuscular Volume 91.7 fl (80-100); Monocytes Absolute Auto 0.8 K/mm3 (0.1-0.6); Monocytes Percent Auto 10.6 % (2.6-8.5); Neutrophils Absolute Auto 4.2 K/mm3 (1.3-6.7); Neutrophils Percent Auto 59.5 % (45.5-73.1); Platelet Count Result 267 k/mm3 (150-375); Red Blood Count 4.23 M/mm3 (4.2-5.4); Red Cell Distribution Width 13.5 % (11.5-14.5); White Blood Count 7.1 K/mm3 (4.5-10.0)
[2024-04-24 05:52] VITALS: BP 109/65; PULSE 108; RESP 20; TEMP 37; O2SAT 94
[2024-04-24 06:00] LABS: Prothrombin Time 13.3 Seconds (11.1-14.7)
[2024-04-24 06:03] LABS: Anion Gap 7 mmol/L (4-12); Blood Urea Nitrogen 14 mg/dL (7-17); Calcium 8.9 mg/dL (8.4-10.2); Carbon Dioxide 26 mmol/L (22-30); Chloride 100 mmol/L (98-107); Estimated CRCL calculation 82 ml/min; Estimated Glomerular Filt Rate > 60; Glucose 91 mg/dL (65-110); Magnesium 1.9 mg/dL (1.6-2.3); Sodium 133 mmol/L (137-145)
[2024-04-24 06:28] LABS: Free T4 Free Thyroxine 1.14 ng/mL (0.78-2.19)
[2024-04-24 08:13] VITALS: PULSE 97
[2024-04-24] MEDS: PROPRANOLOL HCL 20 MG TABLET PO (08:13)
[2024-04-24] MEDS: LEVOTHYROXINE SODIUM 88 MCG TABLET PO (08:13)
[2024-04-24] MEDS: ACETAMINOPHEN 325 MG TABLET 650 MG PO (08:14)
--- NOTE | 2024-04-24 10:58 | PM.IMPN ---
Progress Note: A&P Assessment and Plan (1) Dislocation of prosthesis of right knee joint: Code(s): T84.022A - Instability of internal right knee prosthesis, initial encounter Status: Acute Assessment and Plan: - XR Knee: No acute osseous abnormality right knee. Anterior dislocation is noted in the prosthesis. - XR Knee, post-reduction: No acute osseous abnormality right knee. Total knee arthroplasty. - reduction in ED on 04/23 with Tita BRIGGS, unable to reduce with moderate sedation due to patient's spasticity. Required propofol sedation. - orthopedics consulted, awaiting formal recs - analgesics p.r.n. - knee immobilizer - pain control (2) Hypothyroidism: Qualifiers: Hypothyroidism type: unspecified Qualified Code(s): E03.9 - Hypothyroidism, unspecified Code(s): E03.9 - Hypothyroidism, unspecified Status: Acute Assessment and Plan: - TSH 0.178, add T3-T4 to a.m. labs - continue levothyroxine Plan Diet: Heart healthy GI Prophylaxis: Not currently indicated DVT Prophylaxis: SCDs Lines: Peripheral Code Status: Full code Time Spent With Patient Time with patient: Greater than 35 minutes Subjective Date/time seen: 04/24/24 10:58 Interval history: Knee Dislocation Narrative retreievd from H/P: 59 y/o F presents here with a right knee dislocation with PMH of cerebral palsy, HLD, DJD, depression, and hypothyroidism. The patient presents here via EMS from home for further evaluation of possible right knee dislocation. She reports she was in the shower when the knee dislocated. No particular twisting, trauma, or motion eliciting event. Patient had a right total knee arthroplasty done on 10/14/2023 at [facility]. She reports multiple dislocations of the prosthesis, has been able to reduce at home. Has also had a previous hospitalization for same issue from 11/19/2023 to 11/25/2023 where she underwent a reduction of the knee, I&D of multiple stitch abscesses to the right knee scar, and PT/OT. Today she was not able to self-reduce her knee. Patient reports it was dislocated for approximately an hour and half prior to arrival. Denies numbness or tingling to affected extremity. Per most recent orthopedic note on 04/21/2024, suspected spasticity as reason for multiple dislocations and has been utilizing a hinged knee brace. Plan was to potentially revise knee with a more constrained femoral implant once nerve and foot had improved function. Initial VS at presentation: 97.7? F, HR 86, RR 15, 155/120, and 96% on RA. ED workup showed: No leukocytosis, no anemia, no significant electrolyte derangements, creatinine 0.6 and normal GFR. XR of the knee showed anterior dislocation of the prosthesis for right knee. Post reduction XR showed no acute osseous abnormality of the right knee and a total knee arthroplasty 04/24- seen and exMINED. pT REPORTS NO PAIN, JUST a little discomfort from the knee brace- skin is intact. Review of Systems Review of Systems: All systems reviewed & are unremarkable except as noted in HPI and below Exam Const: General: comfortable and no acute distress Other: , female, nontoxic appearance HENMT: Face/Nose/Sinus: Normal nares present Mouth: Yes moist mucous membranes Other: NC in place Eyes: General: appearance normal, both eyes and all related structures Sclera: sclerae normal Pupils: Equal, round and reactive pupils present EOM: EOMs intact bilaterally Resp: Effort & Inspection: normal respiratory effort Auscultation: clear to auscultation bilaterally Cardio: Rate: regular rate Rhythm: regular rhythm Other: S1-S2 present without murmur, rub, ectopy Skin: General skin exam: normal color and no rashes or lesions noted Wounds: no wounds Neuro: Cranial nerves: Yes Equal, round and reactive pupils present Speech: normal speech Sensory Exam: normal sensation Other: Moving al
[2024-04-24 14:28] VITALS: BP 90/62; PULSE 86; RESP 20; TEMP 37.1; O2SAT 95
[2024-04-24] MEDS: EZETIMIBE 10 MG TABLET PO (20:42)
[2024-04-24 22:35] VITALS: BP 113/56; PULSE 94; RESP 18; TEMP 36.5; O2SAT 97
[2024-04-25] MEDS: LEVOTHYROXINE SODIUM 88 MCG TABLET PO (05:59)
[2024-04-25 06:00] VITALS: BP 102/72; PULSE 88; RESP 16; TEMP 36.3; O2SAT 95
--- NOTE | 2024-04-25 07:26 | PM.IMPN ---
Progress Note: A&P Assessment and Plan (1) Dislocation of prosthesis of right knee joint: Code(s): T84.022A - Instability of internal right knee prosthesis, initial encounter Status: Acute Assessment and Plan: - XR Knee: No acute osseous abnormality right knee. Anterior dislocation is noted in the prosthesis. - XR Knee, post-reduction: No acute osseous abnormality right knee. Total knee arthroplasty. - reduction in ED on 04/23 with Tita BRIGGS, unable to reduce with moderate sedation due to patient's spasticity. Required propofol sedation. - orthopedics consulted, awaiting formal recs - analgesics p.r.n. - knee immobilizer - pain control - bedrest for now until otherwise advised per ortho (2) Hypothyroidism: Qualifiers: Hypothyroidism type: unspecified Qualified Code(s): E03.9 - Hypothyroidism, unspecified Code(s): E03.9 - Hypothyroidism, unspecified Status: Acute Assessment and Plan: - TSH 0.178, add T3-T4 to a.m. labs - continue levothyroxine Plan Diet: Heart healthy GI Prophylaxis: Not currently indicated DVT Prophylaxis: SCDs Lines: Peripheral Code Status: Full code Time Spent With Patient Time with patient: Greater than 35 minutes Subjective Date/time seen: 04/25/24 07:26 Interval history: Knee Dislocation Narrative retreievd from H/P: 59 y/o F presents here with a right knee dislocation with PMH of cerebral palsy, HLD, DJD, depression, and hypothyroidism. The patient presents here via EMS from home for further evaluation of possible right knee dislocation. She reports she was in the shower when the knee dislocated. No particular twisting, trauma, or motion eliciting event. Patient had a right total knee arthroplasty done on 10/14/2023 at [facility]. She reports multiple dislocations of the prosthesis, has been able to reduce at home. Has also had a previous hospitalization for same issue from 11/19/2023 to 11/25/2023 where she underwent a reduction of the knee, I&D of multiple stitch abscesses to the right knee scar, and PT/OT. Today she was not able to self-reduce her knee. Patient reports it was dislocated for approximately an hour and half prior to arrival. Denies numbness or tingling to affected extremity. Per most recent orthopedic note on 04/21/2024, suspected spasticity as reason for multiple dislocations and has been utilizing a hinged knee brace. Plan was to potentially revise knee with a more constrained femoral implant once nerve and foot had improved function. Initial VS at presentation: 97.7? F, HR 86, RR 15, 155/120, and 96% on RA. ED workup showed: No leukocytosis, no anemia, no significant electrolyte derangements, creatinine 0.6 and normal GFR. XR of the knee showed anterior dislocation of the prosthesis for right knee. Post reduction XR showed no acute osseous abnormality of the right knee and a total knee arthroplasty 04/24- seen and examined. pT REPORTS NO PAIN, JUST a little discomfort from the knee brace- skin is intact. 04/25- seen and examined- no acute issues overnight. Ortho consulted- awaiting recommendations. Pian is controlled, no n/v/d. Review of Systems Review of Systems: All systems reviewed & are unremarkable except as noted in HPI and below Exam Const: General: comfortable and no acute distress Other: , female, nontoxic appearance HENMT: Face/Nose/Sinus: Normal nares present Mouth: Yes moist mucous membranes Other: NC in place Eyes: General: appearance normal, both eyes and all related structures Sclera: sclerae normal Pupils: Equal, round and reactive pupils present EOM: EOMs intact bilaterally Resp: Effort & Inspection: normal respiratory effort Auscultation: clear to auscultation bilaterally Cardio: Rate: regular rate Rhythm: regular rhythm Other: S1-S2 present without murmur, rub, ectopy Skin: General skin exam: normal color and no rashes or
[2024-04-25 09:45] VITALS: PULSE 90
[2024-04-25] MEDS: PROPRANOLOL HCL 20 MG TABLET PO (09:45)
[2024-04-25] MEDS: PREGABALIN (*CRX) 75 MG CAPSULE 150 MG PO (09:45)
[2024-04-25 15:24] VITALS: BP 95/64; PULSE 82; RESP 16; TEMP 36.3; O2SAT 95
--- NOTE | 2024-04-25 15:41 | PM.CNOR ---
Assessment and Plan Assessment and plan (1) Instability of knee joint: Qualifiers: Laterality: right Qualified Code(s): M25.361 - Other instability, right knee Code(s): M25.369 - Other instability, unspecified knee Status: Acute Assessment and Plan: History, exam and radiographs reviewed with patient. 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 She has failed to fully improve with conservative treatment up to this point. Condition, nature, etiology and course of natural history discussed. Conservative and operative treatment options reviewed as well as the risks and benefits of both. Dr. Gonzalez discuss surgical treatment options with the patient and her sister. Recommended right total knee arthroplasty revision with posterior stabilizer. We discussed total knee arthroplasty in detail, as well as the risks and complications of surgery. Risks of surgery including but not limited to neurovascular damage, infection, wound complications, blood clot, pulmonary embolus, stroke, myocardial infarction, bleeding requiring blood transfusion, hematoma formation due to postoperative anticoagulation, dislocation, adhesive capsulitis, post operative stiffness requiring manipulation under anesthesia, implant failure, potential need for further surgery and anesthetic risks up to and including were reviewed. We also discussed the risks and complications of both including continued pain, fracture and instability. We discussed the role of physical therapy and the importance of patient compliance in order to achieve adequate range of motion. All questions were answered. The patient verbalized understanding and wishes to proceed. Plan: Revision right TKA with possible peroneal nerve decompression NPO at midnight. Pain control. Bedrest. Continue knee immobilizer in the interim. HOLD anticoagulation. (2) Gait abnormality: Code(s): R26.9 - Unspecified abnormalities of gait and mobility Status: Acute (3) Foot drop, right: Code(s): M21.371 - Foot drop, right foot Status: Inactive Assessment and Plan: Continue use of AFO. Dr. Gonzalez has determined he will discuss with Dr. Murphy for possible assistance with peroneal nerve decompression at the time of total knee revision. (4) Cerebral palsy: Qualifiers: Cerebral palsy type: unspecified type Qualified Code(s): G80.9 - Cerebral palsy, unspecified Code(s): G80.9 - Cerebral palsy, unspecified Status: Chronic History of Present Illness HPI Consult date: 04/25/24 Chief complaint: Right Knew Prosthesis Dislocation Narrative: 59-year-old female well known to the Orthopedic service for a history of a right total knee arthroplasty which is originally performed on October 14, 2023. Patient had a dislocation during the acute postoperative period and was scheduled to undergo a polyethylene exchange. At that time, she was found have a stitch abscess along the incision line and underwent an I and D on 11/20/2023. In addition, she has developed footdrop postoperatively. She has been wearing an AFO. Her postoperative case has been complicated by several dislocations due to her history of CP and spasticity. She was most recently seen by Dr. Gonzalez on 04/21/2024 at which point a revision was discussed due to PCL laxity however, she was showing improvement. She was maintaining ambulation with a hinged knee brace and showing improvement with her peroneal nerve per medical records. Patient presented to the emergency room on 04/23 with a recurrent dislocation of the right knee. She reported having felt her right knee popped out of place. Radiographs in the emergency room confirmed dislocation. She was relocated in the emergency room and admitted for further evaluation by Dr. Gonzalez. Review of Systems Review of Systems: All systems reviewed & are unremarkable except as note
[2024-04-25] MEDS: EZETIMIBE 10 MG TABLET PO (20:11)
[2024-04-25 20:30] VITALS: BP 97/57; PULSE 81; RESP 16; TEMP 37; O2SAT 96
[2024-04-26] VITALS (14 sets, daily range): BP systolic 93–116; BP diastolic 57–86; PULSE 81–103; RESP 10–18; TEMP 36.1–37.1; O2SAT 94–99
[2024-04-26] MEDS: LEVOTHYROXINE SODIUM 88 MCG TABLET PO (06:21)
--- NOTE | 2024-04-26 07:16 | WPDHPUPDATE1 ---
History and Physical Update Update Date/Time: 04/26/24 07:16 History and Physical has been reviewed, including an updated exam of the patient. There are NO changes in the patient's condition. Risks, benefits, and alternatives have been discussed and questions answered. Patient agrees to proceed with procedure.
[2024-04-26] MEDS: PREGABALIN (*CRX) 75 MG CAPSULE 150 MG PO (08:11)
[2024-04-26] MEDS: PROPRANOLOL HCL 20 MG TABLET PO (08:12)
[2024-04-26] MEDS: VANCOMYCIN 1,000 MG/NS 250 ML BAG 250 MG IVPB (10:30)
[2024-04-26] MEDS: TRANEXAMIC ACID 1,000MG/ISO100 1,000 MG/100 ML BAG 200 MG IVPB (10:30)
--- NOTE | 2024-04-26 10:34 | WPDANESEPPF ---
Anes - Initial Pre Proc Eval Procedure: Operation Date: 04/26/24 10:30 Proposed Procedures p Revision Femoral Component Right Knee - Rich Gonzalez MD Date/Time: 04/26/24 10:34 Surgeon: Regi Dunne MD Pre Op Diagnosis: Right Knew Prosthesis Dislocation Patient Data Age: 59 Gender: F Height: 1.57 m Weight: 63.6 kg Last Vital Signs Temp 97.3 F L 04/26/24 09:37 Pulse 81 04/26/24 09:37 Resp 14 04/26/24 09:37 BP 106/76 04/26/24 09:37 Pulse Ox 97 04/26/24 09:37 O2 Del Method Room Air 04/26/24 09:37 O2 Flow Rate 2 04/23/24 20:59 Allergies Allergy/AdvReac Type Severity Reaction Status Date / Time simvastatin Allergy Unknown Muscle pain Verified 04/26/24 09:43 Secfhrr-TOQ-WqF Reductase Allergy Unknown Muscle Pain Verified 04/26/24 09:43 Inhibitor [Vvtqwcs-Wmy-Khn Reductase Inhibitor] Sulfa (Sulfonamide Allergy Unknown Hives Verified 04/26/24 09:43 Antibiotics) Home Medications Medication Instructions Recorded Confirmed Type acetaminophen 325 mg tablet 650 mg PO Q6H PRN Mild Pain (1-3) 10/27/23 04/24/24 Rx Or Fever #0 tabs ezetimibe 10 mg tablet (Zetia) 10 mg PO HS #90 tabs 01/12/24 04/24/24 Rx cyclobenzaprine 10 mg tablet 10 mg PO TID PRN MUSCLE SPASMS #90 02/15/24 04/24/24 Rx tabs pregabalin 150 mg capsule 150 mg PO .q am #90 caps 04/06/24 04/24/24 Rx propranolol 20 mg tablet 20 mg PO QAM #90 tabs 04/06/24 04/24/24 Rx levothyroxine 88 mcg tablet 88 mcg PO DAILY@0630 #90 tabs 04/22/24 04/24/24 Rx fluvoxamine 50 mg tablet See Rx Instructions .Route .COMPLEX 04/24/24 04/24/24 History Patient hx anesthesia problems: none Family hx anesthesia problems: none Results Review: All pre-operative results and documents have been reviewed as part of the pre-operative evaluation. PENDING SALE TO [facility] Past Medical History Medical History Cerebral palsy Combined hyperlipidemia Degenerative disc disease Degenerative joint disease Depression Hypersomnia Hypothyroidism Surgical History Surgical History History of appendectomy History of bilateral knee arthroplasty History of cystoscopy Family History Family History Mother Family history of elevated blood lipids Family history of arthritis Multiple myeloma Father Family history of heart disease in male family member before age 55 Family history of diabetes mellitus in first degree relative Diabetes mellitus Family history of coronary artery disease Social History Social History Social History: Surrogate medical decision maker: Lacie Rapp, isai. Code status: Full code. Smoking status: Never smoker Second hand tobacco smoke exposure: No Alcohol intake: former Alcohol use details: Rare alcohol use. Substance use: never Substance use type: does not use Do You Feel Safe in your Home?: Yes Lack of Transportation: No Lack of Food: Never True Current Housing: I Have Housing Concerned About Future Housing: No Difficulty Paying Gas/Electric Bills: No Difficulty Paying for Meds: No Currently Unemployed: No Education: High School Diploma/GED Difficulty w/ Childcare or Family Care: No Living arrangements: with family Occupation/Education: retired Spiritual care concerns: No Agree to blood products: Yes Anes - Eval Final PreProcedure Day of Procedure 04/26/24 10:34 Patient weight: overweight Heart: regular rate and rhythm Lungs: clear to auscultation Airway: Mallampati scale class 1 Neurological: alert and oriented Last oral intake: >/= 8 hours ASA classification: III Emergent: no Anesthetic plan: proceed Anesthesia type and monitoring: general LMA and standard monitoring Results Review: All pre-operati
[2024-04-26] MEDS: ceFAZolin 2 GM/D5W 50 ML 2 GM/50 ML BAG IVPB ×2 (11:00→17:46)
[2024-04-26] MEDS: [UNRECOGNIZED DRUG - OTHER] INFILTRATE (11:13)
[2024-04-26] MEDS: MORPHINE SULFATE INFILTRATE (11:13)
[2024-04-26] MEDS: SODIUM CHLORIDE INFILTRATE (11:13)
--- NOTE | 2024-04-26 11:28 | PM.IMPN ---
Progress Note: A&P Assessment and Plan (1) Dislocation of prosthesis of right knee joint: Code(s): T84.022A - Instability of internal right knee prosthesis, initial encounter Status: Acute Assessment and Plan: - XR Knee: No acute osseous abnormality right knee. Anterior dislocation is noted in the prosthesis. - XR Knee, post-reduction: No acute osseous abnormality right knee. Total knee arthroplasty. - reduction in ED on 04/23 with Tita BRIGGS, unable to reduce with moderate sedation due to patient's spasticity. Required propofol sedation. - orthopedics consulted, awaiting formal recs - analgesics p.r.n. - knee immobilizer - pain control - bedrest for now until otherwise advised per ortho 04/26- Revision right TKA with possible peroneal nerve decompression (2) Hypothyroidism: Qualifiers: Hypothyroidism type: unspecified Qualified Code(s): E03.9 - Hypothyroidism, unspecified Code(s): E03.9 - Hypothyroidism, unspecified Status: Acute Assessment and Plan: - TSH 0.178, add T3-T4 to a.m. labs - continue levothyroxine Plan Diet: Heart healthy GI Prophylaxis: Not currently indicated DVT Prophylaxis: SCDs Lines: Peripheral Code Status: Full code Time Spent With Patient Time with patient: Greater than 35 minutes Subjective Date/time seen: 04/26/24 11:28 Interval history: Knee Dislocation Narrative retreievd from H/P: 59 y/o F presents here with a right knee dislocation with PMH of cerebral palsy, HLD, DJD, depression, and hypothyroidism. The patient presents here via EMS from home for further evaluation of possible right knee dislocation. She reports she was in the shower when the knee dislocated. No particular twisting, trauma, or motion eliciting event. Patient had a right total knee arthroplasty done on 10/14/2023 at [facility]. She reports multiple dislocations of the prosthesis, has been able to reduce at home. Has also had a previous hospitalization for same issue from 11/19/2023 to 11/25/2023 where she underwent a reduction of the knee, I&D of multiple stitch abscesses to the right knee scar, and PT/OT. Today she was not able to self-reduce her knee. Patient reports it was dislocated for approximately an hour and half prior to arrival. Denies numbness or tingling to affected extremity. Per most recent orthopedic note on 04/21/2024, suspected spasticity as reason for multiple dislocations and has been utilizing a hinged knee brace. Plan was to potentially revise knee with a more constrained femoral implant once nerve and foot had improved function. Initial VS at presentation: 97.7? F, HR 86, RR 15, 155/120, and 96% on RA. ED workup showed: No leukocytosis, no anemia, no significant electrolyte derangements, creatinine 0.6 and normal GFR. XR of the knee showed anterior dislocation of the prosthesis for right knee. Post reduction XR showed no acute osseous abnormality of the right knee and a total knee arthroplasty 04/24- seen and examined. pT REPORTS NO PAIN, JUST a little discomfort from the knee brace- skin is intact. 04/25- seen and examined- no acute issues overnight. Ortho consulted- awaiting recommendations. Pian is controlled, no n/v/d. Ortho saw pt, plan for Revision right TKA with possible peroneal nerve decompression 04/26 04/26- Revision right TKA with possible peroneal nerve decompression with DR Gonzalez Review of Systems Review of Systems: All systems reviewed & are unremarkable except as noted in HPI and below Exam Const: General: comfortable and no acute distress Other: , female, nontoxic appearance HENMT: Face/Nose/Sinus: Normal nares present Mouth: Yes moist mucous membranes Other: NC in place Eyes: General: appearance normal, both eyes and all related structures Sclera: sclerae normal Pupils: Equal, round and reactive pupils present EOM: EOMs intact bilaterally Resp: Effort & In
[2024-04-26] MEDS: TRANEXAMIC ACID 1,000 MG/10 ML AMPUL 1000 MG IV PUSH (13:10)
--- NOTE | 2024-04-26 14:22 | W.PM.PROC2 ---
Procedure Note - Detailed Date of Procedure 04/26/24 Pre-op Diagnosis Right TKA Instability Post-op Diagnosis Same Procedure Performed RIGHT TKA REVISION Surgeon Rich Gonzalez MD Anesthesia General Description of Procedure THE RIGHT KNEE WAS PREPPED AND DRAPED IN THE STERILE FASHION. A MIDLINE SKIN INCISION WAS MADE OVER THE OLD SCAR. A MEDIAL PARAPATELLAR ARTHROTOMY WAS MADE. THE PATELLA WAS EVERTED. THE POLY COMPONENT WAS REMOVED. THE PCL WAS COMPLETELY TORN AND ATROPHIED. THE TIBIAL COMPONENT WAS WELL FIXED. THERE WAS NO OBVIOUS SIGN OF INFECTION. USING A SAGITTAL SAW AND A FLEXIBLE OSTEOTOME THE FEMORAL COMPONENT WAS REMOVED WITH MINIMAL BONE LOSS. A HIGH SPEED KAMILLA WAS USED TO REMOVE ANY REMAINING CEMENT. A DISTAL CUTTING GUIDE WAS PLACED IN 5 DEGREES OF VALGUS AND IN LINE WITH THE TRANSEPICONDYLAR AXIS AND A 1 MM DISTAL FEMORAL CUT WAS MADE TO REVEAL FRESH BONE. A FEMORAL REAMER WAS USED TO REAM THE FEMORAL CANAL TO 12 MM. A CUTTING GUIDE WAS PLACED AND THE BOX CUT WAS MADE TO ACCOMMODATE A 57.5 FEMORAL REVISION TRIAL. ONCE THE BOX CUT WAS PREFORMED A 57.5 VANGUARD SSK REVISION TRIAL COMPONENT WITH AN 80 MM STEM WAS PLACED. THE FIT WAS EXCELLENT. A 12 CONSTRAINED POLY TRIAL WAS PLACED. THE KNEE WAS TAKEN THROUGH A ROM AND FOUND TO BE STABLE. THE TRIAL COMPONENTS WERE REMOVED. THE KNEE WAS IRRIGATED THOROUGHLY. A 57.5 VANGUARD SSK REVISION COMPONENT WITH A PRESS FIT 80MM STEM WAS CEMENTED IN TO PLACE. ONCE THE CEMENT WAS HARD THE KNEE WAS TAKEN THROUGH A ROM AGAIN AND FOUND TO BE STABLE WITH NO PATELLA TILT NO EXCESSIVE ROLL BACK WITH FLEXION AND GOOD STABILITY WITH COMPLETE AND FULL EXTENSION. THE KNEE WAS IRRIGATED WITH STERILE BETADINE AND WATER FOR ABOUT 3 MINUTES. THE BLEEDERS WERE CAUTERIZED. THE ARTHROTOMY WAS REPAIRED WITH NUMBER 1 VICRYL. THE SUB CUTANEOUS LAYER WITH 2-0 VICRYL AND THE SKIN WITH JIM. THE WOUND WAS WASHED AND A STERILE PREVENA DRESSING WAS APPLIED. PATIENT WAS EXTUBATED. Estimated Blood Loss 150 Pathology None sent Complications No immediate complications Condition Stable Disposition PACU
[2024-04-26] MEDS: SENNA/DOCUSATE SODIUM TABLET 2 TAB PO (17:46)
[2024-04-26] MEDS: KETOROLAC 15 MG/ML VIAL (*BKC) IV PUSH ×2 (17:47→23:16)
[2024-04-26] MEDS: FAMOTIDINE 20 MG TABLET PO (21:03)
[2024-04-26] MEDS: ASPIRIN 325 MG ENTERIC TABLET PO (21:03)
[2024-04-26] MEDS: EZETIMIBE 10 MG TABLET PO (21:03)
[2024-04-26] MEDS: VANCOMYCIN 1,000 MG/NS 250 ML 1,000 MG/250 ML BAG 250 MG IVPB (21:04)
[2024-04-27] MEDS: ceFAZolin 2 GM/D5W 50 ML 2 GM/50 ML BAG IVPB ×2 (01:28→09:15)
[2024-04-27 06:09] VITALS: BP 106/70; PULSE 97; RESP 16; TEMP 37; O2SAT 100
[2024-04-27] MEDS: LEVOTHYROXINE SODIUM 88 MCG TABLET PO (06:12)
[2024-04-27] MEDS: KETOROLAC 15 MG/ML VIAL (*BKC) IV PUSH ×2 (06:12→12:02)
[2024-04-27 06:53] LABS: T3 Free 3.1 pg/mL (2.3-4.2)
[2024-04-27 07:52] LABS: Basophils Percent Auto 0.3 % (0.2-1.2); Hematocrit 35.9 % (37.0-47.0); Hemoglobin 11.7 g/dL (12.0-15.0); Immature Granulocyte Absolute 0.05 K/mm3 (0.00-0.031); Immature Granulocyte Percent A 0.4 % (0-0.5); Lymphocytes Absolute Auto 1.01 K/mm3 (0.9-3.2); Mean Corpuscular HGB Conc 32.6 g/dl (32-36); Mean Corpuscular Hemoglobin 30.2 pg (26-34); Mean Corpuscular Volume 92.5 fl (80-100); Mean Platelet Volume 9.1 fl (7.4-10.4); Monocytes Absolute Auto 0.8 K/mm3 (0.1-0.6); Monocytes Percent Auto 6.3 % (2.6-8.5); Neutrophils Absolute Auto 10.8 K/mm3 (1.3-6.7); Platelet Count Result 282 k/mm3 (150-375); Red Blood Count 3.88 M/mm3 (4.2-5.4); Red Cell Distribution Width 13.6 % (11.5-14.5); White Blood Count 12.7 K/mm3 (4.5-10.0)
--- NOTE | 2024-04-27 07:58 | PM.IMPN ---
Progress Note: A&P Assessment and Plan (1) Dislocation of prosthesis of right knee joint: Code(s): T84.022A - Instability of internal right knee prosthesis, initial encounter Status: Acute Assessment and Plan: - XR Knee: No acute osseous abnormality right knee. Anterior dislocation is noted in the prosthesis. - XR Knee, post-reduction: No acute osseous abnormality right knee. Total knee arthroplasty. - reduction in ED on 04/23 with Tita BRIGGS, unable to reduce with moderate sedation due to patient's spasticity. Required propofol sedation. - analgesics p.r.n. - knee immobilizer - pain control - pt/ot weight bearing as tolerated per ortho - ortho consulted s/p right TKA revision with Dr. Gonzalez on 04/26 (2) Hypothyroidism: Qualifiers: Hypothyroidism type: unspecified Qualified Code(s): E03.9 - Hypothyroidism, unspecified Code(s): E03.9 - Hypothyroidism, unspecified Status: Acute Assessment and Plan: - TSH 0.178 - T3 and T4 WNL - continue levothyroxine Plan Diet: Heart healthy GI Prophylaxis: Not currently indicated DVT Prophylaxis: SCDs Lines: Peripheral Code Status: Full code Time Spent With Patient Time with patient: 25 - 35 minutes Subjective Date/time seen: 04/27/24 07:58 Interval history: 59 y/o F presents here with a right knee dislocation with PMH of cerebral palsy, HLD, DJD, depression, and hypothyroidism. Patient is pleasant lying comfortably in bed with sister at bedside. She states that her pain is well controlled with current regimen. She did endorse slight tingling to her right foot, for this improved after her orthoptic strap was loosened. She denies burning sensation or severe pain to the extremity. She continues to work with PT/OT. Per ortho she is weight-bearing as tolerated. Patient denies chest pain, shortness a breath, nausea/vomiting abdominal pain. Review of Systems Review of Systems: All systems reviewed & are unremarkable except as noted in HPI and below Exam Narrative: AF HR 98 RR 16 SpO2 98 BP 100/71 General: female in no acute respiratory distress who is nontoxic appearing, lying semi recumbent in bed. HEENT: Normocephalic. Atraumatic. Pupils equal round reactive to light. Extraocular movement intact. No facial asymmetry. Chest: Lungs are clear to auscultation bilaterally. No wheezes or crackles. CV: Heart was regular rate and rhythm. S1-S2. No murmurs, gallops, or rubs. Abd: Abdomen was soft. Nontender. Nondistended. Positive bowel sounds. No organomegaly or masses. Ext: No clubbing, cyanosis, or edema. 2+ DP pulses bilaterally. Wound vac in place. Surgical dressing is clean, dry and intact. Able to move lower extremity. Neuro: Patient is alert. Cranial nerves 2-12 are intact. Speech is clear. Psych: Normal mood and affect. Patient is pleasant and cooperative. Objective Data Vital Signs Vital Signs: Vital Signs - 24 hr 04/26/24 08:12 04/26/24 08:00 04/26/24 09:37 Temperature 97.3 F L Pulse Rate 84 84 81 Respiratory Rate 16 14 Blood Pressure 106/76 Pulse Oximetry 99 97 Oxygen Delivery Room Air Room Air Oxygen Flow Rate 04/26/24 14:19 04/26/24 14:30 04/26/24 14:45 Temperature 98.8 F Pulse Rate 103 H 99 93 Respiratory Rate 10 L 12 12 Blood Pressure 116/86 103/79 101/66 Pulse Oximetry 96 97 97 Oxygen Delivery Simple Face Mask Simple Face Mask Simple Face Mask Oxygen Flow Rate 8 8 8 04/26/24 15:00 04/26/24 15:30 04/26/24 16:08 Temperature 97.0 F L 97.0 F L Pulse Rate 103 H 86 85 Respiratory Rate 18 18 18 Blood Pressure 104/70 97/67 L 93/57 L Pulse Oximetry 94 95 95 Oxygen Delivery Nasal Cannula Oxygen Flow Rate 2 04/26/24 16:23 04/26/24 17:49 04/26/24 20:05 Temperature 97.0 F L 97.0 F L 97.8 F Pulse Rate 91 89 100 Respiratory Rate 18 18 18 Blood Pressure 93/60 L 103/72 102/68 Pulse Oximetry 95 98 95 Oxygen Delivery Oxygen Flow Rate 04/26
[2024-04-27 08:16] LABS: Anion Gap 7 mmol/L (4-12); Blood Urea Nitrogen 18 mg/dL (7-17); Calcium 8.6 mg/dL (8.4-10.2); Carbon Dioxide 27 mmol/L (22-30); Chloride 95 mmol/L (98-107); Estimated CRCL calculation 82 ml/min; Estimated Glomerular Filt Rate > 60; Glucose 121 mg/dL (65-110); Potassium 4.4 mmol/L (3.4-5.0); Sodium 129 mmol/L (137-145)
[2024-04-27] MEDS: polyethylene glycoL 3350 17 GM POWD.PACK PO (09:14)
[2024-04-27] MEDS: PREGABALIN (*CRX) 75 MG CAPSULE 150 MG PO (09:14)
[2024-04-27 09:15] VITALS: PULSE 96
[2024-04-27] MEDS: FAMOTIDINE 20 MG TABLET PO ×2 (09:15→20:50)
[2024-04-27] MEDS: ASPIRIN 325 MG ENTERIC TABLET PO ×2 (09:15→20:50)
[2024-04-27] MEDS: PROPRANOLOL HCL 20 MG TABLET PO (09:15)
[2024-04-27] MEDS: SENNA/DOCUSATE SODIUM TABLET 2 TAB PO ×2 (09:15→17:16)
[2024-04-27 11:18] VITALS: BP 100/71; PULSE 98; RESP 16; TEMP 36.8; O2SAT 98
[2024-04-27] MEDS: VANCOMYCIN 1,000 MG/NS 250 ML 1,000 MG/250 ML BAG 250 MG IVPB (12:00)
--- NOTE | 2024-04-27 14:52 | PM.PNORT ---
Progress Note: A&P Assessment and Plan (1) History of revision of total knee arthroplasty: Code(s): Z96.659 - Presence of unspecified artificial knee joint Status: Acute Assessment and Plan: POD 1 DOING WELL WITH STILL SOME NEED OF MORE PROGRESS WITH PT PRIOR TO DISCHARGE. SHE WILL CONTINUE PT AND BE DISCHARGED TMRW AFTER HER PT SESSION IF IMPROVED. Subjective Subjective Date/Time Seen: 04/27/24 14:52 Interval history: POD 1 DOING WELL. BLOCK IS STILL ACTIVE. SHE HAS SLOW PROGRESS WITH PT. NO CALF PAIN. Exam Extrem: Other: VSS AFEBRILE DRESSING DRY WITH PREVENA INTACT. NV INTACT NEG HOMANS SIGN, CALF SOFT NON TENDER. Objective Data Vital Signs Vital Signs: Vital Signs - 24 hr 04/26/24 15:00 04/26/24 15:30 04/26/24 16:08 Temperature 36.1 C L 36.1 C L Pulse Rate 103 H 86 85 Respiratory Rate 18 18 18 Blood Pressure 104/70 97/67 L 93/57 L Pulse Oximetry 94 95 95 Oxygen Delivery Nasal Cannula Oxygen Flow Rate 2 04/26/24 16:23 04/26/24 17:49 04/26/24 20:05 Temperature 36.1 C L 36.1 C L 36.6 C Pulse Rate 91 89 100 Respiratory Rate 18 18 18 Blood Pressure 93/60 L 103/72 102/68 Pulse Oximetry 95 98 95 Oxygen Delivery Oxygen Flow Rate 04/26/24 23:53 04/27/24 06:09 04/27/24 09:15 Temperature 36.6 C 37.0 C Pulse Rate 98 97 96 Respiratory Rate 18 16 Blood Pressure 102/78 106/70 Pulse Oximetry 98 100 Oxygen Delivery Oxygen Flow Rate 04/27/24 09:24 04/27/24 09:20 04/27/24 11:18 Temperature 36.8 C Pulse Rate 98 Respiratory Rate 16 Blood Pressure 100/71 Pulse Oximetry 98 Oxygen Delivery Room Air Room Air Oxygen Flow Rate Intake/Output Intake/Output: Intake & Output 04/24/24 04/25/24 04/26/24 04/27/24 23:59 23:59 23:59 23:59 Intake Total 1680 1840 1480 830 Balance 1680 1840 1480 830 Meds/Results Medications: Active Medications Generic Name Dose Route Start Last Admin Trade Name Freq PRN Reason Stop Dose Admin Acetaminophen 650 mg 04/26/24 10:52 Acetaminophen 325 Mg Tablet PO Q6H PRN Mild Pain (1-3) Or Fever Aspirin 325 mg 04/26/24 21:00 04/27/24 09:15 Aspirin 325 Mg Enteric Tablet PO 325 mg Q12HR MONIKA Administration Cyclobenzaprine HCl 10 mg 04/26/24 10:52 Cyclobenzaprine Hcl 10 Mg Tablet PO TID PRN MUSCLE SPASMS Diazepam 5 mg 04/26/24 10:52 Diazepam (*Crx) 5 Mg Tablet PO Q8H PRN Anxiety Diphenhydramine HCl 25 mg 04/26/24 10:52 Diphenhydramine Hcl Inj 50 Mg/Ml Vial IV PUSH Q6H PRN Itching Ezetimibe 10 mg 04/24/24 21:00 04/26/24 21:03 Ezetimibe 10 Mg Tablet PO 10 mg HS MONIKA Administration Famotidine 20 mg 04/26/24 21:00 04/27/24 09:15 Famotidine 20 Mg Tablet PO 20 mg Q12HR MONIKA Administration Hydromorphone HCl 1 mg 04/26/24 10:52 Hydromorphone Hcl Inj (*Crx) 1 Mg/Ml Syr IV PUSH Q2H PRN Breakthrough Pain Rated 7-10 or NPO Hydromorphone HCl 0.5 mg 04/26/24 10:52 Hydromorphone Hcl Inj (*Crx) 1 Mg/Ml Syr IV PUSH Q2H PRN Breakthrough Pain Rated 4-6 or NPO Ibuprofen 800 mg in 200 mls @ 400 mls/hr 04/26/24 10:52 Caldolor 800 Mg/200 Ml IVPB Q6H PRN Breakthrough Pain Rated 1-3 or NPO Levothyroxine Sodium 88 mcg 04/24/24 06:30 04/27/24 06:12 Levothyroxine Sodium 88 Mcg Tablet PO 88 mcg DAILY@0630 MONIKA Administration Naloxone HCl 0.1 mg 04/26/24 10:52 Naloxone Hcl 0.4 Mg/Ml Vial IV PUSH Q2M PRN Opiate Reversal Non-Formulary ( 2 each 04/24/24 01:35 04/26/24 21:03 Fluvoxamine Maleate PO 05/24/24 01:34 2 each 50 Mg Oral Tablet) HS MONIKA Administration Non-Formulary ( 1 each 04/24/24 09:00 04/27/24 09:16 Fluvoxamine Maleate PO 05/24/24 08:59 1 each 50 Mg Oral Tablet) QAM MONIKA Administration Ondansetron HCl 4 mg 04/26/24 10:52 Ondansetron Inj 4 Mg/2 Ml Vial IV PUSH Q4H PRN Nausea And Vomiting Oxycodone/Acetaminophen 1 tablet
[2024-04-27 15:44] VITALS: BP 123/69; PULSE 86; RESP 16; TEMP 36.4; O2SAT 100
[2024-04-27 20:24] VITALS: BP 105/79; PULSE 95; RESP 18; TEMP 36.4; O2SAT 98
[2024-04-27] MEDS: EZETIMIBE 10 MG TABLET PO (20:50)
[2024-04-27] MEDS: ACETAMINOPHEN 325 MG TABLET 650 MG PO (20:52)
[2024-04-28] MEDS: oxyCODONE/ACETAMINOPHEN (*CRX) 5-325 MG TABLET 1 TABLET PO ×2 (00:54→08:18)
[2024-04-28 05:35] VITALS: BP 100/72; PULSE 89; RESP 16; TEMP 36.7; O2SAT 98
[2024-04-28] MEDS: LEVOTHYROXINE SODIUM 88 MCG TABLET PO (05:44)
[2024-04-28] MEDS: ASPIRIN 325 MG ENTERIC TABLET PO (08:19)
[2024-04-28] MEDS: PROPRANOLOL HCL 20 MG TABLET PO (08:19)
[2024-04-28] MEDS: FAMOTIDINE 20 MG TABLET PO (08:19)
[2024-04-28] MEDS: SENNA/DOCUSATE SODIUM TABLET 2 TAB PO (08:19)
[2024-04-28] MEDS: polyethylene glycoL 3350 17 GM POWD.PACK PO (08:19)
[2024-04-28] MEDS: PREGABALIN (*CRX) 75 MG CAPSULE 150 MG PO (08:19)
--- NOTE | 2024-04-28 12:58 | PM.PNORT ---
Progress Note: A&P Assessment and Plan (1) History of revision of total knee arthroplasty: Code(s): Z96.659 - Presence of unspecified artificial knee joint Status: Acute Assessment and Plan: POD #2 : Right TKA Revision Continue PT/OT. WBAT. Walker. HIGH FALL RISK. Use of AFO for foot drop. Continue pain control. Ice Knee. Protect skin. DVT prophylaxis with Aspirin. SCDs. Incentive Spirometry Use reviewed. Monitor Dressing. Prevena dressing instruction. Bowel Regimen. Dispo: Home with Home Health Plan Reviewed history, exam, radiographs and current labs with attending MD and covering surgeon, Dr. Gonzalez, who agrees with current plan as indicated above. No further recommendations from Dr. Gonzalez at this time. Subjective Subjective Date/Time Seen: 04/28/24 12:58 Post Op day: 2 Interval history: POD #2: Revision of the right TKA by Dr. Gonzalez Patient doing well. Pain well controlled. No new concerns. Hopeful for d/c home with home health today. Review of Systems Review of Systems: All systems reviewed & are unremarkable except as noted in HPI and below Exam Const: General: comfortable and no acute distress Resp: Effort & Inspection: normal respiratory effort Cardio: Rate: regular rate Rhythm: regular rhythm GI: GI Palp: Yes Soft to palpation, No Tenderness to palpation present (GI) and No Guarding due to palpation present (GI) Skin: General skin exam: wounds noted Wounds: wounds noted Other: Incision c/d/i. No surrounding redness/warmth. No hematoma. Mild ecchymosis. No wound dehiscence Neuro: Cognition (Neuro): normal cognition Other: NV intact aside from block. Moves toes. Sensation intact to light touch. +ankle dorsiflexion/plantarflexion. Extrem: Right lower extremity: normal to inspection, knee Details: tenderness (diffuse, mild ) Location: of the patella, swelling (diffuse, consistent with surgical intervention ), abnormal ROM Details: pain with active ROM during, pain with passive ROM during and with range as follows (limited due to recent surgical intervention ); able to extend lower leg actively and ecchymosis (mild ), lower leg (Negative Estefani's Sign ) Details: normal to inspection; no erythema and no tenderness, ankle (+ankle dorsiflexion/plantarflexion ) Details: normal to inspection, no edema and normal ROM; no tenderness, no swelling and no ecchymosis and foot Details: normal capillary refill, normal to inspection, vascular exam Details: dorsalis pedis pulse present and motor-sensory exam Details: light-touch normal; no tenderness Left lower extremity: normal to inspection Psych: Mental Status: mental status grossly normal Objective Data Vital Signs Vital Signs: Vital Signs - 24 hr 04/27/24 15:44 04/27/24 20:24 04/28/24 05:35 Temperature 36.4 C 36.4 C 36.7 C Pulse Rate 86 95 89 Respiratory Rate 16 18 16 Blood Pressure 123/69 105/79 100/72 Pulse Oximetry 100 98 98 Oxygen Delivery 04/28/24 08:18 Temperature Pulse Rate Respiratory Rate Blood Pressure Pulse Oximetry Oxygen Delivery Room Air Intake/Output Intake/Output: Intake & Output 04/25/24 04/26/24 04/27/24 04/28/24 23:59 23:59 23:59 23:59 Intake Total 1840 1480 1600 640 Balance 1840 1480 1600 640 Meds/Results Medications: Active Medications Generic Name Dose Route Start Last Admin Trade Name Freq PRN Reason Stop Dose Admin Acetaminophen 650 mg 04/26/24 10:52 04/27/24 20:52 Acetaminophen 325 Mg Tablet PO 650 mg Q6H PRN Administration Mild Pain (1-3) Or Fever Aspirin 325 mg 04/26/24 21:00 04/28/24 08:19 Aspirin 325 Mg Enteric Tablet PO 325 mg Q12HR MONIKA Administration Cyclobenzaprine HCl 10 mg 04/26/24 10:52 Cyclobenzaprine Hcl 10 Mg Tablet PO TID PRN MUSCLE SPASMS Diazepam 5 mg 04/26/24 10:52 Diazepam (*Crx) 5 Mg Tablet PO Q8H PRN Anxiety Diphenhydramine HCl 25 mg 04/26/24 10:52 Diphenh
--- NOTE | 2024-04-28 14:23 | PM.DS ---
DS: Admitting Diagnosis Discharge Date 04/28/2024 Admitting Diagnosis dislocation of prosthesis right knee joint hypothyroidism DS: Discharge Diagnosis Discharge Diagnosis (1) Dislocation of prosthesis of right knee joint: Code(s): T84.022A - Instability of internal right knee prosthesis, initial encounter Status: Acute (2) Hypothyroidism: Qualifiers: Hypothyroidism type: unspecified Qualified Code(s): E03.9 - Hypothyroidism, unspecified Code(s): E03.9 - Hypothyroidism, unspecified Status: Acute DS: Summary Hospital Course Reason for hospitalization: dislocation of prosthesis right knee joint hypothyroidism Hospital Course: 59 y/o F presents here with a right knee dislocation with PMH of cerebral palsy, HLD, DJD, depression, and hypothyroidism. Patient had a right total knee arthroplasty done on 10/14/2023 at [facility]. She reports multiple dislocations of the prosthesis since that time which she has been able to reduce at home. At time of admission she was not able to self-reduce her knee. XR in the ED showed anterior dislocation of the right knee prosthesis. Reduction in ED on 04/23 with Tita BRIGGS. Post reduction XR showed total knee arthroplasty and no acute osseous abnormality. Ortho was consulted. Per ortho the recurrent dislocations are due to spasticity and likely PCL laxity. Patient underwent a right TKA revision with Dr. Gonzalez on 04/26. A postop knee x-ray showed total right knee arthroplasty in near anatomic alignment. Patient worked well with PT / OT under the restrictions per Ortho of weight-bearing as tolerated. Prior to discharge patient denied pain, tingling/numbness, and burning sensation to the extremity. Patient discharged home in stable condition. She is to follow up with ortho as scheduled. Status at Discharge Functional status at discharge: uses cane/walker Time Spent with Patient Time attestation: Total time spent providing and/or coordinating discharge services: Time spent: Greater than 30 minutes Exam Narrative: AF HR 89 RR 16 SpO2 98 BP 100/72 General: female in no acute respiratory distress who is nontoxic appearing, lying semi recumbent in bed. HEENT: Normocephalic. Atraumatic. Extraocular movement intact. No facial asymmetry. Chest: Lungs are clear to auscultation bilaterally. No wheezes or crackles. CV: Heart was regular rate and rhythm. S1-S2. No murmurs, gallops, or rubs. Abd: Abdomen was soft. Nontender. Nondistended. Positive bowel sounds. No organomegaly or masses. Ext: No clubbing, cyanosis, or edema. 2+ DP pulses bilaterally. Wound vac in place. Surgical dressing is clean, dry and intact. Able to move lower extremity. DS: Data Data Completed and Pending Completed studies during hospitalization: Knee XR Knee XR Knee XR Knee XR Discharge Plan Discharge Attending physician on discharge: Brian Hernandez Consulting providers: Rich Gonzalez Discharging Clinician: Samantha Golden Anticipated Discharge Date/Time: 04/28/24 14:20 Patient Disposition: Home Health Service Activity: may shower, no driving and follow weight bearing status Diet: as tolerated Wound Care Instructions: follow printed instructions Discharge Instructions: Per Care Coordination: [facility] ([phone]) will call to set up initial visit. Post Op Total Knee Replacement Instructions Dr. Rich Gonzalez [phone] See below for Prevena dressing instructions. You may shower with your dressing but do not submerge in a bath tub. Do not drive or operate machinery until you are released by Dr. Gonzalez. Do not walk without a walker for any reason until you are released by Dr. Gonzalez. Continue to use your ice machine. Please use a towel or pillow case to protect your skin before applying your ice machine. Do NOT place a pillow under your knee. You may use a pillow from the calf down if needed. This will prevent a fl
== END 2024-04-28 15:00 | disposition home health service (06) | DRG 468 ==
LOC: ANHED 21:46 → ANH3MED 23:23
PROVIDERS: Orthopaedic Surgery; Student in an Organized Health Care Education/Training Program; Admitting Provider General Practice; Emergency Provider Emergency Medicine; PCP Family Medicine; Visit Provider Student in an Organized Health Care Education/Training Program
PROC: 0SPT0JZ Removal of Synthetic Substitute from Right Knee Joint, Femoral Surface, Open Approach (ICD-10-PCS; CPT 27487; principal; 2024-04-26 10:30)
DX: T84.022A Instability of internal right knee prosthesis, initial encounter (principal); E78.5 Hyperlipidemia, unspecified; E03.9 Hypothyroidism, unspecified; G83.9 Paralytic syndrome, unspecified; M19.90 Unspecified osteoarthritis, unspecified site; F32.A Depression, unspecified; Z96.653 Presence of artificial knee joint, bilateral; M21.371 Foot drop, right foot
CPT/HCPCS: 36415; 73560; 73562; 80048; 80053; 83735; 84439; 84480; 85025; 85610; 96361; 96374; 97110; 97116; 97161; 97165; 97530; 97535; 99285; A9270; C1713; G0378; J0690; J1100; J1170; J1885; J2250; J2270; J2405; J2704; J2795; J3010; J3370; J7030

== ENCOUNTER 2024-08-09 10:15 | Outpatient (RCR) | payer MEDICARE, OTHER, SELFPAY ==
--- NOTE | 2024-05-18 12:12 | OPREHPOC ---
Outpatient Therapy Plan of Care This is a Multidisciplinary Plan of Care that may contain components documented by all disciplines (PT, OT, and ST.) PT Problem 1 PT Problem #1 Knowledge Deficit PT Goal 1 Goal / Goal Update 1. Patient will perform independent HEP Target Visit 4 Progress Met PT Problem 2 PT Problem #2 Impaired Gait PT Goal 1 Goal / Goal Update 1. Improve to 300 feet on 2 minute walk test with least restrictive device Target Visit 10 Progress Met PT Problem 3 PT Problem #3 Impaired Functional ADLs PT Goal 1 Goal / Goal Update 1. Patient able to ambulate household distances without device Target Visit 10 Progress Met PT Problem 4 PT Problem #4 Impaired Range of Motion PT Goal 1 Goal / Goal Update 1. Improve knee flexion to be equal to left Target Visit 10 Progress Met PT Problem 5 PT Problem #5 Impaired Balance PT Goal 1 Goal / Goal Update 1. Pt will demo 30 seconds or less for 5 times sit to stand for improved balance Target Visit 10 Progress Partially Met
--- NOTE | 2024-05-18 12:13 | PTOPEVAL1 ---
Assessment and note entered by Kaia Jacobsen DPT Evaluation Information Assessment Status Evaluation Diagnosis t84.022a, z96.659 ICD-10 Condition Codes (PT) M25.561,Z47.1 Subjective Information 04/26/24 patient had total knee revision, previous R TKA this year which dislocated. Patient also suffered from foot drop after surgery. Highest pain recently 0/10. Pt is able to ambulate better after this surgery than before the original one. Using her rollator most of the time, sometimes stays in her wheelchair early in the morning while she is more fatigued. Is not yet walking independently without holding on to the counter, which she was able to do before the first surgery. Still wearing AFO at all times due to drop foot, states her foot has some movement in it now. Also has not been released to drive yet. Pt has history of CP. Was previously independent. Returns to [place] 06/07/24. Reported Pain Level Pain Score 0: Self Report Assessment PT Clinical Summary The patient is s/p R total knee revision on . She presents with decreased knee ROM, decreased gait, and decreased balance. She also is still currently using AFO due to foot drop. She will highly benefit from skilled therapy to address her impairments in order to improve function and independence at home. Plan of Care Interventions Gait Training,Manual Therapy,Neuro Re-education, Patient/Caregiver Education,Therapeutic Activities, Therapeutic Exercise PT Services Indicated Yes Treatment Frequency and 2 times a week for 10 visits Duration These treatments will address the objective and functional deficits as defined above. The patient will be advanced safely and appropriately in order for the patient to progress towards his/her prior level of function. Additional exercises will be introduced and as well as a comprehensive home exercise program upon discharge, if needed, ?to ensure carryover of functional gains achieved in the clinic. This treatment plan has been reviewed and agreement upon by the patient.
--- NOTE | 2024-06-16 10:58 | PCPTNOTE ---
Patient called to cancel this date due to not feeling well.
--- NOTE | 2024-06-29 10:40 | OPREHPOC ---
Outpatient Therapy Plan of Care This is a Multidisciplinary Plan of Care that may contain components documented by all disciplines (PT, OT, and ST.) PT Problem 1 PT Problem #1 Knowledge Deficit PT Goal 1 Goal / Goal Update 1. Patient will perform independent HEP Target Visit 4 Progress Met PT Problem 2 PT Problem #2 Impaired Gait PT Goal 1 Goal / Goal Update 1. Improve to 300 feet on 2 minute walk test with least restrictive device update 06/29/24 1. improved to 220 feet Target Visit 20 Progress Partially Met PT Problem 3 PT Problem #3 Impaired Functional ADLs PT Goal 1 Goal / Goal Update 1. Patient able to ambulate household distances without device update 06/29/24 1. improved gait but not without device Target Visit 20 Progress Partially Met PT Problem 4 PT Problem #4 Impaired Range of Motion PT Goal 1 Goal / Goal Update 1. Improve knee flexion to be equal to left Target Visit 10 Progress Met PT Problem 5 PT Problem #5 Impaired Balance PT Goal 1 Goal / Goal Update 1. Pt will demo 30 seconds or less for 5 times sit to stand for improved balance update 06/29/24 1. 44 seconds Target Visit 20 Progress Not Met
--- NOTE | 2024-06-29 10:40 | PTOPPROG ---
Assessment and note entered by Kaia Jacobsen DPT Evaluation Information Assessment Status Progress Diagnosis t84.022a, z96.659 ICD-10 Condition Codes (PT) M25.561,Z47.1 Subjective Information Pt states she has been feeling better with therapy but thinks the weight of her AFO is limiting her some. Denies knee pain at all recently. Reports it is much easier to get out of a chair. Is still using the walker and has not been able to go without it yet. Is able to drive independently and has had multiple days where she is not using her wheelchair at all. Has been able to go in to a few smaller stores and use her walker. Feels more therapy would be helpful to walk more independently and address stairs. Assessment PT Clinical Summary The patient has continued to make good progress in therapy following R TKA revision. She demonstrates improved walking speed and improved knee flexion. She reports improvements with transfers at home and household mobility but is still not at prior level of function and is requiring assistive device for gait at all times. She will benefit from further therapy to address functional mobility and transfers for independence and safety. Plan of Care Interventions Gait Training,Manual Therapy,Neuro Re-education, Patient/Caregiver Education,Therapeutic Activities, Therapeutic Exercise PT Services Indicated Yes Treatment Frequency and 2 times a week for 8-10 visits Duration These treatments will address the objective and functional deficits as defined above. The patient will be advanced safely and appropriately in order for the patient to progress towards his/her prior level of function. Additional exercises will be introduced and as well as a comprehensive home exercise program upon discharge, if needed, ?to ensure carryover of functional gains achieved in the clinic. This treatment plan has been reviewed and agreement upon by the patient.
--- NOTE | 2024-07-21 09:58 | PCPTNOTE ---
Patient called & cancelled scheduled appointment this date due to her knee being swollen.
--- NOTE | 2024-08-04 08:09 | PCPTNOTE ---
Patients scheduled appointment 08/01/24 was cancelled due to the treating therapist being out of the office d/t illness.
== END 2024-08-16 23:59 | disposition home or self-care (01) ==
LOC: ANHGOSHPT 10:15
PROVIDERS: PCP Family Medicine; Visit Provider Orthopaedic Surgery
DX: S83.104D Unspecified dislocation of right knee, subsequent encounter (principal); M25.361 Other instability, right knee; Z96.651 Presence of right artificial knee joint; M21.371 Foot drop, right foot
CPT/HCPCS: 97110; 97116; 97140; 97161; 97530

== ENCOUNTER 2024-10-25 08:45 | Outpatient (RCR) | payer MEDICARE, SELFPAY ==
--- NOTE | 2024-08-23 14:27 | PCPTNOTE ---
Patient called & cancelled scheduled appointment this date due to the parking lots of her apartment not being cleared yet from the snow.
--- NOTE | 2024-08-25 12:44 | OPREHPOC ---
Outpatient Therapy Plan of Care This is a Multidisciplinary Plan of Care that may contain components documented by all disciplines (PT, OT, and ST.) PT Problem 1 PT Problem #1 Knowledge Deficit PT Goal 1 Goal / Goal Update 1. Patient will perform independent HEP Target Visit 4 Progress Met PT Problem 2 PT Problem #2 Impaired Gait PT Goal 1 Goal / Goal Update 1. Improve to 300 feet on 2 minute walk test with least restrictive device update 06/29/24 1. improved to 220 feet 08/25/24: 1. 250ft Target Visit 20 Progress Partially Met PT Problem 3 PT Problem #3 Impaired Functional ADLs PT Goal 1 Goal / Goal Update 1. Patient able to ambulate household distances without device update 06/29/24 1. improved gait but not without device 08/25/24: 1. progressing Target Visit 20 Progress Partially Met PT Problem 4 PT Problem #4 Impaired Range of Motion PT Goal 1 Goal / Goal Update 1. Improve knee flexion to be equal to left Target Visit 10 Progress Met PT Problem 5 PT Problem #5 Impaired Balance PT Goal 1 Goal / Goal Update 1. Pt will demo 30 seconds or less for 5 times sit to stand for improved balance update 06/29/24 1. 44 seconds 08/25/24: 1. progressing to 39s Target Visit 20 Progress Not Met
--- NOTE | 2024-08-25 12:44 | PTOPPROG ---
Assessment and note entered by Umer Ruff, PT, DPT Evaluation Information Assessment Status Progress Diagnosis t84.022a, z96.659 ICD-10 Condition Codes (PT) Pain in right knee M25.561,Aftercare following joint replacement surgery Z47.1 Subjective Information Pt states she is getting fitted for a new AFO on Thursday. States her goal is still to be able to walk without a walker, states her ankles are weaker now d/t wearing an AFO. States she has the most troubles with balance. Assessment PT Clinical Summary The patient has completed 15 visits of skilled therapy to treat the deficits related to a R TKA revision. She demonstrates improved walking speed. She reports improvements with transfers at home and household mobility but is still not at prior level of function and is requiring assistive device for gait at all times. She is still not able to balance well enough for IND ambulation. She will benefit from further therapy to address functional mobility and transfers for independence and safety. Plan of Care Interventions Gait Training,Manual Therapy,Neuro Re-education, Patient/Caregiver Education,Therapeutic Activities ,Therapeutic Exercise PT Services Indicated Yes Treatment Frequency and 2 times a week for 10 visits Duration These treatments will address the objective and functional deficits as defined above. The patient will be advanced safely and appropriately in order for the patient to progress towards his/her prior level of function. Additional exercises will be introduced and as well as a comprehensive home exercise program upon discharge, if needed, ?to ensure carryover of functional gains achieved in the clinic. This treatment plan has been reviewed and agreement upon by the patient.
--- NOTE | 2024-09-14 14:39 | PCPTNOTE ---
Pts appointment had to be cancelled d/t the treatment therapist being out of the office d/t illness.
--- NOTE | 2024-09-23 11:06 | PCPTNOTE ---
Patient called to cancel this date due to illness.
--- NOTE | 2024-09-28 09:20 | PCPTNOTE ---
Patient called to canceled therapy this date due to weather.
--- NOTE | 2024-09-29 11:48 | OPREHPOC ---
Outpatient Therapy Plan of Care This is a Multidisciplinary Plan of Care that may contain components documented by all disciplines (PT, OT, and ST.) PT Problem 1 PT Problem #1 Knowledge Deficit PT Goal 1 Goal / Goal Update 1. Patient will perform independent HEP Target Visit 4 Progress Met PT Problem 2 PT Problem #2 Impaired Gait PT Goal 1 Goal / Goal Update 1. Improve to 300 feet on 2 minute walk test with least restrictive device update 06/29/24 1. improved to 220 feet 08/25/24: 1. 250ft 09/29/24: 1. slight regression d/t AFO Target Visit 20 Progress Partially Met PT Problem 3 PT Problem #3 Impaired Functional ADLs PT Goal 1 Goal / Goal Update 1. Patient able to ambulate household distances without device update 06/29/24 1. improved gait but not without device 08/25/24: 1. progressing 09/29/24: 1. not met Target Visit 20 Progress Partially Met PT Problem 4 PT Problem #4 Impaired Range of Motion PT Goal 1 Goal / Goal Update 1. Improve knee flexion to be equal to left Target Visit 10 Progress Met PT Problem 5 PT Problem #5 Impaired Balance PT Goal 1 Goal / Goal Update 1. Pt will demo 30 seconds or less for 5 times sit to stand for improved balance update 06/29/24 1. 44 seconds 08/25/24: 1. progressing to 39s Target Visit 20 Progress Not Met
--- NOTE | 2024-09-29 11:48 | PTOPPROG ---
Assessment and note entered by Umer Ruff, PT, DPT Evaluation Information Assessment Status Progress Diagnosis t84.022a, z96.659 ICD-10 Condition Codes (PT) Pain in right knee M25.561,Aftercare following joint replacement surgery Z47.1 Subjective Information Pt got a new AFO, she states other than being really hard to put in her shoe she is really pleased with the fit and support of the new brace. Pt states she is realizing walking without a rollator is maybe not her main goal now. Assessment PT Clinical Summary The patient has completed 21 visits of skilled therapy to treat the deficits related to a R TKA revision. Pt just recived a new AFO, this has significantly improved her foot placement and ankle alignment with ambulation. Pt continues to demonstrates decreased static and dynamic sanding balance limiting her gait speed and stability with functional transfers. Continuations of skilled therapy services are indicated to progress ambulation and balance with new AFO. Pt will benefit from further therapy to address functional mobility and transfers for independence and safety. Plan of Care Interventions Gait Training,Manual Therapy,Neuro Re-education, Patient/Caregiver Education,Therapeutic Activities ,Therapeutic Exercise PT Services Indicated Yes Treatment Frequency and 2x/wk for 8 visits Duration These treatments will address the objective and functional deficits as defined above. The patient will be advanced safely and appropriately in order for the patient to progress towards his/her prior level of function. Additional exercises will be introduced and as well as a comprehensive home exercise program upon discharge, if needed, ?to ensure carryover of functional gains achieved in the clinic. This treatment plan has been reviewed and agreement upon by the patient.
--- NOTE | 2024-10-25 10:04 | OPREHPOC ---
Outpatient Therapy Plan of Care This is a Multidisciplinary Plan of Care that may contain components documented by all disciplines (PT, OT, and ST.) PT Problem 1 PT Problem #1 Knowledge Deficit PT Goal 1 Goal / Goal Update 1. Patient will perform independent HEP Target Visit 4 Progress Met PT Problem 2 PT Problem #2 Impaired Gait PT Goal 1 Goal / Goal Update 1. Improve to 300 feet on 2 minute walk test with least restrictive device update 06/29/24 1. improved to 220 feet 08/25/24: 1. 250ft 09/29/24: 1. slight regression d/t AFO 10/25/24: 1. progressing, 280ft Target Visit 20 Progress Partially Met PT Problem 3 PT Problem #3 Impaired Functional ADLs PT Goal 1 Goal / Goal Update 1. Patient able to ambulate household distances without device update 06/29/24 1. improved gait but not without device 08/25/24: 1. progressing 09/29/24: 1. not met 10/25/24: 1. progressing, intermittently performs at home, depending on the task Target Visit 20 Progress Partially Met PT Problem 4 PT Problem #4 Impaired Range of Motion PT Goal 1 Goal / Goal Update 1. Improve knee flexion to be equal to left Target Visit 10 Progress Met PT Problem 5 PT Problem #5 Impaired Balance PT Goal 1 Goal / Goal Update 1. Pt will demo 30 seconds or less for 5 times sit to stand for improved balance update 06/29/24 1. 44 seconds 08/25/24: 1. progressing to 39s 10/25/24: 1. progressing Target Visit 20 Progress Not Met
--- NOTE | 2024-10-25 10:04 | PTOPDC ---
Assessment and note entered by Umer Ruff, PT, DPT Evaluation Information Assessment Status Discharge Diagnosis t84.022a, z96.659 ICD-10 Condition Codes (PT) Pain in right knee M25.561,Aftercare following joint replacement surgery Z47.1 Subjective Information Pt has had her new brace for about a month, she states she is doing so much better. She states she feels like she has better balance, and can move a bit quickly, still maintaining control. She has done some walking with [employer]. Her knee pain does not get more than an ache on most days. Reported Pain Level Pain Score 2,2: Self Report Assessment PT Clinical Summary The patient has completed 28 visits of skilled therapy to treat the deficits related to a R TKA revision. Pt reports improve balance and confidence with day to day tasks. She demonstrates improved foot placement during ambulation with her new AFO and has also increased her gait speed. She has been able to progress her standing balance exercises. Pt is hopeful to have a L TKA in December and plans to be done with therapy for now while she awaits her next surgery. She will be discharged at this time. Plan of Care PT Services Indicated No
== END 2024-11-15 08:36 | disposition home or self-care (01) ==
LOC: ANHGOSHPT 08:45
PROVIDERS: PCP Family Medicine; Visit Provider Orthopaedic Surgery
DX: S83.104D Unspecified dislocation of right knee, subsequent encounter (principal); M25.361 Other instability, right knee; Z96.651 Presence of right artificial knee joint; M21.371 Foot drop, right foot
CPT/HCPCS: 97110; 97112; 97116; 97530

== ENCOUNTER 2024-11-23 11:40 | Outpatient (CLI) | payer MEDICARE, SELFPAY ==
--- NOTE | 2024-11-23 11:58 | ECG_ITS ---
Test Date: 2024-11-23 12:14:35 Measurements Intervals [place] Rate: 78 P: 49 MI: 135 QRS: 50 QRSD: 81 T: 35 QT: 352 QTc: 401 Interpretive Statements SINUS RHYTHM NORMAL ECG No previous ECG available for comparison Electronically Signed On 11-23-2024 12:56:08 CDT by Xavier Garcia D.O.
[2024-11-23 12:34] LABS: Add Urine Microscopic? NO; Appearance Urine Clear (Clear); Bilirubin Urine Negative (Negative); Blood Urine Negative (Negative); Color Urine Yellow (Yellow); Glucose Urine UA Negative (Negative); Ketones Urine Negative (Negative); Leukocyte Esterase Ur Negative LEU/UL (Negative); Nitrate Urine Negative (Negative); Protein Urine Negative (Negative); Specific Grav Ur 1.025 (1.001-1.035); Urobilinogen Urine 0.2 mg/dL (<2.0); pH Urine 5.5 (5.0-9.0)
--- OUTSIDE RECORDS SUMMARY | 2024-11-23 13:06 | XMS_ITS | Clinical Summary ---
Author Organization [facility] Address [address] [place] [id number] Care Team Providers Care Oven Operator Automatic Name Role Phone Mil Verduzco MD Primary Care Provider [phone] Social History Tobacco Use Types Packs/Day Years Used Date Smoking Tobacco: Never Assessed Comments Unknown Sex and Gender Information Value Date Recorded Sex Assigned at Not on file Legal Sex Female 7:33 PM CDT Gender Identity Not on file Sexual Orientation Not on file Plan of Treatment Health Maintenance Due Date Last Done Comments Cervical Cancer Screening Pa p Smear (Age 30 to 64) Every 3 Years 1967 Colorectal Cancer Screening Colonoscopy (10 Years) 1967 Annual Physical 1970 Hepatitis C 1985 DTaP, Tdap and Td Vaccines ( 1 - Tdap) 1986 Hepatitis B Vaccines (1 of 3 - 19+ 3-dose series) 1986 Cervical Cancer Screening Pa p with HPV Testing (Age 30 to 64) Every 5 Years 1997 Cervical Cancer Screening with HPV 1997 Mammogram Screening 2007 Zoster Vaccines (1 of 2) 2017 COVID-19 Vaccine (2023-2 5 season) 2024 Meningococcal B Vaccine Aged Out No l onger eligible based on patient's age to complete this topic Meningococcal Vaccine Aged Out No wilfred sharee eligible based on patient's age to complete this topic Pneumococcal Vaccine: Pediat rics (0 to 5 Years) and At-Risk Patients (6 to 49 Years) Aged Out No longer eligible b ased on patient's age to complete this topic RSV Immunizations Under 20 Months Aged Out No longer eligible based on patient's age to complete this topic Care Teams Oven Operator Automatic Relationship Specialty Start Date End Date Mil Verduzco MD [facility] - General 11/14/11
--- OUTSIDE RECORDS SUMMARY | 2024-11-23 13:06 | XMS_ITS | Patient Health Record ---
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 [employer] Name Role Phone Mario Alberto Dumont Unavailable [phone] Migration, Provider Unavailable Unavailable Allergies Allergen (clinical drug ingredient) Drug/Non Drug Allergy documented on EMR Reaction Allergy Type Onset Date Status Substance with sulfonamide structure and antibacterial mechanism of action (substance) Sulfa Antibiotics Unknown Drug Allergy Active Reason For Referral No Information Medications Medication SIG (Take, Route, Frequency, Duration) Notes Start Date End Date Status Ezetimibe 10 MG Oral 09/25/2022 Act fina fluvoxaMINE Maleate 50 MG 2 tablet every morning, 1 tablet every night Oral Once a day for 90 days Active Propranolol HCl 20 MG 1 tablet every morning Oral once a day for 90 days Mario Alberto Dumont 11/10/2024 01:10:44 PM CDT > Active Levothyroxine Sodium 88 MCG Oral 09/25/2022 Active Meloxicam 15 MG Oral 09/25/2022 Act fina Cyclobenzaprine HCl 10 MG Oral 09/25/2022 Active fluvoxaMINE Maleate 50 MG 1 tablet every morning, 2 tablets at bedtime Oral Once a day for 90 days total dose is 3 tablets every day total dose is 3 tablets every day on two different rx Mario Alberto Dumont 11/10/2024 01:11:00 PM CDT > Active busPIRone HCl 5 MG 1 tablet Orally Twice a day for 90 days Mario Alberto Dumont 11/10/2024 01:10:40 PM CDT > 08/11/2024 05/09/2025 Active Immunizations Vaccine Route Administration Date Status Comme nts Influenza virus vaccine, quadrivalent (IIV4), split virus, 0.25 mL dosage Unknown 04/19/2018 Administered Influenza virus vaccine, quadrivalent (IIV4), split virus, 0.25 mL dosage Unknown 07/01/2019 Administered Novel [id number], preservative free Unknown 04/27/2018 Administered Novel [id number], preservative free Unknown 05/20/2020 Administered Pfizer Biontech Covid-19 Vac cine 2nd dose Unknown 11/10/2020 Administered Pfizer [employer]ion[employer] Covid-19 Vac cine 2nd dose Unknown 12/02/2020 Administered Pfizer Biontech Covid-19 Vac cine 2nd dose Unknown 07/31/2021 Administered Td (adult) preservative free Unknown 11/03/2018 Adminis tered Social History Tobacco Use: Social History Observation Description Date Details (start date - stop date) Never Smoker NA - NA Sex Assigned At : Social History Observation Description Sex Assigned At Female Tobacco Control (Standard) Question Answer Notes Tobacco use: Nonsmoker Problems Problem Type SNOMED Code ICD Code Onset Dates Problem Status W/U Status Risk Notes Problem Major depression, single episode, in complete remission (90225254) Major depressive disorder, single episode, in full remission (F32.5) 3 Active confirmed Problem Generalized anxiety disorder (33428618) Generalized anxiety disorder (F41.1) 3 Active confirmed Problem Cerebral palsy (319608287) Cerebral palsy, unspecified (G80.9) 3 Active confirmed Vital Signs Heart Rate 83 /min 11/10/2024 Height-cm 152.40 cm 11/10/2024 Blood pressure diastolic 81 mm Hg 11/10/2024 Weight-kg 65.32 kg 08/11/2024 Height 60.00 in 11/10/2024 Blood pressure systolic 117 mm Hg 11/10/2024 Weight 144 lbs 08/11/2024 BMI 28.12 kg/m2 08/11/2024 Encounters [facility] [address] [facility] [address] [place] [address] 05/12/2024 Mario Alberto Dumont Major depressive disorder, single episode, in full remission F32.5 ; Generalized anxiety disorder F41.1 and Cerebral palsy, unspecified G80.9 [facility] [facility] [address] [address] 08/11/2024 Mario Alberto Dumont Major depressive disorder, single episode, in full remission F32.5 ; Generalized anxiety disorder F41.1 and Cerebral palsy, unspecified G80.9 [facility] [address] [facility] [address] [address] 11/10/2024 Mario Alberto Dumont Encounter for screening for depression Z13.31 ; Encounter for screening for cardiovascular disorders Z13.6 ; Major depressive disorder, single episode, in full remission F32.5 ; Generalized anxiety disorder F41.1 and Cerebral palsy, unspecified G80.9 [facility] [address] [facility] [address] [address] 12/26/2023 Provider Migration [facility] [address] [address] 12/27/2023 Provider Migration [facility] [address] [address] 03/18/2024 Mario Alberto Dumont [facility] [place] [address] [address] 05/17/2024 Mario Alberto Dumont Major depressive disorder, single episode, in full remission F32.5 [facility] [address] [address] 09/05/2024 Mario Alberto Dumont Generalized anxiety disorder F41.1 and Major depressive disorder, single episode, in full remission F32.5 Assessments Encounter Date Diagnosis (ICD Code) Assessment Notes Treatment Notes Treatment Clinical Notes Section Notes 05/12/2024 Major depressive disorder, single episode, in full remission (ICD-10 - F32.5) Knee Replacement Complications and Mobility Issues - Assessment: - Patient underwent knee replacement in October 2023 with subsequent complications, leading to the use of a wheelchair and walker for mobility. - Patient reports using a walker and making good progress with walking. - Patient had multiple surgeries due to complications, including the need for more secure knee parts. - Plan: - Continue with rehabilitation and physical therapy as prescribed. - Monitor progress and reassess mobility in the next appointment. Anxiety - Assessment: - Patient experienced anxiety during hospitalization due to missed medication. - Patient denies any current manic episodes, psychosis, or thoughts of self-harm. - Plan: - Continue fluvoxamine 150 mg daily (two tablets in the morning and one at night) and propranolol 20 mg daily (one tablet every morning). - Renew prescriptions and send to [facility] in [place]. - Monitor for any signs of manic episodes, psychosis, or thoughts of self-harm. Pain Management - Assessment: - Patient has a history of multiple knee surgeries, 14 disc problems, and a bulging disc on the left side causing nerve pain in the ankle. - Patient reports nerve pain in the ankle, which led to using a walker to reduce pressure. - Plan: - Continue current pain management regimen as prescribed by the patient's primary care physician or pain management physician. - Encourage the patient to report any changes in pain levels or new pain symptoms. Advanced Care Directive - Assessment: Patient has an advanced care directive in place, with sister Kelly as the power of deputy attorney general for both medical and other matters. - Plan: - Ensure that the patient's medical records are updated with this information. - Request that the patient bring in paperwork for the advanced care directive at the next appointment. Follow-up Appointment - Plan: - Schedule a follow-up appointment in two to three months. - Offer a video call option for the next appointment due to potential snow and the patient's mobility issues. - If the patient's mobility improves, an in-office visit can be considered. General Health - Assessment: - Patient reports no memory issues or side effects from medications. - Patient now has a home health care worker assisting with care. - Patient is on Medicare and prefers to use [facility] pharmacy instead of mail order. - Plan: Continue to monitor the patient's overall health and well-being during follow-up appointments. 05/12/2024 Generalized anxiety disorder (ICD-10 - F41.1) Knee Replacement Complications and Mobility Issues - Assessment: - Patient underwent knee replacement in October 2023 with subsequent complications, leading to the use of a wheelchair and walker for mobility. - Patient reports using a walker and making good progress with walking. - Patient had multiple surgeries due to complications, including the need for more secure knee parts. - Plan: - Continue with rehabilitation and physical therapy as prescribed. - Monitor progress and reassess mobility in the next appointment. Anxiety - Assessment: - Patient experienced anxiety during hospitalization due to missed medication. - Patient denies any current manic episodes, psychosis, or thoughts of self-harm. - Plan: - Continue fluvoxamine 150 mg daily (two tablets in the morning and one at night) and propranolol 20 mg daily (one tablet every morning). - Renew prescriptions and send to [facility] in [place]. - Monitor for any signs of manic episodes, psychosis, or thoughts of self-harm. Pain Management - Assessment: - Patient has a history of multiple knee surgeries, 14 disc problems, and a bulging disc on the left side causing nerve pain in the ankle. - Patient reports nerve pain in the ankle, which led to using a walker to reduce pressure. - Plan: - Continue current pain management regimen as prescribed by the patient's primary care physician or pain management physician. - Encourage the patient to report any changes in pain levels or new pain symptoms. Advanced Care Directive - Assessment: Patient has an advanced care directive in place, with sister Kelly as the power of deputy attorney general for both medical and other matters. - Plan: - Ensure that the patient's medical records are updated with this information. - Request that the patient bring in paperwork for the advanced care directive at the next appointment. Follow-up Appointment - Plan: - Schedule a follow-up appointment in two to three months. - Offer a video call option for the next appointment due to potential snow and the patient's mobility issues. - If the patient's mobility improves, an in-office visit can be considered. General Health - Assessment: - Patient reports no memory issues or side effects from medications. - Patient now has a home health care worker assisting with care. - Patient is on Medicare and prefers to use [facility] pharmacy instead of mail order. - Plan: Continue to monitor the patient's overall health and well-being during follow-up appointments. 05/17/2024 Major depressive disorder, single episode, in full remission (ICD-10 - F32.5) 08/11/2024 Major depressive disorder, single episode, in full remission (ICD-10 - F32.5) Anxiety - Assessment: Patient reports increased anxiety and difficulty controlling it despite being on propranolol. Not experiencing depression or suicidal ideation. Feeling overwhelmed due to increased responsibilities at home, including caring for her who has a disability. - Plan: - Add buspirone 5 mg twice daily (morning and evening) for anxiety management. - Continue fluvoxamine (1 tablet in the morning, 2 tablets at night) and Remeron as prescribed. - Monitor patient's response to the new medication and adjust as needed. Post-knee Surgery Mobility Issues - Assessment: Patient is still using a walker after knee surgery and reports feeling overwhelmed due to increased responsibilities at home. - Plan: - Encourage patient to continue with physical therapy. - Follow-up with orthopedic surgeon as needed. - Provide support and resources for managing stress and anxiety related to mobility limitations. Weight Gain - Assessment: Patient reports weight gain, likely due to decreased mobility and late-night snacking around 8:30 PM while watching TV. - Plan: - Encourage patient to maintain a healthy diet and avoid late-night snacking. - Recommend incorporating appropriate physical activity as tolerated and approved by orthopedic surgeon. Gastroesophageal Reflux Disease (GERD) - Assessment: Patient is taking medication for heartburn and is under the care of Doctor Brooklyn and nurse practitioner Chelsi Solitario. - Plan: - Continue current heartburn medication as prescribed. - Encourage follow-up with primary care provider or sample tester grinder for ongoing management of GERD. Follow-up - Plan: - Schedule a follow-up appointment in three months. - Assess patient's progress and response to added buspirone for anxiety management. - Monitor for potential side effects or interactions with current medications. Prescription - Plan: - Send prescription for buspirone 5 mg twice daily to local pharmacy. - Continue propranolol 20 mg every morning as prescribed. 09/05/2024 Generalized anxiety disorder (ICD-10 - F41.1) 11/10/2024 Encounter for screening for depression (ICD-10 - Z13.31) 09/05/2024 Major depressive disorder, single episode, in full remission (ICD-10 - F32.5) 11/10/2024 Encounter for screening for cardiovascular disorders (ICD-10 - Z13.6) 08/11/2024 Generalized anxiety disorder (ICD-10 - F41.1) Anxiety - Assessment: Patient reports increased anxiety and difficulty controlling it despite being on propranolol. Not experiencing depression or suicidal ideation. Feeling overwhelmed due to increased responsibilities at home, including caring for her who has a disability. - Plan: - Add buspirone 5 mg twice daily (morning and evening) for anxiety management. - Continue fluvoxamine (1 tablet in the morning, 2 tablets at night) and Remeron as prescribed. - Monitor patient's response to the new medication and adjust as needed. Post-knee Surgery Mobility Issues - Assessment: Patient is still using a walker after knee surgery and reports feeling overwhelmed due to increased responsibilities at home. - Plan: - Encourage patient to continue with physical therapy. - Follow-up with orthopedic surgeon as needed. - Provide support and resources for managing stress and anxiety related to mobility limitations. Weight Gain - Assessment: Patient reports weight gain, likely due to decreased mobility and late-night snacking around 8:30 PM while watching TV. - Plan: - Encourage patient to maintain a healthy diet and avoid late-night snacking. - Recommend incorporating appropriate physical activity as tolerated and approved by orthopedic surgeon. Gastroesophageal Reflux Disease (GERD) - Assessment: Patient is taking medication for heartburn and is under the care of Doctor Brooklyn and nurse practitioner Chelsi Solitario. - Plan: - Continue current heartburn medication as prescribed. - Encourage follow-up with primary care provider or sample tester grinder for ongoing management of GERD. Follow-up - Plan: - Schedule a follow-up appointment in three months. - Assess patient's progress and response to added buspirone for anxiety management. - Monitor for potential side effects or interactions with current medications. Prescription - Plan: - Send prescription for buspirone 5 mg twice daily to local pharmacy. - Continue propranolol 20 mg every morning as prescribed. 05/12/2024 Cerebral palsy, unspecified (ICD-10 - G80.9) Knee Replacement Complications and Mobility Issues - Assessment: - Patient underwent knee replacement in October 2023 with subsequent complications, leading to the use of a wheelchair and walker for mobility. - Patient reports using a walker and making good progress with walking. - Patient had multiple surgeries due to complications, including the need for more secure knee parts. - Plan: - Continue with rehabilitation and physical therapy as prescribed. - Monitor progress and reassess mobility in the next appointment. Anxiety - Assessment: - Patient experienced anxiety during hospitalization due to missed medication. - Patient denies any current manic episodes, psychosis, or thoughts of self-harm. - Plan: - Continue fluvoxamine 150 mg daily (two tablets in the morning and one at night) and propranolol 20 mg daily (one tablet every morning). - Renew prescriptions and send to [facility]. - Monitor for any signs of manic episodes, psychosis, or thoughts of self-harm. Pain Management - Assessment: - Patient has a history of multiple knee surgeries, 14 disc problems, and a bulging disc on the left side causing nerve pain in the ankle. - Patient reports nerve pain in the ankle, which led to using a walker to reduce pressure. - Plan: - Continue current pain management regimen as prescribed by the patient's primary care physician or pain management physician. - Encourage the patient to report any changes in pain levels or new pain symptoms. Advanced Care Directive - Assessment: Patient has an advanced care directive in place, with sister eKlly as the power of deputy attorney general for both medical and other matters. - Plan: - Ensure that the patient's medical records are updated with this information. - Request that the patient bring in paperwork for the advanced care directive at the next appointment. Follow-up Appointment - Plan: - Schedule a follow-up appointment in two to three months. - Offer a video call option for the next appointment due to potential snow and the patient's mobility issues. - If the patient's mobility improves, an in-office visit can be considered. General Health - Assessment: - Patient reports no memory issues or side effects from medications. - Patient now has a home health care worker assisting with care. - Patient is on Medicare and prefers to use [facility] pharmacy instead of mail order. - Plan: Continue to monitor the patient's overall health and well-being during follow-up appointments. 08/11/2024 Cerebral palsy, unspecified (ICD-10 - G80.9) Anxiety - Assessment: Patient reports increased anxiety and difficulty controlling it despite being on propranolol. Not experiencing depression or suicidal ideation. Feeling overwhelmed due to increased responsibilities at home, including caring for her who has a disability. - Plan: - Add buspirone 5 mg twice daily (morning and evening) for anxiety management. - Continue fluvoxamine (1 tablet in the morning, 2 tablets at night) and Remeron as prescribed. - Monitor patient's response to the new medication and adjust as needed. Post-knee Surgery Mobility Issues - Assessment: Patient is still using a walker after knee surgery and reports feeling overwhelmed due to increased responsibilities at home. - Plan: - Encourage patient to continue with physical therapy. - Follow-up with orthopedic surgeon as needed. - Provide support and resources for managing stress and anxiety related to mobility limitations. Weight Gain - Assessment: Patient reports weight gain, likely due to decreased mobility and late-night snacking around 8:30 PM while watching TV. - Plan: - Encourage patient to maintain a healthy diet and avoid late-night snacking. - Recommend incorporating appropriate physical activity as tolerated and approved by orthopedic surgeon. Gastroesophageal Reflux Disease (GERD) - Assessment: Patient is taking medication for heartburn and is under the care of Doctor Brooklyn and nurse practitioner Chelsi Solitario. - Plan: - Continue current heartburn medication as prescribed. - Encourage follow-up with primary care provider or sample tester grinder for ongoing management of GERD. Follow-up - Plan: - Schedule a follow-up appointment in three months. - Assess patient's progress and response to added buspirone for anxiety management. - Monitor for potential side effects or interactions with current medications. Prescription - Plan: - Send prescription for buspirone 5 mg twice daily to local pharmacy. - Continue propranolol 20 mg every morning as prescribed. 11/10/2024 Major depressive disorder, single episode, in full remission (ICD-10 - F32.5) 11/10/2024 Generalized anxiety disorder (ICD-10 - F41.1) 11/10/2024 Cerebral palsy, unspecified (ICD-10 - G80.9) 11/10/2024 Other Problem-Based Assessment and Plan Domingo Merino, a female patient with a history of anxiety and depression, reports improved symptom control and functional status on current medication regimen. Generalized Anxiety Disorder (ZUNILDA) Assessment: Patient reports significant improvement in anxiety symptoms with current medication regimen. She states better control over emotional reactions and reduced rumination. GAD7 score is 0, indicating remission of anxiety symptoms. 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 Plan: - Continue Rexulti 5 mg PO BID (morning and evening) - Continue fluvoxamine 50 mg PO QAM and 100 mg PO QHS - Continue propranolol 20 mg PO QAM - Continue buspirone 5 mg PO BID - Prescribe 90-day supply with one refill (6 months total) - Follow-up appointment in 6 months Major Depressive Disorder (MDD) Assessment: Patient's depressive symptoms appear to be in remission. PHQ9 score is 0, indicating no current depressive symptoms. Patient reports improved emotional regulation and has resumed regular activities such as weekly library visits, suggesting improved mood and functioning. Plan: - Continue current medication regimen as noted above - Encourage continuation of positive activities and social engagement - Follow-up appointment in 6 months Knee Rehabilitation Assessment: Patient reports completion of one year of physical therapy for knee rehabilitation. She notes improved walking ability, especially on carpeted surfaces which help with balance. A knee brace has been prescribed but causes some inconvenience with driving. Plan: - Continue use of knee brace as tolerated and as appropriate for activities - Encourage continued self-management strategies learned in physical therapy - Monitor progress and impact on daily activities Disclaimer: This note has been transcribed using speech recognition software and serves as a reflection of the patient's visit. While efforts have been made to ensure accuracy, there may be errors, including aluminum siding mechanic inaccuracies and misspellings of medication names. This document should not be considered a verbatim record, and any discrepancies should be verified with the provider. Plan Of Treatment Next Appt Details Provider Name:Mario Alberto Dumont , 05/12/2025 01:00:00 PM, [address] [place] [address] [address], [facility] [address], [place], [address], Insurance Providers Payer Name Payer Address Payer Phone Subscriber Number Group Number Insured Name Patient Relationship to Insured Coverage Start Date Coverage End Date Medicare-I l Medicare [address] [place] [address] [id number] DOMINGO HUERTA Self - patient is the insured Medical (General) History Medical History History ICD Code Problems: Cerebral palsy Generalized anxiety disorder Major depression in remission , Surgical History Surgery Date(Month/Year) Any surgical history 01/18/1976 Appendectomy (07480) 01/22/1979 rt knee replaced [id number] rt knee re do [id number] Hospitalization History Reason Date(Month/Year) rt knee redo 04/10/2024 rt knee replaced 10/14/2023
== END 2024-11-23 11:41 | disposition home or self-care (01) ==
LOC: ANHLAB 11:44
PROVIDERS: PCP Family Medicine; Visit Provider Orthopaedic Surgery
DX: R53.83 Other fatigue (principal); I10 Essential (primary) hypertension
CPT/HCPCS: 81003; 93005

== ENCOUNTER 2024-12-01 09:51 | Outpatient (CLI) | payer MEDICARE, SELFPAY ==
--- OUTSIDE RECORDS SUMMARY | 2024-12-01 11:08 | XMS_ITS | Referral Summary ---
Author Organization [facility] Address [address] [place] [address] Care Team Providers Care Chief Executive Name Role Phone Floyd Mcneil MD Primary Care Provider Allergies Active Allergy Reactions Criticality Noted Date Comments Sulfa (Sulfonamide Antibiotics) Medications ezetimibe (ZETIA) 10 mg tablet Take 1 tablet (10 mg total) by mouth daily 3 Active fluvoxaMINE (LUVOX) 50 mg tablet Take 1 tablet (50 mg total) by mouth nightly 3 Active HYDROcodone-acetam inophen (NORCO) 10-325 mg per tablet Take 1 tablet by mouth every 4 (four) hours as needed for pain 3 Active Synthroid 88 mcg tablet Take 1 tablet (88 mcg total) by mouth bricklayer paving brick before breakfast 3 Active meloxicam (MOBIC) 15 mg tablet Take 1 tablet (15 mg total) by mouth daily 3 Active propranoloL (INDERAL) 20 mg tablet Take 1 tablet (20 mg total) by mouth 2 (two) times a day 3 Active loratadine (CLARITIN) 10 mg tablet Take 1 tablet (10 mg total) by mouth daily Active gabapentin (NEURONTIN) 100 mg capsule TAKE 1 CAPSULE(100 MG) BY MOUTH THREE TIMES DAILY 90 capsule 1 3 Active pregabalin (LYRICA) 100 mg capsuleIndications :Lumbar radiculopathy Take 1 capsule (100 mg total) by mouth 2 (two) times a day 60 capsule 5 4 Active cyclobenzaprine (FLEXERIL) 10 mg tablet Take 1 tablet (10 mg total) by mouth 3 (three) times a day as needed for muscle spasms 42 tablet 2 4 Active Active Problems No known active problems Immunizations Immunization Administration Dates Next Due Influenza, Quadrivalent, Anabelle l Culture-based MDCK, Preservative Free, Antibiotic Free, Intramuscular 05/20/2022 Influenza, Quadrivalent, Split, Intramuscular Influenza, Quadrivalent, Spl it, Preservative Free, Intramuscular 05/20/2020,04/27/2018 TD Preservative Free 11/03/2018 Social History Tobacco Use Types Packs/Day Years Used Date Smoking Tobacco: Never Smokeless Tobacco: Never AUDIT-C Answer Date Recorded Q1: How often do you have a drink containing alc ohol? Never 05/18/2023 Average Number of Drinks Not on file 023 Frequency of Binge Drinking Not on file 04/2023 Personal Safety Answer Date Recorded Have you ever been in or are you currently in a harmful physical or emotional relationship or is someone making you feel afraid or unsafe? Denies 05/22/2023 Comments No Sex and Gender Information Value Date Recorded Sex Assigned at Not on file Legal Sex Female 10:17 AM REBEAMER Gender Identity Not on file Sexual Orientation Not on file Last Filed Vital Signs Vital Sign Reading Time Taken Comments Blood Pressure 131/84 07/17/2023 11:01 AM REBEAMER Pulse 83 07/17/2023 11:01 AM REBEAMER Temperature 35.5 C (95.9 F) 07/17/2023 11:01 AM REBEAMER Respiratory Rate 18 06/08/2023 9:55 AM CDT Oxygen Saturation 96% 07/17/2023 11:01 AM REBEAMER Inhaled Oxygen Concentration - - Weight 60.8 kg (134 lb) 06/08/2023 8:56 AM CDT Height 157.5 cm (5' 2 ) 05/22/2023 8:00 AM CDT Body Mass Index 24.51 05/22/2023 8:00 AM CDT Plan of Treatment Not on file Goals Goal Patient Goal Type Associated Problems Recent Progress Patient-Stated? Author CCM Chronic Pain Care Plan Chronic Care Management No Giuliana Metz RN Note: Problem: Chronic Pain Goals: 1. Minimize further functional decline 2. Maximize quality of life 3. Control pain Strategies: - Activity/exercise program recommendation - Conservative stepwise pain medicine strategy with multi-disciplinary approach - Recommend healthy lifestyle strategies and compensatory methods as needed Reduce the likelihood of falling Lifestyle No Giuliana Metz RN Note: Below are four things you can do to prevent falls: Begin an exercise program to improve your leg strength & balance Ask your doctor or pharmacist to review your medicines Get annual eye check-ups & update your eyeglasses Make your home safer by: Removing clutter & tripping hazards Putting railings on all stairs & adding grab bars in the bathroom Having good lighting, especially on stairs Contact your local community or [facility] for information on exercise, fall prevention programs, or options for improving home safety. Insurance [employer] OPEN ACCESS MEDICARE [employer] CLAIMS OFFICE [facility] OPEN ACCESS MEDICARE Care Teams Chief Executive Relationship Specialty Start Date End Date Floyd Mcneil MD PCP - General Family Practice 01/30/23
--- OUTSIDE RECORDS SUMMARY | 2024-12-01 11:08 | XMS_ITS | Clinical Summary ---
Author Organization [facility] Address [address] [place] [address] Care Team Providers Care It Compliance Manager Name Role Phone Floyd Mcneil MD Primary [...] 1 tablet (88 mcg total) by mouth special service officer before breakfast 3 Active meloxicam (MOBIC) 15 [...] Free, Intramuscular 05/20/2020,04/27/2018 TD Preservative Free 11/03/2018 Surgical History Surgery Date Site/Laterality Comments APPENDECTOMY LEG SURGERY Medical History Medical History Date Comments Depression Social History Tobacco Use Types Packs/Day Years [...] on file Legal Sex Female 10:17 AM HUMAN RESOURCES CONSULTANT Gender Identity Not on file Sexual Orientation Not on file Obstetrics History Last Filed Vital Signs Vital Sign Reading Time Taken Comments Blood Pressure 131/84 07/17/2023 11:01 AM HUMAN RESOURCES CONSULTANT Pulse 83 07/17/2023 11:01 AM HUMAN RESOURCES CONSULTANT Temperature 35.5 C (95.9 F) 07/17/2023 11:01 AM HUMAN RESOURCES CONSULTANT Respiratory Rate 18 06/08/2023 9:55 AM CDT Oxygen Saturation 96% 07/17/2023 11:01 AM HUMAN RESOURCES CONSULTANT Inhaled Oxygen Concentration - - Weight 60.8 kg (134 lb) 06/08/2023 8:56 AM CDT Height 157.5 cm (5' 2 ) 05/22/2023 8:00 AM CDT Body Mass Index 24.51 05/22/2023 8:00 AM CDT Plan of Treatment Health Maintenance Due Date Last Done Comments Breast Cancer Screening-Mammogram 1967 Cervical Cancer Screening 1967 Colon Cancer Screening-Colonoscopy 1967 Depression Screening 1967 Hepatitis C Screening 1967 Hepatitis B Screening 1985 Regular Well Visit/Exam 18-64 1985 Zoster Vaccine (1 of 2) 2017 DTaP/Tdap/Td Vaccine (1 - Tdap) 11/04/2018 11/03/2018 Covid-19 Vaccine (4 - season) 2024 07/31/2021, 12/02/2020, 11/10/2020 Influenza Vaccine (Season Ended) 2025 05/20/2022, 05/20/2020, 07/01/2019, Additional history exists Pneumococcal vaccine <65 Aged Out No longer eligible based on patient's age to complete this topic Goals Goal Patient Goal Type Associated Problems [...] on stairs Contact your local community or senior center for information on exercise, fall prevention programs, or options for improving home safety. Insurance [facility] OPEN ACCESS MEDICARE [facility] Address: [address] [address] [place] [address] [facility] CLAIMS OFFICE [facility] OPEN ACCESS MEDICARE Care Teams It Compliance Manager Relationship Specialty Start Date End Date Floyd Mcneil MD PCP - General Family Practice 01/30/23
--- OUTSIDE RECORDS SUMMARY | 2024-12-01 11:08 | XMS_ITS | Patient Health Record ---
Author Organization [facility] [employer] Address [address] [facility] [address] [place] [address] Care Team Providers Care Ship Rigger Apprentice Name Role Phone Mario Alberto Dumont Unavailable [phone] Migration, Provider Unavailable Unavailable Allergies Allergen (clinical [...] 0.25 mL dosage Unknown 07/01/2019 Administered Novel [id number], preservative free Unknown 04/27/2018 Administered Novel [id number], preservative free Unknown 05/20/2020 Administered Pfizer Biontech [...] Major depression, single episode, in complete remission (01931113) Major depressive disorder, single episode, in full remission (F32.5) 3 Active confirmed Problem Generalized anxiety disorder (68939937) Generalized anxiety disorder (F41.1) 3 Active confirmed Problem Cerebral palsy (345364857) Cerebral palsy, unspecified (G80.9) 3 Active confirmed Vital Signs Heart Rate 83 /min 11/10/2024 Height-cm 152.40 cm 11/10/2024 Blood pressure diastolic 81 mm Hg 11/10/2024 Weight-kg 65.32 kg 08/11/2024 Height 60.00 in 11/10/2024 Blood pressure systolic 117 mm Hg 11/10/2024 Weight 144 lbs 08/11/2024 BMI 28.12 kg/m2 08/11/2024 Encounters Encounter [facility] Date [facility] [address] [facility] [address] [place] [address] 05/12/2024 Mario Alberto Dumont Major depressive disorder, single episode, in full remission F32.5 ; Generalized anxiety disorder F41.1 and Cerebral palsy, unspecified G80.9 [facility] [employer] [facility] [address] [address] 08/11/2024 Mario Alberto Dumont Major depressive disorder, single episode, in full remission F32.5 ; Generalized anxiety disorder F41.1 and Cerebral palsy, unspecified G80.9 [facility] [employer] [facility] [address] [facility] [address] [address] 11/10/2024 Mario Alberto Dumont Encounter for screening for depression Z13.31 ; Encounter for screening for cardiovascular disorders Z13.6 ; Major depressive disorder, single episode, in full remission F32.5 ; Generalized anxiety disorder F41.1 and Cerebral palsy, unspecified G80.9 [facility] [address] [facility] [address] [address] 12/26/2023 Provider Migration [facility] [employer] [address] [address] 12/27/2023 Provider Migration [facility] [employer] [address] [address] 03/18/2024 Mario Alberto Dumont [facility] [employer] [place] [address] [address] 05/17/2024 Mario Alberto Dumont Major depressive disorder, single episode, in full remission F32.5 [facility] [employer] [address] [address] 09/05/2024 Mario Alberto Dumont Generalized anxiety disorder [...] morning). - Renew prescriptions and send to [facility] in [place]. - Monitor for any signs of manic [...] by the patient's primary care physician or paint grinder [place]. - Encourage the patient to report any changes in pain levels or new pain symptoms. Advanced Care Directive - Assessment: Patient has an advanced care directive in place, with sister Kelly as the power of assistant prosecuting attorney for both medical and other matters. - [...] is on Medicare and prefers to use [facility] pharmacy instead of mail order. - Plan: [...] morning). - Renew prescriptions and send to [facility] in [place]. - Monitor for any signs of manic [...] by the patient's primary care physician or paint grinder [place] [employer]. - Encourage the patient to report any changes in pain levels or new pain symptoms. Advanced Care Directive - Assessment: Patient has an advanced care directive in place, with sister Kelly as the power of assistant prosecuting attorney for both medical and other matters. - [...] is on Medicare and prefers to use [facility] pharmacy instead of mail order. - Plan: [...] Encourage follow-up with primary care provider or repeat photocomposing machine operator for ongoing management of GERD. Follow-up - [...] Encourage follow-up with primary care provider or repeat photocomposing machine operator for ongoing management of GERD. Follow-up - [...] morning). - Renew prescriptions and send to [facility]. - Monitor for any signs of manic [...] by the patient's primary care physician or paint grinder [place] [employer]. - Encourage the patient to report any changes in pain levels or new pain symptoms. Advanced Care Directive - Assessment: Patient has an advanced care directive in place, with sister Kelly as the power of assistant prosecuting attorney for both medical and other matters. - [...] is on Medicare and prefers to use [facility] pharmacy instead of mail order. - Plan: [...] Encourage follow-up with primary care provider or repeat photocomposing machine operator for ongoing management of GERD. 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 This document should not be considered a verbatim record, and any discrepancies should be verified with the provider. Plan Of Treatment Next Appt Details Provider Name:Mario Alberto Dumont , 05/12/2025 01:00:00 PM, [address] [place] [address] [address], [facility] [address], [place], [address], Insurance Providers Payer Name Payer Address Payer Phone Subscriber Number Group Number Insured Name Patient Relationship to Insured Coverage Start Date Coverage End Date Medicare-I l Medicare [address] [place] [address] [id number] DOMINGO HUERTA Self - patient is the insured Medical (General) History Medical History History ICD Code Problems: Cerebral palsy Generalized anxiety disorder Major depression in remission , Surgical History Surgery Date(Month/Year) Any surgical history 01/18/1976 Appendectomy (67911) 01/22/1979 rt knee replaced [id number] rt knee re do [id number] Hospitalization History Reason Date(Month/Year) rt knee redo 04/10/2024 rt knee replaced 10/14/2023
[2024-12-01 11:44] LABS: Prothrombin Time 13.3 Seconds (11.1-14.7)
[2024-12-01 11:45] LABS: Partial Thromboplastin Time 30.1 Seconds (22.3-36.8)
[2024-12-01 12:39] LABS: MRSA (PCR) NOT DETECTED (NOT DETECTE)
[2024-12-01 13:59] LABS: Hemoglobin A1C 5.8 % (<5.7)
[2024-12-01 18:18] LABS: Urine Cotinine NEGATIVE
== END 2024-12-01 09:52 | disposition home or self-care (01) ==
LOC: ANHSURGERY 09:59
PROVIDERS: PCP Nurse Practitioner Family; Visit Provider Orthopaedic Surgery
DX: M17.12 Unilateral primary osteoarthritis, left knee (principal); Z01.818 Encounter for other preprocedural examination
CPT/HCPCS: 80307; 83036; 85610; 85730; 86850; 86900; 86901; 87641

== ENCOUNTER 2024-12-15 09:14 | Inpatient (IN) | payer MEDICARE, SELFPAY ==
[2024-12-01 10:26] VITALS: BP 118/65; PULSE 94; RESP 16; TEMP 35.9; O2SAT 97; BMI 26.2
--- NOTE | 2024-12-01 10:44 | PC.NURSE ---
Report to the Outpatient Waiting Room, entrance under the green pavilion located off [facility], at time __0830am on date __12/14/24 . Planned Procedure Time: _1030am . Time changes happen often and if your time is changed the preop area will call you the afternoon before. - You and your visitor will be asked to self-screen and do not enter if you have any COVID symptoms. Please call surgeon if you need to reschedule. - A mask is optional within the hospital at this time. Patients may have clear liquids (water, carbonated beverages, clear teas, apple juice) until 3 hours prior to surgery with a maximum of 20 ounces. - No food from midnight until time of surgery and no smoking, or chewing tobacco (or any form of nicotine). No chewing gum, candy or mints. (0730am) - Take only the following medications with a SIP of water on the morning of surgery: ___Busprione, Levothyroxine, Pregabalin, Fluvoxamine, Propanolol, and Cyclobenzaprine as needed DO NOT STOP ANY OF YOUR OTHER PRESCRIPTION MEDICATIONS PRIOR TO SURGERY EXCEPT THE FOLLOWING Hold all vitamins and supplements for 3 days per anesthesiologist.Date to take last dose 12/10/24. Medications to discontinue per physician Meloxicam for 7 days prior per Date to take last dose___12/06/24 Please no make-up, nail turkmen, hairspray, perfume, deodorant, or body powder the day of surgery. No jewelry (including any body piercings) or valuables the day of surgery, leave them at home. Please take a shower or bath the night before, or the morning of, surgery with an antibacterial soap. Wear comfortable, loose fitting clothing. Children are encouraged to wear pajamas. - Jewelry must be removed prior to entering the operating room. Rings and piercings that are not removed may be cut off. - The hospital will not accept responsibility for valuables. - Please leave all valuables, including medications, at home the day of surgery. If you are going home after surgery, a licensed motor coach bus driver must drive you home. - NO public transportation without another adult if you receive anesthesia. - We recommend that an adult stay with you for 24 hours following discharge. - We also recommend that you do not drive, make important decision, drink alcoholic beverages, or take any drugs that were not prescribed by your health care provider for at least 24 hours after your discharge time. Follow any additional instructions given to you from your surgeon. Telephone instructions given to _Patient and asked if any additional questions and then verbalized understanding. Patient advised to call surgeon office or pre surgery nurse liaison [phone] if any additional questions.
[2024-12-14] VITALS (14 sets, daily range): BP systolic 95–140; BP diastolic 70–99; PULSE 90–114; RESP 10–20; TEMP 35.3–37; O2SAT 18–100
--- OUTSIDE RECORDS SUMMARY | 2024-12-14 01:38 | XMS_ITS | Clinical Summary ---
Author Organization [facility] Address [address] [place] [address] Care Team Providers Care Wall Washer Name Role Phone Floyd Mcneil MD Primary [...] 1 tablet (88 mcg total) by mouth beef breaker before breakfast 3 Active meloxicam (MOBIC) 15 [...] on file Legal Sex Female 10:17 AM PULLBOAT ENGINEER Gender Identity Not on file Sexual Orientation Not on file Obstetrics History Last Filed Vital Signs Vital Sign Reading Time Taken Comments Blood Pressure 131/84 07/17/2023 11:01 AM PULLBOAT ENGINEER Pulse 83 07/17/2023 11:01 AM PULLBOAT ENGINEER Temperature 35.5 C (95.9 F) 07/17/2023 11:01 AM PULLBOAT ENGINEER Respiratory Rate 18 06/08/2023 9:55 AM CDT Oxygen Saturation 96% 07/17/2023 11:01 AM PULLBOAT ENGINEER Inhaled Oxygen Concentration - - Weight 60.8 [...] or options for improving home safety. Insurance [facility] OPEN ACCESS MEDICARE [facility] Address: [address] [address] [place] [address] [facility] CLAIMS OFFICE [facility] OPEN ACCESS MEDICARE Care Teams Wall Washer Relationship Specialty Start Date End Date Floyd Mcneil MD PCP - General Family Practice 01/30/23
--- OUTSIDE RECORDS SUMMARY | 2024-12-14 01:38 | XMS_ITS | Referral Summary ---
Author Organization [facility] Address [address] [place] [address] Care Team Providers Care Dsp Engineer Name Role Phone Floyd Mcneil MD Primary [...] 1 tablet (88 mcg total) by mouth log skidder before breakfast 3 Active meloxicam (MOBIC) 15 [...] on file Legal Sex Female 10:17 AM TIME STUDY TECHNOLOGIST Gender Identity Not on file Sexual Orientation Not on file Last Filed Vital Signs Vital Sign Reading Time Taken Comments Blood Pressure 131/84 07/17/2023 11:01 AM TIME STUDY TECHNOLOGIST Pulse 83 07/17/2023 11:01 AM TIME STUDY TECHNOLOGIST Temperature 35.5 C (95.9 F) 07/17/2023 11:01 AM TIME STUDY TECHNOLOGIST Respiratory Rate 18 06/08/2023 9:55 AM CDT Oxygen Saturation 96% 07/17/2023 11:01 AM TIME STUDY TECHNOLOGIST Inhaled Oxygen Concentration - - Weight 60.8 [...] on stairs Contact your local community or [facility] for information on exercise, fall prevention programs, or options for improving home safety. Insurance [employer] OPEN ACCESS [employer] H[employer]/PPO Address: [facility] [address] [place] [address] MEDICARE [employer] CLAIMS OFFICE [facility] OPEN ACCESS MEDICARE Care Teams Dsp Engineer Relationship Specialty Start Date End Date Floyd Mcneil MD PCP - General Family Practice 01/30/23
--- OUTSIDE RECORDS SUMMARY | 2024-12-14 01:39 | XMS_ITS | Clinical Summary ---
Author Organization [facility] Address [address] [place] [address] Care Team Providers Care Recruiting Assistant Name Role Phone Mil Verduzco MD Primary Care Provider [phone] Social History Tobacco Use Types Packs/Day Years [...] Screening with HPV 1997 Mammogram Screening 2007 Pneumococcal Vaccine: 50+ Ye ars (1 of 1 - PCV) 2017 Zoster Vaccines (1 of 2) 2017 COVID-19 [...] age to complete this topic Care Teams Recruiting Assistant Relationship Specialty Start Date End Date iMl Verduzco MD PCP - General 11/14/11
--- OUTSIDE RECORDS SUMMARY | 2024-12-14 01:39 | XMS_ITS | Patient Health Record ---
Author Organization [facility] As [employer] Address [address] [facility] [[email or web address]] [address] [place] [address] Care Team Providers Care Supervisor Locomotive Name Role Phone Mario Alberto Dumont Unavailable [phone] Migration, Provider Unavailable Unavailable Allergies Allergen (clinical [...] Vaccine Route Administration Date Status Comme nts Td (adult) preservative free Unknown 11/03/2018 Adminis tered Pfizer Biontech Covid-19 Vac cine 2nd dose Unknown 11/10/2020 Administered Pfizer Biontech Covid-19 Vac cine 2nd dose Unknown 12/02/2020 Administered Pfizer Biontech Covid-19 Vac cine 2nd dose Unknown 07/31/2021 Administered Novel Durnlfzol-[id number], preservative free Unknown 04/27/2018 Administered Novel Currzusxd-M5C2-45, preservative free Unknown 05/20/2020 Administered Influenza virus vaccine, quadrivalent (IIV4), split virus, 0.25 mL dosage Unknown 04/19/2018 Administered Influenza virus vaccine, quadrivalent (IIV4), split virus, 0.25 mL dosage Unknown 07/01/2019 Administered Social History Tobacco Use: Social History Observation [...] Major depression, single episode, in complete remission ([id number]) Major depressive disorder, single episode, in full remission (F32.5) 3 Active confirmed Problem Generalized anxiety disorder (46150425) Generalized anxiety disorder (F41.1) 3 Active confirmed Problem Cerebral palsy, unspecified (G80.9) 3 Active confirmed Vital Signs Heart Rate 83 /min 11/10/2024 Height-cm 152.40 cm 11/10/2024 Blood pressure diastolic 81 mm Hg 11/10/2024 Weight-kg 65.32 kg 08/11/2024 Height 60.00 in 11/10/2024 Blood pressure systolic 117 mm Hg 11/10/2024 Weight 144 lbs 08/11/2024 BMI 28.12 kg/m2 08/11/2024 Encounters Encounter Location Date Provider Diagnosis [facility] [address] [facility] [[email or web address]] [address] [place] [address] 05/12/2024 Mario Alberto Dumont Major depressive disorder, single episode, in full remission F32.5 ; Generalized anxiety disorder F41.1 and Cerebral palsy, unspecified G80.9 [facility] [address] [facility] [[email or web address]] [address] [place] [address] 08/11/2024 Mario Alberto Julia Major depressive disorder, single episode, in full remission F32.5 ; Generalized anxiety disorder F41.1 and Cerebral palsy, unspecified G80.9 [facility] [employer] [facility] [address] [address] 11/10/2024 Mario Alberto Julia Encounter for screening for depression Z13.31 ; Encounter for screening for cardiovascular disorders Z13.6 ; Major depressive disorder, single episode, in full remission F32.5 ; Generalized anxiety disorder F41.1 and Cerebral palsy, unspecified G80.9 [facility] [employer] [facility] [address] [address] 12/26/2023 Provider Migration [facility] [employer] [place] [address] [address] 12/27/2023 Provider Migration [facility] [employer] [place] [address] [address] 03/18/2024 Mario Alberto Julia [facility] [employer] [place] [address] [address] 05/17/2024 Mario Ablertojulianne Dumont Major depressive disorder, single episode, in full remission F32.5 [facility] [employer] [place] [address] [address] 09/05/2024 Mario Alberto Julia Generalized anxiety disorder F41.1 and Major depressive [...] morning). - Renew prescriptions and send to [facility] in [place]. - Monitor for any signs of manic [...] by the patient's primary care physician or lead based paint technician. - Encourage the patient to report any changes in pain levels or new pain symptoms. Advanced Care Directive - Assessment: Patient has an advanced care directive in place, with sister Kelly as the power of assistant county attorney for both medical and other matters. [...] is on Medicare and prefers to use [facility] pharmacy instead of mail order. - Plan: [...] morning). - Renew prescriptions and send to [facility] in [place]. - Monitor for any signs of manic [...] by the patient's primary care physician or lead based paint technician. - Encourage the patient to report any changes in pain levels or new pain symptoms. Advanced Care Directive - Assessment: Patient has an advanced care directive in place, with sister Kelly as the power of assistant county attorney for both medical and other matters. [...] is on Medicare and prefers to use [facility] pharmacy instead of mail order. - Plan: [...] Encourage follow-up with primary care provider or circulation director for ongoing management of GERD. Follow-up - [...] Encourage follow-up with primary care provider or circulation director for ongoing management of GERD. Follow-up - [...] morning). - Renew prescriptions and send to [facility]. - Monitor for any signs of manic [...] by the patient's primary care physician or lead based paint technician. - Encourage the patient to report any changes in pain levels or new pain symptoms. Advanced Care Directive - Assessment: Patient has an advanced care directive in place, with sister Kelly as the power of assistant county attorney for both medical and other matters. [...] is on Medicare and prefers to use [facility] pharmacy instead of mail order. - Plan: [...] Encourage follow-up with primary care provider or circulation director for ongoing management of GERD. 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 This document should not be considered a verbatim record, and any discrepancies should be verified with the provider. Plan Of Treatment Next Appt Details Provider Name:Mario Alberto Aparicio Julia , 05/12/2025 01:00:00 PM, [address], [facility] [[email or web address]] [address] [place], [address], Insurance Providers Payer Name Payer Address Payer Phone Subscriber Number Group Number Insured Name Patient Relationship to Insured Coverage Start Date Coverage End Date Medicare-I l Medicare [address] [place] [address] [id number] DOMINGO HUERTA Self - patient is the insured Medical (General) History Medical History History ICD Code Problems: Cerebral palsy Generalized anxiety disorder Major depression in remission , Surgical History Surgery Date(Month/Year) Any surgical history 01/18/1976 Appendectomy (45508) 01/22/1979 rt knee replaced [id number] rt knee re do [id number] Hospitalization History Reason Date(Month/Year) rt knee redo 04/10/2024 rt knee replaced 10/14/2023
--- NOTE | 2024-12-14 07:21 | WPDHPUPDATE1 ---
History and Physical Update Update Date/Time: 12/14/24 07:21 History and Physical has been reviewed, including an updated exam of the patient. There are NO changes in the patient's condition. Risks, benefits, and alternatives have been discussed and questions answered. Patient agrees to proceed with procedure.
[2024-12-14] MEDS: ACETAMINOPHEN 500 MG TABLET 1000 MG PO (10:01)
[2024-12-14] MEDS: TRANEXAMIC ACID 1,000MG/ISO100 1,000 MG/100 ML BAG 200 MG IVPB (10:01)
--- NOTE | 2024-12-14 10:43 | WPDANESEPPF ---
Anes - Initial Pre Proc Eval Procedure: Operation Date: 12/14/24 10:30 Proposed Procedures p Left Total Knee Arthroplasty with Possible Tibial Tubercle Transfer - Rich Gonzalez MD Date/Time: 12/14/24 10:43 Surgeon: Rich Gonzalez MD Pre Op Diagnosis: left knee djd Patient Data Age: 59 Gender: F Height: 1.57 m Weight: 63.2 kg Last Vital Signs Temp 97.6 F 12/14/24 09:56 Pulse 90 12/14/24 09:56 Resp 16 12/14/24 09:56 BP 125/79 12/14/24 09:56 Pulse Ox 98 12/14/24 09:56 O2 Del Method Room Air 12/14/24 09:56 Allergies Allergy/AdvReac Type Severity Reaction Status Date / Time simvastatin Allergy Unknown Muscle pain Verified 12/14/24 09:52 Sjscsco-CFD-AcG Reductase Allergy Unknown Muscle Pain Verified 12/14/24 09:52 Inhibitor (Dskhcey-Myh-Lrn Reductase Inhibitor) Sulfa (Sulfonamide Allergy Unknown Hives Verified 12/14/24 09:52 Antibiotics) Home Medications Medication Instructions Recorded Confirmed Type propranolol 20 mg tablet 20 mg PO QAM #90 tabs 04/06/24 12/14/24 Rx fluvoxamine 50 mg tablet See Rx Instructions .Route .COMPLEX 04/24/24 12/14/24 History cyclobenzaprine 10 mg tablet 10 mg PO TID PRN MUSCLE SPASMS #90 08/19/24 12/14/24 Rx tabs ezetimibe 10 mg tablet (Zetia) 10 mg PO HS #90 tabs 09/05/24 12/14/24 Rx meloxicam 7.5 mg tablet 7.5 mg PO BID #60 tabs 09/05/24 12/14/24 Rx pregabalin 150 mg capsule 150 mg PO DAILY #90 caps 10/06/24 12/14/24 Rx buspirone 15 mg tablet 15 mg PO BID #60 tabs 11/08/24 12/14/24 Rx levothyroxine 88 mcg tablet 88 mcg PO DAILY #90 tabs 11/08/24 12/14/24 Rx cholecalciferol (vitamin D3) 50 50 mcg PO DAILY #1 cap 11/14/24 12/14/24 Rx mcg (2,000 unit) capsule chlorhexidine gluconate 4 % 1 applic topical ONCE #237 mL 12/07/24 12/09/24 Rx topical liquid (Hibiclens) esomeprazole magnesium 20 mg 20 mg PO DAILY #90 caps 12/08/24 12/14/24 Rx capsule,delayed release (Nexium) Patient hx anesthesia problems: none Family hx anesthesia problems: none Results Review: All pre-operative results and documents have been reviewed as part of the pre-operative evaluation. 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 Adult hypothyroidism Depressive disorder, not elsewhere classified Degenerative disc disease Degenerative joint disease Hypersomnia Combined hyperlipidemia Cerebral palsy Surgical History Surgical History History of cystoscopy History of bilateral knee arthroplasty History of appendectomy Family History Family History Mother Family history of elevated blood lipids Family history of arthritis Multiple myeloma Father Family history of heart disease in male family member before age 55 Family history of diabetes mellitus in first degree relative Diabetes mellitus Family history of coronary artery disease Social History Social History Social History: Surrogate medical decision maker: Lacie Rapp, sibling. Code status: Full code. Smoking status: Never smoker Second hand tobacco smoke exposure: No Alcohol intake: current Alcohol use details: 1 per month Substance use: never Substance use type: does not use Do You Feel Safe in your Home?: Yes Lack of Transportation: No Lack of Food: Never True Current Housing: I Have Housing Concerned About Future Housing: No Difficulty Paying Gas/Electric Bills: No Difficulty Paying for Meds: No Currently Unemployed: No Education: High School Diploma/GED Difficulty w/ Childcare or Family Care: No Living arrangements: with family Additional living arrangements comments: Occupation/Education: retired Spiritual care concerns: No Agree to blood products: Yes Anes - Eval Final PreProcedure Day of Procedure 12/14/24 10:43 Patient weight: normal Lungs: normal air movement Airway: Mallampati scale class II Neurological: alert and oriented Last oral intake: >/= 8 hours ASA classification: III Emergent: no Anesthetic plan: proceed Anesthesia type and monitoring: general LMA and standard monitoring Results Review: All pre-operative results and documents have been reviewed as part of the pre-operative evaluation. Cerebral palsy w mild spasticity noted. Pt did well w prev GA. Discussed w Dr Clifford, will not do PNB due to hx of CP and neuropathy. Informed Consent: The patient's anesthetic plan and its attendant risks and benefits were discussed with the patient/family/POA. Questions were solicited and answers provided to the satisfaction of the patient/family/POA.
[2024-12-14] MEDS: ceFAZolin 2 GM/D5W 50 ML 2 GM/50 ML BAG IVPB ×2 (11:04→18:26)
[2024-12-14] MEDS: SODIUM CHLORIDE 0.9% IV 37.7 ML, MORPHINE SULFATE INJ (*CRX) 2 MG, ROPivacaine HCL 1% 2... INFILTRATE (11:30)
[2024-12-14] MEDS: TRANEXAMIC ACID 1,000 MG/10 ML AMPUL 1000 MG IV PUSH (12:33)
[2024-12-14] MEDS: LACTATED RINGERS 1,000 ML 30 ML IV CONT ×2 (13:56)
--- NOTE | 2024-12-14 14:06 | W.PM.PROC2 ---
Procedure Note - Detailed Date of Procedure 12/14/24 Pre-op Diagnosis left knee djd Post-op Diagnosis Same Procedure Performed L TKA Surgeon Rich Gonzalez MD Anesthesia General Description of Procedure THE LEFT KNEE WAS PREPPED AND DRAPED IN THE STERILE FASHION. THERE WAS A 20 DEGREE FLEXION CONTRACTURE. A MIDLINE SKIN INCISION WAS MADE. A MEDIAL PARAPATELLAR ARTHROTOMY WAS MADE. THE PATELLA WAS EVERTED. THERE WAS TRICOMPARTMENT DJD. THE PATELLA WAS VERY THIN. AN INTRAMEDULLARY DEYSI WAS PLACED IN THE FEMUR. A DISTAL FEMORAL CUT WAS MADE IN 5 DEGREES OF VALGUS REMOVING APPROXIMATELY 11 MM OF BONE FROM THE DISTAL FEMUR. THE FEMUR WAS SIZED TO 57.5. A 57.5 FEMORAL CUTTING BLOCK WAS PLACED IN 3 DEGREES OF EXTERNAL ROTATION AND IN ALIGNMENT WITH KAILEY'S LINE AND THE TRANSEPICONDYLAR AXIS. ANTERIOR POSTERIOR AND CHAMFER CUTS WERE MADE. THE CUTS WERE EXCELLENT. NEXT AN INTRAMEDULLARY CUTTING GUIDE WAS PLACED IN THE TIBIA. A TRANS TIBIAL CUT WAS MADE ALONG THE LONG AXIS OF THE TIBIA. APPROXIMATELY 10 MM OF BONE WAS REMOVED FROM THE HIGH SIDE OF THE TIBIA. THE TIBIA WAS THEN PLANED TO A SMOOTH SURFACE. POSTERIOR FEMORAL OSTEOPHYTES WERE REMOVED FROM THE FEMORAL CONDYLES. NEXT A 57.5 CUTTING GUIDE WAS PLACED FOR THE BOX CUT. NEXT A 63 TIBIAL TRIAL WAS PLACED IN ALIGNMENT WITH THE 1/3 MEDIAL ASPECT OF THE TIBIAL TUBERCLE. THEN A 57.5 FEMORAL PS TRIAL COMPONENT WAS PLACED. BOTH HAD EXCELLENT FITS. A 10 MM PS POLYETHYLENE TRIAL COMPONENT WAS PLACED. THE KNEE WAS TAKEN THROUGH A RANGE OF MOTION. THE KNEE CAME OUT TO FULL EXTENSION. THERE WAS NO ABNORMAL TILT TO THE PATELLA. THERE WAS GOOD A/P AND VARUS/VALGUS STABILITY. THERE WAS NO EXCESSIVE ROLL BACK WITH FLEXION. THE TRIAL COMPONENTS WERE REMOVED. THEN A 57.5 PS FEMORAL COMPONENT AND 63 TIBIAL COMPONENT WITH A 10 PS POLYETHYLENE COMPONENT WERE CEMENTED INTO PLACE. ONCE THE CEMENT WAS HARD THE KNEE WAS TAKEN THROUGH A ROM AGAIN AND FOUND TO BE STABLE WITH NO PATELLA TILT NO EXCESSIVE ROLL BACK WITH FLEXION AND GOOD STABILITY WITH COMPLETE AND FULL EXTENSION. THE KNEE WAS IRRIGATED WITH STERILE BETADINE AND WATER FOR ABOUT 3 MINUTES. THE BLEEDERS WERE CAUTERIZED. THE ARTHROTOMY WAS REPAIRED WITH NUMBER 1 VICRYL. THE SUB CUTANEOUS LAYER WITH 2-0 VICRYL AND THE SKIN WITH JIM. THE WOUND WAS WASHED AND A STERILE DRESSING WAS APPLIED. PATIENT WAS EXTUBATED. Estimated Blood Loss 200 Pathology None sent Complications No immediate complications Condition Stable Disposition PACU
[2024-12-14] MEDS: SODIUM CHLORIDE 0.9% IV 1,000 ML 125 ML IV CONT (16:05)
[2024-12-14] MEDS: busPIRone HCL 5 MG TABLET 15 MG PO (16:06)
[2024-12-14] MEDS: KETOROLAC 15 MG/ML VIAL (*BKC) IV PUSH (16:06)
--- NOTE | 2024-12-14 16:54 | ADMGEN ---
This patient, Domingo Brumfield, was admitted to 3 [facility] Surg Room 310-01. Patient/family oriented to hospital policies and general routines including ID bracelet, bed and alarms, visiting hours, pain management, procedures, bathroom and other care routines, personal items, smoking policy, room service/diet, and visiting hours. Information on how to activate the Rapid Response Team has been discussed. Patient/Family are encouraged to report perceived risks to care and to ask questions if they do not understand what they are told or what they should do.
[2024-12-14] MEDS: oxyCODONE/ACETAMINOPHEN (*CRX) 10-325 MG TABLET 1 TAB PO (18:26)
[2024-12-14] MEDS: SENNA/DOCUSATE SODIUM TABLET 2 TAB PO (20:09)
[2024-12-14] MEDS: ASPIRIN 325 MG ENTERIC TABLET PO (20:09)
[2024-12-14] MEDS: FAMOTIDINE 20 MG TABLET PO (20:10)
[2024-12-14] MEDS: EZETIMIBE 10 MG TABLET PO (20:10)
[2024-12-15] VITALS (7 sets, daily range): BP systolic 96–117; BP diastolic 54–70; PULSE 85–124; RESP 12–18; TEMP 36.2–36.9; O2SAT 92–99
--- NOTE | ~2024-12-15 | XR_ITS ---
EXAMINATION: [id number] DATE: 12/14/2024 14:17 INDICATION: Postoperative evaluation following left total knee arthroplasty. TECHNIQUE: Anteroposterior and lateral views of the left knee were obtained. COMPARISON: None. FINDINGS: Left total knee arthroplasty without patellar resurfacing appears well seated and in near anatomic al ignment. No fractures identified. Anterior skin ernst and expected postoperative subcutaneous, int ramedullary and intra-articular gas. Wound VAC projects along the lateral side of the proximal calf. IMPRESSION: 1. Left total knee arthroplasty, negative for postoperative purposes. Reviewed, dictated and finalized at location A.
[2024-12-15] MEDS: KETOROLAC 15 MG/ML VIAL (*BKC) IV PUSH ×3 (00:48→11:36)
[2024-12-15] MEDS: ceFAZolin 2 GM/D5W 50 ML 2 GM/50 ML BAG IVPB ×2 (03:37→10:56)
[2024-12-15 06:14] LABS: Basophils Percent Auto 0.1 % (0.2-1.2); Hematocrit 29.7 % (37.0-47.0); Hemoglobin 9.7 g/dL (12.0-15.0); Immature Granulocyte Absolute 0.06 K/mm3 (0.00-0.031); Immature Granulocyte Percent A 0.4 % (0-0.5); Lymphocytes Absolute Auto 1.05 K/mm3 (0.9-3.2); Lymphocytes Percent Auto 7.6 % (18.3-44.2); Mean Corpuscular HGB Conc 32.7 g/dl (32-36); Mean Corpuscular Hemoglobin 30.1 pg (26-34); Mean Corpuscular Volume 92.2 fl (80-100); Mean Platelet Volume 9.4 fl (7.4-10.4); Monocytes Absolute Auto 0.8 K/mm3 (0.1-0.6); Monocytes Percent Auto 5.9 % (2.6-8.5); Neutrophils Absolute Auto 11.9 K/mm3 (1.3-6.7); Platelet Count Result 268 k/mm3 (150-375); Red Blood Count 3.22 M/mm3 (4.2-5.4); White Blood Count 13.9 K/mm3 (4.5-10.0)
[2024-12-15] MEDS: LEVOTHYROXINE SODIUM 88 MCG TABLET PO (06:19)
[2024-12-15 06:26] LABS: Anion Gap 7 mmol/L (4-12); Blood Urea Nitrogen 19 mg/dL (7-17); Calcium 7.9 mg/dL (8.4-10.2); Carbon Dioxide 25 mmol/L (22-30); Chloride 103 mmol/L (98-107); Estimated CRCL calculation 67 ml/min; Estimated Glomerular Filt Rate > 60; Glucose 134 mg/dL (65-110); Potassium 4.3 mmol/L (3.4-5.0); Sodium 135 mmol/L (137-145)
[2024-12-15] MEDS: busPIRone HCL 5 MG TABLET 15 MG PO ×2 (07:57→17:07)
[2024-12-15] MEDS: PREGABALIN (*CRX) 75 MG CAPSULE 150 MG PO (08:01)
[2024-12-15] MEDS: SENNA/DOCUSATE SODIUM TABLET 2 TAB PO ×2 (08:01→20:42)
[2024-12-15] MEDS: ASPIRIN 325 MG ENTERIC TABLET PO ×2 (08:01→20:43)
[2024-12-15] MEDS: FAMOTIDINE 20 MG TABLET PO ×2 (08:02→20:42)
[2024-12-15] MEDS: CHOLECALCIFEROL 1,000 UNITS TABLET 2000 UNITS PO (08:02)
--- NOTE | 2024-12-15 08:08 | PCPTNOTE ---
Attempted PT evaluation. Pt will be getting blood and has a low BP this morning. Nursing requested therapy tries at a later time. Will follow.
[2024-12-15] MEDS: oxyCODONE/ACETAMINOPHEN (*CRX) 10-325 MG TABLET 1 TAB PO (10:55)
[2024-12-15] MEDS: oxyCODONE/ACETAMINOPHEN (*CRX) 5-325 MG TABLET 1 TABLET PO ×2 (17:07→21:43)
--- NOTE | 2024-12-15 17:53 | PM.PNORT ---
Progress Note: A&P Assessment and Plan (1) Left knee DJD: Qualifiers: Osteoarthritis type: primary Qualified Code(s): M17.12 - Unilateral primary osteoarthritis, left knee Code(s): M17.12 - Unilateral primary osteoarthritis, left knee Status: Acute (2) S/P total knee arthroplasty: Onset Date: ~04/2024 Qualifiers: Laterality: left Qualified Code(s): Z96.652 - Presence of left artificial knee joint Code(s): Z96.659 - Presence of unspecified artificial knee joint Status: Acute Assessment and Plan: pod 1 with slow progress with pt. she will require another day of pt. she will be reevaluated again tmrw for progress. Subjective Subjective Date/Time Seen: 12/15/24 17:53 Interval history: pod 1 doing well. she has slow progress with pt has some spasm in thigh and calf region. she has good EHL and some eversion. she has good plantar flexion. dorsi flexion is weak. she has had previous posterior tibialis tendon transfers for dorsiflexion and her tibial nerve is working well as evidenced of good plantar flexion, her lack of dorsiflexion may be due to her spasm Exam Extrem: Other: vss afebrile dressing dry nv intact neg homans sign calf and thigh soft non tender Objective Data Vital Signs Vital Signs: Vital Signs - 24 hr 12/14/24 21:03 12/14/24 21:05 12/15/24 01:05 Temperature 37.0 C 37.0 C Pulse Rate 114 H Respiratory Rate 16 16 Blood Pressure 95/71 L 111/70 Pulse Oximetry 91 Oxygen Delivery 12/15/24 05:40 12/15/24 08:00 12/15/24 08:00 Temperature 36.9 C 36.3 C L Pulse Rate 85 100 Respiratory Rate 16 12 Blood Pressure 117/60 97/58 L Pulse Oximetry 99 92 98 Oxygen Delivery Room Air 12/15/24 10:21 12/15/24 11:35 12/15/24 12:00 Temperature 36.3 C L Pulse Rate 113 H Respiratory Rate 12 Blood Pressure 109/69 108/66 Pulse Oximetry 98 Oxygen Delivery Room Air 12/15/24 16:54 Temperature 36.2 C L Pulse Rate 120 H Respiratory Rate 18 Blood Pressure 110/70 Pulse Oximetry 96 Oxygen Delivery Intake/Output Intake/Output: Intake & Output 12/12/24 12/13/24 12/14/24 12/15/24 23:59 23:59 23:59 23:59 Intake Total 760 1870 Output Total 600 Balance 760 1270 Meds/Results Medications: Active Medications Generic Name Dose Route Start Last Admin Trade Name Freq PRN Reason Stop Dose Admin Acetaminophen 500 mg 12/14/24 15:20 Acetaminophen 500 Mg Tablet PO Q6H PRN Pain Rated 1-3 Aspirin 325 mg 12/14/24 21:00 12/15/24 08:01 Aspirin 325 Mg Enteric Tablet PO 325 mg Q12HR MONIKA Administration Buspirone HCl 15 mg 12/14/24 17:00 12/15/24 17:07 Buspirone Hcl 5 Mg Tablet PO 15 mg BID MONIKA Administration Cyclobenzaprine HCl 10 mg 12/14/24 15:20 Cyclobenzaprine Hcl 10 Mg Tablet PO TID PRN MUSCLE SPASMS Diazepam 5 mg 12/14/24 15:20 Diazepam (*Crx) 5 Mg Tablet PO Q8H PRN Spasms Diphenhydramine HCl 25 mg 12/14/24 15:20 Diphenhydramine Hcl Inj 50 Mg/Ml Vial IV PUSH Q6H PRN Itching Ezetimibe 10 mg 12/14/24 21:00 12/14/24 20:10 Ezetimibe 10 Mg Tablet PO 10 mg HS MONIKA Administration Famotidine 20 mg 12/14/24 21:00 12/15/24 08:02 Famotidine 20 Mg Tablet PO 20 mg Q12HR MONIKA Administration Hydromorphone HCl 1 mg 12/14/24 15:24 Hydromorphone Hcl Inj (*Crx) 2 Mg/Ml Vial IV PUSH Q2H PRN Breakthrough Pain Rated 7-10 or NPO Hydromorphone HCl 0.5 mg 12/14/24 15:25 Hydromorphone Hcl Inj (*Crx) 2 Mg/Ml Vial IV PUSH Q2H PRN Breakthrough Pain Rated 4-6 or NPO Ibuprofen 800 mg in 200 mls @ 400 mls/hr 12/14/24 15:20 Caldolor 800 Mg/200 Ml IVPB Q6H PRN Breakthrough Pain Rated 1-3 or NPO Levothyroxine Sodium 88 mcg 12/15/24 06:30 12/15/24 06:19 Levothyroxine Sodium 88 Mcg Tablet PO 88 mcg DAILY@0630 [facility] Administration Miscellaneous Information 0 each 12/14/24 00:01 Fluvoxamine Nonform Can Pt Bring From Home? XX 01/13/25 00:00 CLARIFY MONIKA Naloxone HCl 0.1 mg 12/14/24 15:20 Naloxone Hcl 0.4 Mg/Ml Vial IV PUSH Q2M PRN Opiate Reversal Non-Formulary Medication 0 mg 12/14/24 15:20 Fluvoxamine .ROUTE 01/13/25 15:19 .COMPLEX MONIKA Ondansetron HCl 4 mg 12/14/24 15:20 Ondansetron Inj 4 Mg/2 Ml Vial IV PUSH Q4H PRN Nausea And Vomiting Oxycodone/Acetaminophen 1 tablet 12/14/24 15:20 12/15/24 17:07 Oxycodone/Acetaminophen (*Crx) 5-325 Mg Tablet PO 1 tablet Q4H PRN Administration Pain Rated 4-6 Oxycodone/Acetaminophen 1 tab 12/14/24 15:20 12/15/24 10:55 Oxycodone/Acetaminophen (*Crx) 10-325 Mg Tablet PO 1 tab Q6H PRN Administration Pain Rated 7-10 Polyethylene Glycol 17 gm 12/15/24 09:00 12/15/24 08:03 Polyethylene Glycol 3350 17 Gm Powd.Pack PO Not Given QAM [facility] Pregabalin 150 mg 12/15/24 09:00 12/15/24 08:01 Pregabalin (*Crx) 75 Mg Capsule PO 150 mg DAILY MONIKA Administration Propranolol HCl 20 mg 12/15/24 09:00 12/15/24 08:03 Propranolol Hcl 20 Mg Tablet PO Not Given QAM MONIKA Senna/Docusate Sodium 2 tab 12/14/24 21:00 12/15/24 08:01 Senna/Docusate Sodium Tablet PO 2 tab Q12HR [facility] Administration Vitamin D 2,000 units 12/15/24 09:00 12/15/24 08:02 Cholecalciferol 1,000 Units Tablet PO 2,000 units DAILY MONIKA Administration Radiology Results: ITS Impressions Knee X-Ray 12/14/24 15:29 IMPRESSION: 1. Left total knee arthroplasty, negative for postoperative purposes. Labs Labs: Laboratory Results - last 24 hr 12/15/24 05:36 WBC 13.9 H RBC 3.22 L Hgb 9.7 L Hct 29.7 L MCV 92.2 MCH 30.1 MCHC 32.7 RDW 13.0 Plt Count 268 MPV 9.4 Immature Gran % (Auto) 0.4 Neut % (Auto) 86.0 H Lymph % (Auto) 7.6 L [place] % (Auto) 5.9 Eos % (Auto) 0.0 Baso % (Auto) 0.1 L Lymph # (Auto) 1.05 [place] # (Auto) 0.8 H Eos # (Auto) 0.0 Baso # (Auto) 0.0 Abs Immat Gran (auto) 0.06 H Absolute Neuts (auto) 11.9 H Absolute Nucleated RBC 0.000 Nucleated RBC % 0.0 Sodium 135 L Potassium 4.3 Chloride 103 Carbon Dioxide 25 Anion Gap 7 BUN 19 H Creatinine 0.63 L Estim Creat Clear Calc 67 Estimated GFR > 60 Glucose 134 H Calcium 7.9 L
[2024-12-15] MEDS: EZETIMIBE 10 MG TABLET PO (20:43)
[2024-12-16] VITALS (7 sets, daily range): BP systolic 105–133; BP diastolic 60–82; PULSE 99–129; RESP 17–20; TEMP 36.2–37; O2SAT 91–97
[2024-12-16] MEDS: CYCLOBENZAPRINE HCL 10 MG TABLET PO ×2 (03:25→10:57)
[2024-12-16] MEDS: oxyCODONE/ACETAMINOPHEN (*CRX) 10-325 MG TABLET 1 TAB PO ×2 (04:25→10:57)
[2024-12-16] MEDS: HYDROmorphone HCL INJ (*CRX) 2 MG/ML VIAL 1 MG IV PUSH (04:56)
[2024-12-16] MEDS: ONDANSETRON INJ 4 MG/2 ML VIAL IV PUSH (04:56)
[2024-12-16] MEDS: diazePAM (*CRX) 5 MG TABLET PO ×3 (06:29→23:49)
[2024-12-16] MEDS: LEVOTHYROXINE SODIUM 88 MCG TABLET PO (06:29)
[2024-12-16] MEDS: IBUPROFEN IV 800 MG/200 ML 800 MG/200 ML BAG 400 MG IVPB ×3 (07:36→23:49)
--- NOTE | 2024-12-16 08:34 | PC.NURSE ---
0745 Dr Gonzalez c/o left leg pain and tightness. Left lower leg red and warm to touch. Heart rate elevated 129.
[2024-12-16] MEDS: SENNA/DOCUSATE SODIUM TABLET 2 TAB PO ×2 (08:41→20:36)
[2024-12-16] MEDS: PREGABALIN (*CRX) 75 MG CAPSULE 150 MG PO (08:41)
[2024-12-16] MEDS: busPIRone HCL 5 MG TABLET 15 MG PO ×2 (08:41→17:20)
[2024-12-16] MEDS: CHOLECALCIFEROL 1,000 UNITS TABLET 2000 UNITS PO (08:41)
[2024-12-16] MEDS: FAMOTIDINE 20 MG TABLET PO ×2 (08:41→20:38)
[2024-12-16] MEDS: PROPRANOLOL HCL 20 MG TABLET PO (08:41)
[2024-12-16] MEDS: ASPIRIN 325 MG ENTERIC TABLET PO ×2 (08:44→20:38)
--- NOTE | 2024-12-16 09:54 | P.PNOP_ITS ---
Progress Note: A&P Assessment and Plan (1) S/P total knee arthroplasty: Code(s): Z96.659 - Presence of unspecified artificial knee joint Status: Acute Assessment and Plan: POD 2 IMPROVING. STILL HAVING SLOW PROGRESS WITH PT. WE WILL REEVALUATE HER TMRW FOR DISCHARGE. CONSIDER INTERMEDIATE IF NEEDED Subjective Subjective Date/Time Seen: 12/16/24 09:54 Interval history: POSTOP DAY2 IMPROVING. SHE IS HAVING A LOT OF POSTERIOR KNEE AND HAMSTRING SPASM REQUIRING MORE PAIN MEDS. SHE IS IMPROVING WITH VALIUM. NO CALF OR THIGH SIGNIFICANT TENDERNESS Exam Extrem: Other: VSS AFEBRILE DRESSING DRY CALF SOFT PROM TOES AND ANKLE ARE WITHOUT SIGNIFICANT DISCOMFORT IN THE CALF OR LEG, NEG HOMANS SIGN, THIGH IS SOFT CALF IS SOFT, DP AND PT PULSES ARE 2+. Objective Data Vital Signs Vital Signs: Vital Signs - 24 hr 12/15/24 10:21 12/15/24 11:35 12/15/24 12:00 Temperature 36.3 C L Pulse Rate 113 H Respiratory Rate 12 Blood Pressure 109/69 108/66 Pulse Oximetry 98 Oxygen Delivery Room Air 12/15/24 16:54 12/15/24 20:47 12/16/24 05:49 Temperature 36.2 C L 36.5 C 36.8 C Pulse Rate 120 H 124 H 123 H Respiratory Rate 18 16 17 Blood Pressure 110/70 96/54 L 133/74 Pulse Oximetry 96 94 97 Oxygen Delivery 12/16/24 07:41 12/16/24 08:41 Temperature 36.2 C L Pulse Rate 129 H 122 H Respiratory Rate 20 Blood Pressure 133/76 Pulse Oximetry 94 Oxygen Delivery Intake/Output Intake/Output: Intake & Output 12/13/24 12/14/24 12/15/24 12/16/24 23:59 23:59 23:59 23:59 Intake Total 760 2460 Output Total 1150 650 Balance 760 1310 -650 Meds/Results Medications: Active Medications Generic Name Dose Route Start Last Admin Trade Name Freq PRN Reason Stop Dose Admin Acetaminophen 500 mg 12/14/24 15:20 Acetaminophen 500 Mg Tablet PO Q6H PRN Pain Rated 1-3 Aspirin 325 mg 12/14/24 21:00 12/16/24 08:44 Aspirin 325 Mg Enteric Tablet PO 325 mg Q12HR MONIKA Administration Buspirone HCl 15 mg 12/14/24 17:00 12/16/24 08:41 Buspirone Hcl 5 Mg Tablet PO 15 mg BID MONIKA Administration Cyclobenzaprine HCl 10 mg 12/14/24 15:20 12/16/24 03:25 Cyclobenzaprine Hcl 10 Mg Tablet PO 10 mg TID PRN Administration MUSCLE SPASMS Diazepam 5 mg 12/14/24 15:20 12/16/24 06:29 Diazepam (*Crx) 5 Mg Tablet PO 5 mg Q8H PRN Administration Spasms Diphenhydramine HCl 25 mg 12/14/24 15:20 Diphenhydramine Hcl Inj 50 Mg/Ml Vial IV PUSH Q6H PRN Itching Ezetimibe 10 mg 12/14/24 21:00 12/15/24 20:43 Ezetimibe 10 Mg Tablet PO 10 mg HS MONIKA Administration Famotidine 20 mg 12/14/24 21:00 12/16/24 08:41 Famotidine 20 Mg Tablet PO 20 mg Q12HR MONIKA Administration Hydromorphone HCl 1 mg 12/14/24 15:24 12/16/24 04:56 Hydromorphone Hcl Inj (*Crx) 2 Mg/Ml Vial IV PUSH 1 mg Q2H PRN Administration Breakthrough Pain Rated 7-10 or NPO Hydromorphone HCl 0.5 mg 12/14/24 15:25 Hydromorphone Hcl Inj (*Crx) 2 Mg/Ml Vial IV PUSH Q2H PRN Breakthrough Pain Rated 4-6 or NPO Ibuprofen 800 mg in 200 mls @ 400 mls/hr 12/14/24 15:20 12/16/24 07:36 Caldolor 800 Mg/200 Ml IVPB 400 mls/hr Q6H PRN Administration Breakthrough Pain Rated 1-3 or NPO Levothyroxine Sodium 88 mcg 12/15/24 06:30 12/16/24 06:29 Levothyroxine Sodium 88 Mcg Tablet PO 88 mcg DAILY@0630 MONIKA Administration Naloxone HCl 0.1 mg 12/14/24 15:20 Naloxone Hcl 0.4 Mg/Ml Vial IV PUSH Q2M PRN Opiate Reversal Ondansetron HCl 4 mg 12/14/24 15:20 12/16/24 04:56 Ondansetron Inj 4 Mg/2 Ml Vial IV PUSH 4 mg Q4H PRN Administration Nausea And Vomiting Oxycodone/Acetaminophen 1 tablet 12/14/24 15:20 12/15/24 21:43 Oxycodone/Acetaminophen (*Crx) 5-325 Mg Tablet PO 1 tablet Q4H PRN Administration Pain Rated 4-6 Oxycodone/Acetaminophen 1 tab 12/14/24 15:20 12/16/24 04:25 Oxycodone/Acetaminophen (*Crx) 10-325 Mg Tablet PO 1 tab Q6H PRN Administration Pain Rated 7-10 Polyethylene Glycol 17 gm 12/15/24 09:00 12/16/24 08:42 Polyethylene Glycol 3350 17 Gm Powd.Pack PO Not Given QAM MONIKA Pregabalin 150 mg 12/15/24 09:00 12/16/24 08:41 Pregabalin (*Crx) 75 Mg Capsule PO 150 mg DAILY MONIKA Administration Propranolol HCl 20 mg 12/15/24 09:00 12/16/24 08:41 Propranolol Hcl 20 Mg Tablet PO 20 mg QAM MONIKA Administration Senna/Docusate Sodium 2 tab 12/14/24 21:00 12/16/24 08:41 Senna/Docusate Sodium Tablet PO 2 tab Q12HR MONIKA Administration Vitamin D 2,000 units 12/15/24 09:00 12/16/24 08:41 Cholecalciferol 1,000 Units Tablet PO 2,000 units DAILY MONIKA Administration Radiology Results: ITS Impressions Knee X-Ray 12/14/24 15:29 IMPRESSION: 1. Left total knee arthroplasty, negative for postoperative purposes.
[2024-12-16] MEDS: oxyCODONE/ACETAMINOPHEN (*CRX) 5-325 MG TABLET 1 TABLET PO (15:00)
[2024-12-16] MEDS: EZETIMIBE 10 MG TABLET PO (20:38)
[2024-12-17] MEDS: oxyCODONE/ACETAMINOPHEN (*CRX) 5-325 MG TABLET 1 TABLET PO (00:58)
[2024-12-17 05:00] VITALS: BP 99/70; PULSE 99; RESP 18; TEMP 36.4; O2SAT 99
[2024-12-17] MEDS: LEVOTHYROXINE SODIUM 88 MCG TABLET PO (06:46)
[2024-12-17] MEDS: ASPIRIN 325 MG ENTERIC TABLET PO (08:44)
[2024-12-17 08:45] VITALS: PULSE 103
[2024-12-17] MEDS: PROPRANOLOL HCL 20 MG TABLET PO (08:45)
[2024-12-17] MEDS: CHOLECALCIFEROL 1,000 UNITS TABLET 2000 UNITS PO (08:45)
[2024-12-17] MEDS: PREGABALIN (*CRX) 75 MG CAPSULE 150 MG PO (08:45)
[2024-12-17] MEDS: busPIRone HCL 5 MG TABLET 15 MG PO (08:45)
[2024-12-17] MEDS: FAMOTIDINE 20 MG TABLET PO (08:45)
[2024-12-17] MEDS: SENNA/DOCUSATE SODIUM TABLET 2 TAB PO (08:45)
[2024-12-17] MEDS: IBUPROFEN IV 800 MG/200 ML 800 MG/200 ML BAG 400 MG IVPB (08:46)
[2024-12-17] MEDS: diazePAM (*CRX) 5 MG TABLET PO (08:46)
--- NOTE | 2024-12-17 09:56 | PM.PNORT ---
Progress Note: A&P Assessment and Plan (1) S/P total knee arthroplasty: Code(s): Z96.659 - Presence of unspecified artificial knee joint Status: Acute Assessment and Plan: POD 3 IMPROVING. WE WILL SEE HOW SHE DOES WITH PT THIS AM AND AFTERNOON. SHE MAY BE DISCHARGED IF SHE SHOWS IMPROVEMENT WITH MINIMAL ASSIST. (2) Cerebral palsy: Qualifiers: Cerebral palsy type: unspecified type Qualified Code(s): G80.9 - Cerebral palsy, unspecified Code(s): G80.9 - Cerebral palsy, unspecified Status: Chronic Subjective Subjective Date/Time Seen: 12/17/24 09:56 Interval history: POD 3 DOING WELL. HER SPASMS HAVE IMPROVED WITH VALIUM. PAIN IS CONTROLLED. SHE IS HAVING SLOW PROGRESS WITH PT. NO CALF OR THIGH PAIN/TENDERNESS Exam Extrem: Other: VSS AFEBRILE DRESSING DRY NV INTACT NEG HOMANS SIGN CALF AND THIGH SOFT NON TENDER. Objective Data Vital Signs Vital Signs: Vital Signs - 24 hr 12/16/24 10:00 12/16/24 11:42 12/16/24 14:43 Temperature 36.3 C L 36.3 C L 36.8 C Pulse Rate 102 H 105 H 107 H Respiratory Rate 18 20 20 Blood Pressure 109/63 105/63 132/82 Pulse Oximetry 96 91 93 12/16/24 18:36 12/17/24 05:00 12/17/24 08:45 Temperature 37.0 C 36.4 C Pulse Rate 99 99 103 H Respiratory Rate 20 18 Blood Pressure 105/60 99/70 L Pulse Oximetry 95 99 Intake/Output Intake/Output: Intake & Output 12/14/24 12/15/24 12/16/24 12/17/24 23:59 23:59 23:59 23:59 Intake Total 760 2460 1080 560 Output Total 1150 2350 Balance 760 1310 -1270 560 Meds/Results Medications: Active Medications Generic Name Dose Route Start Last Admin Trade Name Freq PRN Reason Stop Dose Admin Acetaminophen 500 mg 12/14/24 15:20 Acetaminophen 500 Mg Tablet PO Q6H PRN Pain Rated 1-3 Aspirin 325 mg 12/14/24 21:00 12/17/24 08:44 Aspirin 325 Mg Enteric Tablet PO 325 mg Q12HR MONIKA Administration Buspirone HCl 15 mg 12/14/24 17:00 12/17/24 08:45 Buspirone Hcl 5 Mg Tablet PO 15 mg BID MONIKA Administration Cyclobenzaprine HCl 10 mg 12/14/24 15:20 12/16/24 10:57 Cyclobenzaprine Hcl 10 Mg Tablet PO 10 mg TID PRN Administration MUSCLE SPASMS Diazepam 5 mg 12/14/24 15:20 12/17/24 08:46 Diazepam (*Crx) 5 Mg Tablet PO 5 mg Q8H PRN Administration Spasms Diphenhydramine HCl 25 mg 12/14/24 15:20 Diphenhydramine Hcl Inj 50 Mg/Ml Vial IV PUSH Q6H PRN Itching Ezetimibe 10 mg 12/14/24 21:00 12/16/24 20:38 Ezetimibe 10 Mg Tablet PO 10 mg HS MONIKA Administration Famotidine 20 mg 12/14/24 21:00 12/17/24 08:45 Famotidine 20 Mg Tablet PO 20 mg Q12HR MONIKA Administration Hydromorphone HCl 1 mg 12/14/24 15:24 12/16/24 04:56 Hydromorphone Hcl Inj (*Crx) 2 Mg/Ml Vial IV PUSH 1 mg Q2H PRN Administration Breakthrough Pain Rated 7-10 or NPO Hydromorphone HCl 0.5 mg 12/14/24 15:25 Hydromorphone Hcl Inj (*Crx) 2 Mg/Ml Vial IV PUSH Q2H PRN Breakthrough Pain Rated 4-6 or NPO Ibuprofen 800 mg in 200 mls @ 400 mls/hr 12/14/24 15:20 12/17/24 08:46 Caldolor 800 Mg/200 Ml IVPB 400 mls/hr Q6H PRN Administration Breakthrough Pain Rated 1-3 or NPO Levothyroxine Sodium 88 mcg 12/15/24 06:30 12/17/24 06:46 Levothyroxine Sodium 88 Mcg Tablet PO 88 mcg DAILY@0630 MONIKA Administration Naloxone HCl 0.1 mg 12/14/24 15:20 Naloxone Hcl 0.4 Mg/Ml Vial IV PUSH Q2M PRN Opiate Reversal Ondansetron HCl 4 mg 12/14/24 15:20 12/16/24 04:56 Ondansetron Inj 4 Mg/2 Ml Vial IV PUSH 4 mg Q4H PRN Administration Nausea And Vomiting Oxycodone/Acetaminophen 1 tablet 12/14/24 15:20 12/17/24 00:58 Oxycodone/Acetaminophen (*Crx) 5-325 Mg Tablet PO 1 tablet Q4H PRN Administration Pain Rated 4-6 Oxycodone/Acetaminophen 1 tab 12/14/24 15:20 12/16/24 10:57 Oxycodone/Acetaminophen (*Crx) 10-325 Mg Tablet PO 1 tab Q6H PRN Administration Pain Rated 7-10 Polyethylene Glycol 17 gm 12/15/24 09:00 12/17/24 08:46 Polyethylene Glycol 3350 17 Gm Powd.Pack PO Not Given QAM MONIKA Pregabalin 150 mg 12/15/24 09:00 12/17/24 08:45 Pregabalin (*Crx) 75 Mg Capsule PO 150 mg DAILY MONIKA Administration Propranolol HCl 20 mg 12/15/24 09:00 12/17/24 08:45 Propranolol Hcl 20 Mg Tablet PO 20 mg QAM MONIKA Administration Senna/Docusate Sodium 2 tab 12/14/24 21:00 12/17/24 08:45 Senna/Docusate Sodium Tablet PO 2 tab Q12HR MONIKA Administration Vitamin D 2,000 units 12/15/24 09:00 12/17/24 08:45 Cholecalciferol 1,000 Units Tablet PO 2,000 units DAILY MONIKA Administration Radiology Results: ITS Impressions Knee X-Ray 12/14/24 15:29 IMPRESSION: 1. Left total knee arthroplasty, negative for postoperative purposes.
== END 2024-12-17 13:20 | disposition home health service (06) | DRG 470 ==
LOC: ANH3MEDSUR 10:32
PROVIDERS: Admitting Provider Orthopaedic Surgery; PCP Nurse Practitioner Family; Visit Provider Orthopaedic Surgery
PROC: 0SRD069 Replacement of Left Knee Joint with Oxidized Zirconium on Polyethylene Synthetic Substitute, Cemented, Open Approach (ICD-10-PCS; CPT 27447; principal; 2024-12-14 10:30)
DX: M17.12 Unilateral primary osteoarthritis, left knee (principal); G80.9 Cerebral palsy, unspecified; K21.9 Gastro-esophageal reflux disease without esophagitis; E03.9 Hypothyroidism, unspecified; E78.2 Mixed hyperlipidemia; M62.838 Other muscle spasm; Z96.651 Presence of right artificial knee joint
CPT/HCPCS: 36415; 73560; 80048; 85025; 97110; 97116; 97161; 97166; 97530; 97535; A9270; C1713; C1776; J0171; J0690; J1100; J1171; J1741; J1885; J2003; J2250; J2270; J2405; J2704; J2795; J3010; J7030; J7120

== ENCOUNTER 2025-02-07 21:09 | Inpatient (IN) | payer MEDICARE, SELFPAY ==
--- NOTE | ~2025-02-07 | XR_ITS ---
Clinical Indication: Leukocytosis PA and lateral views of the chest: Comparison: 10/29/2020 Findings: Possible retrocardiac airspace disease. Right lung clear. No pleural effusion. Cardiomedia stinal silhouette is within normal limits. Bones and soft tissues are unremarkable. Impression: Questional subtle left lower lobe pneumonia. Reviewed, dictated and finalized at location . Impression: Questional subtle left lower lobe pneumonia.
--- NOTE | ~2025-02-07 | CT_ITS ---
CT of the Abdomen and Pelvis: Indication: Abdominal pain Technique: 2.5 mm axial scans were obtained through the abdomen and pelvis following intravenous adm inistration of 100 cc of Omnipaque 350. Dose reduction technique was used on this scan by utilizing a utomated exposure control and iterative reconstruction technique. The dose-length product (DLP) was 3 88.18 mGy-cm. COMPARISON: 11/27/2023 Findings: Scans through the lung bases demonstrate minimal dependent atelectatic changes. The liver, spleen, pancreas, gallbladder, adrenals and kidneys are within normal limits. No evidence of aortic aneurysm. No lymphadenopathy. No bowel obstruction or bowel wall thickening. There is no evidence to suggest acute appendicitis. Images through the pelvis were performed. Urinary bladder unremarkable. No pelvic mass seen. No ascit es. Impression: No significant abnormalities seen. Reviewed, dictated and finalized at [facility]. Impression: No significant abnormalities seen.
--- NOTE | ~2025-02-07 | XR_ITS ---
Left Knee Technique: AP, lateral, and oblique views were obtained. Clinical History: Drainage from incision Findings: No fracture or dislocation is seen. Left knee arthroplasty is unchanged. Soft tissues are u nremarkable. No joint effusion is seen. Impression: No acute abnormality identified. Left knee arthroplasty in place. Reviewed, dictated and finalized at location . Impression: No acute abnormality identified. Left knee arthroplasty in place.
--- NOTE | ~2025-02-07 | XR_ITS ---
EXAM: XR abdomen/kub 1V DATE: 02/11/2025 16:47 HISTORY: f/u fecal impaction . COMPARISON: 11/26/2023. FINDINGS: Right-sided stimulator pack, lead terminating over the left sacrum. Clear lung bases. No or ganomegaly. Normal bowel gas pattern. Degenerative changes in the lumbar spine and bilateral hips. Sc attered pelvic phleboliths. IMPRESSION: No radiographic evidence of obstruction or ileus. Reviewed, dictated and finalized at location [facility].
--- OUTSIDE RECORDS SUMMARY | 2025-02-07 21:11 | XMS_ITS | Clinical Summary ---
Author Organization [facility] Address [address] [place] [address] Care Team Providers Care Rubber Process Hand Name Role Phone Mil Verduzco MD Primary Care Provider [phone] Social History Tobacco Use Types Packs/Day Years [...] age to complete this topic Care Teams Rubber Process Hand Relationship Specialty Start Date End Date Mil Verduzco MD PCP - General 11/14/11
--- OUTSIDE RECORDS SUMMARY | 2025-02-07 21:11 | XMS_ITS | Clinical Summary ---
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 3 Active meloxicam (MOBIC) 15 [...] on file Legal Sex Female 10:17 AM PRINTED CIRCUIT BOARDS PINNER Gender Identity Not on file Sexual Orientation Not on file Obstetrics History Last Filed Vital Signs Vital Sign Reading Time Taken Comments Blood Pressure 131/84 07/17/2023 11:01 AM PRINTED CIRCUIT BOARDS PINNER Pulse 83 07/17/2023 11:01 AM PRINTED CIRCUIT BOARDS PINNER Temperature 35.5 C (95.9 F) 07/17/2023 11:01 AM PRINTED CIRCUIT BOARDS PINNER Respiratory Rate 18 06/08/2023 9:55 AM CDT Oxygen Saturation 96% 07/17/2023 11:01 AM PRINTED CIRCUIT BOARDS PINNER Inhaled Oxygen Concentration - - Weight 60.8 kg (134 lb) 06/08/2023 8:56 AM CDT Height 157.5 cm (5' 2) 05/22/2023 8:00 AM CDT Body Mass Index [...] or options for improving home safety. Insurance MEDICARE [facility] CLAIMS OFFICE MEDICARE [facility] MEDICARE SUPPLEMENT Care Teams Cleaning Specialist Relationship Specialty Start Date End Date Floyd Mcneil MD PCP - General Family Practice 01/30/23
--- OUTSIDE RECORDS SUMMARY | 2025-02-07 21:11 | XMS_ITS | Referral Summary ---
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 3 Active meloxicam (MOBIC) 15 [...] on file Legal Sex Female 10:17 AM TERRAZZO LABORER Gender Identity Not on file Sexual Orientation Not on file Last Filed Vital Signs Vital Sign Reading Time Taken Comments Blood Pressure 131/84 07/17/2023 11:01 AM TERRAZZO LABORER Pulse 83 07/17/2023 11:01 AM TERRAZZO LABORER Temperature 35.5 C (95.9 F) 07/17/2023 11:01 AM TERRAZZO LABORER Respiratory Rate 18 06/08/2023 9:55 AM CDT Oxygen Saturation 96% 07/17/2023 11:01 AM TERRAZZO LABORER Inhaled Oxygen Concentration - - Weight 60.8 [...] on stairs Contact your local community or [facility] for information on exercise, fall prevention programs, or options for improving home safety. Insurance MEDICARE [employer] CLAIMS OFFICE MEDICARE [employer] MEDICARE SUPPLEMENT Care Teams Medical Staff Specialist Relationship Specialty Start Date End Date Floyd Mcneil MD PCP - General Family Practice 01/30/23
--- OUTSIDE RECORDS SUMMARY | 2025-02-07 21:11 | XMS_ITS | Patient Health Record ---
Author Organization [facility] [employer] Address [address] [facility] [address] [place] [address] Care Team Providers Care Field Trainer Name Role Phone Julia Mario Alberto Unavailable [phone] Allergies Allergen (clinical drug ingredient) Drug/Non Drug [...] 1 tablet every night Oral Once a day; Duration: 90 days Active Propranolol HCl 20 MG 1 tablet every morning Oral once a day; Duration: 90 days Mario Alberto Dumont 11/10/2024 01:10:44 PM CDT > Active Levothyroxine Sodium 88 MCG Oral 09/25/2022 Active Meloxicam 15 MG Oral 09/25/2022 Act fina Cyclobenzaprine HCl 10 MG Oral 09/25/2022 Active fluvoxaMINE Maleate 50 MG 1 tablet every morning, 2 tablets at bedtime Oral Once a day; Duration: 90 days total dose is 3 tablets every day total dose is 3 tablets every day on two different rx Mario Alberto Dumont 11/10/2024 01:11:00 PM CDT > Active busPIRone HCl 5 MG 1 tablet Orally Twice a day; Duration: 90 days Mario Alberto Dumont 11/10/2024 01:10:40 PM CDT > 08/11/2024 05/09/2025 Active Immunizations Vaccine Route Administration Date Status Comme nts Influenza virus vaccine, quadrivalent (IIV4), split virus, 0.25 mL dosage Unknown 04/19/2018 Administered Influenza virus vaccine, quadrivalent (IIV4), split virus, 0.25 mL dosage Unknown 07/01/2019 Administered Novel [id number], preservative free Unknown 04/27/2018 Administered Novel [id number], preservative free Unknown 05/20/2020 Administered Pfizer Biontech [...] Status W/U Status Risk Notes Problem Major depressive disorder, single episode, in full remission (F32.5) 3 Active confirmed Problem Generalized anxiety disorder ([id number]) Generalized anxiety disorder (F41.1) 3 Active confirmed Problem Cerebral palsy ([id number]) Cerebral palsy, unspecified (G80.9) 3 Active confirmed Vital Signs Heart Rate 83 /min 11/10/2024 Height-cm 152.40 cm 11/10/2024 Blood pressure diastolic 81 mm Hg 11/10/2024 Weight-kg 65.32 kg 08/11/2024 Height 60.00 in 11/10/2024 Blood pressure systolic 117 mm Hg 11/10/2024 Weight 144 lbs 08/11/2024 BMI 28.12 kg/m2 08/11/2024 Encounters Encounter Location Date Provider Diagnosis [facility] [address] [place] [address] 05/12/2024 Mario Alberto Dumont Major depressive disorder, single episode, in full remission F32.5 ; Generalized anxiety disorder F41.1 and Cerebral palsy, unspecified G80.9 [facility] [address] [place] [address] 08/11/2024 Mario Alberto Dumont Major depressive disorder, single episode, in full remission F32.5 ; Generalized anxiety disorder F41.1 and Cerebral palsy, unspecified G80.9 [facility] [employer] [place] [address] [place] [address] 11/10/2024 Mario Alberto Dumont Encounter for screen ing for depression Z13.31 ; Encounter for screening for cardiovascular disorders Z13.6 ; Major depressive disorder, single episode, in full remission F32.5 ; Generalized anxiety disorder F41.1 and Cerebral palsy, unspecified G80.9 [facility] [employer] [place] [address] [facility] [address] [place] [address] 03/18/2024 Mario Albertojulianne Donam [facility] [employer] [place] [address] [facility] [address] [place] [address] 05/17/2024 Mario Alberto Dumont Major depressive disorder, single episode, in full remission F32.5 [facility] [employer] [place] [address] [address] [facility] [address] [facility] [address] [place] [address] 09/05/2024 Mario Alberto Dumont Generalized anxiety disorder [...] morning). - Renew prescriptions and send to [facility]. - Monitor for any signs of manic [...] the patient's primary care physician or paint prepper. - Encourage the patient to report any changes in pain levels or new pain symptoms. Advanced Care Directive - Assessment: Patient has an advanced care directive in place, with sister Kelly as the power of employment attorney for both medical and other matters. [...] is on Medicare and prefers to use [facility] pharmacy instead of mail order. - Plan: [...] morning). - Renew prescriptions and send to [facility]. - Monitor for any signs of manic [...] the patient's primary care physician or paint prepper. - Encourage the patient to report any changes in pain levels or new pain symptoms. Advanced Care Directive - Assessment: Patient has an advanced care directive in place, with sister Kelly as the power of employment attorney for both medical and other matters. [...] is on Medicare and prefers to use [facility] pharmacy instead of mail order. - Plan: [...] Encourage follow-up with primary care provider or data reduction technician for ongoing management of GERD. Follow-up - [...] Encourage follow-up with primary care provider or data reduction technician for ongoing management of GERD. Follow-up - [...] morning). - Renew prescriptions and send to [facility]. - Monitor for any signs of manic [...] the patient's primary care physician or paint prepper. - Encourage the patient to report any changes in pain levels or new pain symptoms. Advanced Care Directive - Assessment: Patient has an advanced care directive in place, with sister Kelly as the power of employment attorney for both medical and other matters. [...] is on Medicare and prefers to use [facility] pharmacy instead of mail order. - Plan: [...] Encourage follow-up with primary care provider or data reduction technician for ongoing management of GERD. 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 This document should not be considered a verbatim record, and any discrepancies should be verified with the provider. Plan Of Treatment Next Appt Details Provider Name:Mario Alberto Dumont , 05/12/2025 01:00:00 PM, [address], [facility] [address], [place], [address], Insurance Providers Payer Name Payer Address Payer Phone Subscriber Number Group Number Insured Name Patient Relationship to Insured Coverage Start Date Coverage End Date Medicare-I l Medicare [address] [place] [address] [id number] DOMINGO HUERTA Self - patient is the insured Medical (General) History Medical History History ICD Code Problems: Cerebral palsy Generalized anxiety disorder Major depression in remission , Surgical History Surgery Date(Month/Year) Any surgical history 01/18/1976 Appendectomy (73157) 01/22/1979 rt knee replaced [id number] rt knee re do [id number] Hospitalization History Reason Date(Month/Year) rt knee redo 04/10/2024 rt knee replaced 10/14/2023
[2025-02-07 21:30] VITALS: BP 111/73; PULSE 115; RESP 20; TEMP 36.8; O2SAT 97
[2025-02-08] VITALS (17 sets, daily range): BP systolic 82–123; BP diastolic 42–67; PULSE 91–108; RESP 13–20; TEMP 36.4–37.4; O2SAT 91–94; BMI 26.6
--- NOTE | 2025-02-08 | ED.NAVMDI ---
HPI - Nausea/Vomiting/Diarrhea General Chief complaint: Nausea/Vomiting/Diarrhea <Winnie Saldana PA-C - Last Filed: 02/08/25 17:23> Stated complaint: nausea/Constipation <MARCIN Spangler Last Filed: 02/08/25 17:23> Time Seen by Provider: 02/07/25 23:48 <Winnie Saldana PA-C - Last Filed: 02/08/25 17:23> Source: patient <MARCIN Spangler Last Filed: 02/08/25 17:23> Mode of arrival: wheelchair <MARCIN Spangler Last Filed: 02/08/25 17:23> Limitations: no limitations <MARCIN Spangler Last Filed: 02/08/25 17:23> History of Present Illness HPI Narrative: This is a 59-year-old female that presents to the emergency department for abdominal pain, nausea, vomiting. Ongoing over the last week. Reports recent left knee replacement couple of weeks ago with Dr. Gonzalez. Reports she has had some bloody drainage from a couple of spots on her incision. Denies fever, erythema, decreased ROM. <Winnie Saldana PA-C - Last Filed: 02/08/25 17:23> Related Data Home medications: Home Medications ?Medication ?Instructions ?Recorded ?Confirmed ?Last Taken ?Type fluvoxamine 50 mg tablet See Rx Instructions .Route .COMPLEX 04/24/24 02/08/25 12/14/24 History meloxicam 7.5 mg tablet 7.5 mg PO HS 02/08/25 02/08/25 Unknown History <MARCIN Spangler Last Filed: 02/08/25 17:23> Allergies/Adverse reactions: Allergies Allergy/AdvReac Type Severity Reaction Status Date / Time simvastatin Allergy Unknown Muscle pain Verified 02/07/25 21:30 Bxpstyy-JXH-PuQ Reductase Allergy Unknown Muscle Pain Verified 02/07/25 21:30 Inhibitor (Uyhukfn-Ahi-Ikr Reductase Inhibitor) Sulfa (Sulfonamide Allergy Unknown Hives Verified 02/07/25 21:30 Antibiotics) <MARCIN Spangler Last Filed: 02/08/25 17:23> Review of Systems Review of Systems: All systems reviewed & are unremarkable except as noted in HPI and below <Winnie Saldana PA-C - Last Filed: 02/08/25 17:23> [facility] Past Medical History Medical History: Medical History (Updated 02/08/25 @ 17:23 by Winnie Saldana PA-C) CAP (community acquired pneumonia) GERD (gastroesophageal reflux disease) 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 Gonzalez History of cystoscopy History of bilateral knee arthroplasty History of appendectomy <Winnie Saldana PA-C - Last Filed: 02/08/25 17:23> Family History Family History: Family History Mother Family history of elevated blood lipids Family history of arthritis Multiple myeloma Father Family history of heart disease in male family member before age 55 Family history of diabetes mellitus in first degree relative Diabetes mellitus Family history of coronary artery disease <Winnie Saldana PA-C - Last Filed: 02/08/25 17:23> Social History Social History: Social History Social History: Surrogate medical decision maker: Lacie Rapp, sibling. Code status: Full code. Smoking status: Never smoker Second hand tobacco smoke exposure: No Alcohol intake: never Alcohol use details: 1 per month Substance use: never Substance use type: does not use Do You Feel Safe in your Home?: Yes Lack of Transportation: No Lack of Food: Never True Current Housing: I Have Housing Concerned About Future Housing: No Difficulty Paying Gas/Electric Bills: No Difficulty Paying for Meds: No Currently Unemployed: No Education: Associate Degree Difficulty w/ Childcare or Family Care: No Living arrangements: with family Additional living arrangements comments: Occupation/Education: retired Spiritual care concerns: No Agree to blood products: Yes <Winnie Saldana PA-C - Last Filed: 02/08/25 17:23> Exam Narrative: GENERAL: Well-appearing, well-nourished, and in no acute distress. HEAD: Normocephalic, atraumatic. EYES: EOMI. CHEST: Clear to auscultation. No respiratory distress. No wheezes rales or rhonchi HEART: Regular rate and rhythm. No murmur heard. Normal peripheral pulses. ABDOMEN: Soft, nondistended, normal active bowel sounds. Tender to palpation throughout the abdomen, with guarding present EXTREMITIES: Normal range of motion. No edema or erythema. Incision appear intact without any notable drainage. Normal DP pulses SKIN: Warm, dry, no rash. NEURO: No focal deficits. Alert and oriented x3. PSYCH: Normal mood and affect <Winnie Saldana PA-C - Last Filed: 02/08/25 17:23> Course Course Emergency Course: Spoke with patient about her workup. Reports she is still quite uncomfortable with abdominal pain. Reports Dr. Gonzalez was hoping for her to be admitted to the hospital and he would see her inpatient <Winnie Saldana PA-C - Last Filed: 02/08/25 17:23> CABINET FINISHER/PA Physician Supervision PA told me this patient would be admitted. CXR by stat rad does result at 04:35 with the below. I did add the diagnosis of left lower lobe pneumonia patient's problem list and spoke with the hospitalist at approximately 4:40 a.m. she had just put in an order for cefazolin given the unknown etiology her leukocytosis. She Will change this order to ceftriaxone with azithromycin. <Vasthi Oseguera MD - Last Filed: 02/08/25 04:41> Consultations Consultation #1: Spoke with hospitalist about patient and workup who accepts admission <Winnie Saldana PA-C - Last Filed: 02/08/25 17:23> Date: 02/08/25 <Winnie Saldana PA-C - Last Filed: 02/08/25 17:23> Vital Signs Vital signs: Vital Signs Temperature 98.2 F 02/07/25 21:30 Pulse Rate 115 H 02/07/25 21:30 Respiratory Rate 20 02/07/25 21:30 Blood Pressure 111/73 02/07/25 21:30 Pulse Oximetry 97 02/07/25 21:30 Oxygen Delivery Room Air 02/07/25 21:30 Temperature 97.7 F 02/08/25 12:00 Pulse Rate 93 02/08/25 12:00 Respiratory Rate 16 02/08/25 12:00 Blood Pressure 100/60 02/08/25 14:59 Pulse Oximetry 94 02/08/25 12:00 Oxygen Delivery Room Air 02/08/25 08:00 <Winnie Saldana PA-C - Last Filed: 02/08/25 17:23> Vital Signs Temperature 98.2 F 02/07/25 21:30 Pulse Rate 115 H 02/07/25 21:30 Respiratory Rate 20 02/07/25 21:30 Blood Pressure 111/73 02/07/25 21:30 Pulse Oximetry 97 02/07/25 21:30 Oxygen Delivery Room Air 02/07/25 21:30 Temperature 97.7 F 02/08/25 12:00 Pulse Rate 93 02/08/25 12:00 Respiratory Rate 16 02/08/25 12:00 Blood Pressure 100/60 02/08/25 14:59 Pulse Oximetry 94 02/08/25 12:00 Oxygen Delivery Room Air 02/08/25 08:00 <Vashti Oseguera MD - Last Filed: 02/08/25 04:41> MDM - Nausea/Vomiting/Diarrhea MDM Narrative Medical decision making narrative: Patient presents to the emergency department for constipation, nausea vomiting. Had left total knee replacement a couple of weeks ago with Dr. Gonzalez. She is endorsing some drainage from the knee, although she describes it as what sounds like bloody/serous. There is no active drainage on my exam today. The incision looks fairly well healing, there is no surrounding redness. She has great range of motion in her knee. She is afebrile and nontoxic appearing. She is persistently mildly tachycardic and blood pressure soft, responsive to IV fluids. CBC shows leukocytosis to 18. Metabolic panel with some evidence of dehydration. Urine also with evidence of dehydration, no evidence of infection. Lactic acid is not elevated. CT abdomen pelvis shows fecal impaction. Soap suds enema is ordered. Patient will be admitted for further evaluation/management. Spoke with hospitalist about patient and workup accepts admission. Blood cultures obtained. Will obtain chest x-ray for further evaluation of leukocytosis <Winnie Saldana PA-C - Last Filed: 02/08/25 17:23> Differential Diagnosis Differential diagnosis: Likely gastroenteritis, dehydration and other (Constipation, electrolyte derangement, UTI, pneumonia, bowel obstruction) <Winnie Saldana PA-C - Last Filed: 02/08/25 17:23> Lab Data Attestation: I reviewed the patient's lab results. <Winnie Saldana PA-C - Last Filed: 02/08/25 17:23> Result diagrams: 02/08/25 00:22 02/08/25 00:22 <Winnie Saldana PA-C - Last Filed: 02/08/25 17:23> Labs: Lab Results 02/08/25 02/08/25 02/08/25 Range/Units 00:21 00:22 00:29 WBC 18.0 H (4.5-10.0) K/mm3 RBC 4.63 (4.2-5.4) M/mm3 Hgb 12.3 (12.0-15.0) g/dL Hct 39.0 (37.0-47.0) % MCV 84.2 (80-100) fl MCH 26.6 (26-34) pg MCHC 31.5 L (32-36) g/dl RDW 13.3 (11.5-14.5) % Plt Count 339 (150-375) k/mm3 MPV 9.2 (7.4-10.4) fl Immature Gran % (Auto) 0.3 (0-0.5) % Neut % (Auto) 92.4 H (45.5-73.1) % Lymph % (Auto) 3.7 L (18.3-44.2) % Vermillion % (Auto) 3.3 (2.6-8.5) % Eos % (Auto) 0.0 (0-4.4) % Baso % (Auto) 0.3 (0.2-1.2) % Lymph # (Auto) 0.67 L (0.9-3.2) K/mm3 Vermillion # (Auto) 0.6 (0.1-0.6) K/mm3 Eos # (Auto) 0.0 (0-0.3) K/mm3 Baso # (Auto) 0.1 (0.0-0.1) K/mm3 Abs Immat Gran (auto) 0.06 H (0.00-0.031) K/mm3 Absolute Neuts (auto) 16.6 H (1.3-6.7) K/mm3 Absolute Nucleated RBC 0.000 (0.0-0.012) K/mm3 Nucleated RBC % 0.0 (0.0-0.2) % ESR 17 (0-20) mm/hr Sodium 138 (137-145) mmol/L Potassium 4.5 (3.4-5.0) mmol/L Chloride 99 (98-107) mmol/L Carbon Dioxide 25 (22-30) mmol/L Anion Gap 14 H (4-12) mmol/L BUN 17 (7-17) mg/dL Creatinine 0.70 (0.7-1.0) mg/dL Estim Creat Clear Calc 65 ml/min Estimated GFR > 60 (59 - ) Glucose 169 H (65-110) mg/dL Lactic Acid (0.7-2.0) mmol/L Calcium 9.7 (8.4-10.2) mg/dL Total Bilirubin 0.6 (0.2-1.3) mg/dL AST 32 (14-36) U/L ALT 18 (6-35) U/L Alkaline Phosphatase 104 (38-126) U/L C-Reactive Protein 2.6 H (<1.0) mg/dL Total Protein 8.1 (6.3-8.2) g/dL Albumin 4.7 (3.5-5.1) g/dL Lipase 52 (23-300) U/L Urine Color Yellow (Yellow) Urine Appearance Clear (Clear) Urine pH 6.5 (5.0-9.0) Ur Specific Hudson 1.016 (1.001-1.035) Urine Protein Negative (Negative) mg/dL Urine Glucose (UA) Negative (Negative) mg/dL Urine Ketones 2+ H (Negative) mg/dL Ur Blood (Man) Negative (Negative) Urine Nitrate Negative (Negative) Urine Bilirubin Negative (Negative) Urine Urobilinogen 0.2 (<2.0) mg/dL Leukocyte Esterase Rfl Negative (Negative) ARCHANA/UL 02/08/25 Range/Units 05:48 WBC (4.5-10.0) K/mm3 RBC (4.2-5.4) M/mm3 Hgb (12.0-15.0) g/dL Hct (37.0-47.0) % MCV (80-100) fl MCH (26-34) pg MCHC (32-36) g/dl RDW (11.5-14.5) % Plt Count (150-375) k/mm3 MPV (7.4-10.4) fl Immature Gran % (Auto) (0-0.5) % Neut % (Auto) (45.5-73.1) % Lymph % (Auto) (18.3-44.2) % Vermillion % (Auto) (2.6-8.5) % Eos % (Auto) (0-4.4) % Baso % (Auto) (0.2-1.2) % Lymph # (Auto) (0.9-3.2) K/mm3 Vermillion # (Auto) (0.1-0.6) K/mm3 Eos # (Auto) (0-0.3) K/mm3 Baso # (Auto) (0.0-0.1) K/mm3 Abs Immat Gran (auto) (0.00-0.031) K/mm3 Absolute Neuts (auto) (1.3-6.7) K/mm3 Absolute Nucleated RBC (0.0-0.012) K/mm3 Nucleated RBC % (0.0-0.2) % ESR (0-20) mm/hr Sodium (137-145) mmol/L Potassium (3.4-5.0) mmol/L Chloride (98-107) mmol/L Carbon Dioxide (22-30) mmol/L Anion Gap (4-12) mmol/L BUN (7-17) mg/dL Creatinine (0.7-1.0) mg/dL Estim Creat Clear Calc ml/min Estimated GFR (59 - ) Glucose (65-110) mg/dL Lactic Acid 1.3 (0.7-2.0) mmol/L Calcium (8.4-10.2) mg/dL Total Bilirubin (0.2-1.3) mg/dL AST (14-36) U/L ALT (6-35) U/L Alkaline Phosphatase (38-126) U/L C-Reactive Protein (<1.0) mg/dL Total Protein (6.3-8.2) g/dL Albumin (3.5-5.1) g/dL Lipase (23-300) U/L Urine Color (Yellow) Urine Appearance (Clear) Urine pH (5.0-9.0) Ur Specific Hudson (1.001-1.035) Urine Protein (Negative) mg/dL Urine Glucose (UA) (Negative) mg/dL Urine Ketones (Negative) mg/dL Ur Blood (Man) (Negative) Urine Nitrate (Negative) Urine Bilirubin (Negative) Urine Urobilinogen (<2.0) mg/dL Leukocyte Esterase Rfl (Negative) ARCHANA/UL <Winnie Saldana PA-C - Last Filed: 02/08/25 17:23> Lab Results 02/08/25 02/08/25 02/08/25 Range/Units 00:21 00:22 00:29 WBC 18.0 H (4.5-10.0) K/mm3 RBC 4.63 (4.2-5.4) M/mm3 Hgb 12.3 (12.0-15.0) g/dL Hct 39.0 (37.0-47.0) % MCV 84.2 (80-100) fl MCH 26.6 (26-34) pg MCHC 31.5 L (32-36) g/dl RDW 13.3 (11.5-14.5) % Plt Count 339 (150-375) k/mm3 MPV 9.2 (7.4-10.4) fl Immature Gran % (Auto) 0.3 (0-0.5) % Neut % (Auto) 92.4 H (45.5-73.1) % Lymph % (Auto) 3.7 L (18.3-44.2) % [place] % (Auto) 3.3 (2.6-8.5) % Eos % (Auto) 0.0 (0-4.4) % Baso % (Auto) 0.3 (0.2-1.2) % Lymph # (Auto) 0.67 L (0.9-3.2) K/mm3 [place] # (Auto) 0.6 (0.1-0.6) K/mm3 Eos # (Auto) 0.0 (0-0.3) K/mm3 Baso # (Auto) 0.1 (0.0-0.1) K/mm3 Abs Immat Gran (auto) 0.06 H (0.00-0.031) K/mm3 Absolute Neuts (auto) 16.6 H (1.3-6.7) K/mm3 Absolute Nucleated RBC 0.000 (0.0-0.012) K/mm3 Nucleated RBC % 0.0 (0.0-0.2) % ESR 17 (0-20) mm/hr Sodium 138 (137-145) mmol/L Potassium 4.5 (3.4-5.0) mmol/L Chloride 99 (98-107) mmol/L Carbon Dioxide 25 (22-30) mmol/L Anion Gap 14 H (4-12) mmol/L BUN 17 (7-17) mg/dL Creatinine 0.70 (0.7-1.0) mg/dL Estim Creat Clear Calc 65 ml/min Estimated GFR > 60 (59 - ) Glucose 169 H (65-110) mg/dL Lactic Acid (0.7-2.0) mmol/L Calcium 9.7 (8.4-10.2) mg/dL Total Bilirubin 0.6 (0.2-1.3) mg/dL AST 32 (14-36) U/L ALT 18 (6-35) U/L Alkaline Phosphatase 104 (38-126) U/L C-Reactive Protein 2.6 H (<1.0) mg/dL Total Protein 8.1 (6.3-8.2) g/dL Albumin 4.7 (3.5-5.1) g/dL Lipase 52 (23-300) U/L Urine Color Yellow (Yellow) Urine Appearance Clear (Clear) Urine pH 6.5 (5.0-9.0) Ur Specific [place] 1.016 (1.001-1.035) Urine Protein Negative (Negative) mg/dL Urine Glucose (UA) Negative (Negative) mg/dL Urine Ketones 2+ H (Negative) mg/dL Ur Blood (Man) Negative (Negative) Urine Nitrate Negative (Negative) Urine Bilirubin Negative (Negative) Urine Urobilinogen 0.2 (<2.0) mg/dL Leukocyte Esterase Rfl Negative (Negative) ARCHANA/UL 02/08/25 Range/Units 05:48 WBC (4.5-10.0) K/mm3 RBC (4.2-5.4) M/mm3 Hgb (12.0-15.0) g/dL Hct (37.0-47.0) % MCV (80-100) fl MCH (26-34) pg MCHC (32-36) g/dl RDW (11.5-14.5) % Plt Count (150-375) k/mm3 MPV (7.4-10.4) fl Immature Gran % (Auto) (0-0.5) % Neut % (Auto) (45.5-73.1) % Lymph % (Auto) (18.3-44.2) % [place] % (Auto) (2.6-8.5) % Eos % (Auto) (0-4.4) % Baso % (Auto) (0.2-1.2) % Lymph # (Auto) (0.9-3.2) K/mm3 [place] # (Auto) (0.1-0.6) K/mm3 Eos # (Auto) (0-0.3) K/mm3 Baso # (Auto) (0.0-0.1) K/mm3 Abs Immat Gran (auto) (0.00-0.031) K/mm3 Absolute Neuts (auto) (1.3-6.7) K/mm3 Absolute Nucleated RBC (0.0-0.012) K/mm3 Nucleated RBC % (0.0-0.2) % ESR (0-20) mm/hr Sodium (137-145) mmol/L Potassium (3.4-5.0) mmol/L Chloride (98-107) mmol/L Carbon Dioxide (22-30) mmol/L Anion Gap (4-12) mmol/L BUN (7-17) mg/dL Creatinine (0.7-1.0) mg/dL Estim Creat Clear Calc ml/min Estimated GFR (59 - ) Glucose (65-110) mg/dL Lactic Acid 1.3 (0.7-2.0) mmol/L Calcium (8.4-10.2) mg/dL Total Bilirubin (0.2-1.3) mg/dL AST (14-36) U/L ALT (6-35) U/L Alkaline Phosphatase (38-126) U/L C-Reactive Protein (<1.0) mg/dL Total Protein (6.3-8.2) g/dL Albumin (3.5-5.1) g/dL Lipase (23-300) U/L Urine Color (Yellow) Urine Appearance (Clear) Urine pH (5.0-9.0) Ur Specific [place] (1.001-1.035) Urine Protein (Negative) mg/dL Urine Glucose (UA) (Negative) mg/dL Urine Ketones (Negative) mg/dL Ur Blood (Man) (Negative) Urine Nitrate (Negative) Urine Bilirubin (Negative) Urine Urobilinogen (<2.0) mg/dL Leukocyte Esterase Rfl (Negative) ARCHANA/UL <Vashti Oseguera MD - Last Filed: 02/08/25 04:41> Imaging Data Radiologist's impression: CT abdomen and pelvis: There is significant amount of stool in the rectal vault concerning for impaction. No bowel obstruction. The solid organs are within normal limits. The esophagus is fluid-filled which is nonspecific. <Winnei Saldana PA-C - Last Filed: 02/08/25 17:23> CT abdomen and pelvis: There is significant amount of stool in the rectal vault concerning for impaction. No bowel obstruction. The solid organs are within normal limits. The esophagus is fluid-filled which is nonspecific. CXR STat Rad: left lower lobe pneumonia. Suspect small left pleural effusion. No pneumothorax. The cardiac silhouette is within normal limits. No fracture. No incidental findings. <Vashti Oseguera MD - Last Filed: 02/08/25 04:41> Critical Care Time Critical Care Time Critical Care Time: No <Winnie Saldana PA-C - Last Filed: 02/08/25 17:23> Discharge Plan Discharge Clinical Impression: Dehydration Constipation Qualifiers: Constipation type: unspecified constipation type Qualified Code(s): K59.00 - Constipation, unspecified Leukocytosis Qualifiers: Leukocytosis type: unspecified Qualified Code(s): D72.829 - Elevated white blood cell count, unspecified S/P total knee arthroplasty Qualifiers: Laterality: left Qualified Code(s): Z96.652 - Presence of left artificial knee joint Left lower lobe pneumonia Qualifiers: Pneumonia type: due to unspecified organism Qualified Code(s): J18.9 - Pneumonia, unspecified organism <Winnie Saldana PA-C - Last Filed: 02/08/25 17:23> Patient Disposition: Still a Patient <Winnie Saldana PA-C - Last Filed: 02/08/25 17:23> Condition: Stable <Winnie Saldana PA-C - Last Filed: 02/08/25 17:23>
--- OUTSIDE RECORDS SUMMARY | 2025-02-08 | XMS_ITS | Clinical Summary ---
Author Organization [facility] Address [address] [place] [id number] Care Team Providers Care Malariologist Name Role Phone Mil Verduzco MD Primary Care Provider Social History Tobacco Use Types Packs/Day Years [...] age to complete this topic Care Teams Malariologist Relationship Specialty Start Date End Date Mil Verduzco MD PCP - General 11/14/11
--- OUTSIDE RECORDS SUMMARY | 2025-02-08 00:01 | XMS_ITS | Patient Health Record ---
Author Organization [facility] Address [address] [facility] [address] [place] [address] Care Team Providers Care Hand Ii Tube Bender Name Role Phone Julia Mario Alberto Unavailable [phone] Allergies Allergen (clinical drug ingredient) Drug/Non Drug [...] 0.25 mL dosage Unknown 07/01/2019 Administered Novel [id number], preservative free Unknown 04/27/2018 Administered Novel [id number], preservative free Unknown 05/20/2020 Administered Pfizer Biontech [...] Major depression, single episode, in complete remission ([id number]) Major depressive disorder, single episode, in full remission (F32.5) 09/25/2022 Active confirmed Problem Generalized anxiety disorder (F41.1) 09/25/2022 Active confirmed Problem Cerebral palsy ([id number]) Cerebral palsy, unspecified (G80.9) 09/25/2022 Active confirmed Vital Signs Heart Rate 83 /min 11/10/2024 Height-cm 152.40 cm 11/10/2024 Blood pressure diastolic 81 mm Hg 11/10/2024 Weight-kg 65.32 kg 08/11/2024 Height 60.00 in 11/10/2024 Blood pressure systolic 117 mm Hg 11/10/2024 Weight 144 lbs 08/11/2024 BMI 28.12 kg/m2 08/11/2024 Encounters Encounter Location Date Provider Diagnosis [employer] [place] [address] [facility] [address] [place] [address] 05/12/2024 Mario Alberto Dumont Major depressive disorder, single episode, in full remission F32.5 ; Generalized anxiety disorder F41.1 and Cerebral palsy, unspecified G80.9 [employer] [place] [address] [place] [address] [place] [address] 08/11/2024 Mario Alberto Julia Major depressive disorder, single episode, in full remission F32.5 ; Generalized anxiety disorder F41.1 and Cerebral palsy, unspecified G80.9 [facility] [place] [address] [place] [address] [place] [address] 11/10/2024 Mario Alberto Julia Encounter for screen ing for depression Z13.31 ; Encounter for screening for cardiovascular disorders Z13.6 ; Major depressive disorder, single episode, in full remission F32.5 ; Generalized anxiety disorder F41.1 and Cerebral palsy, unspecified G80.[address] [facility] [address] [place] [address] [place] [address] 03/18/2024 Mario Alberto Julia [facility] [place] [address] [place] [address] [place] [address] 05/17/2024 Mario Alberto Julia Major depressive disorder, single episode, in full remission F32.5 [facility] [place] [address] [facility] [address] [facility] [address] [place] [address] 09/05/2024 Mario Alberto Julia Generalized anxiety disorder F41.1 and Major depressive disorder, single episode, in full remission F32.5 Assessments Encounter Date Diagnosis (ICD Code) Assessment Notes Treatment Notes Treatment Clinical Notes Section Notes 09/05/2024 Generalized anxiety disorder (ICD-10 - F41.1) 11/10/2024 Encounter for screening for depression (ICD-10 - Z13.31) 08/11/2024 Major depressive disorder, single episode, in [...] Encourage follow-up with primary care provider or firm administrator for ongoing management of GERD. Follow-up - [...] 20 mg every morning as prescribed. 05/12/2024 Major depressive disorder, single episode, in [...] morning). - Renew prescriptions and send to [facility]. - Monitor for any signs of manic [...] by the patient's primary care physician or ornamental painter. - Encourage the patient to report any changes in pain levels or new pain symptoms. Advanced Care Directive - Assessment: Patient has an advanced care directive in place, with sister Kelly as the power of oncology nurse for both medical and other matters. - [...] is on Medicare and prefers to use [facility] instead of mail order. - Plan: [...] morning). - Renew prescriptions and send to [facility] in [place]. - Monitor for any signs of manic [...] by the patient's primary care physician or ornamental painter. - Encourage the patient to report any changes in pain levels or new pain symptoms. Advanced Care Directive - Assessment: Patient has an advanced care directive in place, with sister Kelly as the power of oncology nurse for both medical and other matters. - [...] is on Medicare and prefers to use [facility] instead of mail order. - Plan: Continue to monitor the patient's overall health and well-being during follow-up appointments. 05/17/2024 Major depressive disorder, single episode, in full remission (ICD-10 - F32.5) 09/05/2024 Major depressive disorder, single episode, in full remission (ICD-10 - F32.5) 11/10/2024 Encounter for screening for cardiovascular disorders (ICD-10 - Z13.6) 05/12/2024 Cerebral palsy, unspecified (ICD-10 - G80.9) [...] morning). - Renew prescriptions and send to [facility] in [place]. - Monitor for any signs of manic [...] by the patient's primary care physician or ornamental painter. - Encourage the patient to report any changes in pain levels or new pain symptoms. Advanced Care Directive - Assessment: Patient has an advanced care directive in place, with sister Kelly as the power of oncology nurse for both medical and other matters. - [...] is on Medicare and prefers to use [facility] instead of mail order. - Plan: Continue to monitor the patient's overall health and well-being during follow-up appointments. 08/11/2024 Generalized anxiety disorder (ICD-10 - F41.1) [...] Encourage follow-up with primary care provider or firm administrator for ongoing management of GERD. Follow-up - Plan: - Schedule a follow-up appointment in three months. - Assess patient's progress and response to added buspirone for anxiety management. - Monitor for potential side effects or interactions with current medications. Prescription - Plan: - Send prescription for buspirone 5 mg twice daily to local pharmacy. - Continue propranolol 20 mg every morning as prescribed. 08/11/2024 Cerebral palsy, unspecified (ICD-10 - G80.9) [...] Encourage follow-up with primary care provider or firm administrator for ongoing management of GERD. 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 This document should not be considered a verbatim record, and any discrepancies should be verified with the provider. Plan Of Treatment Next Appt Details Provider Name:Mario Alberto Aparicio Julia , 05/12/2025 01:00:00 PM, [address], [facility] [address], [place], [address], Insurance Providers Payer Name Payer Address Payer Phone Subscriber Number Group Number Insured Name Patient Relationship to Insured Coverage Start Date Coverage End Date Medicare-I l Medicare [address] [place] [address] [id number] DOMINGO HUERTA Self - patient is the insured Medical (General) History Medical History History ICD Code Problems: Cerebral palsy Generalized anxiety disorder Major depression in remission , Surgical History Surgery Date(Month/Year) Any surgical history 01/18/1976 Appendectomy (64613) 01/22/1979 rt knee replaced [id number] rt knee re do [id number] Hospitalization History Reason Date(Month/Year) rt knee redo 04/10/2024 rt knee replaced 10/14/2023
[2025-02-08] MEDS: SODIUM CHLORIDE 0.9% IV 1,000 ML 999 ML IV CONT ×2 (00:26→02:29)
[2025-02-08] MEDS: ONDANSETRON INJ 4 MG/2 ML VIAL IV PUSH (00:26)
[2025-02-08 00:28] LABS: Hematocrit 39.0 % (37.0-47.0); Hemoglobin 12.3 g/dL (12.0-15.0); Immature Granulocyte Percent A 0.3 % (0-0.5); Lymphocytes Absolute Auto 0.67 K/mm3 (0.9-3.2); Mean Corpuscular HGB Conc 31.5 g/dl (32-36); Mean Corpuscular Hemoglobin 26.6 pg (26-34); Mean Corpuscular Volume 84.2 fl (80-100); Nucleated Red Blood Cells Absolute Auto 0.000 K/mm3 (0.0-0.012); Nucleated Red Blood Cells Perc 0.0 % (0.0-0.2); Platelet Count Result 339 k/mm3 (150-375); Red Blood Count 4.63 M/mm3 (4.2-5.4); White Blood Count 18.0 K/mm3 (4.5-10.0)
[2025-02-08 00:40] LABS: Alanine Aminotransferase 18 U/L (6-35); Albumin Level 4.7 g/dL (3.5-5.1); Alkaline Phosphatase 104 U/L (38-126); Anion Gap 14 mmol/L (4-12); Aspartate Amino Transferase 32 U/L (14-36); Bilirubin,Total 0.6 mg/dL (0.2-1.3); Blood Urea Nitrogen 17 mg/dL (7-17); Calcium 9.7 mg/dL (8.4-10.2); Carbon Dioxide 25 mmol/L (22-30); Chloride 99 mmol/L (98-107); Estimated CRCL calculation 65 ml/min; Estimated Glomerular Filt Rate > 60; Glucose 169 mg/dL (65-110); Lipase 52 U/L (23-300); Potassium 4.5 mmol/L (3.4-5.0); Sodium 138 mmol/L (137-145); Total Protein 8.1 g/dL (6.3-8.2)
[2025-02-08 00:40] LABS: Add Urine Microscopic? NO; Appearance Urine Clear (Clear); Glucose Urine UA Negative (Negative); Leukocyte Esterase Ur Negative LEU/UL (Negative); Nitrate Urine Negative (Negative); Specific Grav Ur 1.016 (1.001-1.035)
[2025-02-08] MEDS: MORPHINE SULFATE (*CRX) 4 MG/ML INJ IV PUSH ×2 (01:03→06:24)
[2025-02-08] MEDS: FAMOTIDINE 20 MG/2 ML VIAL IV PUSH (03:44)
[2025-02-08 04:15] LABS: CRP 2.6 mg/dL (<1.0)
--- NOTE | 2025-02-08 04:22 | P.HP_ITS ---
H&P: HPI History of Present Illness Date/Time: 02/08/25 04:22 Chief Complaint: Nausea/vomiting/constipation and drainage from incision of left total knee arthroplasty Narrative: This is a 59-year-old female patient with history of cerebral palsy, hyperlipidemia, depression, DJD, hypothyroidism, GERD who underwent a left total knee arthroplasty by Dr. Gonzalez on 12/14/24. Patient's postoperative course has been recently complicated by constipation passing only very small hard stools, and persistent nausea vomiting. She notes she is not taking any opiate pain medications, and instead only been taking Lyrica and meloxicam. Patient states the abdominal discomfort is a cramping, is worse around the umbilicus and she has developed a decreased appetite. This morning she said her knee felt warm and she had a small amount of purulent drainage and red fluid come out of a small scab at the top of her incision line. Patient has not had any measured fevers at home but has felt feverish subjectively. She denies any new symptoms such as cough, chest pain, dyspnea. She states she called Dr. Gonzalez and he advised to come to the emergency room for likely admission and he would follow as inpatient. Upon him arrival to the emergency room it was noted that patient was tachycardic at a pulse of 115, is afebrile, has normal oxygen saturations, has an unremarkable metabolic panel, elevated white blood cell count of 18K, and 2+ ketones in her urine. Blood pressure has waxed and waned on the softer side since being here ranging from 90/67 to 111/73. Patient has remained tachycardic however. ER provider here to done appreciate any swelling, warmth, redness, drainage from will left knee midline incision. X-ray was ordered and results are currently pending. CT scan abdomen and pelvis was performed that shows fecal impaction without obstruction. A soapsuds enema was ordered as well as Pepcid IV and IV fluid bolus of normal saline for a total of 2 L followed by normal saline with a rate of 125 mL/hour. Blood cultures were obtained secondary to the elevated white blood cell count and are pending. Chest x-ray showing a LLL PNA as noted per [facility]. Patient being admitted in the current setting for tx of PNA, fecal impaction and constipation, likely dehydration and consultation of orthopedics. She will be started on Rocephin and Azithromycin. 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 Gonzalez History of cystoscopy History of bilateral knee arthroplasty History of appendectomy Family History Family History Mother Family history of elevated blood lipids Family history of arthritis Multiple myeloma Father Family history of heart disease in male family member before age 55 Family history of diabetes mellitus in first degree relative Diabetes mellitus Family history of coronary artery disease Social History Social History Social History: Surrogate medical decision maker: Lacie Rapp, sibling. Code status: Full code. Smoking status: Never smoker Second hand tobacco smoke exposure: No Alcohol intake: current Alcohol use details: 1 per month Substance use: never Substance use type: does not use Do You Feel Safe in your Home?: Yes Lack of Transportation: No Lack of Food: Never True Current Housing: I Have Housing Concerned About Future Housing: No Difficulty Paying Gas/Electric Bills: No Difficulty Paying for Meds: No Currently Unemployed: No Education: High School Diploma/GED Difficulty w/ Childcare or Family Care: No Living arrangements: with family Additional living arrangements comments: Occupation/Education: retired Spiritual care concerns: No Agree to blood products: Yes Meds Home Medications and Allergies Home Medications ?Medication ?Instructions ?Recorded ?Confirmed ?Type propranolol 20 mg tablet 20 mg PO QAM #90 tabs 04/06/24 01/06/25 Rx fluvoxamine 50 mg tablet See Rx Instructions .Route .COMPLEX 04/24/24 01/06/25 History cyclobenzaprine 10 mg tablet 10 mg PO TID PRN MUSCLE SPASMS #90 08/19/2401/06 Rx tabs ezetimibe 10 mg tablet (Zetia) 10 mg PO HS #90 tabs 09/05/24 01/06/25 Rx buspirone 15 mg tablet 15 mg PO BID #60 tabs 11/08/24 01/06/25 Rx cholecalciferol (vitamin D3) 50 50 mcg PO DAILY #1 cap 11/14/24 01/06/25 Rx mcg (2,000 unit) capsule oxycodone-acetaminophen 5 mg-325 1 tablet PO Q4-6H PRN pain #28 tabs 12/16/24 01/06/25 Rx mg tablet diazepam 5 mg tablet (Valium) 5 mg PO BID PRN muscle spasm #30 12/17/24 01/06/25 Rx tabs meloxicam 7.5 mg tablet 7.5 mg PO BID #60 tabs 01/11/25 Rx esomeprazole magnesium 20 mg 20 mg PO DAILY #90 caps 01/12/25 Rx capsule,delayed release (Nexium) pregabalin 150 mg capsule 150 mg PO DAILY #90 caps 01/23/25 Rx ondansetron 8 mg disintegrating 8 mg PO Q8H PRN nausea and 01/25/25 Rx tablet vomiting #10 tabs levothyroxine 88 mcg tablet 88 mcg PO DAILY #90 tabs 02/06/25 Rx Allergies Allergy/AdvReac Type Severity Reaction Status Date / Time simvastatin Allergy Unknown Muscle pain Verified 02/07/25 21:30 Rqsiiqu-IME-AcP Reductase Allergy Unknown Muscle Pain Verified 02/07/25 21:30 Inhibitor (Rhylinf-Dms-Rdo Reductase Inhibitor) Sulfa (Sulfonamide Allergy Unknown Hives Verified 02/07/25 21:30 Antibiotics) Vital Signs Vital Signs - 24 hr 02/07/25 21:30 02/08/25 01:43 02/08/25 02:59 Temperature 98.2 F Pulse Rate 115 H 104 H 100 Respiratory Rate 20 16 13 Blood Pressure 111/73 92/65 L 90/67 L Pulse Oximetry 97 92 93 Oxygen Delivery Room Air 02/08/25 04:19 Temperature Pulse Rate 108 H Respiratory Rate 14 Blood Pressure 97/64 L Pulse Oximetry 92 Oxygen Delivery Exam Const: General: uncomfortable (Patient appears acutely ill) HENMT: Face/Nose/Sinus: Normal nares present Mouth: Yes dry mucous membranes Eyes: General: appearance normal, both eyes and all related structures Sclera: sclerae normal Pupils: Equal, round and reactive pupils present EOM: EOMs intact bilaterally Neck: Neck: supple and no JVD Lymphatic: lymphadenopathy not noted Resp: Effort & Inspection: normal respiratory effort Auscultation: clear to auscultation bilaterally Cardio: Rate: tachycardic Rhythm: regular rhythm Heart sounds: no gallops, no murmurs and no rubs GI: Inspection: non-distended GI Palp: Yes Soft to palpation and Yes Tenderness to palpation present (GI) (Generalized, worse at periumbilical region) Auscultation: abnormal bowel sounds (Decreased) Skin: General skin exam: normal color, no rashes or lesions noted and no erythema Lesions: no lesions noted Rashes: no rashes noted Wounds: no wounds Other: Left knee midline incision well approximated, without dehiscence, without erythema, small 1-2 mm scab at cranial end of incision. Full range of motion noted of the joint with flexion and extension without any expressed drainage. Distal neurovascular status is intact. Bilateral knees both feel warm there is no temperature difference. Neuro: Speech: No normal speech (Slow speech, secondary to cerebral palsy) Motor exam (neuro): Abnormal motor strength present (Generalized weakness, nonfocal secondary to cerebral palsy) Sensory Exam: normal sensation Extrem: General: normal to inspection, no edema and no pedal edema Psych: Mental Status: mental status grossly normal Affect: normal affect H&P: Results Labs Labs: Short CBC 02/08/25 Range/Units 00:22 WBC 18.0 H (4.5-10.0) K/mm3 Hgb 12.3 (12.0-15.0) g/dL Hct 39.0 (37.0-47.0) % Plt Count 339 (150-375) k/mm3 BMP 02/08/25 00:22 Sodium 138 Potassium 4.5 Chloride 99 Carbon Dioxide 25 BUN 17 Creatinine 0.70 Glucose 169 H Calcium 9.7 Liver Function 02/08/25 Range/Units 00:22 Total Bilirubin 0.6 (0.2-1.3) mg/dL AST 32 (14-36) U/L ALT 18 (6-35) U/L Alkaline Phosphatase 104 (38-126) U/L Albumin 4.7 (3.5-5.1) g/dL Urine 02/08/25 Range/Units 00:29 Urine Color Yellow (Yellow) Urine Appearance Clear (Clear) Urine pH 6.5 (5.0-9.0) Ur Specific [place] 1.016 (1.001-1.035) Urine Protein Negative (Negative) mg/dL Urine Glucose (UA) Negative (Negative) mg/dL Assessment and Plan Assessment and plan (1) Leukocytosis: Qualifiers: Leukocytosis type: unspecified Qualified Code(s): D72.829 - Elevated white blood cell count, unspecified Code(s): D72.829 - Elevated white blood cell count, unspecified Status: Acute Assessment and Plan: * Blood cultures x2 pending * Urinalysis negative for any signs of acute UTI * Chest x-ray showing a LLL PNA. * Left knee x-ray results currently pending * Start Rocephin and Azithromycin IV Q24 hrs * Consult orthopedics * Obtain lactic acid with reflex * Monitor and trend labs and vitals * CT scan abdomen and pelvis not showing acute intraabdominal abnormalities. (2) CAP (community acquired pneumonia): Code(s): J18.9 - Pneumonia, unspecified organism Status: Acute Assessment and Plan: * See #1 above * Continue abx and provide supportive care as needed with oxygen, nebs, pulmonary toilet. * Guaifenesin 600 mg Q12 hrs. * Incentive Spirometry (3) Status post knee replacement: Code(s): Z96.659 - Presence of unspecified artificial knee joint Status: Acute Assessment and Plan: * Status post left total knee arthroplasty December 14, [address] Gonzalez. * Orthopedics is consulted * X-ray of knee pending (4) Dehydration: Code(s): E86.0 - Dehydration Status: Acute Assessment and Plan: * As evidenced by 2+ ketonuria and persistent nausea/vomiting * Patient received 2 L of normal saline bolus in emergency room and has been started on normal saline at a rate of 125 mL/hour. * Monitor and trend labs and vital signs (5) Cerebral palsy: Qualifiers: Cerebral palsy type: unspecified type Qualified Code(s): G80.9 - Cerebral palsy, unspecified Code(s): G80.9 - Cerebral palsy, unspecified Status: Chronic Assessment and Plan: * Fall precautions (6) Constipation: Qualifiers: Constipation type: unspecified constipation type Qualified Code(s): K59.00 - Constipation, unspecified Code(s): K59.00 - Constipation, unspecified Status: Acute Assessment and Plan: * Soapsuds enema and Pepcid given in ED * CT scan reflecting fecal impaction without obstruction * Will start a bowel regimen with daily MiraLax and Colace b.i.d. if able to tolerate p.o. intake. * As an alternate to oral intake would recommend Dulcolax suppository and/or Colace and cotton seed oil enema. * PRN anti-emetics ordered with Zofran 4 mg Q6hrs and Phenergan suppository as it may help with BM as well. (7) GERD (gastroesophageal reflux disease): Qualifiers: Esophagitis presence: esophagitis presence not specified Qualified C ode(s): K21.9 - Gastro-esophageal reflux disease without esophagitis Code(s): K21.9 - Gastro-esophageal reflux disease without esophagitis Status: Chronic Assessment and Plan: * Protonix 40 mg IVP daily. (8) Adult hypothyroidism: Code(s): E03.9 - Hypothyroidism, unspecified Status: Chronic Assessment and Plan: * Continue home dose of thyroid replacement medication once verified and confirmed. (9) Combined hyperlipidemia: Code(s): E78.2 - Mixed hyperlipidemia Status: Chronic Assessment and Plan: * Heart Healthy diet * Continue home dose of Zetia once verified and confirmed. Quality VTE Prophylaxis VTE prophylaxis: pharmacologic ordered Hospitalist [facility] Advance Care Plan I have confirmed that the patient's Advanced Care Plan is present, code status is documented, or surrogate decision maker is listed in patient medical record.: Yes Medication Reconciliation I have utilized all available resources to obtain, update and review the patients current medications (includes all prescriptions, OTC, herbals, cannabis, and nutritional supplements).: Yes
--- NOTE | 2025-02-08 05:00 | ADMGEN ---
This patient, Domingo Brumfield, was admitted to [facility] Surg Room 302-01. Patient/family oriented to hospital policies and general routines including ID bracelet, bed and alarms, visiting hours, pain management, procedures, bathroom and other care routines, personal items, smoking policy, room service/diet, and visiting hours. Information on how to activate the Rapid Response Team has been discussed. Patient/Family are encouraged to report perceived risks to care and to ask questions if they do not understand what they are told or what they should do.
[2025-02-08] MEDS: SODIUM CHLORIDE 0.9% IV 1,000 ML 125 ML IV CONT ×2 (05:20→17:00)
[2025-02-08] MEDS: AZITHROMYCIN 500 MG/NS 250 ML 500 MG/250 ML BAG 250 MG IVPB (05:47)
--- NOTE | 2025-02-08 08:39 | P.PNIM_ITS ---
Progress Note: A&P Assessment and Plan (1) Severe sepsis: Onset Date: ~02/08/25 Code(s): A41.9 - Sepsis, unspecified organism; R65.20 - Severe sepsis without septic shock Status: Acute Assessment and Plan: secondary to pneumonia Received Iv boluses Continue IV Abx Follow culture results continue to monitor (2) Leukocytosis: Qualifiers: Leukocytosis type: unspecified Qualified Code(s): D72.829 - Elevated white blood cell count, unspecified Code(s): D72.829 - Elevated white blood cell count, unspecified Status: Acute Assessment and Plan: * Blood cultures x2 pending * Urinalysis negative for any signs of acute UTI * Chest x-ray showing a LLL PNA. * Left knee x-ray unremarkable * changed ABx to vanc and zosyn * orthopedics has been consulted * Monitor and trend labs and vitals * CT scan abdomen and pelvis not showing acute intraabdominal abnormalities. (3) CAP (community acquired pneumonia): Code(s): J18.9 - Pneumonia, unspecified organism Status: Acute Assessment and Plan: * See #1 above * Continue abx and provide supportive care as needed with oxygen, nebs, pulmonary toilet. * Guaifenesin 600 mg Q12 hrs. * Incentive Spirometry (4) Status post knee replacement: Code(s): Z96.659 - Presence of unspecified artificial knee joint Status: Acute Assessment and Plan: * Status post left total knee arthroplasty December 14, [address] Gonzalez. * Orthopedics is consulted * X-ray of knee unremarkable (5) Dehydration: Code(s): E86.0 - Dehydration Status: Acute Assessment and Plan: * As evidenced by 2+ ketonuria and persistent nausea/vomiting * Patient received 2 L of normal saline bolus in emergency room and has been started on normal saline at a rate of 125 mL/hour. * Monitor and trend labs and vital signs (6) Cerebral palsy: Qualifiers: Cerebral palsy type: unspecified type Qualified Code(s): G80.9 - Cerebral palsy, unspecified Code(s): G80.9 - Cerebral palsy, unspecified Status: Chronic Assessment and Plan: * Fall precautions (7) Constipation: Qualifiers: Constipation type: unspecified constipation type Qualified Code(s): K59.00 - Constipation, unspecified Code(s): K59.00 - Constipation, unspecified Status: Acute Assessment and Plan: * improving * Soapsuds enema and Pepcid given in ED * CT scan reflecting fecal impaction without obstruction * continue bowel regimen with daily MiraLax and Colace b.i.d. if able to t olerate p.o. intake. * As an alternate to oral intake would recommend Dulcolax suppository and/or Colace and cotton seed oil enema. * PRN anti-emetics ordered with Zofran 4 mg Q6hrs and Phenergan suppository as it may help with BM as well. (8) GERD (gastroesophageal reflux disease): Qualifiers: Esophagitis presence: esophagitis presence not specified Qualified Code(s): K21.9 - Gastro-esophageal reflux disease without esophagitis Code(s): K21.9 - Gastro-esophageal reflux disease without esophagitis Status: Chronic Assessment and Plan: * Protonix 40 mg IVP daily. (9) Adult hypothyroidism: Code(s): E03.9 - Hypothyroidism, unspecified Status: Chronic Assessment and Plan: * Continue home dose of thyroid replacement medication once verified and confirmed. (10) Combined hyperlipidemia: Code(s): E78.2 - Mixed hyperlipidemia Status: Chronic Assessment and Plan: * Heart Healthy diet * Continue home dose of Zetia once verified and confirmed. Subjective Date/time seen: 02/08/25 08:39 Interval history: per HPI: This is a 59-year-old female patient with history of cerebral palsy, h yperlipidemia, depression, DJD, hypothyroidism, GERD who underwent a left total knee arthroplasty by Dr. Gonzalez on 12/14/24. Patient's postoperative course has been recently complicated by constipation passing only very small hard stools, and persistent nausea vomiting. She notes she is not taking any opiate pain medications, and instead only been taking Lyrica and meloxicam. Patient states the abdominal discomfort is a cramping, is worse around the umbilicus and she has developed a decreased appetite. This morning she said her knee felt warm and she had a small amount of purulent drainage and red fluid come out of a small scab at the top of her incision line. Patient has not had any measured fevers at home but has felt feverish subjectively. She denies any new symptoms such as cough, chest pain, dyspnea. She states she called Dr. Gonzalez and he advised to come to the emergency room for likely admission and he would follow as inpatient. Upon him arrival to the emergency room it was noted that patient was tachycardic at a pulse of 115, is afebrile, has normal oxygen saturations, has an unremarkable metabolic panel, elevated white blood cell count of 18K, and 2+ ketones in her urine. Blood pressure has waxed and waned on the softer side since being here ranging from 90/67 to 111/73. Patient has remained tachycardic however. ER provider here to done appreciate any swelling, warmth, redness, drainage from will left knee midline incision. X-ray was ordered and results are currently pending. CT scan abdomen and pelvis was performed that shows fecal impaction without obstruction. A soapsuds enema was ordered as well as Pepcid IV and IV fluid bolus of normal saline for a total of 2 L followed by normal saline with a rate of 125 mL/hour. Blood cultures were obtained secondary to the elevated white blood cell count and are pending. Chest x-ray showing a LLL PNA as noted per [facility]. Patient being admitted in the current setting for tx of PNA, fecal impaction and constipation, likely dehydration and consultation of orthopedics. She will be started on Rocephin and Azithromycin. 02/08/25 patient was seen an d examined at bedside. she is feeling fine, denies chest pain, SOb , N/V. Abd pain is better. had good BM today. patient has low Bp meeting severe sepsis. continue ABx. changed Abx to Vanc and Zosyn. Bp improved to 90/58. will continue IVF WBC 18. continue IVAbx. follow culture results.cxr concern for pneumonia. Knee xray unremarkable. Orthopedic team has been consulted. Review of Systems Review of Systems: All systems reviewed & are unremarkable except as noted in HPI and below Exam Const: General: uncomfortable (Patient appears acutely ill) HENMT: Face/Nose/Sinus: Normal nares present Mouth: Yes dry mucous membranes Eyes: General: appearance normal, both eyes and all related structures Sclera: sclerae normal Pupils: Equal, round and reactive pupils present EOM: EOMs intact bilaterally Neck: Neck: supple and no JVD Lymphatic: lymphadenopathy not noted Resp: Effort & Inspection: normal respiratory effort Auscultation: clear to auscultation bilaterally Cardio: Rate: tachycardic Rhythm: regular rhythm Heart sounds: no gallops, no murmurs and no rubs GI: Inspection: non-distended Auscultation: abnormal bowel sounds (Decreased) Skin: General skin exam: normal color, no rashes or lesions noted, no erythema, No lesion and No rashes Lesions: no lesions noted Rashes: no rashes noted Wounds: no wounds Other: Left knee midline incision well approximated, without dehiscence,mild erythema, small 1-2 mm scab at cranial end of incision. Full range of motion noted of the joint with flexion and extension without any expressed drainage. Distal neurovascular status is intact. Bilateral knees both feel warm there is no temperature difference. Neuro: Cranial nerves: Yes Equal, round and reactive pupils present Speech: No normal speech (Slow speech, secondary to cerebral palsy) Motor exam (neuro): Abnormal motor strength present (Generalized weakness, nonfocal secondary to cerebral palsy) Sensory Exam: normal sensation Extrem: General: normal to inspection, no edema and no pedal edema Psych: Mental Status: mental status grossly normal Affect: normal affect Objective Data Vital Signs Vital Signs: Vital Signs - 24 hr 02/07/25 21:30 02/08/25 01:43 02/08/25 02:59 Temperature 98.2 F Pulse Rate 115 H 104 H 100 Respiratory Rate 20 16 13 Blood Pressure 111/73 92/65 L 90/67 L Pulse Oximetry 97 92 93 Oxygen Delivery Room Air 02/08/25 04:19 02/08/25 04:38 02/08/25 06:00 Temperature 99.0 F Pulse Rate 108 H 108 H 100 Respiratory Rate 14 14 16 Blood Pressure 97/64 L 97/64 L 87/60 L Pulse Oximetry 92 92 94 Oxygen Delivery 02/08/25 08:00 Temperature Pulse Rate Respiratory Rate Blood Pressure Pulse Oximetry 94 Oxygen Delivery Room Air Intake/Output Intake/Output: Intake & Output 02/05/25 02/06/25 02/07/25 02/08/25 23:59 23:59 23:59 23:59 Intake Total 1999 Balance 1999 Meds/Results Medications: Active Medications Generic Name Dose Route Start Last Admin Trade Name Freq PRN Reason Stop Dose Admin Acetaminophen 1,000 mg 02/08/25 06:07 Acetaminophen 500 Mg Tablet PO Q6H PRN Mild Pain (1-3) or Fever Albuterol 2.5 mg 02/08/25 04:44 Albuterol Sulfate Neb 2.5 Mg/3 Ml Inh INHALATION Q4HRT PRN Shortness Of Breath Docusate Sodium 100 mg 02/08/25 09:00 Docusate Sodium 100 Mg Capsule PO Q12HR [facility] Enoxaparin Sodium 40 mg 02/08/25 09:00 Enoxaparin 40 Mg/0.4 Ml Syringe SUB-Q DAILY [facility] Guaifenesin 600 mg 02/08/25 09:00 Guaifenesin 12 Hr 600 Mg Tabcr PO Q12HR MONIKA Sodium Chloride 1,000 mls @ 125 mls/hr 02/08/25 03:55 02/08/25 05:20 Normal Saline Iv IV CONT 125 mls/hr .Q8H MONIKA Administration Ceftriaxone Sodium 1 gm in 50 mls @ 100 mls/hr 02/08/25 05:00 02/08/25 05:20 Rocephin 1 Gm/Ns 50 Ml IVPB 100 mls/hr Q24H MONIKA Administration Azithromycin 500 mg in 250 mls @ 250 mls/hr 02/08/25 06:00 02/08/25 05:47 Zithromax IVPB 250 mls/hr Q24H [facility] Administration Morphine Sulfate 4 mg 02/08/25 06:07 02/08/25 06:24 Morphine Sulfate (*Crx) 4 Mg/Ml Inj IV PUSH 4 mg Q4H PRN Administration Pain Rated 7-10 Ondansetron HCl 4 mg 02/08/25 04:49 Ondansetron Inj 4 Mg/2 Ml Vial IV PUSH Q6H PRN Nausea And Vomiting Polyethylene Glycol 17 gm 02/08/25 09:00 Polyethylene Glycol 3350 17 Gm Powd.Pack PO QAM [facility] Promethazine HCl 25 mg 02/08/25 04:49 Promethazine Hcl 25 Mg Supp.Rect RECTAL Q4H PRN Nausea And Vomiting Tramadol HCl 50 mg 02/08/25 06:07 Tramadol Hcl (*Crx) 50 Mg Tablet PO Q6H PRN Pain Rated 4-6 Radiology Results: ITS Impressions Abdomen/Pelvis CT 02/08/25 05:24 Impression: No significant abnormalities seen. Knee X-Ray 02/08/25 05:45 Impression: No acute abnormality identified. Left knee arthroplasty in place. Chest X-Ray 02/08/25 05:57 Impression: Questional subtle left lower lobe pneumonia. Labs Labs: Laboratory Results - last 24 hr 02/08/25 02/08/25 02/08/25 00:21 00:22 00:29 WBC 18.0 H RBC 4.63 Hgb 12.3 Hct 39.0 MCV 84.2 MCH 26.6 MCHC 31.5 L RDW 13.3 Plt Count 339 MPV 9.2 Immature Gran % (Auto) 0.3 Neut % (Auto) 92.4 H Lymph % (Auto) 3.7 L Perkins % (Auto) 3.3 Eos % (Auto) 0.0 Baso % (Auto) 0.3 Lymph # (Auto) 0.67 L Perkins # (Auto) 0.6 Eos # (Auto) 0.0 Baso # (Auto) 0.1 Abs Immat Gran (auto) 0.06 H Absolute Neuts (auto) 16.6 H Absolute Nucleated RBC 0.000 Nucleated RBC % 0.0 ESR 17 Sodium 138 Potassium 4.5 Chloride 99 Carbon Dioxide 25 Anion Gap 14 H BUN 17 Creatinine 0.70 Estim Creat Clear Calc 65 Estimated GFR > 60 Glucose 169 H Lactic Acid Calcium 9.7 Total Bilirubin 0.6 AST 32 ALT 18 Alkaline Phosphatase 104 C-Reactive Protein 2.6 H Total Protein 8.1 Albumin 4.7 Lipase 52 Urine Color Yellow Urine Appearance Clear Urine pH 6.5 Ur Specific [place] 1.016 Urine Protein Negative Urine Glucose (UA) Negative Urine Ketones 2+ H Ur Blood (Man) Negative Urine Nitrate Negative Urine Bilirubin Negative Urine Urobilinogen 0.2 Leukocyte Esterase Rfl Negative 02/08/25 05:48 WBC RBC Hgb Hct MCV MCH MCHC RDW Plt Count MPV Immature Gran % (Auto) Neut % (Auto) Lymph % (Auto) Perkins % (Auto) Eos % (Auto) Baso % (Auto) Lymph # (Auto) Perkins # (Auto) Eos # (Auto) Baso # (Auto) Abs Immat Gran (auto) Absolute Neuts (auto) Absolute Nucleated RBC Nucleated RBC % ESR Sodium Potassium Chloride Carbon Dioxide Anion Gap BUN Creatinine Estim Creat Clear Calc Estimated GFR Glucose Lactic Acid 1.3 Calcium Total Bilirubin AST ALT Alkaline Phosphatase C-Reactive Protein Total Protein Albumin Lipase Urine Color Urine Appearance Urine pH Ur Specific [place] Urine Protein Urine Glucose (UA) Urine Ketones Ur Blood (Man) Urine Nitrate Urine Bilirubin Urine Urobilinogen Leukocyte Esterase Rfl Quality VTE Prophylaxis VTE prophylaxis: pharmacologic ordered
[2025-02-08] MEDS: DOCUSATE SODIUM 100 MG CAPSULE PO ×2 (08:47→21:02)
[2025-02-08] MEDS: ENOXAPARIN 40 MG/0.4 ML SYRINGE SUB-Q (08:48)
[2025-02-08] MEDS: PREGABALIN (*CRX) 75 MG CAPSULE 150 MG PO (09:20)
[2025-02-08] MEDS: LEVOTHYROXINE SODIUM 88 MCG TABLET PO (09:20)
[2025-02-08] MEDS: PANTOPRAZOLE 40 MG TABLET PO (09:20)
[2025-02-08] MEDS: PIPERACILLN/TAZ 3.375GM/NS50ML 3.375 GM/50 ML BAG IVPB ×3 (09:22→21:05)
--- NOTE | 2025-02-08 09:52 | PC.NURSE ---
Dr Iglesias notified of bp 82/50. HR 110. Patient asymptomatic
[2025-02-08] MEDS: SODIUM CHLORIDE 0.9% IV 500 ML IV CONT ×2 (09:59→12:08)
[2025-02-08] MEDS: VANCOMYCIN 1,500 MG/NS 500 ML 1,500 MG/500 ML BAG 250 MG IVPB (10:45)
[2025-02-08 11:23] LABS: MRSA (PCR) NOT DETECTED (NOT DETECTE)
--- NOTE | 2025-02-08 11:52 | PC.NURSE ---
Dr Gibbons notified bp still low 86/54. New orders received.
[2025-02-08] MEDS: guaiFENesin 12 HR 600 MG TABCR PO (21:02)
[2025-02-08] MEDS: MELOXICAM 7.5 MG TABLET PO (21:02)
[2025-02-08] MEDS: EZETIMIBE 10 MG TABLET PO (21:04)
[2025-02-08] MEDS: MELATONIN 5 MG TABLET PO (21:04)
[2025-02-08] MEDS: MIDODRINE HCL 2.5 MG TABLET PO (21:46)
[2025-02-09] VITALS: PULSE 112; RESP 20; TEMP 36.5; O2SAT 93
[2025-02-09] MEDS: SODIUM CHLORIDE 0.9% IV 1,000 ML 125 ML IV CONT ×3 (01:35→20:44)
[2025-02-09] MEDS: PIPERACILLN/TAZ 3.375GM/NS50ML 3.375 GM/50 ML BAG IVPB ×4 (02:02→20:45)
[2025-02-09 04:00] VITALS: BP 111/63; PULSE 105; RESP 20; TEMP 36.4; O2SAT 96
[2025-02-09] MEDS: VANCOMYCIN 1,250 MG/NS 250 ML 1,250 MG/250 ML BAG 166.67 MG IVPB (04:09)
[2025-02-09 05:45] LABS: Hematocrit 27.0 % (37.0-47.0); Hemoglobin 8.4 g/dL (12.0-15.0); Immature Granulocyte Percent A 0.4 % (0-0.5); Lymphocytes Absolute Auto 1.34 K/mm3 (0.9-3.2); Mean Corpuscular HGB Conc 31.1 g/dl (32-36); Mean Corpuscular Hemoglobin 27.2 pg (26-34); Mean Corpuscular Volume 87.4 fl (80-100); Nucleated Red Blood Cells Absolute Auto 0.000 K/mm3 (0.0-0.012); Nucleated Red Blood Cells Perc 0.0 % (0.0-0.2); Platelet Count Result 204 k/mm3 (150-375); Red Blood Count 3.09 M/mm3 (4.2-5.4); White Blood Count 7.0 K/mm3 (4.5-10.0)
[2025-02-09] MEDS: AZITHROMYCIN 500 MG/NS 250 ML 500 MG/250 ML BAG 250 MG IVPB (05:55)
[2025-02-09] MEDS: LEVOTHYROXINE SODIUM 88 MCG TABLET PO (05:56)
[2025-02-09 05:57] LABS: Alanine Aminotransferase 8 U/L (6-35); Albumin Level 2.9 g/dL (3.5-5.1); Alkaline Phosphatase 60 U/L (38-126); Anion Gap 6 mmol/L (4-12); Aspartate Amino Transferase 23 U/L (14-36); Bilirubin,Total 0.2 mg/dL (0.2-1.3); Blood Urea Nitrogen 6 mg/dL (7-17); Calcium 8.1 mg/dL (8.4-10.2); Carbon Dioxide 21 mmol/L (22-30); Chloride 112 mmol/L (98-107); Estimated CRCL calculation 75 ml/min; Estimated Glomerular Filt Rate > 60; Glucose 104 mg/dL (65-110); Magnesium 1.9 mg/dL (1.6-2.3); Potassium 3.5 mmol/L (3.4-5.0); Sodium 139 mmol/L (137-145); Total Protein 5.4 g/dL (6.3-8.2)
[2025-02-09 06:04] LABS: INR 0.9; Prothrombin Time 12.3 Seconds (11.1-14.7)
[2025-02-09 06:05] LABS: Partial Thromboplastin Time 38.7 Seconds (22.3-36.8)
[2025-02-09 08:00] VITALS: BP 107/53; PULSE 95; RESP 16; TEMP 36.2; O2SAT 96
[2025-02-09] MEDS: CHOLECALCIFEROL (VITAMIN D3) 25 MCG (1,000 UNITS) TABLET 50 MCG PO (09:17)
[2025-02-09] MEDS: guaiFENesin 12 HR 600 MG TABCR PO ×2 (09:17→20:44)
[2025-02-09] MEDS: PREGABALIN (*CRX) 75 MG CAPSULE 150 MG PO (09:17)
[2025-02-09] MEDS: ENOXAPARIN 40 MG/0.4 ML SYRINGE SUB-Q (09:18)
[2025-02-09] MEDS: DOCUSATE SODIUM 100 MG CAPSULE PO (09:18)
[2025-02-09] MEDS: PANTOPRAZOLE 40 MG TABLET PO (09:18)
--- NOTE | 2025-02-09 11:38 | P.PNIM_ITS ---
Progress Note: A&P Assessment and Plan (1) Severe sepsis: Onset Date: ~02/08/25 Code(s): A41.9 - Sepsis, unspecified organism; R65.20 - Severe sepsis without septic shock Status: Acute Assessment and Plan: secondary to pneumonia Received Iv boluses continue IVf , will decrease the rate Continue IV Abx Follow culture results continue to monitor (2) Leukocytosis: Qualifiers: Leukocytosis type: unspecified Qualified Code(s): D72.829 - Elevated white blood cell count, unspecified Code(s): D72.829 - Elevated white blood cell count, unspecified Status: Acute Assessment and Plan: * Blood cultures x2 pending * Urinalysis negative for any signs of acute UTI * Chest x-ray showing a LLL PNA. * Left knee x-ray unremarkable * ABx vanc and zosyn * orthopedics has been consulted * Monitor and trend labs and vitals * CT scan abdomen and pelvis not showing acute intraabdominal abnormalities. (3) CAP (community acquired pneumonia): Code(s): J18.9 - Pneumonia, unspecified organism Status: Acute Assessment and Plan: * See #1 above * Continue abx and provide supportive care as needed with oxygen, nebs, pulmonary toilet. * Guaifenesin 600 mg Q12 hrs. * Incentive Spirometry (4) Status post knee replacement: Code(s): Z96.659 - Presence of unspecified artificial knee joint Status: Acute Assessment and Plan: * Status post left total knee arthroplasty December 14, [address] Gonzalez. * Orthopedics is consulted. does not have knee infection * X-ray of knee unremarkable (5) Dehydration: Code(s): E86.0 - Dehydration Status: Acute Assessment and Plan: * As evidenced by 2+ ketonuria and persistent nausea/vomiting * Patient received 2 L of normal saline bolus in emergency room and has been started on normal saline * Monitor and trend labs and vital signs (6) Cerebral palsy: Qualifiers: Cerebral palsy type: unspecified type Qualified Code(s): G80.9 - Cerebral palsy, unspecified Code(s): G80.9 - Cerebral palsy, unspecified Status: Chronic Assessment and Plan: * Fall precautions (7) Constipation: Qualifiers: Constipation type: unspecified constipation type Qualified Code(s): K59.00 - Constipation, unspecified Code(s): K59.00 - Constipation, unspecified Status: Acute Assessment and Plan: * improving * Soapsuds enema and Pepcid given in ED * CT scan reflecting fecal impaction without obstruction * continue bowel regimen with daily MiraLax and Colace b.i.d. if able to tolerate p.o. intake. * As an alternate to oral intake would recommend Dulcolax suppository and/or Colace and cotton seed oil enema. * PRN anti-emetics ordered with Zofran 4 mg Q6hrs and Phenergan suppository as it may help with BM as well. (8) GERD (gastroesophageal reflux disease): Qualifiers: Esophagitis presence: esophagitis presence not specified Qualified Code(s): K21.9 - Gastro-esophageal reflux disease without esophagitis Code(s): K21.9 - Gastro-esophageal reflux disease without esophagitis Status: Chronic Assessment and Plan: * Protonix 40 mg IVP daily. (9) Adult hypothyroidism: Code(s): E03.9 - Hypothyroidism, unspecified Status: Chronic Assessment and Plan: * Continue home dose of thyroid replacement medication once verified and conf irmed. (10) Combined hyperlipidemia: Code(s): E78.2 - Mixed hyperlipidemia Status: Chronic Assessment and Plan: * Heart Healthy diet * Continue home dose of Zetia once verified and confirmed. (11) Acute anemia: Code(s): D64.9 - Anemia, unspecified Status: Acute Assessment and Plan: no bleeding reported Monitor H&H transfuse if Hb<7 Subjective Date/time seen: 02/09/25 11:38 Interval history: per HPI: This is a 59-year-old female patient with history of cerebral palsy, hyperlipidemia, depression, DJD, hypothyroidism, GERD who underwent a left total knee arthroplasty by Dr. Gonzalez on 12/14/24. Patient's postoperative course has been recently complicated by constipation passing only very small hard stools, and persistent nausea vomiting. She notes she is not taking any opiate pain medications, and instead only been taking Lyrica and meloxicam. Patient states the abdominal discomfort is a cramping, is worse around the umbilicus and she has developed a decreased appetite. This morning she said her knee felt warm and she had a small amount of purulent drainage and red fluid come out of a small scab at the top of her incision line. Patient has not had any measured fevers at home but has felt feverish subjectively. She denies any new symptoms such as cough, chest pain, dyspnea. She states she called Dr. Gonzalez and he advised to come to the emergency room for likely admission and he would follow as inpatient. Upon him arrival to the emergency room it was noted that patient was tachycardic at a pulse of 115, is afebrile, has normal oxygen saturations, has an unremarkable metabolic panel, elevated white blood cell count of 18K, and 2+ ketones in her urine. Blood pressure has waxed and waned on the softer side since being here ranging from 90/67 to 111/73. Patient has remained tachycardic however. ER provider here to done appreciate any swelling, warmth, redness, dr santizo from will left knee midline incision. X-ray was ordered and results are currently pending. CT scan abdomen and pelvis was performed that shows fecal impaction without obstruction. A soapsuds enema was ordered as well as Pepcid IV and IV fluid bolus of normal saline for a total of 2 L followed by normal saline with a rate of 125 mL/hour. Blood cultures were obtained secondary to the elevated white blood cell count and are pending. Chest x-ray showing a LLL PNA as noted per [facility]. Patient being admitted in the current setting for tx of PNA, fecal impaction and constipation, likely dehydration and consultation of orthopedics. She will be started on Rocephin and Azithromycin. 02/08/25 patient was seen an d examined at bedside. she is feeling fine, denies chest pain, SOb , N/V. Abd pain is better. had good BM today. patient has low Bp meeting severe sepsis. continue ABx. changed Abx to Vanc and Zosyn. Bp improved to 90/58. will continue IVF WBC 18. continue IVAbx. follow culture results.cxr concern for pneumonia. Knee xray unremarkable. Orthopedic team has been consulted. 02/09/25 Patient was seen and examined at bedside. she is feeling better. her breathing is better. denies any chest pain, abd pain, N/V hypotension improved. continue IV Abx. follow culture results. possible discharge in 1-2 days if cultures stay neg. Review of Systems Review of Systems: All systems reviewed & are unremarkable except as noted in HPI and below Exam Const: General: uncomfortable (Patient appears acutely ill) HENMT: Face/Nose/Sinus: Normal nares present Mouth: Yes dry mucous membranes Eyes: General: appearance normal, both eyes and all related structures Sclera: sclerae normal Pupils: Equal, round and reactive pupils present E OM: EOMs intact bilaterally Neck: Neck: supple and no JVD Lymphatic: lymphadenopathy not noted Resp: Effort & Inspection: normal respiratory effort Auscultation: clear to auscultation bilaterally Cardio: Rate: tachycardic Rhythm: regular rhythm Heart sounds: no gallops, no murmurs and no rubs GI: Inspection: non-distended Auscultation: abnormal bowel sounds (Decreased) Skin: General skin exam: normal color, no rashes or lesions noted, no erythema, No lesion and No rashes Lesions: no lesions noted Rashes: no rashes noted Wounds: no wounds Other: Left knee midline incision well approximated, without dehiscence,mild erythema, small 1-2 mm scab at cranial end of incision. Full range of motion noted of the joint with flexion and extension without any expressed drainage. Distal neurovascular status is intact. Bilateral knees both feel warm there is no temperature difference. Neuro: Cranial nerves: Yes Equal, round and reactive pupils present Speech: No normal speech (Slow speech, secondary to cerebral palsy) Motor exam (neuro): Abnormal motor strength present (Generalized weakness, nonfocal secondary to cerebral palsy) Sensory Exam: normal sensation Extrem: General: normal to inspection, no edema and no pedal edema Psych: Mental Status: mental status grossly normal Affect: normal affect Objective Data Vital Signs Vital Signs: Vital Signs - 24 hr 02/08/25 11:47 02/08/25 12:00 02/08/25 13:14 Temperature 97.7 F Pulse Rate 108 H 93 Respiratory Rate 16 Blood Pressure 86/54 L 90/58 L Pulse Oximetry 94 Oxygen Delivery 02/08/25 14:59 02/08/25 16:00 02/08/25 20:00 Temperature 99.3 F Pulse Rate 101 H 105 H Respiratory Rate 16 20 Blood Pressure 100/60 94/58 L Pulse Oximetry 91 92 Oxygen Delivery Room Air 02/08/25 20:59 02/08/25 21:00 02/08/25 23:52 Temperature 97.8 F Pulse Rate 105 H Respiratory Rate 20 Blood Pressure 88/42 L 123/66 Pulse Oximetry 92 Oxygen Delivery 02/09/25 00:00 02/09/25 04:00 02/09/25 08:00 Temperature 97.7 F 97.5 F L 97.2 F L Pulse Rate 112 H 105 H 95 Respiratory Rate 20 20 16 Blood Pressure 111/63 107/53 L Pulse Oximetry 93 96 96 Oxygen Delivery 02/09/25 08:00 Temperature Pulse Rate Respiratory Rate Blood Pressure Pulse Oximetry Oxygen Delivery Room Air Intake/Output Intake/Output: Intake & Output 02/06/25 02/07/25 02/08/25 02/09/25 23:59 23:59 23:59 23:59 Intake Total 3520 1740 Output Total 1100 Balance 3520 640 Meds/Results Medications: Active Medications Generic Name Dose Route Start Last Admin Trade Name Freq PRN Reason Stop Dose Admin Acetaminophen 1,000 mg 02/08/25 06:07 Acetaminophen 500 Mg Tablet PO Q6H PRN Mild Pain (1-3) or Fever Albuterol 2.5 mg 02/08/25 04:44 Albuterol Sulfate Neb 2.5 Mg/3 Ml Inh INHALATION Q4HRT PRN Shortness Of Breath Buspirone HCl 15 mg 02/08/25 17:00 02/09/25 09:17 Buspirone Hcl 5 Mg Tablet PO 15 mg BID MONIKA Administration Docusate Sodium 100 mg 02/08/25 09:00 02/09/25 09:18 Docusate Sodium 100 Mg Capsule PO 100 mg Q12HR MONIKA Administration Ezetimibe 10 mg 02/08/25 21:00 02/08/25 21:04 Ezetimibe 10 Mg Tablet PO 10 mg HS MONIKA Administration Enoxaparin Sodium 40 mg 02/08/25 09:00 02/09/25 09:18 Enoxaparin 40 Mg/0.4 Ml Syringe SUB-Q 40 mg DAILY MONIKA Administration Guaifenesin 600 mg 02/08/25 09:00 02/09/25 09:17 Guaifenesin 12 Hr 600 Mg Tabcr PO 600 mg Q12HR MONIKA Administration Sodium Chloride 1,000 mls @ 125 mls/hr 02/08/25 03:55 02/09/25 01:35 Normal Saline Iv IV CONT 125 mls/hr .Q8H MONIKA Administration Azithromycin 500 mg in 250 mls @ 250 mls/hr 02/08/25 06:00 02/09/25 05:55 Zithromax IVPB 250 mls/hr Q24H MONIKA Administration Piperacillin/Tazobactam/Dextrose 3.375 gm in 50 mls @ 100 mls/hr 02/08/25 09:00 02/09/25 09:17 Zosyn 3.375 Gm/Ns 50 Ml IVPB 100 mls/hr Q6H MONIKA Administration Vancomycin HCl 1,250 mg in 250 mls @ 166.667 mls/hr 02/09/25 05:00 02/09/25 04:09 Vancomycin 1,250 Mg/Ns 250 Ml IVPB 166.67 mls/hr Q18H MONIKA Administration Levothyroxine Sodium 88 mcg 02/08/25 06:30 02/09/25 05:56 Levothyroxine Sodium 88 Mcg Tablet PO 88 mcg DAILY@0630 MONIKA Administration Melatonin 5 mg 02/08/25 20:10 02/08/25 21:04 Melatonin 5 Mg Tablet PO 5 mg PRN PRN Administration Sleep Meloxicam 7.5 mg 02/08/25 21:00 02/08/25 21:02 Meloxicam 7.5 Mg Tablet PO 7.5 mg HS MONIKA Administration Miscellaneous Information 0 each 02/08/25 00:01 Fluvoxamine Nonform Can Pt Bring From Home? XX 03/10/25 00:00 CLARIFY MONIKA Morphine Sulfate 4 mg 02/08/25 06:07 02/08/25 06:24 Morphine Sulfate (*Crx) 4 Mg/Ml Inj IV PUSH 4 mg Q4H PRN Administration Pain Rated 7-10 Non-Formulary Medication 0 mg 02/08/25 14:00 Fluvoxamine .ROUTE 03/10/25 13:59 .COMPLEX MONIKA Ondansetron HCl 4 mg 02/08/25 04:49 Ondansetron Inj 4 Mg/2 Ml Vial IV PUSH Q6H PRN Nausea And Vomiting Pantoprazole Sodium 40 mg 02/08/25 09:00 02/09/25 09:18 Pantoprazole 40 Mg Tablet PO 40 mg QAM MONIKA Administration Polyethylene Glycol 17 gm 02/08/25 09:00 02/09/25 09:18 Polyethylene Glycol 3350 17 Gm Powd.Pack PO 17 gm QAM MONIKA Administration Pregabalin 150 mg 02/08/25 09:00 02/09/25 09:17 Pregabalin (*Crx) 75 Mg Capsule PO 150 mg DAILY MONIKA Administration Promethazine HCl 25 mg 02/08/25 04:49 Promethazine Hcl 25 Mg Supp.Rect RECTAL Q4H PRN Nausea And Vomiting Tramadol HCl 50 mg 02/08/25 06:07 Tramadol Hcl (*Crx) 50 Mg Tablet PO Q6H PRN Pain Rated 4-6 Vitamin D 50 mcg 02/09/25 09:00 02/09/25 09:17 Cholecalciferol (Vitamin D3) 25 Mcg (1,000 Units) Tablet PO 50 mcg DAILY MONIKA Administration Radiology Results: ITS Impressions Abdomen/Pelvis CT 02/08/25 05:24 Impression: No significant abnormalities seen. Knee X-Ray 02/08/25 05:45 Impression: No acute abnormality identified. Left knee arthroplasty in place. Chest X-Ray 02/08/25 05:57 Impression: Questional subtle left lower lobe pneumonia. Labs Labs: Laboratory Results - last 24 hr 02/09/25 05:26 WBC 7.0 RBC 3.09 L Hgb 8.4 L D Hct 27.0 L MCV 87.4 MCH 27.2 MCHC 31.1 L RDW 13.7 Plt Count 204 MPV 9.4 Immature Gran % (Auto) 0.4 Neut % (Auto) 69.5 Lymph % (Auto) 19.1 [place] % (Auto) 8.7 H Eos % (Auto) 1.9 Baso % (Auto) 0.4 Lymph # (Auto) 1.34 [place] # (Auto) 0.6 Eos # (Auto) 0.1 Baso # (Auto) 0.0 Abs Immat Gran (auto) 0.03 Absolute Neuts (auto) 4.9 Absolute Nucleated RBC 0.000 Nucleated RBC % 0.0 PT 12.3 INR 0.9 APTT 38.7 H Sodium 139 Potassium 3.5 Chloride 112 H Carbon Dioxide 21 L Anion Gap 6 BUN 6 L D Creatinine 0.60 L Estim Creat Clear Calc 75 Estimated GFR > 60 Glucose 104 Calcium 8.1 L Magnesium 1.9 Total Bilirubin 0.2 AST 23 ALT 8 Alkaline Phosphatase 60 Total Protein 5.4 L Albumin 2.9 L Quality VTE Prophylaxis VTE prophylaxis: pharmacologic ordered
[2025-02-09 12:00] VITALS: BP 122/72; PULSE 95; RESP 16; TEMP 36.2; O2SAT 96
[2025-02-09 20:00] VITALS: BP 129/82; PULSE 91; PULSE 93; RESP 16; TEMP 37.1; O2SAT 95; O2SAT 98
[2025-02-09] MEDS: EZETIMIBE 10 MG TABLET PO (20:44)
[2025-02-09] MEDS: MELOXICAM 7.5 MG TABLET PO (20:45)
[2025-02-09 23:14] VITALS: BP 119/73; PULSE 93; RESP 16; TEMP 36.8; O2SAT 95
[2025-02-10] MEDS: PIPERACILLN/TAZ 3.375GM/NS50ML 3.375 GM/50 ML BAG IVPB ×4 (03:22→20:57)
[2025-02-10 04:00] VITALS: BP 149/90; PULSE 89; RESP 17; TEMP 36.8; O2SAT 97
[2025-02-10] MEDS: LEVOTHYROXINE SODIUM 88 MCG TABLET PO (05:41)
[2025-02-10] MEDS: ACETAMINOPHEN 500 MG TABLET 1000 MG PO (05:41)
[2025-02-10 06:17] LABS: Hematocrit 29.2 % (37.0-47.0); Hemoglobin 8.9 g/dL (12.0-15.0); Mean Corpuscular HGB Conc 30.5 g/dl (32-36); Mean Corpuscular Hemoglobin 26.6 pg (26-34); Mean Corpuscular Volume 87.4 fl (80-100); Platelet Count Result 218 k/mm3 (150-375); Red Blood Count 3.34 M/mm3 (4.2-5.4); White Blood Count 5.9 K/mm3 (4.5-10.0)
[2025-02-10] MEDS: MORPHINE SULFATE (*CRX) 4 MG/ML INJ IV PUSH (06:24)
[2025-02-10 06:42] LABS: Anion Gap 9 mmol/L (4-12); Blood Urea Nitrogen 4 mg/dL (7-17); Calcium 8.5 mg/dL (8.4-10.2); Carbon Dioxide 21 mmol/L (22-30); Chloride 109 mmol/L (98-107); Estimated CRCL calculation 92 ml/min; Estimated Glomerular Filt Rate > 60; Glucose 106 mg/dL (65-110); Potassium 3.3 mmol/L (3.4-5.0); Sodium 139 mmol/L (137-145)
[2025-02-10 08:00] VITALS: BP 128/71; PULSE 87; RESP 16; TEMP 35.8; O2SAT 93
[2025-02-10] MEDS: guaiFENesin 12 HR 600 MG TABCR PO ×2 (09:11→21:25)
[2025-02-10] MEDS: AZITHROMYCIN 250 MG TABLET 500 MG PO (09:11)
[2025-02-10] MEDS: DOCUSATE SODIUM 100 MG CAPSULE PO ×2 (09:11→21:25)
[2025-02-10] MEDS: CHOLECALCIFEROL (VITAMIN D3) 25 MCG (1,000 UNITS) TABLET 50 MCG PO (09:11)
[2025-02-10] MEDS: PANTOPRAZOLE 40 MG TABLET PO (09:11)
[2025-02-10] MEDS: PREGABALIN (*CRX) 75 MG CAPSULE 150 MG PO (09:11)
[2025-02-10] MEDS: ENOXAPARIN 40 MG/0.4 ML SYRINGE SUB-Q (09:12)
[2025-02-10] MEDS: POTASSIUM CHLORIDE 20 MEQ ER TABLET 40 MEQ PO (09:12)
--- NOTE | 2025-02-10 12:32 | P.PNIM_ITS ---
Progress Note: A&P Assessment and Plan (1) CAP (community acquired pneumonia): Code(s): J18.9 - Pneumonia, unspecified organism Status: Acute Assessment and Plan: * Continue abx and provide supportive care as needed with oxygen, nebs, pulmonary toilet. * Guaifenesin 600 mg Q12 hrs. * Incentive Spirometry (2) Constipation: Qualifiers: Constipation type: unspecified constipation type Qualified Code(s): K59.00 - Constipation, unspecified Code(s): K59.00 - Constipation, unspecified Status: Acute Assessment and Plan: * improving * Soapsuds enema and Pepcid given in ED * CT scan reflecting fecal impaction without obstruction * continue bowel regimen with daily MiraLax and Colace b.i.d. if able to tolerate p.o. intake. * As an alternate to oral intake would recommend Dulcolax suppository and/or Colace and cotton seed oil enema. * PRN anti-emetics ordered with Zofran 4 mg Q6hrs and Phenergan suppository as it may help with BM as well. * 7/4 bowels moving with liquid stool (3) Severe sepsis: Onset Date: ~02/08/25 Code(s): A41.9 - Sepsis, unspecified organism; R65.20 - Severe sepsis without septic shock Status: Acute Assessment and Plan: Resolved secondary to pneumonia Continue IV Abx Follow culture results (4) Acute anemia: Code(s): D64.9 - Anemia, unspecified Status: Acute Assessment and Plan: C/w postop anemia, no bleeding reported Monitor H&H transfuse if Hb<7 (5) Leukocytosis: Qualifiers: Leukocytosis type: unspecified Qualified Code(s): D72.829 - Elevated white blood cell count, unspecified Code(s): D72.829 - Elevated white blood cell count, unspecified Status: Acute Assessment and Plan: * Blood cultures x2 pending * Urinalysis negative for any signs of acute UTI * Chest x-ray showing a LLL PNA. * Left knee x-ray unremarkable * ABx vanc and zosyn * orthopedics has been consulted * Monitor and trend labs and vitals * CT scan abdomen and pelvis not showing acute intraabdominal abnormalities. (6) Status post knee replacement: Code(s): Z96.659 - Presence of unspecified artificial knee joint Status: Acute Assessment and Plan: * Status post left total knee arthroplasty December 14, [address] Gonzalez. * Orthopedics is consulted. does not have knee infection * X-ray of knee unremarkable (7) Dehydration: Code(s): E86.0 - Dehydration Status: Acute Assessment and Plan: * As evidenced by 2+ ketonuria and persistent nausea/vomiting * Patient received 2 L of normal saline bolus in emergency room and has been started on normal saline * Monitor and trend labs and vital signs (8) Cerebral palsy: Qualifiers: Cerebral palsy type: unspecified type Qualified Code(s): G80.9 - Cerebral palsy, unspecified Code(s): G80.9 - Cerebral palsy, unspecified Status: Chronic Assessment and Plan: * Fall precautions (9) GERD (gastroesophageal reflux disease): Qualifiers: Esophagitis presence: esophagitis presence not specified Qualified Code(s): K21.9 - Gastro-esophageal reflux disease without esophagitis Code(s): K21.9 - Gastro-esophageal reflux disease without esophagitis Status: Chronic Assessment and Plan: * Protonix 40 mg IVP daily. (10) Adult hypothyroidism: Code(s): E03.9 - Hypothyroidism, unspecified Status: Chronic Assessment and Plan: * Continue home dose of thyroid replacement medication once verified and confirmed. (11) Combined hyperlipidemia: Code(s): E78.2 - Mixed hyperlipidemia Status: Chronic Assessment and Plan: * Heart Healthy diet * Continue home dose of Zetia once verified and confirmed. Subjective Date/time seen: 02/10/25 12:32 Interval history: Did well with breakfast. Nausea vomiting with lunch. States she did not get what she ordered and the smell made her nauseated. Denied chest pain shortness of breath abdominal pain or changes in chronic weakness. No fever or chills. Bowels moved. Review of Systems Review of Systems: All systems reviewed & are unremarkable except as noted in HPI and below Exam Narrative: SKIN: Left knee surgical wound with proximal punctate opening with minimal purulent drainage HEENT: PERRL, sclerae nonicteric, pharyngeal mucosa pink and intact NECK: No JVD CHEST: Cloarse bs with LLL crackles HEART: NL S1/S2, regular, no murmur ABDOMEN: BS+, soft, nontender, no mass, no bruits EXTREMITIES: No cyanosis, edema, or clubbing NEUROLOGIC: CN intact and symmetric to inspection MUSCULOSKELETAL: Increased tone with spasticity diffusely PSYCH: Alert. Oriented to person, place, and time Objective Data Vital Signs Vital Signs: Vital Signs - 24 hr 02/09/25 20:00 02/09/25 20:00 02/09/25 23:14 Temperature 98.8 F 98.2 F Pulse Rate 91 93 93 Respiratory Rate 16 16 16 Blood Pressure 129/82 119/73 Pulse Oximetry 98 95 95 Oxygen Delivery Room Air 02/10/25 04:00 02/10/25 08:00 02/10/25 08:00 Temperature 98.2 F 96.5 F L Pulse Rate 89 87 Respiratory Rate 17 16 Blood Pressure 149/90 H 128/71 Pulse Oximetry 97 93 Oxygen Delivery Room Air Intake/Output Intake/Output: Intake & Output 02/07/25 02/08/25 02/09/25 02/10/25 23:59 23:59 23:59 23:59 Intake Total 3520 3190 50 Output Total 2450 Balance 3520 740 50 Meds/Results Medications: Active Medications Generic Name Dose Route Start Last Admin Trade Name Freq PRN Reason Stop Dose Admin Acetaminophen 1,000 mg 02/08/25 06:07 02/10/25 05:41 Acetaminophen 500 Mg Tablet PO 1,000 mg Q6H PRN Administration Mild Pain (1-3) or Fever Albuterol 2.5 mg 02/08/25 04:44 Albuterol Sulfate Neb 2.5 Mg/3 Ml Inh INHALATION Q4HRT PRN Shortness Of Breath Azithromycin 500 mg 02/10/25 09:00 02/10/25 09:11 Azithromycin 250 Mg Tablet PO 02/12/25 09:01 500 mg DAILY MONIKA Administration Buspirone HCl 15 mg 02/08/25 17:00 02/10/25 09:11 Buspirone Hcl 5 Mg Tablet PO 15 mg BID MONIKA Administration Docusate Sodium 100 mg 02/08/25 09:00 02/10/25 09:11 Docusate Sodium 100 Mg Capsule PO 100 mg Q12HR MONIKA Administration Ezetimibe 10 mg 02/08/25 21:00 02/09/25 20:44 Ezetimibe 10 Mg Tablet PO 10 mg HS MONIKA Administration Enoxaparin Sodium 40 mg 02/08/25 09:00 02/10/25 09:12 Enoxaparin 40 Mg/0.4 Ml Syringe SUB-Q 40 mg DAILY MONIKA Administration Guaifenesin 600 mg 02/08/25 09:00 02/10/25 09:11 Guaifenesin 12 Hr 600 Mg Tabcr PO 600 mg Q12HR MONIKA Administration Sodium Chloride 1,000 mls @ 75 mls/hr 02/08/25 03:55 02/09/25 20:44 Normal Saline Iv IV CONT 125 mls/hr .[id number] MONIKA Administration Piperacillin/Tazobactam/Dextrose 3.375 gm in 50 mls @ 100 mls/hr 02/08/25 09:00 02/10/25 09:12 Zosyn 3.375 Gm/Ns 50 Ml IVPB 100 mls/hr Q6H MONIKA Administration Levothyroxine Sodium 88 mcg 02/08/25 06:30 02/10/25 05:41 Levothyroxine Sodium 88 Mcg Tablet PO 88 mcg DAILY@0630 MONIKA Administration Melatonin 5 mg 02/08/25 20:10 02/08/25 21:04 Melatonin 5 Mg Tablet PO 5 mg PRN PRN Administration Sleep Meloxicam 7.5 mg 02/08/25 21:00 02/09/25 20:45 Meloxicam 7.5 Mg Tablet PO 7.5 mg HS MONIKA Administration Miscellaneous Information 0 each 02/08/25 00:01 Fluvoxamine Nonform Can Pt Bring From Home? XX 03/10/25 00:00 CLARIFY MONIKA Morphine Sulfate 4 mg 02/08/25 06:07 02/10/25 06:24 Morphine Sulfate (*Crx) 4 Mg/Ml Inj IV PUSH 4 mg Q4H PRN Administration Pain Rated 7-10 Non-Formulary Medication 0 mg 02/08/25 14:00 Fluvoxamine .ROUTE 03/10/25 13:59 .COMPLEX MONIKA Ondansetron HCl 4 mg 02/08/25 04:49 Ondansetron Inj 4 Mg/2 Ml Vial IV PUSH Q6H PRN Nausea And Vomiting Pantoprazole Sodium 40 mg 02/08/25 09:00 02/10/25 09:11 Pantoprazole 40 Mg Tablet PO 40 mg QAM MONIKA Administration Polyethylene Glycol 17 gm 02/08/25 09:00 02/10/25 09:12 Polyethylene Glycol 3350 17 Gm Powd.Pack PO 17 gm QAM MONIKA Administration Potassium Chloride 40 meq 02/10/25 14:00 Potassium Chloride 20 Meq Er Tablet PO 02/10/25 14:01 ONCE ONE Pregabalin 150 mg 02/08/25 09:00 02/10/25 09:11 Pregabalin (*Crx) 75 Mg Capsule PO 150 mg DAILY MONIKA Administration Promethazine HCl 25 mg 02/08/25 04:49 Promethazine Hcl 25 Mg Supp.Rect RECTAL Q4H PRN Nausea And Vomiting Tramadol HCl 50 mg 02/08/25 06:07 Tramadol Hcl (*Crx) 50 Mg Tablet PO Q6H PRN Pain Rated 4-6 Vitamin D 50 mcg 02/09/25 09:00 02/10/25 09:11 Cholecalciferol (Vitamin D3) 25 Mcg (1,000 Units) Tablet PO 50 mcg DAILY MONIKA Administration Radiology Results: ITS Impressions Abdomen/Pelvis CT 02/08/25 05:24 Impression: No significant abnormalities seen. Knee X-Ray 02/08/25 05:45 Impression: No acute abnormality identified. Left knee arthroplasty in place. Chest X-Ray 02/08/25 05:57 Impression: Questional subtle left lower lobe pneumonia. Labs Labs: Laboratory Results - last 24 hr 02/10/25 05:26 WBC 5.9 RBC 3.34 L Hgb 8.9 L Hct 29.2 L MCV 87.4 MCH 26.6 MCHC 30.5 L RDW 13.3 Plt Count 218 MPV 9.8 Sodium 139 Potassium 3.3 L Chloride 109 H Carbon Dioxide 21 L Anion Gap 9 BUN 4 L Creatinine 0.48 L Estim Creat Clear Calc 92 Estimated GFR > 60 Glucose 106 Calcium 8.5
[2025-02-10] MEDS: ONDANSETRON INJ 4 MG/2 ML VIAL IV PUSH ×2 (12:34→20:50)
[2025-02-10 14:00] VITALS: BP 123/79; PULSE 87; RESP 16; TEMP 36.2; O2SAT 96
[2025-02-10 20:40] VITALS: BP 135/88; PULSE 94; RESP 16; TEMP 37.2; O2SAT 95
[2025-02-10] MEDS: EZETIMIBE 10 MG TABLET PO (21:25)
[2025-02-10] MEDS: MELOXICAM 7.5 MG TABLET PO (21:25)
[2025-02-11] MEDS: PIPERACILLN/TAZ 3.375GM/NS50ML 3.375 GM/50 ML BAG IVPB ×2 (02:51→09:41)
[2025-02-11] MEDS: SODIUM CHLORIDE 0.9% IV 1,000 ML 125 ML IV CONT ×3 (02:52→21:24)
[2025-02-11 06:00] VITALS: BP 139/94; PULSE 98; RESP 17; TEMP 36.3; O2SAT 97
[2025-02-11] MEDS: LEVOTHYROXINE SODIUM 88 MCG TABLET PO (06:40)
[2025-02-11 08:00] VITALS: O2SAT 97
[2025-02-11 08:01] LABS: Hematocrit 30.5 % (37.0-47.0); Hemoglobin 9.8 g/dL (12.0-15.0); Mean Corpuscular HGB Conc 32.1 g/dl (32-36); Mean Corpuscular Hemoglobin 27.0 pg (26-34); Mean Corpuscular Volume 84.0 fl (80-100); Platelet Count Result 248 k/mm3 (150-375); Red Blood Count 3.63 M/mm3 (4.2-5.4); White Blood Count 5.3 K/mm3 (4.5-10.0)
[2025-02-11 08:11] LABS: Anion Gap 7 mmol/L (4-12); Blood Urea Nitrogen 2 mg/dL (7-17); Calcium 8.9 mg/dL (8.4-10.2); Carbon Dioxide 25 mmol/L (22-30); Chloride 106 mmol/L (98-107); Estimated CRCL calculation 84 ml/min; Estimated Glomerular Filt Rate > 60; Glucose 91 mg/dL (65-110); Potassium 3.5 mmol/L (3.4-5.0); Sodium 138 mmol/L (137-145)
[2025-02-11] MEDS: ONDANSETRON INJ 4 MG/2 ML VIAL IV PUSH (08:55)
[2025-02-11] MEDS: CHOLECALCIFEROL (VITAMIN D3) 25 MCG (1,000 UNITS) TABLET 50 MCG PO (09:40)
[2025-02-11] MEDS: guaiFENesin 12 HR 600 MG TABCR PO (09:40)
[2025-02-11] MEDS: PREGABALIN (*CRX) 75 MG CAPSULE 150 MG PO (09:40)
[2025-02-11] MEDS: PANTOPRAZOLE 40 MG TABLET PO (09:41)
[2025-02-11] MEDS: ENOXAPARIN 40 MG/0.4 ML SYRINGE SUB-Q (09:41)
[2025-02-11] MEDS: AZITHROMYCIN 250 MG TABLET 500 MG PO (09:42)
--- NOTE | 2025-02-11 12:24 | P.PNIM_ITS ---
Progress Note: A&P Assessment and Plan (1) CAP (community acquired pneumonia): Code(s): J18.9 - Pneumonia, unspecified organism Status: Acute Assessment and Plan: * Continue abx and provide supportive care as needed with oxygen, nebs, pulmonary toilet. * Incentive Spirometry * Continue PO antibiotics through 02/12 (2) Constipation: Qualifiers: Constipation type: unspecified constipation type Qualified Code(s): K59.00 - Constipation, unspecified Code(s): K59.00 - Constipation, unspecified Status: Acute Assessment and Plan: * improving * Soapsuds enema and Pepcid given in ED * CT scan reflecting fecal impaction without obstruction * continue bowel regimen with daily MiraLax and Colace b.i.d. if able to tolerate p.o. intake. * As an alternate to oral intake would recommend Dulcolax suppository and/or Colace and cotton seed oil enema. * PRN anti-emetics ordered with Zofran 4 mg Q6hrs and Phenergan suppository as it may help with BM as well. * 02/10 bowels moving with liquid stool * 02/11 Senna, KUB; possibly home 02/12 (3) Severe sepsis: Onset Date: ~02/08/25 Code(s): A41.9 - Sepsis, unspecified organism; R65.20 - Severe sepsis without septic shock Status: Acute Assessment and Plan: Resolved secondary to pneumonia Continue IV Abx Follow culture results (4) Acute anemia: Code(s): D64.9 - Anemia, unspecified Status: Acute Assessment and Plan: C/w postop anemia, no bleeding reported Monitor H&H transfuse if Hb<7 02/11 Hgb 9.8 (5) Leukocytosis: Qualifiers: Leukocytosis type: unspecified Qualified Code(s): D72.829 - Elevated white blood cell count, unspecified Code(s): D72.829 - Elevated white blood cell count, unspecified Status: Acute Assessment and Plan: * Blood cultures x2 pending * Urinalysis negative for any signs of acute UTI * Chest x-ray showing a LLL PNA. * Left knee x-ray unremarkable * ABx vanc and zosyn * orthopedics has been consulted * Monitor and trend labs and vitals * CT scan abdomen and pelvis not showing acute intraabdominal abnormalities. (6) Status post knee replacement: Code(s): Z96.659 - Presence of unspecified artificial knee joint Status: Acute Assessment and Plan: * Status post left total knee arthroplasty December 14, [address] Gonzalez. * Orthopedics is consulted. does not have knee infection * X-ray of knee unremarkable (7) Dehydration: Code(s): E86.0 - Dehydration Status: Acute Assessment and Plan: * Resolved * As evidenced by 2+ ketonuria and persistent nausea/vomiting * Patient received 2 L of normal saline bolus in emergency room and has been started on normal saline * Monitor and trend labs and vital signs (8) Cerebral palsy: Qualifiers: Cerebral palsy type: unspecified type Qualified Code(s): G80.9 - Cerebral palsy, unspecified Code(s): G80.9 - Cerebral palsy, unspecified Status: Chronic Assessment and Plan: * Fall precautions (9) GERD (gastroesophageal reflux disease): Qualifiers: Esophagitis presence: esophagitis presence not specified Qualified Code(s): K21.9 - Gastro-esophageal reflux disease without esophagitis Code(s): K21.9 - Gastro-esophageal reflux disease without esophagitis Status: Chronic Assessment and Plan: * Protonix 40 mg daily. (10) Adult hypothyroidism: Code(s): E03.9 - Hypothyroidism, unspecified Status: Chronic Assessment and Plan: * Continue home dose of thyroid replacement medication once verified and confirmed. (11) Combined hyperlipidemia: Code(s): E78.2 - Mixed hyperlipidemia Status: Chronic Assessment and Plan: * Heart Healthy diet * Continue home dose of Zetia once verified and confirmed. Subjective Date/time seen: 02/11/25 12:24 Interval history: No further nausea or abdominal pain. Tolerating diet. Less liquid stool. No formed stool yet. Review of Systems Review of Systems: All systems reviewed & are unremarkable except as noted in HPI and below Exam Narrative: SKIN: Left knee surgical wound with proximal punctate opening with minimal purulent drainage HEENT: PERRL, sclerae nonicteric, pharyngeal mucosa pink and intact NECK: No JVD CHEST: Cloarse bs with LLL crackles HEART: NL S1/S2, regular, no murmur ABDOMEN: BS+, soft, nontender, no mass, no bruits EXTREMITIES: No cyanosis, edema, or clubbing NEUROLOGIC: CN intact and symmetric to inspection, titubation noted MUSCULOSKELETAL: Increased tone with spasticity diffusely PSYCH: Alert. Oriented to person, place, and time Objective Data Vital Signs Vital Signs: Vital Signs - 24 hr 02/10/25 14:00 02/10/25 20:00 02/10/25 20:40 Temperature 97.2 F L 99.0 F Pulse Rate 87 94 Respiratory Rate 16 16 Blood Pressure 123/79 135/88 Pulse Oximetry 96 95 Oxygen Delivery Room Air 02/11/25 06:00 02/11/25 08:00 02/11/25 08:38 Temperature 97.3 F L Pulse Rate 98 Respiratory Rate 17 Blood Pressure 139/94 H Pulse Oximetry 97 97 Oxygen Delivery Room Air Room Air Intake/Output Intake/Output: Intake & Output 02/08/25 02/09/25 02/10/25 02/11/25 23:59 23:59 23:59 23:59 Intake Total 3520 3190 1500 1340 Output Total 2450 1200 Balance 3520 531 154 5812 Meds/Results Medications: Active Medications Generic Name Dose Route Start Last Admin Trade Name Freq PRN Reason Stop Dose Admin Acetaminophen 1,000 mg 02/08/25 06:07 02/10/25 05:41 Acetaminophen 500 Mg Tablet PO 1,000 mg Q6H PRN Administration Mild Pain (1-3) or Fever Albuterol 2.5 mg 02/08/25 04:44 Albuterol Sulfate Neb 2.5 Mg/3 Ml Inh INHALATION Q4HRT PRN Shortness Of Breath Azithromycin 500 mg 02/10/25 09:00 02/11/25 09:42 Azithromycin 250 Mg Tablet PO 02/12/25 09:01 500 mg DAILY MONIKA Administration Buspirone HCl 15 mg 02/08/25 17:00 02/11/25 09:36 Buspirone Hcl 5 Mg Tablet PO 15 mg BID MONIKA Administration Docusate Sodium 100 mg 02/08/25 09:00 02/11/25 09:41 Docusate Sodium 100 Mg Capsule PO Not Given Q12HR MONIKA Ezetimibe 10 mg 02/08/25 21:00 02/10/25 21:25 Ezetimibe 10 Mg Tablet PO 10 mg HS MONIKA Administration Enoxaparin Sodium 40 mg 02/08/25 09:00 02/11/25 09:41 Enoxaparin 40 Mg/0.4 Ml Syringe SUB-Q 40 mg DAILY MONIKA Administration Guaifenesin 600 mg 02/08/25 09:00 02/11/25 09:40 Guaifenesin 12 Hr 600 Mg Tabcr PO 600 mg Q12HR MONIKA Administration Sodium Chloride 1,000 mls @ 75 mls/hr 02/08/25 03:55 02/11/25 11:09 Normal Saline Iv IV CONT 125 mls/hr .[id number] MONIKA Administration Piperacillin/Tazobactam/Dextrose 3.375 gm in 50 mls @ 100 mls/hr 02/08/25 09:00 02/11/25 10:11 Zosyn 3.375 Gm/Ns 50 Ml IVPB Infused Q6H MONIKA Infusion Levothyroxine Sodium 88 mcg 02/08/25 06:30 02/11/25 06:40 Levothyroxine Sodium 88 Mcg Tablet PO 88 mcg DAILY@0630 MONIKA Administration Melatonin 5 mg 02/08/25 20:10 02/08/25 21:04 Melatonin 5 Mg Tablet PO 5 mg PRN PRN Administration Sleep Meloxicam 7.5 mg 02/08/25 21:00 02/10/25 21:25 Meloxicam 7.5 Mg Tablet PO 7.5 mg HS MONIKA Administration Miscellaneous Information 0 each 02/08/25 00:01 02/11/25 08:53 Fluvoxamine Nonform Can Pt Bring From Home? XX 03/10/25 00:00 Not Given CLARIFY MONIKA Morphine Sulfate 4 mg 02/08/25 06:07 02/10/25 06:24 Morphine Sulfate (*Crx) 4 Mg/Ml Inj IV PUSH 4 mg Q4H PRN Administration Pain Rated 7-10 Non-Formulary Medication 0 mg 02/08/25 14:00 Fluvoxamine .ROUTE 03/10/25 13:59 .COMPLEX MONIKA Ondansetron HCl 4 mg 02/08/25 04:49 02/11/25 08:55 Ondansetron Inj 4 Mg/2 Ml Vial IV PUSH 4 mg Q6H PRN Administration Nausea And Vomiting Pantoprazole Sodium 40 mg 02/08/25 09:00 02/11/25 09:41 Pantoprazole 40 Mg Tablet PO 40 mg QAM MONIKA Administration Polyethylene Glycol 17 gm 02/08/25 09:00 02/11/25 09:42 Polyethylene Glycol 3350 17 Gm Powd.Pack PO Not Given QAM [facility] Pregabalin 150 mg 02/08/25 09:00 02/11/25 09:40 Pregabalin (*Crx) 75 Mg Capsule PO 150 mg DAILY MONIKA Administration Promethazine HCl 25 mg 02/08/25 04:49 Promethazine Hcl 25 Mg Supp.Rect RECTAL Q4H PRN Nausea And Vomiting Tramadol HCl 50 mg 02/08/25 06:07 Tramadol Hcl (*Crx) 50 Mg Tablet PO Q6H PRN Pain Rated 4-6 Vitamin D 50 mcg 02/09/25 09:00 02/11/25 09:40 Cholecalciferol (Vitamin D3) 25 Mcg (1,000 Units) Tablet PO 50 mcg DAILY MONIKA Administration Radiology Results: ITS Impressions Abdomen/Pelvis CT 02/08/25 05:24 Impression: No significant abnormalities seen. Knee X-Ray 02/08/25 05:45 Impression: No acute abnormality identified. Left knee arthroplasty in place. Chest X-Ray 02/08/25 05:57 Impression: Questional subtle left lower lobe pneumonia. Labs Labs: Laboratory Results - last 24 hr 02/11/25 07:57 WBC 5.3 RBC 3.63 L Hgb 9.8 L Hct 30.5 L MCV 84.0 MCH 27.0 MCHC 32.1 RDW 13.2 Plt Count 248 MPV 9.4 Sodium 138 Potassium 3.5 Chloride 106 Carbon Dioxide 25 Anion Gap 7 BUN 2 L Creatinine 0.53 L Estim Creat Clear Calc 84 Estimated GFR > 60 Glucose 91 Calcium 8.9
[2025-02-11 14:00] VITALS: BP 122/79; PULSE 99; RESP 16; TEMP 36.2; O2SAT 94
[2025-02-11 20:00] VITALS: PULSE 89; RESP 16; O2SAT 95
[2025-02-11] MEDS: MELOXICAM 7.5 MG TABLET PO (21:24)
[2025-02-11] MEDS: EZETIMIBE 10 MG TABLET PO (21:24)
[2025-02-11 22:00] VITALS: BP 139/89; PULSE 89; RESP 16; TEMP 36.6; O2SAT 95
[2025-02-12 06:00] VITALS: BP 128/79; PULSE 89; RESP 18; TEMP 36.7; O2SAT 96
[2025-02-12] MEDS: LEVOTHYROXINE SODIUM 88 MCG TABLET PO (06:42)
--- NOTE | 2025-02-12 09:43 | P.DS_ITS ---
DS: Admitting Diagnosis Discharge Date 02/12/2025 Admitting Diagnosis pneumonia with sepsis DS: Discharge Diagnosis Discharge Diagnosis (1) CAP (community acquired pneumonia): Code(s): J18.9 - Pneumonia, unspecified organism Status: Acute Assessment and Plan: * Continue abx and provide supportive care as needed with oxygen, nebs, pulmonary toilet. * Incentive Spirometry * Continue PO antibiotics through 02/12 (2) Constipation: Qualifiers: Constipation type: unspecified constipation type Qualified Code(s): K59.00 - Constipation, unspecified Code(s): K59.00 - Constipation, unspecified Status: Acute Assessment and Plan: * improving * Soapsuds enema and Pepcid given in ED * CT scan reflecting fecal impaction without obstruction * continue bowel regimen with daily MiraLax and Colace b.i.d. if able to tolerate p.o. intake. * As an alternate to oral intake would recommend Dulcolax suppository and/or Colace and cotton seed oil enema. * PRN anti-emetics ordered with Zofran 4 mg Q6hrs and Phenergan suppository as it may help with BM as well. * 02/10 bowels moving with liquid stool * 02/11 Senna, KUB; possibly home 02/12 (3) Severe sepsis: Onset Date: ~02/08/25 Code(s): A41.9 - Sepsis, unspecified organism; R65.20 - Severe sepsis without septic shock Status: Acute Assessment and Plan: Resolved secondary to pneumonia Continue IV Abx Follow culture results (4) Acute anemia: Code(s): D64.9 - Anemia, unspecified Status: Acute Assessment and Plan: C/w postop anemia, no bleeding reported Monitor H&H transfuse if Hb<7 / Hgb 9.8 (5) Leukocytosis: Qualifiers: Leukocytosis type: unspecified Qualified Code(s): D72.829 - Elevated white blood cell count, unspecified Code(s): D72.829 - Elevated white blood cell count, unspecified Status: Acute Assessment and Plan: * Blood cultures x2 pending * Urinalysis negative for any signs of acute UTI * Chest x-ray showing a LLL PNA. * Left knee x-ray unremarkable * ABx vanc and zosyn * orthopedics has been consulted * Monitor and trend labs and vitals * CT scan abdomen and pelvis not showing acute intraabdominal abnormalities. (6) Status post knee replacement: Code(s): Z96.659 - Presence of unspecified artificial knee joint Status: Acute Assessment and Plan: * Status post left total knee arthroplasty December 14, [address] Marquez. * Orthopedics is consulted. does not have knee infection * X-ray of knee unremarkable (7) Dehydration: Code(s): E86.0 - Dehydration Status: Acute Assessment and Plan: * Resolved * As evidenced by 2+ ketonuria and persistent nausea/vomiting * Patient received 2 L of normal saline bolus in emergency room and has been started on normal saline * Monitor and trend labs and vital signs (8) Cerebral palsy: Qualifiers: Cerebral palsy type: unspecified type Qualified Code(s): G80.9 - Cerebral palsy, unspecified Code(s): G80.9 - Cerebral palsy, unspecified Status: Chronic Assessment and Plan: * Fall precautions (9) GERD (gastroesophageal reflux disease): Qualifiers: Esophagitis presence: esophagitis presence not specified Qualified Code(s): K21.9 - Gastro-esophageal reflux disease without esophagitis Code(s): K21.9 - Gastro-esophageal reflux disease without esophagitis Status: Chronic Assessment and Plan: * Protonix 40 mg daily. (10) Adult hypothyroidism: Code(s): E03.9 - Hypothyroidism, unspecified Status: Chronic Assessment and Plan: * Continue home dose of thyroid replacement medication once verified and confirmed. (11) Combined hyperlipidemia: Code(s): E78.2 - Mixed hyperlipidemia Status: Chronic Assessment and Plan: * Heart Healthy diet * Continue home dose of Zetia once verified and confirmed. DS: Summary Hospital Course Reason for hospitalization: Abdominal pain nausea vomiting and diarrhea Hospital Course: Admitted February 08 with abdominal pain nausea vomiting and diarrhea. Evaluation in the emergency department revealed left lower lobe infiltrate as well as leukocytosis. Patient met sepsis criteria. CT the abdomen pelvis was unremarkable. She was treated initially with antiemetics and Zosyn plus Zithromax. Bowels moved and her symptoms improved such as she was tolerating her diet. She was transitioned oral antibiotics. She received physical therapy. She had baseline cerebral palsy but was weaker due to infection and inactivity. She was doing outpatient physical therapy and will resume that. Her white count on admission was 18,000 and on 02/11 5300. Creatinine was 0.53. KUB on 02/11 showed no evidence for obstruction or fecal impaction. Due to her concerns about chronic and recurrent constipation and fecal impaction bowel regimen was initiated during hospitalization. Time Spent with Patient Time attestation: Total time spent providing and/or coordinating discharge services: Exam Narrative: SKIN: Left knee surgical wound with proximal punctate opening with minimal serosanguinous dried discharge HEENT: PERRL, sclerae nonicteric, pharyngeal mucosa pink and intact NECK: No JVD CHEST: CTA, NL effort HEART: NL S1/S2, regular, no murmur ABDOMEN: BS+, soft, nontender, no mass, no bruits EXTREMITIES: No cyanosis, edema, or clubbing NEUROLOGIC: CN intact and symmetric to inspection, titubation noted MUSCULOSKELETAL: Increased tone with spasticity diffusely PSYCH: Alert. Oriented to person, place, and time DS: Data Data Completed and Pending Labs on day of discharge: Preliminary micro results at discharge 02/08/25 05:58 Blood Culture - Preliminary Blood 02/08/25 05:48 Blood Culture - Preliminary Blood Discharge Plan Discharge Discharging Clinician: Carlos Black Patient Disposition: Home Activity: no driving and as tolerated Diet: as tolerated Patient Instructions: Antibiotic Form Patient Language: Setswana Stand Alone Forms: General Discharge Information Follow-up/Referrals: Chelsi Brock, [facility] [Primary Care Provider] - 1 Week Discharge Medications: New polyethylene glycol 3350 [Miralax] 17 gram Powder In Packet 17 g PO QAM Qty: 30 0RF sennosides [Senokot] 8.6 mg Tablet 17.2 mg PO HS Qty: 60 0RF amoxicillin-pot clavulanate 875-125 mg tablet 1 tablet PO Q12H Qty: 2 0RF Rx Instructions: take with food Continued propranolol 20 mg tablet 20 mg PO QAM Qty: 90 4RF buspirone 15 mg tablet 15 mg PO BID Qty: 60 0RF fluvoxamine 50 mg tablet See Rx Instructions .ROUTE .COMPLEX Rx Instructions: takes 1tablet in am and takes 2 tablets at bedtime meloxicam 7.5 mg tablet 7.5 mg PO HS Patient Comments: HOLD FOR [address] MARQUEZ ezetimibe [Zetia] 10 mg tablet 10 mg PO HS Qty: 90 3RF cholecalciferol (vitamin D3) 50 mcg (2,000 unit) capsule 50 mcg PO DAILY Qty: 1 0RF esomeprazole magnesium [Nexium] 20 mg capsule,delayed release(DR/EC) 20 mg PO DAILY Qty: 90 1RF pregabalin 150 mg capsule 150 mg PO DAILY Qty: 90 1RF levothyroxine 88 mcg tablet 88 mcg PO DAILY Qty: 90 1RF Discontinued cyclobenzaprine 10 mg tablet 10 mg PO TID PRN (Reason: MUSCLE SPASMS) Qty: 90 1RF Date of admission: 02/08/25 07:59 Primary Care Provider: Chelsi Brock Admitting Provider: Beau Wheat Attending physician on admission: Colleen Gibbons Condition: Stable
[2025-02-12] MEDS: PREGABALIN (*CRX) 75 MG CAPSULE 150 MG PO (09:46)
[2025-02-12] MEDS: AZITHROMYCIN 250 MG TABLET 500 MG PO (09:46)
[2025-02-12] MEDS: PANTOPRAZOLE 40 MG TABLET PO (09:47)
[2025-02-12] MEDS: CHOLECALCIFEROL (VITAMIN D3) 25 MCG (1,000 UNITS) TABLET 50 MCG PO (09:48)
[2025-02-12] MEDS: ONDANSETRON INJ 4 MG/2 ML VIAL IV PUSH ×2 (09:48→17:41)
[2025-02-12] MEDS: ENOXAPARIN 40 MG/0.4 ML SYRINGE SUB-Q (10:18)
[2025-02-12 14:00] VITALS: BP 127/85; PULSE 99; RESP 16; TEMP 36.1; O2SAT 98
[2025-02-12] MEDS: SODIUM CHLORIDE 0.9% IV 1,000 ML 75 ML IV CONT (17:13)
[2025-02-12 21:24] VITALS: BP 126/81; PULSE 98; RESP 20; TEMP 36.9; O2SAT 98
[2025-02-12] MEDS: EZETIMIBE 10 MG TABLET PO (21:56)
[2025-02-12] MEDS: MELOXICAM 7.5 MG TABLET PO (21:56)
[2025-02-13 06:00] VITALS: BP 127/80; PULSE 92; RESP 18; TEMP 36.5; O2SAT 95
[2025-02-13] MEDS: LEVOTHYROXINE SODIUM 88 MCG TABLET PO (06:00)
[2025-02-13] MEDS: PANTOPRAZOLE 40 MG TABLET PO (07:59)
[2025-02-13] MEDS: CHOLECALCIFEROL (VITAMIN D3) 25 MCG (1,000 UNITS) TABLET 50 MCG PO (07:59)
[2025-02-13] MEDS: PREGABALIN (*CRX) 75 MG CAPSULE 150 MG PO (07:59)
[2025-02-13] MEDS: ENOXAPARIN 40 MG/0.4 ML SYRINGE SUB-Q (08:04)
[2025-02-13] MEDS: ONDANSETRON INJ 4 MG/2 ML VIAL IV PUSH (08:05)
[2025-02-13 14:00] VITALS: PULSE 95; RESP 18; TEMP 35.7; O2SAT 97
--- NOTE | 2025-02-13 14:14 | P.PNIM_ITS ---
Progress Note: A&P Assessment and Plan (1) CAP (community acquired pneumonia): Code(s): J18.9 - Pneumonia, unspecified organism Status: Acute Assessment and Plan: * Continue abx and provide supportive care as needed with oxygen, nebs, pulmonary toilet. * Incentive Spirometry * Continue PO antibiotics through 02/12 (2) Constipation: Qualifiers: Constipation type: unspecified constipation type Qualified Code(s): K59.00 - Constipation, unspecified Code(s): K59.00 - Constipation, unspecified Status: Acute Assessment and Plan: * improving * Soapsuds enema and Pepcid given in ED * CT scan reflecting fecal impaction without obstruction * continue bowel regimen with daily MiraLax and Colace b.i.d. if able to tolerate p.o. intake. * As an alternate to oral intake would recommend Dulcolax suppository and/or Colace and cotton seed oil enema. * PRN anti-emetics ordered with Zofran 4 mg Q6hrs and Phenergan suppository as it may help with BM as well. * 02/10 bowels moving with liquid stool * 02/11 Senna, KUB; possibly home 02/12 (3) Severe sepsis: Onset Date: ~02/08/25 Code(s): A41.9 - Sepsis, unspecified organism; R65.20 - Severe sepsis without septic shock Status: Acute Assessment and Plan: Resolved secondary to pneumonia Continue IV Abx Follow culture results (4) Acute anemia: Code(s): D64.9 - Anemia, unspecified Status: Acute Assessment and Plan: C/w postop anemia, no bleeding reported Monitor H&H transfuse if Hb<7 02/11 Hgb 9.8 (5) Leukocytosis: Qualifiers: Leukocytosis type: unspecified Qualified Code(s): D72.829 - Elevated white blood cell count, unspecified Code(s): D72.829 - Elevated white blood cell count, unspecified Status: Acute Assessment and Plan: * Blood cultures x2 pending * Urinalysis negative for any signs of acute UTI * Chest x-ray showing a LLL PNA. * Left knee x-ray unremarkable * ABx vanc and zosyn * orthopedics has been consulted * Monitor and trend labs and vitals * CT scan abdomen and pelvis not showing acute intraabdominal abnormalities. (6) Status post knee replacement: Code(s): Z96.659 - Presence of unspecified artificial knee joint Status: Acute Assessment and Plan: * Status post left total knee arthroplasty December 14, [address] Gonzalez. * Orthopedics is consulted. does not have knee infection * X-ray of knee unremarkable (7) Dehydration: Code(s): E86.0 - Dehydration Status: Acute Assessment and Plan: * Resolved * As evidenced by 2+ ketonuria and persistent nausea/vomiting * Patient received 2 L of normal saline bolus in emergency room and has been started on normal saline * Monitor and trend labs and vital signs (8) Cerebral palsy: Qualifiers: Cerebral palsy type: unspecified type Qualified Code(s): G80.9 - Cerebral palsy, unspecified Code(s): G80.9 - Cerebral palsy, unspecified Status: Chronic Assessment and Plan: * Fall precautions (9) GERD (gastroesophageal reflux disease): Qualifiers: Esophagitis presence: esophagitis presence not specified Qualified Code(s): K21.9 - Gastro-esophageal reflux disease without esophagitis Code(s): K21.9 - Gastro-esophageal reflux disease without esophagitis Status: Chronic Assessment and Plan: * Protonix 40 mg daily. (10) Adult hypothyroidism: Code(s): E03.9 - Hypothyroidism, unspecified Status: Chronic Assessment and Plan: * Continue home dose of thyroid replacement medication once verified and confirmed. (11) Combined hyperlipidemia: Code(s): E78.2 - Mixed hyperlipidemia Status: Chronic Assessment and Plan: * Heart Healthy diet * Continue home dose of Zetia once verified and confirmed. Subjective Date/time seen: 02/13/25 14:14 Interval history: No further nausea or abdominal pain. Tolerating diet. Less liquid stool. No formed stool yet. Review of Systems Review of Systems: All systems reviewed & are unremarkable except as noted in HPI and below Exam Narrative: SKIN: Left knee surgical wound with proximal punctate opening with minimal serosanguinous dried discharge HEENT: PERRL, sclerae nonicteric, pharyngeal mucosa pink and intact NECK: No JVD CHEST: CTA, NL effort HEART: NL S1/S2, regular, no murmur ABDOMEN: BS+, soft, nontender, no mass, no bruits EXTREMITIES: No cyanosis, edema, or clubbing NEUROLOGIC: CN intact and symmetric to inspection, titubation noted MUSCULOSKELETAL: Increased tone with spasticity diffusely PSYCH: Alert. Oriented to person, place, and time Objective Data Vital Signs Vital Signs: Vital Signs - 24 hr 02/12/25 20:00 02/12/25 21:24 02/13/25 06:00 Temperature 98.5 F 97.7 F Pulse Rate 98 92 Respiratory Rate 20 18 Blood Pressure 126/81 127/80 Pulse Oximetry 98 95 Oxygen Delivery Room Air 02/13/25 08:00 Temperature Pulse Rate Respiratory Rate Blood Pressure Pulse Oximetry Oxygen Delivery Room Air Intake/Output Intake/Output: Intake & Output 02/10/25 02/11/25 02/12/25 02/13/25 23:59 23:59 23:59 23:59 Intake Total 1500 2458 1240 730 Output Total 5390 082 3424 800 Balance 300 2158 190 -70 Meds/Results Medications: Active Medications Generic Name Dose Route Start Last Admin Trade Name Freq PRN Reason Stop Dose Admin Acetaminophen 1,000 mg 02/08/25 06:07 02/10/25 05:41 Acetaminophen 500 Mg Tablet PO 1,000 mg Q6H PRN Administration Mild Pain (1-3) or Fever Albuterol 2.5 mg 02/08/25 04:44 Albuterol Sulfate Neb 2.5 Mg/3 Ml Inh INHALATION Q4HRT PRN Shortness Of Breath Buspirone HCl 15 mg 02/08/25 17:00 02/13/25 07:59 Buspirone Hcl 5 Mg Tablet PO 15 mg BID MONIKA Administration Ezetimibe 10 mg 02/08/25 21:00 02/12/25 21:56 Ezetimibe 10 Mg Tablet PO 10 mg HS MONIKA Administration Enoxaparin Sodium 40 mg 02/08/25 09:00 02/13/25 08:04 Enoxaparin 40 Mg/0.4 Ml Syringe SUB-Q 40 mg DAILY MONIKA Administration Sodium Chloride 1,000 mls @ 75 mls/hr 02/08/25 03:55 02/12/25 17:13 Normal Saline Iv IV CONT 75 mls/hr .[id number] MONIKA Administration Levothyroxine Sodium 88 mcg 02/08/25 06:30 02/13/25 06:00 Levothyroxine Sodium 88 Mcg Tablet PO 88 mcg DAILY@0630 MONIKA Administration Melatonin 5 mg 02/08/25 20:10 02/08/25 21:04 Melatonin 5 Mg Tablet PO 5 mg PRN PRN Administration Sleep Meloxicam 7.5 mg 02/08/25 21:00 02/12/25 21:56 Meloxicam 7.5 Mg Tablet PO 7.5 mg HS MONIKA Administration Miscellaneous Information 0 each 02/08/25 00:01 02/12/25 10:18 Fluvoxamine Nonform Can Pt Bring From Home? XX 03/10/25 00:00 Not Given CLARIFY [facility] Non-Formulary Medication 0 mg 02/08/25 14:00 Fluvoxamine .ROUTE 03/10/25 13:59 .COMPLEX MONIKA Ondansetron HCl 4 mg 02/08/25 04:49 02/13/25 08:05 Ondansetron Inj 4 Mg/2 Ml Vial IV PUSH 4 mg Q6H PRN Administration Nausea And Vomiting Pantoprazole Sodium 40 mg 02/08/25 09:00 02/13/25 07:59 Pantoprazole 40 Mg Tablet PO 40 mg QAM [facility] Administration Polyethylene Glycol 17 gm 02/08/25 09:00 02/13/25 08:14 Polyethylene Glycol 3350 17 Gm Powd.Pack PO Not Given QAM [facility] Pregabalin 150 mg 02/08/25 09:00 02/13/25 07:59 Pregabalin (*Crx) 75 Mg Capsule PO 150 mg DAILY [facility] Administration Promethazine HCl 25 mg 02/08/25 04:49 Promethazine Hcl 25 Mg Supp.Rect RECTAL Q4H PRN Nausea And Vomiting Senna 17.2 mg 02/11/25 21:00 02/12/25 21:56 Sennosides 8.6 Mg Tablet PO Not Given HS [facility] Tramadol HCl 50 mg 02/08/25 06:07 Tramadol Hcl (*Crx) 50 Mg Tablet PO Q6H PRN Pain Rated 4-6 Vitamin D 50 mcg 02/09/25 09:00 02/13/25 07:59 Cholecalciferol (Vitamin D3) 25 Mcg (1,000 Units) Tablet PO 50 mcg DAILY MONIKA Administration Radiology Results: ITS Impressions Abdomen/Pelvis CT 02/08/25 05:24 Impression: No significant abnormalities seen. Knee X-Ray 02/08/25 05:45 Impression: No acute abnormality identified. Left knee arthroplasty in place. Chest X-Ray 02/08/25 05:57 Impression: Questional subtle left lower lobe pneumonia. Abdomen X-Ray 02/11/25 17:00 IMPRESSION: No radiographic evidence of obstruction or ileus. Quality VTE Prophylaxis VTE prophylaxis: pharmacologic ordered Hospitalist MIPS Advance Care Plan I have confirmed that the patient's Advanced Care Plan is present, code status is documented, or surrogate decision maker is listed in patient medical record.: Yes Medication Reconciliation I have utilized all available resources to obtain, update and review the patients current medications (includes all prescriptions, OTC, herbals, cannabis, and nutritional supplements).: Yes
--- NOTE | 2025-03-06 20:19 | PM.DS ---
DS: Admitting Diagnosis Discharge Date 02/13/25 Admitting Diagnosis Constipation Nausea/vomiting Pneumonia DS: Discharge Diagnosis Discharge Diagnosis (1) Constipation: Qualifiers: Constipation type: unspecified constipation type Qualified Code(s): K59.00 - Constipation, unspecified Code(s): K59.00 - Constipation, unspecified Status: Acute (2) CAP (community acquired pneumonia): Qualifiers: Laterality: left Lung location: lower lobe of lung Qualified Code(s): J18.9 - Pneumonia, unspecified organism Code(s): J18.9 - Pneumonia, unspecified organism Status: Acute DS: Summary Hospital Course Reason for hospitalization: Copied from [facility] 02/08: Nausea/vomiting/constipation and drainage from incision of left total knee arthroplasty Narrative: This is a 59-year-old female patient with history of cerebral palsy, hyperlipidemia, depression, DJD, hypothyroidism, GERD who underwent a left total knee arthroplasty by Dr. Marquez on 12/14/24. Patient's postoperative course has been recently complicated by constipation passing only very small hard stools, and persistent nausea vomiting. She notes she is not taking any opiate pain medications, and instead only been taking Lyrica and meloxicam. Patient states the abdominal discomfort is a cramping, is worse around the umbilicus and she has developed a decreased appetite. This morning she said her knee felt warm and she had a small amount of purulent drainage and red fluid come out of a small scab at the top of her incision line. Patient has not had any measured fevers at home but has felt feverish subjectively. She denies any new symptoms such as cough, chest pain, dyspnea. She states she called Dr. Marqeuz and he advised to come to the emergency room for likely admission and he would follow as inpatient. Upon him arrival to the emergency room it was noted that patient was tachycardic at a pulse of 115, is afebrile, has normal oxygen saturations, has an unremarkable metabolic panel, elevated white blood cell count of 18K, and 2+ ketones in her urine. Blood pressure has waxed and waned on the softer side since being here ranging from 90/67 to 111/73. Patient has remained tachycardic however. ER provider here to done appreciate any swelling, warmth, redness, drainage from will left knee midline incision. X-ray was ordered and results are currently pending. CT scan abdomen and pelvis was performed that shows fecal impaction without obstruction. A soapsuds enema was ordered as well as Pepcid IV and IV fluid bolus of normal saline for a total of 2 L followed by normal saline with a rate of 125 mL/hour. Blood cultures were obtained secondary to the elevated white blood cell count and are pending. Chest x-ray showing a LLL PNA as noted per V-rad. Patient being admitted in the current setting for tx of PNA, fecal impaction and constipation, likely dehydration and consultation of orthopedics. She will be started on Rocephin and Azithromycin. Hospital Course: Upon evaluation in the emergency department, the patient was found to have a left lower lobe infiltrate and leukocytosis, meeting the criteria for sepsis. A CT scan of the abdomen and pelvis was unremarkable. Initial treatment included antiemetics and antibiotics (Zosyn and Zithromax). The patient's bowel movements resumed, and her symptoms improved, allowing her to tolerate her diet. She was subsequently transitioned to oral antibiotics. The patient, who has baseline cerebral palsy, experienced increased weakness due to the infection and inactivity. She received physical therapy during her hospital stay and will continue with outpatient physical therapy. Discharged to acute inpatient rehab. Laboratory results showed a white blood cell count of 18,000 on admission, which decreased to 5,300 by February 11. Her creatinine level was 0.53. A KUB performed on February 11 showed no evidence of obstruction or fecal impaction. Due to concerns about chronic and recurrent constipation and fecal impaction, a bowel regimen was initiated during her hospitalization. Sepsis Community-Acquired Pneumonia (CAP): WBC elevated. Blood cultures were pending, urinalysis was negative for UTI, and chest X-ray showed left lower lobe pneumonia. Antibiotics included vancomycin and Zosyn. Orthopedics was consulted, and labs and vitals were monitored. She was treated with antibiotics and supportive care, including oxygen, nebulizers, and pulmonary toilet. Incentive spirometry was encouraged. Oral antibiotics were continued through February 12. Constipation: The patient's constipation improved with a bowel regimen initiated during hospitalization, including daily MiraLax and Colace twice daily if oral intake was tolerated. Alternatives included Dulcolax suppository and/or Colace and cottonseed oil enema. PRN anti-emetics were ordered, and bowel movements resumed with liquid stool by February 10.Severe Anemia: Consistent with postoperative anemia, with no bleeding reported. Hemoglobin was monitored, with transfusion planned if Hb < 7. On February 11, Hgb was 9.8. Status Post Knee Replacement:Status post left total knee arthroplasty on December 14, 2024, by Dr. Marquez. Orthopedics confirmed no knee infection, and knee X-ray was unremarkable. Noted a small amount of drainage so sent a culture. Culture grew normal skin ramona. Discussed monitoring Dehydration:Resolved with 2 L of normal saline bolus in the emergency room and continued normal saline. Labs and vital signs were monitored. Cerebral Palsy:Fall precautions were implemented. Gastroesophageal Reflux Disease (GERD):Protonix 40 mg daily was continued. Hypothyroidism: Continued home dose of thyroid replacement medication once verified. Hyperlipidemia:A heart-healthy diet was recommended, and the home dose of Zetia was continued once verified. Status at Discharge Cognitive/behavioral status at discharge: A&Ox4 Time Spent with Patient Time attestation: Total time spent providing and/or coordinating discharge services: 45 minutes Exam Narrative: SKIN: Left knee surgical wound with proximal punctate opening with minimal serosanguinous dried discharge HEENT: PERRL, sclerae nonicteric, pharyngeal mucosa pink and intact NECK: No JVD CHEST: CTA, NL effort HEART: NL S1/S2, regular, no murmur ABDOMEN: BS+, soft, nontender, no mass, no bruits EXTREMITIES: No cyanosis, edema, or clubbing NEUROLOGIC: CN intact and symmetric to inspection, titubation noted MUSCULOSKELETAL: Increased tone with spasticity diffusely PSYCH: Alert. Oriented to person, place, and time Discharge Plan Discharge Attending physician on discharge: Carlos Black Consulting providers: Vashti Oseguera; Alice Valentin Anoushiravan; Garner, Kevin B.; Giovani Sears; Carlos Do Discharging Clinician: Carlos Black Anticipated Discharge Date/Time: 02/12/25 14:00 Patient Disposition: Home Activity: no driving and as tolerated Diet: as tolerated Wound Care Instructions: change dressing daily Discharge Instructions: Follow up with your PCP in 1-2 weeks Wound care: Clean left leg with chlohexadine soap (or liquid soap and water if not available), cover with a dry dressing and tape. Monitor for increased redness, swelling. Change daily. Call your PCP or orthopedic surgery for a follow up appointment if not resolving You should have repeat labs in a week to monitor infection. Increase potassium in your foods when you are having diarrhea (tomatoes, potatoes, oranges for example) Come to the ER if you have new sudden dizziness, shortness of breath, or fever over 101. Patient Instructions: Antibiotic Form Patient Language: Bengali Stand Alone Forms: General Discharge Information Follow-up/Referrals: Chelsi Brock NP [Primary Care Provider] - 1 Week Discharge Medications: New polyethylene glycol 3350 [Miralax] 17 gram Powder In Packet 17 g PO QAM Qty: 30 0RF sennosides [Senokot] 8.6 mg Tablet 17.2 mg PO HS Qty: 60 0RF ondansetron 4 mg tablet,disintegrating 4 mg PO BID PRN (Reason: nausea and vomiting) Qty: 30 0RF doxycycline hyclate 100 mg capsule 100 mg PO DAILY Qty: 10 0RF Continued propranolol 20 mg tablet 20 mg PO QAM Qty: 90 4RF buspirone 5 mg tablet 5 mg PO BID lansoprazole 15 mg capsule,delayed release(DR/EC) 15 mg PO DAILY fluvoxamine 50 mg tablet See Rx Instructions .ROUTE .COMPLEX Rx Instructions: takes 1tablet in am and takes 2 tablets at bedtime meloxicam 7.5 mg tablet 7.5 mg PO HS Patient Comments: HOLD FOR [address] MARQUEZ cholecalciferol (vitamin D3) 50 mcg (2,000 unit) capsule 50 mcg PO DAILY Qty: 1 0RF esomeprazole magnesium [Nexium] 20 mg capsule,delayed release(DR/EC) 20 mg PO DAILY Qty: 90 1RF pregabalin 150 mg capsule 150 mg PO DAILY Qty: 90 1RF levothyroxine 88 mcg tablet 88 mcg PO DAILY Qty: 90 1RF ferrous sulfate 325 mg (65 mg iron) tablet,delayed release (DR/EC) 325 mg PO DAILY Qty: 90 1RF ezetimibe [Zetia] 10 mg tablet 10 mg PO HS Qty: 90 3RF Discontinued cyclobenzaprine 10 mg tablet 10 mg PO TID PRN (Reason: MUSCLE SPASMS) Qty: 90 1RF Date of admission: 02/08/25 07:59 Primary Care Provider: Chelsi Brock Admitting Provider: Beau Wheat Attending physician on admission: Janet Yao Condition: Stable Quality VTE Prophylaxis VTE prophylaxis: pharmacologic ordered
== END 2025-02-13 15:20 | disposition home or self-care (01) | DRG 871 ==
LOC: ANHED 02-08 03:55 → ANH3MEDSUR 02-08 04:11
PROVIDERS: Internal Medicine; Nurse Practitioner Adult Health; Admitting Provider Internal Medicine; Emergency Provider Physician Assistant; PCP Nurse Practitioner Family; Visit Provider Nurse Practitioner Acute Care
DX: A41.9 Sepsis, unspecified organism (principal); J18.9 Pneumonia, unspecified organism; R65.20 Severe sepsis without septic shock; E86.0 Dehydration; E78.5 Hyperlipidemia, unspecified; E03.9 Hypothyroidism, unspecified; D64.89 Other specified anemias; K21.9 Gastro-esophageal reflux disease without esophagitis; K59.00 Constipation, unspecified; G80.9 Cerebral palsy, unspecified; M19.90 Unspecified osteoarthritis, unspecified site; F32.A Depression, unspecified; Z96.652 Presence of left artificial knee joint
CPT/HCPCS: 36415; 71046; 73564; 74018; 74177; 80048; 80053; 81003; 83605; 83690; 83735; 85025; 85027; 85610; 85652; 85730; 86140; 87040; 87070; 87075; 87205; 87641; 96361; 96365; 96375; 96376; 97110; 97116; 97162; 97165; 97530; 97535; 99285; A9270; G0378; J0456; J0696; J1650; J2270; J2405; J2543; J3373; J7030; J7040; Q9967

== ENCOUNTER 2025-02-21 15:19 | Outpatient (CLI) | payer MEDICARE, SELFPAY ==
--- OUTSIDE RECORDS SUMMARY | 2025-02-21 15:22 | XMS_ITS | Clinical Summary ---
Author Organization [facility] Address [address] [place] [id number] Care Team Providers Care Manager Of Broadcast Content Name Role Phone Mil Verduzco MD Primary Care Provider [phone] Social History Tobacco Use Types Packs/Day Years [...] age to complete this topic Care Teams Manager Of Broadcast Content Relationship Specialty Start Date End Date Mil Verduzco MD PCP - General 11/14/11
--- OUTSIDE RECORDS SUMMARY | 2025-02-21 15:22 | XMS_ITS | Clinical Summary ---
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 Gender Identity Not on file Sexual Orientation Not on file Obstetrics History Last Filed Vital Signs Vital Sign Reading Time Taken Comments Blood Pressure 131/84 07/17/2023 11:01 AM ASPHALT PAVING SUPERVISOR Pulse 83 07/17/2023 11:01 AM ASPHALT PAVING SUPERVISOR Temperature 35.5 C (95.9 F) 07/17/2023 11:01 AM ASPHALT PAVING SUPERVISOR Respiratory Rate 18 06/08/2023 9:55 AM CDT Oxygen Saturation 96% 07/17/2023 11:01 AM ASPHALT PAVING SUPERVISOR Inhaled Oxygen Concentration - - Weight 60.8 [...] Tdap) 11/04/2018 11/03/2018 Covid-19 Vaccine (4 - 2023- season) 2024 07/31/2021, 12/02/2020, 11/10/2020 Influenza Vaccine (#1) 2025 2, 05/20/2020, 07/01/2019, Additional history exists Pneumococcal vaccine [...] or options for improving home safety. Insurance [facility] CLAIMS OFFICE MEDICARE [employer] MEDICARE SUPPLEMENT Care Teams Gaming Manager Relationship Specialty Start Date End Date Floyd Mcneil MD PCP - General Family Practice 01/30/23
--- OUTSIDE RECORDS SUMMARY | 2025-02-21 15:22 | XMS_ITS | Referral Summary ---
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 Gender Identity Not on file Sexual Orientation Not on file Last Filed Vital Signs Vital Sign Reading Time Taken Comments Blood Pressure 131/84 07/17/2023 11:01 AM TEACHERS' ASSISTANT Pulse 83 07/17/2023 11:01 AM TEACHERS' ASSISTANT Temperature 35.5 C (95.9 F) 07/17/2023 11:01 AM TEACHERS' ASSISTANT Respiratory Rate 18 06/08/2023 9:55 AM CDT Oxygen Saturation 96% 07/17/2023 11:01 AM TEACHERS' ASSISTANT Inhaled Oxygen Concentration - - Weight 60.8 [...] on stairs Contact your local community or [facility] for information on exercise, fall prevention programs, or options for improving home safety. Insurance [employer] CLAIMS OFFICE MEDICARE [employer] MED[employer] SUPPLEMENT Care Teams Director Sales Support Relationship Specialty Start Date End Date Floyd Mcneil MD PCP - General Family Practice 01/30/23
[2025-02-21 18:30] LABS: Hematocrit 37.5 % (37.0-47.0); Hemoglobin 11.7 g/dL (12.0-15.0); Immature Granulocyte Percent A 0.1 % (0-0.5); Lymphocytes Absolute Auto 1.58 K/mm3 (0.9-3.2); Mean Corpuscular HGB Conc 31.2 g/dl (32-36); Mean Corpuscular Hemoglobin 26.4 pg (26-34); Mean Corpuscular Volume 84.7 fl (80-100); Nucleated Red Blood Cells Absolute Auto 0.000 K/mm3 (0.0-0.012); Nucleated Red Blood Cells Perc 0.0 % (0.0-0.2); Platelet Count Result 512 k/mm3 (150-375); Red Blood Count 4.43 M/mm3 (4.2-5.4); White Blood Count 6.9 K/mm3 (4.5-10.0)
[2025-02-21 18:32] LABS: Iron 53 ug/dL (37-170)
[2025-02-21 18:43] LABS: Percent Iron Saturation 13 % (20-50)
[2025-02-21 19:07] LABS: Thyroid Stimulating Hormone Reflex 0.424 uIU/mL (0.465-4.68)
[2025-02-21 19:17] LABS: Ferritin 20.10 ng/mL (11.1-264)
[2025-02-21 19:38] LABS: Vitamin B12 594.0 pg/mL (239-931)
[2025-02-21 19:43] LABS: Hemoglobin A1C 5.8 % (<5.7)
[2025-02-21 20:51] LABS: Free T4 Free Thyroxine Reflex 1.89 ng/dL (0.78-2.19)
[2025-02-22 05:08] LABS: Total Triiodothyronine (T3) 1.11 NG/ML (0.82-1.58)
[2025-02-22 10:11] LABS: Alanine Aminotransferase 16 U/L (6-35); Albumin Level 4.9 g/dL (3.5-5.1); Alkaline Phosphatase 91 U/L (38-126); Anion Gap 16 mmol/L (4-12); Aspartate Amino Transferase 35 U/L (14-36); Bilirubin,Total 0.3 mg/dL (0.2-1.3); Blood Urea Nitrogen 20 mg/dL (7-17); Calcium 9.7 mg/dL (8.4-10.2); Carbon Dioxide 21 mmol/L (22-30); Chloride 99 mmol/L (98-107); Estimated Glomerular Filt Rate > 60; Glucose 99 mg/dL (65-110); Potassium 5.1 mmol/L (3.4-5.0); Sodium 136 mmol/L (137-145); Total Protein 8.3 g/dL (6.3-8.2)
== END 2025-02-21 15:20 | disposition home or self-care (01) ==
LOC: ANHGOSHLAB 15:20
PROVIDERS: PCP Nurse Practitioner Family; Visit Provider Family Medicine
DX: E03.9 Hypothyroidism, unspecified (principal); D64.9 Anemia, unspecified; E55.9 Vitamin D deficiency, unspecified; R73.03 Prediabetes; I10 Essential (primary) hypertension
CPT/HCPCS: 36415; 80053; 82306; 82607; 82728; 82746; 83036; 83540; 83550; 84439; 84443; 84480; 85025

== ENCOUNTER 2025-04-07 10:00 | Outpatient (RCR) | payer MEDICARE, SELFPAY ==
--- NOTE | 2025-01-16 12:21 | OPREHPOC ---
Outpatient Therapy Plan of Care This is a Multidisciplinary Plan of Care that may contain components documented by all disciplines (PT, OT, and ST.) PT Problem 1 PT Problem #1 Knowledge Deficit PT Goal 1 Goal / Goal Update 1. Patient to demonstrate independence with HEP for improved self-reliance of symptom management. Target Visit 10 PT Problem 2 PT Problem #2 Impaired Functional Mobility PT Goal 1 Goal / Goal Update 1. Pt will display ability to complete 2 MWT with rollator to show increased functional mobility. 2. Pt will increase LEFS score by at least 9 points in order to demonstrate the minimal clinically important difference (MCID) in functional improvement. Target Visit 10 PT Problem 3 PT Problem #3 Impaired Range of Motion PT Goal 1 Goal / Goal Update 1. Patient to demonstrate an increase of L knee AROM of 0-120 deg to improve mobility required for gait. Target Visit 10 PT Problem 4 PT Problem #4 Impaired Strength PT Goal 1 Goal / Goal Update 1. Pt will display 5/5 knee flexion and extension strength required for functional mobility and endurance. Target Visit 10
--- NOTE | 2025-01-16 12:21 | PTOPEVAL1 ---
Assessment and note entered by Saw Read PT Evaluation Information Assessment Status Evaluation Diagnosis L knee TKA ICD-10 Condition Codes (PT) Pain in left knee M25.562 Other ICD-10 Condition Codes ( R26.9, G80.9 PT) Onset December 14 Subjective Information Pt states since her surgery her L knee has been improving gradually. Pt states she has been using a wheelchair and front wheeled for mobility. Pt states she has been seen by home health PT and OT. 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 Since surgery she has been limited to household ambulation and walking with caregiver. Reported Pain Level Pain Score 1: Self Report Assessment PT Clinical Summary Patient presents to physical therapy post L TKA on December 14 and posture and gait deficits secondary to cerebral palsy. Patient demonstrates weakness, pain, decreased mobility, abnormal posture, gait deficit, and decreased flexibility that limit their ability to perform activities of daily living and functional movements. Patient will benefit from skilled physical therapy to address the above listed deficits and return to prior level of function. Home exercise program instructed and written handout provided, exercises tolerated well with no adverse effects to note post-session. Patient was educated on importance of adherence to home exercise program. Patient was also educated on anatomy, prognosis, home modalities, and plan of care. Plan of Care Interventions Electrical Stimulation,Gait Training,Hot Pack/Cold Pack,Manual Lymph Drainage,Manual Therapy,Neuro Re-education,Therapeutic Activities,Therapeutic Exercise,Self-Care/Home Management,Other PT Services Indicated Yes Treatment Frequency and 2x per week for 10 visits Duration These treatments will address the objective and functional deficits as defined above. The patient will be advanced safely and appropriately in order for the patient to progress towards his/her prior level of function. Additional exercises will be introduced and as well as a comprehensive home exercise program upon discharge, if needed, ?to ensure carryover of functional gains achieved in the clinic. This treatment plan has been reviewed and agreement upon by the patient.
--- NOTE | 2025-01-27 10:13 | PCPTNOTE ---
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
--- NOTE | 2025-02-08 09:49 | PCPTNOTE ---
Patient's home care chaplain called and states patient cannot make appointment due to being in the hopsital due to white blood cell count and blood pressure concerns.
--- NOTE | 2025-03-03 16:34 | OPREHPOC ---
Outpatient Therapy Plan of Care This is a Multidisciplinary Plan of Care that may contain components documented by all disciplines (PT, OT, and ST.) PT Problem 1 PT Problem #1 Knowledge Deficit PT Goal 1 Goal / Goal Update 1. Patient to demonstrate independence with HEP for improved self-reliance of symptom management. Target Visit 10 Progress Partially Met PT Problem 2 PT Problem #2 Impaired Functional Mobility PT Goal 1 Goal / Goal Update 1. Pt will display ability to complete 2 MWT with rollator to show increased functional mobility. 2. Pt will increase LEFS score by at least 9 points in order to demonstrate the minimal clinically important difference (MCID) in functional improvement. 03/03/25: Needs continued progress on both Target Visit 10 Progress Not Met PT Problem 3 PT Problem #3 Impaired Range of Motion PT Goal 1 Goal / Goal Update 1. Patient to demonstrate an increase of L knee AROM of 0-120 deg to improve mobility required for gait. Target Visit 10 Progress Met PT Problem 4 PT Problem #4 Impaired Strength PT Goal 1 Goal / Goal Update 1. Pt will display 5/5 knee flexion and extension strength required for functional mobility and endurance. Target Visit 10 Progress Partially Met
--- NOTE | 2025-03-03 16:34 | PTOPPROG ---
Assessment and note entered by Jared Childers, PT Evaluation Information Assessment Status Progress Diagnosis L knee TKA ICD-10 Condition Codes (PT) Pain in left knee M25.562 Other ICD-10 Condition Codes ( R26.9, G80.9 PT) Onset December 14 Subjective Information Reports that she was hospitalized due to pneumonia . She was hospitalized for a week. She has since been steadily improving but is still very tight in her ankles and feels deconditioned. She has been trying to stay active in her home and has been walking frequently. Assessment PT Clinical Summary Patient was limited in progress recently due to hospitalization. At this point she is seeing progress but is continuing to be limited in functional strength and mobility. Will benefit from continuation of treatment to progress functional ambulation, strength, and capacity for mobility following hospitalization and TKR. Plan of Care Interventions Electrical Stimulation,Gait Training,Hot Pack/Cold Pack,Manual Lymph Drainage,Manual Therapy,Neuro Re-education,Therapeutic Activities,Therapeutic Exercise,Self-Care/Home Management,Other PT Services Indicated Yes Treatment Frequency and 2x per week for 10 visits Duration These treatments will address the objective and functional deficits as defined above. The patient will be advanced safely and appropriately in order for the patient to progress towards his/her prior level of function. Additional exercises will be introduced and as well as a comprehensive home exercise program upon discharge, if needed, ?to ensure carryover of functional gains achieved in the clinic. This treatment plan has been reviewed and agreement upon by the patient.
--- NOTE | 2025-03-17 10:20 | PCPTNOTE ---
pt called to cancel appt today, stating she is too sore and does not want to push it 2 days in a row
--- NOTE | 2025-03-22 15:20 | PCPTNOTE ---
Pt no called, no showed for todays treatment session.
--- NOTE | 2025-04-07 11:00 | OPREHPOC ---
Outpatient Therapy Plan of Care This is a Multidisciplinary Plan of Care that may contain components documented by all disciplines (PT, OT, and ST.) PT Problem 1 PT Problem #1 Knowledge Deficit PT Goal 1 Goal / Goal Update 1. Patient to demonstrate independence with HEP for improved self-reliance of symptom management. Target Visit 10 Progress Met PT Problem 2 PT Problem #2 Impaired Functional Mobility PT Goal 1 Goal / Goal Update 1. Pt will display ability to complete 2 MWT with rollator to show increased functional mobility. 2. Pt will increase LEFS score by at least 9 points in order to demonstrate the minimal clinically important difference (MCID) in functional improvement. 03/03/25: Needs continued progress on both Target Visit 10 Progress Met PT Problem 3 PT Problem #3 Impaired Range of Motion PT Goal 1 Goal / Goal Update 1. Patient to demonstrate an increase of L knee AROM of 0-120 deg to improve mobility required for gait. Target Visit 10 Progress Met PT Problem 4 PT Problem #4 Impaired Strength PT Goal 1 Goal / Goal Update 1. Pt will display 5/5 knee flexion and extension strength required for functional mobility and endurance. Target Visit 10 Progress Met
--- NOTE | 2025-04-07 11:00 | PTOPDC ---
Assessment and note entered by Jared Childers, PT Evaluation Information Assessment Status Discharge Diagnosis L knee TKA ICD-10 Condition Codes (PT) Pain in left knee M25.562 Other ICD-10 Condition Codes ( R26.9, G80.9 PT) Onset December 14 Subjective Information Reports that overall she feels she is doing well. She is still struggling with her right knee and management of her AFO. Pain is controlled in left knee and does not seem to give her any issues. Requests discharge at this time. Reported Pain Level Pain Score 0: Self Report Pain Score 0: Self Report Assessment PT Clinical Summary Patient met all goals for therapy at this time and is suitable for discharge to [facility]. Patient will be moving to a new assisted living center which has exercise intervention. Plans to continue with exercise program. Plan of Care PT Services Indicated Yes
== END 2025-04-07 15:04 | disposition home or self-care (01) ==
LOC: ANHGOSHPT 10:00
PROVIDERS: PCP Nurse Practitioner Family; Visit Provider Orthopaedic Surgery
DX: Z47.1 Aftercare following joint replacement surgery (principal); R26.9 Unspecified abnormalities of gait and mobility; G80.9 Cerebral palsy, unspecified; Z96.659 Presence of unspecified artificial knee joint
CPT/HCPCS: 97110; 97112; 97116; 97140; 97162; 97530

== ENCOUNTER 2025-06-27 11:10 | Outpatient (CLI) | payer MEDICARE, OTHER, SELFPAY ==
[2025-06-27 13:01] LABS: Hematocrit 43.2 % (37.0-47.0); Hemoglobin 14.2 g/dL (12.0-15.0); Immature Granulocyte Percent A 0.6 % (0-0.5); Lymphocytes Absolute Auto 1.61 K/mm3 (0.9-3.2); Mean Corpuscular HGB Conc 32.9 g/dl (32-36); Mean Corpuscular Hemoglobin 29.7 pg (26-34); Mean Corpuscular Volume 90.4 fl (80-100); Nucleated Red Blood Cells Absolute Auto 0.000 K/mm3 (0.0-0.012); Nucleated Red Blood Cells Perc 0.0 % (0.0-0.2); Platelet Count Result 348 k/mm3 (150-375); Red Blood Count 4.78 M/mm3 (4.2-5.4); White Blood Count 6.9 K/mm3 (4.5-10.0)
[2025-06-27 13:15] LABS: Alanine Aminotransferase 11 U/L (6-35); Albumin Level 4.5 g/dL (3.5-5.1); Alkaline Phosphatase 87 U/L (38-126); Anion Gap 8 mmol/L (4-12); Aspartate Amino Transferase 28 U/L (14-36); Bilirubin,Total 0.5 mg/dL (0.2-1.3); Blood Urea Nitrogen 20 mg/dL (7-17); Calcium 9.3 mg/dL (8.4-10.2); Carbon Dioxide 27 mmol/L (22-30); Chloride 101 mmol/L (98-107); Cholesterol 226 mg/dL (0-200); Estimated Glomerular Filt Rate > 60; Glucose 63 mg/dL (65-110); HDL Direct 71 mg/dL; Sodium 136 mmol/L (137-145); Total Protein 7.6 g/dL (6.3-8.2); Triglycerides 111 mg/dL (<150)
[2025-06-27 13:22] LABS: Potassium 4.3 mmol/L (3.4-5.0)
[2025-06-27 13:36] LABS: Free T4 Free Thyroxine 1.43 ng/dL (0.78-2.19)
[2025-06-27 13:46] LABS: Thyroid Stimulating Hormone 0.788 uIU/mL (0.465-4.680)
== END 2025-06-27 11:11 | disposition home or self-care (01) ==
LOC: ANHGOSHLAB 11:13
PROVIDERS: PCP Nurse Practitioner Family; Visit Provider Nurse Practitioner Family
DX: E78.5 Hyperlipidemia, unspecified (principal); I10 Essential (primary) hypertension; E55.9 Vitamin D deficiency, unspecified; E03.9 Hypothyroidism, unspecified
CPT/HCPCS: 36415; 80053; 80061; 82306; 84439; 84443; 85025

== ENCOUNTER 2025-07-18 13:06 | Outpatient (CLI) | payer MEDICARE, OTHER, SELFPAY ==
--- NOTE | ~2025-07-18 | MM_ITS ---
EXAMINATION: MM screening [facility] BI w jose miguel HISTORY: Screening. TECHNIQUE: Craniocaudal and mediolateral oblique 3-D tomosynthesis images were obtained and synthetic 2-D images were generated. CAD analysis was submitted and interpreted. COMPARISON: 2022 BREAST PARENCHYMAL COMPOSITION: Dense: The breasts are heterogeneously dense FINDINGS: No suspicious masses are seen. There are no suspicious calcifications. No unexplained architectural distortion is seen. There are no skin or nipple abnormalities identified. There is no adenopathy seen on the images submitted. IMPRESSION: No mammographic evidence to suggest malignancy is seen. The patient may return to screening mammography as per ACR guidelines. BI-RADS 1 - Negative. Reviewed, dictated and finalized at location C. H INSPECTOR
== END 2025-07-18 13:07 | disposition home or self-care (01) ==
PROVIDERS: PCP Nurse Practitioner Family; Visit Provider Obstetrics & Gynecology
DX: Z12.31 Encounter for screening mammogram for malignant neoplasm of breast (principal)
CPT/HCPCS: 77063; 77067